=== PATIENT | male | born 1935 | race Caucasian/White ===

== ENCOUNTER 2021-11-08 10:09 | Observation (INO) | payer OTHER ==
--- OUTSIDE RECORDS SUMMARY | 2021-11-08 10:12 | XMS REPORT | Continuity of Care Document ---
:1935 Author Organization [facility] t Address [address] [place] [address] Care Team Providers Name Role Phone [phone] Attending Clinician Unavailable KALANI DAILY Attending Clinician Unavailable [phone] Admitting Clinician Unavailable Problems This patient has no known problems. Allergies, Adverse Reactions, Alerts This patient has no known allergies or adverse reactions. Medications This patient has no known medications. Procedures This patient has no known procedures. Encounters Start End Encounter Admission Attending Care Care Encounter Source Date/Time Date/Time Type Type Clinicians Facility Department ID 2021-10-04 Outpatient 3 [id number] [facility] REF [id number] [facility] 09:47:45 0512 2020-05-24 2020-05-24 Emergency E KAILEY DAILY [facility] 14:08:00 DIGNA Results This patient has no known results.
[2021-11-08 11:22] LABS: SARS-COV-2 RT PCR NEGATIVE (NEGATIVE)
[2021-11-08 12:24] VITALS: BMI 26.3
[2021-11-08] MEDS ORDERED: ACETAMINOPHEN 325 MG TABLET PO PRN (13:00)
[2021-11-08] MEDS ORDERED: POLYETHYL GLY 3350 17 GM/DOSE PO PRN (13:00)
[2021-11-08] MEDS ORDERED: NACHLORIDE 0.45% 1,000 ML IV SCH (13:00)
[2021-11-08] MEDS ORDERED: LOPERAMIDE HCL 2 MG CAPSULE PO PRN (13:00)
[2021-11-08] MEDS ORDERED: ONDANSETRON 4 MG (ODT) TAB PO PRN (13:00)
[2021-11-08] MEDS ORDERED: DIPHENHYDRAMINE 25 MG TAB/CAP PO PRN (13:00)
[2021-11-08] MEDS ORDERED: ONDANSETRON 4 MG/2 ML VIAL IV PRN (13:00)
--- NOTE | 2021-11-08 14:15 | RAD REPORT ---
EXAM DESCRIPTION: RAD - Chest Pa And Lat (2 Views) - 11/08/2021 1:58 pm CLINICAL HISTORY: anemia COMPARISON: None TECHNIQUE: Frontal and lateral views of the chest were obtained. FINDINGS: The lungs are normal volume with right hemidiaphragm elevation. Stranding is seen in the e ach lung base focally more prominent in the medial right middle lobe and posterior aspect of the ling fidel. No large mass or consolidations seen. No significant failure or volume overload. Heart size is normal and central vasculature is within normal limits. No pleural effusion or pneu mothorax seen. No acute bony finding noted. No aortic abnormality. IMPRESSION: Baseline study with focally prominent anterior bilateral lung base opacification and ove rall fibrotic pattern. Focally more prominent anterior lung base findings could be bilateral infiltrate or atelectasis.
[2021-11-08 15:28] LABS: Absolute Lymphocytes (CBC) 1.8 K/uL (0.7-4.9); Lymphocytes % 35.3 % (15.3-44.8); MPV 7.7 fL (7.6-11.3); RBC Red Blood Cell Count 2.08 M/uL (4.33-5.43)
[2021-11-08 15:47] LABS: Hematocrit 17.6 % (39.6-49.0)
[2021-11-08 16:02] LABS: Folic Acid, (Folate) 13.7 ng/mL (3.1-17.5); Transferrin 247 mg/dL (200-360)
[2021-11-08 16:03] LABS: Iron < 10.0 ug/dL (65-175)
[2021-11-08] MEDS ORDERED: NA CHLORIDE 0.9% 250 ML ONE ×2 (18:18→22:48)
[2021-11-08] MEDS ORDERED: QUETIAPINE 25 MG TAB PO SCH (21:00)
[2021-11-08] MEDS ORDERED: DONEPEZIL HCL 5 MG TAB PO SCH (21:00)
[2021-11-08] MEDS: METOPROLOL XL 50 MG TAB PO SCH (23:06)
[2021-11-09 07:17] LABS: Absolute Lymphocytes (CBC) 1.7 K/uL (0.7-4.9); Hematocrit 26.7 % (39.6-49.0); Lymphocytes % 22.8 % (15.3-44.8); MPV 7.4 fL (7.6-11.3); RBC Red Blood Cell Count 3.08 M/uL (4.33-5.43)
[2021-11-09 07:33] LABS: Magnesium 2.6 mg/dL (1.8-2.4); Potassium 4.4 mmol/L (3.5-5.1)
[2021-11-09] MEDS ORDERED: ESCITALOPRAM 20 MG TAB PO SCH (09:00)
[2021-11-09] MEDS: METOPROLOL XL 50 MG TAB PO SCH (10:25)
[2021-11-09] MEDS ORDERED: Ringers Lactate 1,000 ML IV ONE (11:31)
--- NOTE | 2021-11-09 11:32 | EKG ---
Test Date: 2021-11-08 Test Time: 14:29:19 Skein Drier: ARIANNE MEASUREMENT RESULTS: Intervals: Rate: 55 SD: 210 QRSD: 86 QT: 456 QTc: 436 [place]: P: 55 SD: 210 QRS: 67 T: -18 INTERPRETIVE STATEMENTS: Sinus bradycardia with 1st degree AV block Nonspecific ST and T wave abnormality Abnormal ECG No previous ECG available for comparison Electronically Signed On 11-09-21 11:29:12 DENTAL EQUIPMENT REPAIRER by Donald Hernandez
[2021-11-09] MEDS ORDERED: LIDOCAINE 1% MPF 5 ML VIAL ONE (12:20)
[2021-11-09] MEDS ORDERED: propofoL 200 MG/20 ML VIAL IV ONE (12:20)
[2021-11-09] MEDS ORDERED: EPINEPHRINE/PF 1 MG/ML AMP ONE (13:15)
[2021-11-09 13:54] VITALS: O2SAT 96
--- NOTE | 2021-11-09 14:09 | ENDO RPT ---
[address], [address] EGD PROCEDURE REPORT EXAM DATE: 11/09/2021 PATIENT NAME: Brett Love MR#: [id number] BIRTHDATE: 1935 ATTENDING: Jorgito Laboy Dr STATUS: inpatient - [facility] VIDEO GAME TECHNICIAN: Tati Rodriguez RN and Crystal Mayer INDICATIONS: The patient is a 86 yr old Male here for an EGD due to anemia PROCEDURE PERFORMED: EGD with biopsy MEDICATIONS: Per Anesthesia. TOPICAL ANESTHETIC: none CONSENT: The patient understands the risks and benefits of the procedure and understands that these risks include, but are not limited to: sedation, allergic reaction, infection, perforation and/or bleeding. Alternative means of evaluation and treatment include, among others: physical exam, x-rays, and/or surgical intervention. The patient elects to proceed with this endoscopic procedure. DESCRIPTION OF PROCEDURE: During intra-op preparation period all mechanical medical equipment was checked for proper function. Hand hygiene and appropriate measures for infection prevention was taken. Procedure, possible complications, and alternatives including but not limited to the possibility of bleeding, perforation, tear, infection, sepsis, need for surgery, need for blood transfusion, and anesthesia related complications were explained to the patient. After the risks, benefits and alternatives of the procedure were thoroughly explained, Informed consent was verified, confirmed and timeout was successfully executed by the treatment team. The patient was placed in the left lateral position. The patient was anesthetized with topical anesthesia. Through the anesthetized oropharyngeal area, the scope was passed without any difficulty. The EG-[id number] ([id number]) endoscope was introduced through the mouth and advanced to the third portion of the duodenum. Retroflexed views revealed a small hiatal hernia. The gastroscope was then slowly withdrawn and removed. after abrasion with endoscope was found in the lower esophagus. A small hiatal hernia was found. A 1 cm submucosal extrinsic mass was found pressing on the wall of the body of the stomach. Multiple erosions were found in the antrum. Multiple biopsies were obtained and sent to pathology. Duodenitis was found in the bulb of the duodenum. ADVERSE EVENTS: There were no complications. IMPRESSIONS: 1. LA Class C esophagitis with 3 large 6-30 mm serpiginous 2. Small hiatal hernia 3. 1 cm submucosal extrinsic mass pressing on wall of the body of the stomach 4. Multiple (6) erosions in the antrum, s/p gastric biopsies 5. Mild duodenitis in the bulb of the duodenum RECOMMENDATIONS: 1. await biopsy results 2. acid suppression therapy 3. CT abdomen REPEAT EXAM: Jorgito Laboy Dr eSigned: Jorgito Laboy Dr 11/09/2021 2:08 PM cc: Hector Pedroza CPT CODES: ICD9 CODES: PATIENT NAME: Brett Love MR#: [id number]
[2021-11-09 17:40] VITALS: BP 177/79; TEMP 97.7
--- NOTE | 2021-11-09 18:28 | RAD REPORT ---
EXAM DESCRIPTION: CT - Abdomen W/Wo Contrast - 11/09/2021 6:08 pm CLINICAL HISTORY: Abdominal pain COMPARISON: None TECHNIQUE: Computed axial tomography from the diaphragm to the iliac crest was obtained. Oral contra st was given. 100 cc Isovue-[address] scans are performed using dose optimization technique as appropriate and may include automated exposure control or mA/KV adjustment according to patient size. FINDINGS: The evaluation of solid organs and vessels is limited secondary to the lack of IV contrast administration. Small bilateral pleural effusions The liver, spleen, adrenals, pancreas and kidneys appear unremarkable. No ascites is seen. The visualized bowel caliber and wall thickness is normal Small lipoma left lateral abdominal wall Clinical history states extrinsic gastric mass. The superomedial aspect of the spleen abuts the later al gastric fundus. It does appear to slightly extrinsically compresses the stomach. The gallbladder abuts the lateral aspect of the gastric antrum with slight extrinsic compression. IMPRESSION: The superomedial aspect of the spleen abuts the lateral gastric fundus. It does appear m ildly extrinsically compress the stomach. The gallbladder abuts the lateral aspect of the gastric antrum with slight extrinsic compression. No extrinsic gastric mass is seen. Small gastric mass can be missed on CT.
--- NOTE | 2021-11-11 14:14 | CON ---
Date of Consultation: 11/09/2021 Reason For Consultation: Anemia. History Of Present Illness: The patient is an 86-year-old white male with history of early dementia, hypertension, appendectomy, tonsillectomy, vasectomy, coronary artery disease status post cardiac 1 stent, bilateral hand surgeries for contractures. The patient was admitted to the hospital with a he moglobin of 5.7, MCV of 85. The patient denies any blood being seen. Son is at his bedside. Son sa id he noted no blood. No melena, hematochezia, hematemesis, coffee-grounds emesis, hemoptysis, hemat uria, dysuria, polyuria, polydipsia. Past Medical History: Significant for early dementia, hypertension, coronary artery disease, status post cardiac stent x1, bilateral hand surgeries right and left hand due to contractures, appendectomy , vasectomy, and tonsillectomy. Medications: At home Aricept, Toprol, Lexapro, prasugrel, mirtazapine, hydralazine, Zyrtec, Norvasc. Allergies: NKDA. Social History: He is a , 2 children. [facility] at [facility]. No to bacco. Occasional alcohol. Family History: Father from cerebral hemorrhage. Mother of brain cancer and also had stro ke. Review of Systems: The patient has anemia and dementia. He denies any melena, hematochezia, hematemesis, , po lydipsia, hemoptysis, change in bowel habits, diarrhea, constipation, muscle aches, joint aches, back aches, depression, anxiety. No blood seen by the patient or his son. Physical Examination: Vital Signs: Temperature 97 degrees Fahrenheit, on room air. GENERAL: He is elderly male, lying in bed, in no acute distress. HEENT: Normocephalic, atraumatic. Anicteric. Pupils equal, round, and reactive to light. Extraocu lar movements intact. Oropharynx is clear. Neck: Supple. No masses. Respirations: Clear to auscultation bilaterally. Cardiac: Regular rate and rhythm. No gallops or rubs. Abdomen: Positive bowel sounds. Soft, nontender, and nondistended. No palpable mass. Extremities: No clubbing, cyanosis, or edema. 2+ pulses. Neuro: Alert and oriented x2. He is able move all extremities well. Sensation intact to light touc h. Laboratory Data: The patient has a hemoglobin of 5.7, hematocrit of 17.6. After transfusion, the he moglobin is 8.8, hematocrit 27, MCV of 85, platelet count of 421, polys of sodium 139, pot assium 4.4, chloride 107, bicarb 28, BUN of 15, creatinine of 1.03, glucose 88, calcium 8.4, mag 2.6, . He had a negative influenza A and B and negative COVID-19 testing. Impression: 1.Iron deficiency anemia with hemoglobin down to 5.7, MCV of 85; however, he has an iron saturation of 2.9%. Ferritin was not drawn. 2.History of early dementia, hypertension, coronary artery disease, status post cardiac stent x1, ri ght and left hand surgery, appendectomy, tonsillectomy, and vasectomy. Recommendations: 1.Proceed with EGD. Agree with transfusion of packed RBCs and serial H and H and transfuse p.r.n. 2.Inpatient or outpatient colonoscopy. WARD/ANATOLY Voice ID: [id number] Report ID: [id number]
[2021-11-12 04:39] LABS: Albumin, (SPE) 3.4 g/dL (3.8-4.8); Alpha-1-Globulins 0.3 g/dL (0.2-0.3); Alpha-2-Globulins 0.7 g/dL (0.5-0.9); Gamma Globulins 0.5 g/dL (0.8-1.7); INTERPRETATION Consistent with
== END 2021-11-09 19:00 | disposition home or self-care (01) ==
LOC: 2ND 10:09
PROVIDERS: ADMIT Internal Medicine; ATTEND Internal Medicine
PROC: 30233N1 Transfusion of Nonautologous Red Blood Cells into Peripheral Vein, Percutaneous Approach (ICD-10-PCS; principal; 2021-11-08)
PROC: 30233N1 Transfusion of Nonautologous Red Blood Cells into Peripheral Vein, Percutaneous Approach (ICD-10-PCS; 2021-11-09)
PROC: 0DB78ZX Excision of Stomach, Pylorus, Via Natural or Artificial Opening Endoscopic, Diagnostic (ICD-10-PCS; 2021-11-09)
DX: D50.9 Iron deficiency anemia, unspecified (principal); K22.10 Ulcer of esophagus without bleeding; K91.81 Other intraoperative complications of digestive system; Y65.8 Other specified misadventures during surgical and medical care; Y73.8 Miscellaneous gastroenterology and urology devices associated with adverse incidents, not elsewhere classified; Y92.238 Other place in hospital as the place of occurrence of the external cause; K25.9 Gastric ulcer, unspecified as acute or chronic, without hemorrhage or perforation; K29.50 Unspecified chronic gastritis without bleeding; K29.80 Duodenitis without bleeding; K44.9 Diaphragmatic hernia without obstruction or gangrene; R19.09 Other intra-abdominal and pelvic swelling, mass and lump; I10 Essential (primary) hypertension; I25.10 Atherosclerotic heart disease of native coronary artery without angina pectoris; E78.5 Hyperlipidemia, unspecified; F41.8 Other specified anxiety disorders; G30.0 Alzheimer's disease with early onset; F02.80 Dementia in other diseases classified elsewhere, unspecified severity, without behavioral disturbance, psychotic disturbance, mood disturbance, and anxiety; Z79.899 Other long term (current) drug therapy; Z95.5 Presence of coronary angioplasty implant and graft; Z98.52 Vasectomy status; Z20.822 Contact with and (suspected) exposure to COVID-19; Z82.3 Family history of stroke; Z80.8 Family history of malignant neoplasm of other organs or systems
CPT/HCPCS: 36430 ×2; 43239; 93005; 85025 ×2; 80048; 36415 ×2; 86900; 83735; 86850; 88312; 85044; 86901; 88305; 82746; 82607; 83540; 0240U; 84466; 84165; 74170; 71046; Q9967; J2704; G0378 ×3; P9016 ×3; J7120; J7050 ×2; J0171

== ENCOUNTER 2022-06-26 00:56 | Observation (INO) | payer OTHER ==
--- OUTSIDE RECORDS SUMMARY | 2022-06-26 01:00 | XMS REPORT | Continuity of Care Document ---
:1935 Author Organization [facility] t Address [address] [place] [address] Care Team Providers Name Role Phone [phone] Attending Clinician Unavailable Spencer Hernandez Attending Clinician Michael Ritter Jr Attending Clinician Caleb Gross Attending Clinician CALEB GROSS Attending Clinician Unavailable [id number] Admitting Clinician Unavailable Problems Condition Condition Condition Status Onset Resolution Last Treating Co mments Source Name Details Category Date Date Treatment Clinician Date AMS AMS Diagnosis Active 2020-05-24 Mem oria Active 05-24 11:03:00 l 05/24/2020 07:00: Jacky dang [place] [id number] [place] Anxiety Anxiety Problem Active 2021-11-28 Me bernice (finding) (finding) 22:13:27 l Active N[place] Problem 11/28/2021 Medical [facility] Coronary Coronary Problem Active 2021-11-28 Memoria arterioscl arterioscl 22:13:27 l erosis erosis Néstor (disorder) (disorder) Active Problem 11/28/2021 Medical Group,[facility] Hypertensi Hypertens Problem Active 2021-11-28 Memoria ve edin 22:13:27 l disorder, disorder, Herm loc systemic systemic arterial arterial (disorder) (disorder) Active Problem 11/28/2021 Medical Group,[facility] Hypothyroi Hypothyro Problem Active 2021-11-28 Memoria dism idism 22:13:27 l (disorder) (disorder) Hossein rmann Active Problem 11/28/2021 Medical Group,[facility] Insomnia Insomnia Problem Active 2021-11-28 Memoria (disorder) (disorder) 22:13:27 l Active Ayn[place] Problem 11/28/2021 Medical Group,[facility] History of Past Illness Condition Condition Condition Status Onset Resolution Last Treating Co mments Source Name Details Category Date Date Treatment Clinician Date Personal Personal Problem 2020-05-26 2020-05-26 Memoria history of history of 05-24 21:56:01 21:56:01 l other other 17:00: Néstor mental and mental and 00 behavioral behavioral disorders disorders 05/24/2020 05/26/2020 [facility] Disorienta Disorient Problem 2020-05-26 2020-05-26 Memoria hu watson, 05-24 21:56:01 21:56:01 l unspecifie unspecifie 17:00: He lily d d 00 05/24/2020 05/26/2020 [facility] Allergies, Adverse Reactions, Alerts This patient has no known allergies or adverse reactions. Social History Social Habit Start Date Stop Date Quantity Comments Source Social History 2020-05-24 2020-05-24 [facility] Rhea bette 16:13:52 16:13:52 Medications Ordered Filled Start Stop Current Ordering Indication Dosage Frequency Signature Comments Components Source Medication Medication Date Date Medication? Clinician (SIG) Name Name prasugrel 2019-09 Yes 10 mg = 1 Mem oria 10 mg oral 0-06 tab, PO, l tablet 18:38: Daily, # Aynor 00 30 tab, 0 Refill(s) Hydralazine 2019-09 Yes 50 mg = 1 M emoria Hydrochlori 0-06 tab, PO, l de 50 MG 18:38: TID, # 90 Herm loc Oral Tablet 00 tab, 3 Refill(s) metoprolol 2019-09 Yes 50 mg = 1 Me moria tartrate 50 0-06 tab, PO, l mg oral 18:38: BID, # 60 Ernestina nn tablet 00 tab, 0 Refill(s) amLODIPine 2019-09 Yes 5 mg = 1 Mem oria 5 mg oral 0-06 tab, PO, l tablet 18:38: Daily, # N[place]stor 00 30 tab, 0 Refill(s) atorvastati 2019-09 Yes 40 mg = 1 M emoria n 40 mg 0-06 tab, PO, l oral tablet 18:38: Daily, # He rmann 00 90 tab, 3 Refill(s), Pharmacy: [id number], 180.34, cm, 06/13/20 13:12:00 CDT, Height, 78.182, kg, 06/13/20 13:12:00 CDT, Weight levothyroxi 2019-09 Yes 100 Memori a ne 100 mcg 0-06 microgram l (0.1 mg) 18:38: = 1 tab, Ernestina nn oral tablet 00 PO, Daily, # 90 tab, 3 Refill(s), Pharmacy: [id number], 180.34, cm, 06/13/20 13:12:00 CDT, Height, 78.182, kg, 06/13/20 13:12:00 CDT, Weight Hydralazine No 50 mg = 1 M emoria Hydrochlori 9-30 tab, PO, l de 50 MG 19:48: QID, 0 Néstor Oral Tablet 00 Refill(s) Nitroglycer Yes See Memori a in 0.4 MG 9-24 Instructio l Sublingual 17:56: ns, Aynor Tablet 00 DISSOLVE 1 TABLET UNDER THE TONGUE EVERY 5 MINUTES NEEDED FOR CHEST PAIN NOT TO EXCEED 3 DOSES, # 25 tab, 5 Refill(s), Pharmacy: [facility][id number], 180.34, cm, 05/24/20 10:51:00 CDT, Height, 77.6, kg, 05/24/20 10:51:00 C... Saline 2019-0 No Notes: Memoria Flush 0.9% -16 (Same as: l 16:15: BD Néstor 00 Posiflush) Mirtazapine 2019- Yes 30 mg = 2 M emoria 15 MG Oral 9-10 tab, PO, l Tablet 18:27: Bedtime, # Ernestina nn 00 50 tab, 1 Refill(s), Pharmacy: [facility] #[id number], 180.34, cm, 05/11/20 10:37:00 CDT, Height, 77.273, kg, 05/11/20 10:37:00 CDT, Weight Escitalopra 2020-0 Yes 5 mg = 1 Me moria m 5 MG Oral 9-10 tab, PO, l Tablet 18:25: Daily, # Néstor [Lexapro] 00 30 tab, 3 Refill(s), Pharmacy: [facility][id number], 180.34, cm, 05/11/20 10:37:00 CDT, Height, 77.273, kg, 05/11/20 10:37:00 CDT, Weight amLODIPine 2020-0 Yes 5 mg = 1 Mem oria 5 mg oral 9-03 tab, PO, l tablet 15:27: BID, 0 Néstor 00 Refill(s) Aspirin 81 2020-0 Yes 81 mg = 1 Me moria MG Enteric 9-03 tab, PO, l Coated 15:27: Daily, # N[place] Tablet 00 90 tab, 3 Refill(s) atorvastati 2020-0 Yes 40 mg = 1 M emoria n 40 mg 9-03 tab, PO, l oral tablet 15:27: Daily, 0 He rmann 00 Refill(s) PanOxyl 2020-0 Yes TOP, BID, Memor ia Maximum 9-03 0 l Strength 15:27: Refill(s) Herm loc Foaming 00 Acne Wash Zyrtec 2020-0 Yes Daily, 0 Memoria 9-03 Refill(s) l 15:27: N[place]st[place] 00 donepezil 5 2020-0 Yes 5 mg = 1 Me moria mg oral 9-03 tab, PO, l tablet 15:27: Bedtime, 0 Ernestina nn 00 Refill(s) Chondroitin 2020-0 Yes PO, Daily, Memoria -Glucosamin 9-03 0 l e 15:27: Refill(s) [place] 00 Hydralazine 2020-0 Yes 100 mg = 1 Memoria Hydrochlori 9-03 tab, PO, l de 100 MG 15:27: TID, # 90 Her almendarez Oral Tablet 00 tab, 3 Refill(s) levothyroxi 2020-0 Yes 100 Memori a ne 100 mcg 9-03 microgram l (0.1 mg) 15:27: = 1 tab, Ernestina nn oral tablet 00 PO, Daily, 0 Refill(s) lisinopril 2020-0 Yes 40 mg = 1 Me moria 40 mg oral -03 tab, PO, l tablet 15:27: Daily, 0 Nsétor 00 Refill(s) melatonin 5 2020-0 Yes 5 mg = 1 Me moria mg oral -03 tab, PO, l tablet 15:27: Bedtime, [place] 00 PRN for insomnia, # 60 tab, 0 Refill(s) metoprolol 2020-0 Yes 50 mg = 1 Me moria tartrate 50 - tab, PO, l mg oral 15:27: BID, 0 Né[place] tablet 00 Refill(s) Omeprazole 2020-0 Yes PO, Daily, M emoria 05-11 0 l 15:27: Refill(s) N[place] 00 prasugrel 2020-0 Yes 10 mg = 1 Mem oria 10 mg oral 05-11 tab, PO, l tablet 15:27: Daily, 0 N[place] 00 Refill(s) prazosin 2 2020-0 Yes 2 mg = 1 Mem oria mg oral 05-11 cap, PO, l capsule 15:27: TID, 0 [place] 00 Refill(s) spironolact 2020-0 Yes 50 mg = 1 M emoria one 50 mg 05-11 tab, PO, l oral tablet 15:27: Daily, 0 He rmann 00 Refill(s) vortioxetin 2020-0 Yes 20 mg = 1 M emoria e 20 mg 05-11 tab, PO, l oral tablet 15:27: Daily, 0 He rmann 00 Refill(s) Diclofenac 2020-0 Yes 2 gm, TOP, M emoria Sodium 0.01 05-11 QID, 0 l MG/MG 15:27: Refill(s) [place] Topical Gel 00 Lorazepam 1 2020-0 Yes 1 mg = 1 Me moria MG Oral 05-11 tab, PO, l Tablet 15:27: TID, 0 N[place] 00 Refill(s) Nitroglycer 2020-0 Yes 0.4 mg = 1 Memoria in 0.4 MG 05-11 tab, SL, l Sublingual 15:27: Q5Min, 0 Her almendarez Tablet 00 Refill(s) Vital Signs Vital Name Observation Time Observation Value Comments Source Systolic (mm Hg) 2020-07-11 19:29:00 Pee rial [place] Diastolic (mm Hg) 2020-07-11 19:29:00 Mem orial [place] Heart Rate 2020-07-11 19:29:00 [facility] [place] Temperature Oral (F) 2020-07-11 19:29:00 98.1 F Memorial [place] Height 2020-07-11 19:29:00 180.34 cm Memorial [place] Weight 2020-07-11 19:29:00 [facility] [place] BMI Calculated 2020-07-11 19:29:00 Memori al [place] Systolic (mm Hg) 2020-06-13 18:00:00 Pee rial [place] Diastolic (mm Hg) 2020-06-13 18:00:00 Mem orial [place] Heart Rate 2020-06-13 18:00:00 [facility] [place] Temperature Oral (F) 2020-06-13 18:00:00 98.6 F Memorial [place] Height 2020-06-13 18:00:00 180.34 cm Memorial [place] Weight 2020-06-13 18:00:00 [facility] [place] BMI Calculated 2020-06-13 18:00:00 Memori al [place] Respitory Rate 2020-05-24 18:54:00 Memori al [place] Systolic (mm Hg) 2020-05-24 18:54:00 Pee rial [place] Diastolic (mm Hg) 2020-05-24 18:54:00 Mem orial [place] Temperature Oral (F) 2020-05-24 18:54:00 98.3 F Memorial [place] Respitory Rate 2020-05-24 18:00:00 Memori al [place] Systolic (mm Hg) 2020-05-24 18:00:00 Pee rial [place] Diastolic (mm Hg) 2020-05-24 18:00:00 Mem orial [place] Respitory Rate 2020-05-24 16:52:00 Memori al [place] Systolic (mm Hg) 2020-05-24 16:52:00 Pee rial [place] Diastolic (mm Hg) 2020-05-24 16:52:00 Mem orial [place] Heart Rate 2020-05-24 16:03:00 [facility] [place] Height 2020-05-24 15:47:00 180.34 cm Memorial [place] BMI Calculated 2020-05-24 15:47:00 Memori al [place] Weight 2020-05-24 15:47:00 Memorial [place] Heart Rate 2020-05-24 15:47:00 [facility] [place] Temperature Oral (F) 2020-05-24 15:47:00 98.2 F [facility] [place] Systolic (mm Hg) 2020-05-11 15:25:00 Pee craft [place] Diastolic (mm Hg) 2020-05-11 15:25:00 Mem burt [place] Heart Rate 2020-05-11 15:25:00 [facility] [place] Temperature Oral (F) 2020-05-11 15:25:00 98.0 F Memorial [place] Height 2020-05-11 15:25:00 180.34 cm Memorial [place] Weight 2020-05-11 15:25:00 [facility] [place] BMI Calculated 2020-05-11 15:25:00 Deandra gabriel [place] Procedures Procedure Date / Time Performed Performing Clinician Edu pendleton PCI - Percutaneous 2020-01-16 05:00:00 [facility] Ayn[place] coronary intervention Encounters Start End Encounter Admission Attending Care Care Encounter Source Date/Time Date/Time Type Type Clinicians Facility Department ID 2021-10-04 Outpatient 3 [id number] ENCTY REF [id number] ENCTY 09:47:45 0512 2021-11-26 2021-11-26 Ambulatory nullFlavo MNA [id number] Memoria 19:45:00 19:45:00 Pre-Reg r Neurology 04 l Anthony Néstor 2021-11-26 2021-11-26 Outpatient MHIE MHIE [id number] Memoria 14:45:00 14:45:00 04 abby A[place] 2021-11-26 2021-11-26 Outpatient MARCIN HernandezSCHALEKS [id number] 14:45:00 14:45:00 Spencer 04 Jorgito 2020-07-11 2020-07-12 Outpatient nullFlavo [facility] [id number] Memoria 19:30:00 05:59:59 r Primary 03 abby [facility] 2020-07-11 2020-07-11 Outpatient ANDRAE Ritter MG [id number] 13:30:00 23:59:59 Michael Reid 2020-07-11 2020-07-11 Outpatient MHIE MHIE [id number] Memoria 13:30:00 13:30:00 03 abby Palm 2020-06-13 2020-06-14 Outpatient nullFlavo MHMG [id number] Memoria 18:30:00 04:59:59 r Primary 02 [facility] 2020-06-13 2020-06-13 Outpatient Riya, MHMG MHMG [id number] 13:30:00 23:59:59 Michael Julio 2020-06-13 2020-06-13 Outpatient MHIE MHIE [id number] Memoria 13:30:00 13:30:00 02 [facility] 2020-06-07 2020-06-09 Phone nullFlavo MHMG [id number] Memoria 19:42:51 04:59:59 Message r Primary 01 [facility] 2020-06-07 2020-06-08 Outpatient MHMG MHMG [id number] 14:42:51 23:59:59 2020-06-01 2020-06-03 Phone nullFlavo MHMG [id number] Memoria 15:04:04 04:59:59 Message r Primary 00 [facility] 2020-06-01 2020-06-02 Outpatient MHMG MHMG [id number] 10:04:04 23:59:59 00 2020-05-24 2020-05-24 Emergency [facility] [id number] Memoria 15:46:48 19:08:[address] 2020-05-24 2020-05-24 Outpatient Renato [id number] 10:46:48 14:08:00 Caleb [id number] Chin [id number] 2020-05-24 2020-05-24 Emergency E RENATO, MHCY MHCY [id number] MHCY 10:46:00 14:08:00 CALEB 2020-05-18 2020-05-19 [place] [id number] Memoria 18:00:00 04:59:59 r Primary 01 [facility] 2020-05-18 2020-05-18 Outpatient Riya, MHMG MG [id number] 13:00:00 23:59:59 Michael Sumanth 2020-05-18 2020-05-18 Outpatient MHIE MHIE [id number] Memoria 13:00:00 13:00:00 01 [facility] 2020-05-11 2020-05-12 Outpatient nullFlavo [facility] [id number] Memoria 15:30:00 04:59:59 r Primary 00 l Neda [facility] 2020-05-11 2020-05-11 Outpatient Riya [facility] [id number] 10:30:00 23:59:59 Michael Watts 2020-05-11 2020-05-11 Outpatient [facility] [id number] Memoria 10:30:00 10:30:00 00 abby Palm Results Test Description Test Time Test Comments Results Result Comments Source URINE AND STOOL 2020-05-24 17:53:00 Test Item Value Reference Range Interpretation Comme nts UA Color (test code = UA Color) Yellow *NA*(05/24/20 12:53 PM) [facility] AND [id number] 17:53:00 Test Item Value Reference Range Interpretation Comments UA Turbidity (test code = Clear (05/24/20 12:53 UA Turbidity) PM) [facility] AND [id number] 17:53:00 Test Item Value Reference Range Interpretation Comments UA Spec Grav (test *NA*(05/24/20 12:53 PM) code = UA Spec Grav) [facility] AND [id number] 17:53:00 Test Item Value Reference Range Interpretation Comments UA pH (test code = UA pH) 7.0 1 5.0-8.0 [facility] AND [id number] 17:53:00 Test Item Value Reference Range Interpretation Comments UA Protein (test code Negative (05/24/20 12:53 = UA Protein) PM) [facility] AND [id number] 17:53:00 Test Item Value Reference Range Interpretation Comments UA Glucose (test code Negative (05/24/20 12:53 = UA Glucose) PM) [facility] AND [id number] 17:53:00 Test Item Value Reference Range Interpretation Comments UA Ketones (test code Negative *NA*(05/24/20 = UA Ketones) 12:53 PM) [facility] AND [id number] 17:53:00 Test Item Value Reference Range Interpretation Comments UA Bili (test code = Negative *NA*(05/24/20 UA Bili) 12:53 PM) [facility] AND [id number] 17:53:00 Test Item Value Reference Range Interpretation Comments UA Blood (test code = Negative (05/24/20 12:53 UA Blood) PM) [facility] AND [id number] 17:53:00 Test Item Value Reference Range Interpretation Comments UA Urobilinogen (test code = UA 0.2 0.1-1.0 Urobilinogen) [facility] AND [id number] 17:53:00 Test Item Value Reference Range Interpretation Comments UA Nitrite (test code Negative (05/24/20 12:53 = UA Nitrite) PM) [facility] AND [id number] 17:53:00 Test Item Value Reference Range Interpretation Comments UA Leuk Est (test Negative (05/24/20 12:53 code = UA Leuk Est) PM) [facility] AND [id number] 17:53:00 Test Item Value Reference Range Interpretation Comments UA Sq Epi (test code = UA Sq Epi) Few /LPF [facility] AND [id number] 17:53:00 Test Item Value Reference Range Interpretation Comments UA WBC (test code = UA WBC) 0-2 /HPF [facility] AND [id number] 17:53:00 Test Item Value Reference Range Interpretation Comments UA RBC (test code = 0-2 /HPF See_Comment [Automa rodriguez message] The UA RBC) system which ge nerated this result tra nsmitted reference range : <=2. The reference range was not used to interpr et this result as obed l/abnormal. [facility] AND [id number] 17:53:00 Test Item Value Reference Range Interpretation Comments UA Bacteria (test code = UA Few /HPF Bacteria) [id number] 16:28:00 Test Item Value Reference Range Interpretation Comments Hgb (test code = Hgb) 13.1 14.0-18.0 [id number] 16:28:00 Test Item Value Reference Range Interpretation Comments Hct (test code = Hct) 38.7 42.0-54.0 [facility] Ste[id number] 16:28:00 Test Item Value Reference Range Interpretation Comments MCV (test code = MCV) 89.7 80.0-94.0 [facility] Ste[id number] 16:28:00 Test Item Value Reference Range Interpretation Comments MCH (test code = MCH) 30.3 pg 27.0-31.0 [facility] Step[id number] 16:28:00 Test Item Value Reference Range Interpretation Comments MCHC (test code = MCHC) 33.7 32.0-36.0 [facility] Ste[id number] 16:28:00 Test Item Value Reference Range Interpretation Comments RDW (test code = RDW) 14.5 11.5-14.5 [place] [id number] 16:28:00 Test Item Value Reference Range Interpretation Comments Platelet (test code = Platelet) 284 133-450 [facility] Steph[id number] 16:28:00 Test Item Value Reference Range Interpretation Comments MPV (test code = MPV) 8.3 7.4-10.4 [facility] Ste[id number] 16:28:00 Test Item Value Reference Range Interpretation Comments Segs (test code = Segs) 67.9 45.0-75.0 [facility] Stephen[id number] 16:28:00 Test Item Value Reference Range Interpretation Comments Lymphocytes (test code = Lymphocytes) 20.1 20.0-40.0 [facility] Steph[id number] 16:28:00 Test Item Value Reference Range Interpretation Comments Monocytes (test code = Monocytes) 9.3 2.0-12.0 [facility] Ste[id number] 16:28:00 Test Item Value Reference Range Interpretation Comments Eosinophils (test code = 2.1 See_Comment [A utomated message] The Eosinophils) system which ge nerated this result tra nsmitted reference range : <=4.0. The reference r cecy was not used to int erpret this result as normal/abnormal . [id number] 16:28:00 Test Item Value Reference Range Interpretation Comments Basophils (test code = 0.6 See_Comment [Aut omated message] The Basophils) system which ge nerated this result tra nsmitted reference range : <=1.0. The reference r cecy was not used to int erpret this result as normal/abnormal . [facility] Step[id number] 16:28:00 Test Item Value Reference Range Interpretation Comments Neutrophils # (test code = Neutrophils 7.2 1.5-8.1 #) [id number] 16:28:00 Test Item Value Reference Range Interpretation Comments Lymphocytes # (test code = Lymphocytes 2.1 1.0-5.5 #) [id number] 16:28:00 Test Item Value Reference Range Interpretation Comments Monocytes # (test code 1.0 See_Comment [Aut omated message] The = Monocytes #) system which generated this result tra nsmitted reference range : <=0.8. The reference r cecy was not used to int erpret this result as normal/abnormal . [facility] [id number] 16:28:00 Test Item Value Reference Range Interpretation Comments Eosinophils # (test code 0.2 See_Comment [A utomated message] The = Eosinophils #) system whic h generated this result tra nsmitted reference range : <=0.5. The reference r cecy was not used to int erpret this result as normal/abnormal . [facility] [id number] 16:28:00 Test Item Value Reference Range Interpretation Comments Basophils # (test code 0.1 See_Comment [Aut omated message] The = Basophils #) system which generated this result tra nsmitted reference range : <=0.2. The reference r cecy was not used to int erpret this result as normal/abnormal . [facility] HospitalCARDIAC [id number] 16:28:00 Test Item Value Reference Range Interpretation Comments Troponin-I (test code no gt See_Comment [Auto mated message] The = Troponin-I) system which g enerated this result transmit rodriguez reference range : <=0.40. The reference r cecy was not used to interpr et this result as obed l/abnormal. [facility] StationSp[facility] [id number] 16:28:00 Test Item Value Reference Range Interpretation Comments Glucose Lvl (test code = Glucose Lvl) 122 70-[address] [facility] [id number] 16:28:00 Test Item Value Reference Range Interpretation Comments BUN (test code = BUN) 25 7-[address] [facility] [id number] 16:28:00 Test Item Value Reference Range Interpretation Comments Creatinine Lvl (test code = Creatinine 1.30 0.50-1.40 Lvl) [facility] StationLoxysoft GroupFORMERLY MORE[facility] MEM[facility] [id number] 16:28:00 Test Item Value Reference Range Interpretation Comments Sodium Lvl (test code = Sodium Lvl) 135 135-145 [facility]2020-09-16 16:28:00 Test Item Value Reference Range Interpretation Comments Potassium Lvl (test code = Potassium 3.4 3.5-5.1 Lvl) [facility]2020-09-16 16:28:00 Test Item Value Reference Range Interpretation Comments Chloride Lvl (test code = Chloride Lvl) 99 95-109 [facility]2020-09-16 16:28:00 Test Item Value Reference Range Interpretation Comments CO2 (test code = CO2) 28 24-32 [facility]2020-09-16 16:28:00 Test Item Value Reference Range Interpretation Comments Calcium Lvl (test code = Calcium Lvl) 8.9 8.5-10.5 [facility]2020-09-16 16:28:00 Test Item Value Reference Range Interpretation Comments Total Protein (test code = Total 7.1 6.4-8.4 Protein) [facility]2020-09-16 16:28:00 Test Item Value Reference Range Interpretation Comments Albumin Lvl (test code = Albumin Lvl) 3.9 3.5-5.0 [facility] StationLoxysoft GroupFORMERLY [facility] [id number] 16:28:00 Test Item Value Reference Range Interpretation Comments ALANINE AMINOTRANSFERASE 16 See_Comment [A utomated message] (test code = ALANINE The sys tem which AMINOTRANSFERASE) generated this result transmitted ref erence range: <=65. Th e reference range was not used to int erpret this result as normal/abnormal . [facility] [id number] 16:28:00 Test Item Value Reference Range Interpretation Comments ASPARTATE TRANSAMINASE 14 See_Comment [Aut omated message] (test code = ASPARTATE The s ystem which TRANSAMINASE) generated this result transmitted ref erence range: <=37. Th e reference range was not used to interpr et this result as normal/abnormal . [facility] StationSp[facility] [id number] 16:28:00 Test Item Value Reference Range Interpretation Comments Alk Phos (test code = Alk Phos) 61 39-136 [facility]2020-09-16 16:28:00 Test Item Value Reference Range Interpretation Comments Bili Total (test code = Bili Total) 0.3 0.2-1.3 [facility]2020-09-16 16:28:00 Test Item Value Reference Range Interpretation Comments AGAP (test code = AGAP) 11.4 10.0-20.0 [facility]2020-09-16 16:28:00 Test Item Value Reference Range Interpretation Comments B/C Ratio (test code = B/C Ratio) 19 1 6-25 [facility]2020-09-16 16:28:00 Test Item Value Reference Range Interpretation Comments Globulin (test code = Globulin) 3.2 2.7-4.2 [facility]2020-09-16 16:28:00 Test Item Value Reference Range Interpretation Comments A/G Ratio (test code = A/G Ratio) 1.2 1 0.7-1.6 [facility]2020-09-16 16:28:00 Test Item Value Reference Range Interpretation Comments eGFR (test code = eGFR) 50 [facility]2020-09-16 16:28:00 Test Item Value Reference Range Interpretation Comments Ammonia (test code = Ammonia) 19.0 [place] [facility]villeCrnlnchLZMTJTEEHH0589-77-65 16:28:00 Test Item Value Reference Range Interpretation Comments WBC X 10x3 (test code = WBC X 10x3) 10.6 3.7-10.4 [facility]villeAajlakjNEISWMZCIH6334-43-94 16:28:00 Test Item Value Reference Range Interpretation Comments RBC X 10x6 (test code = RBC X 10x6) 4.32 4.70-6.10 [facility]2020-09-03 16:45:00 Test Item Value Reference Range Interpretation Comments Vitamin B12 Lvl (test code = Vitamin 2247 [id number] B12 Lvl) [facility]2020-09-03 16:45:00 Test Item Value Reference Range Interpretation Comments Glucose Lvl (test code = Glucose Lvl) 90 65-99 [facility]2020-09-03 16:45:00 Test Item Value Reference Range Interpretation Comments BUN (test code = BUN) 25 7-25 [facility]2020-09-03 16:45:00 Test Item Value Reference Range Interpretation Comments Creatinine Lvl (test code = Creatinine 1.15 0.70-1.11 Lvl) [facility]2020-09-03 16:45:00 Test Item Value Reference Range Interpretation Comments eGFR NON-AFR. SAMMARINESE (test code = 59 eGFR NON-AFR. SAMMARINESE) [facility]2020-09-03 16:45:00 Test Item Value Reference Range Interpretation Comments eGFR (test code = eGFR 68 ) [facility]2020-09-03 16:45:00 Test Item Value Reference Range Interpretation Comments B/C Ratio (test code = B/C Ratio) 22 6-22 [place] [id number] 16:45:00 Test Item Value Reference Range Interpretation Comments Sodium Lvl (test code = Sodium Lvl) 136 135-146 [place] [id number] 16:45:00 Test Item Value Reference Range Interpretation Comments Potassium Lvl (test code = Potassium 4.6 3.5-5.3 Lvl) [facility]2020-09-03 16:45:00 Test Item Value Reference Range Interpretation Comments Chloride Lvl (test code = Chloride Lvl) 97 98-110 [place] [id number] 16:45:00 Test Item Value Reference Range Interpretation Comments CO2 (test code = CO2) 30 20-32 [facility]2020-09-03 16:45:00 Test Item Value Reference Range Interpretation Comments Calcium Lvl (test code = Calcium Lvl) 10.0 8.6-10.3 [place] [id number] 16:45:00 Test Item Value Reference Range Interpretation Comments Total Protein (test code = Total 7.3 6.1-8.1 Protein) [place] 775080-09-03 16:45:00 Test Item Value Reference Range Interpretation Comments Albumin Lvl (test code = Albumin Lvl) 4.6 3.6-5.1 [place] 775080-09-03 16:45:00 Test Item Value Reference Range Interpretation Comments Globulin (test code = Globulin) 2.7 1.9-3.7 [place] 775080-09-03 16:45:00 Test Item Value Reference Range Interpretation Comments A/G Ratio (test code = A/G Ratio) 1.7 1.0-2.5 [facility]2020-09-03 16:45:00 Test Item Value Reference Range Interpretation Comments Bili Total (test code = Bili Total) 0.4 0.2-1.2 [facility]2020-09-03 16:45:00 Test Item Value Reference Range Interpretation Comments Alk Phos (test code = Alk Phos) 60 35-144 [facility]2020-09-03 16:45:00 Test Item Value Reference Range Interpretation Comments ASPARTATE TRANSAMINASE (test code = 12 10-35 ASPARTATE TRANSAMINASE) [facility]2020-09-03 16:45:00 Test Item Value Reference Range Interpretation Comments ALANINE AMINOTRANSFERASE (test code = 7 9-46 ALANINE AMINOTRANSFERASE) [place] [address]-09-03 16:45:00 Test Item Value Reference Range Interpretation Comments WBC X 10x3 (test code = WBC X 10x3) 6.9 3.8-10.8 [place] [address]-09-03 16:45:00 Test Item Value Reference Range Interpretation Comments RBC X 10x6 (test code = RBC X 10x6) 4.41 4.20-5.80 [place] [address]-09-03 16:45:00 Test Item Value Reference Range Interpretation Comments Hgb (test code = Hgb) 13.5 13.2-17.1 [place] [address]-09-03 16:45:00 Test Item Value Reference Range Interpretation Comments Hct (test code = Hct) 40.8 38.5-50.0 [place] [address]-09-03 16:45:00 Test Item Value Reference Range Interpretation Comments MCV (test code = MCV) 92.5 80.0-100.0 [place] [address]-09-03 16:45:00 Test Item Value Reference Range Interpretation Comments MCH (test code = MCH) 30.6 pg 27.0-33.0 [place] [address]-09-03 16:45:00 Test Item Value Reference Range Interpretation Comments MCHC (test code = MCHC) 33.1 32.0-36.0 [place] [address]-09-03 16:45:00 Test Item Value Reference Range Interpretation Comments RDW (test code = RDW) 13.2 11.0-15.0 [facility]villeTapqldsZSNVRUCASM7008-49-26 16:45:00 Test Item Value Reference Range Interpretation Comments Platelet (test code = Platelet) 324 140-400 [facility]villeRaeexcqFSTWRNEQYU8538-23-58 16:45:00 Test Item Value Reference Range Interpretation Comments MPV (test code = MPV) 10.7 7.5-12.5 [facility]villeUfaddflTVLWDLTAQE6858-64-55 16:45:00 Test Item Value Reference Range Interpretation Comments Neutrophils # (test code = Neutrophils 2753 2479-0575 #) [facility]pukBIZONXOUPZ6833-41-99 16:45:00 Test Item Value Reference Range Interpretation Comments Lymphocytes # (test code = Lymphocytes 3140 850-3900 #) [facility]MqpwbfzYCZOBKZFGK1313-91-45 16:45:00 Test Item Value Reference Range Interpretation Comments Monocytes # (test code = Monocytes #) 683 200-950 [facility]villeEvbtjadVMHRKKUWQW0338-47-25 16:45:00 Test Item Value Reference Range Interpretation Comments Eosinophils # (test code = Eosinophils 262 15-500 #) [facility]villeTatbgylLBVZUTWETX9662-99-76 16:45:00 Test Item Value Reference Range Interpretation Comments Basophils # (test code 62 See_Comment [Aut omated message] The = Basophils #) system which generated this result tra nsmitted reference range : <=200. The reference r cecy was not used to int erpret this result as normal/abnormal . [facility]villeKleipifXMLJOMPVGW3275-84-91 16:45:00 Test Item Value Reference Range Interpretation Comments Segs (test code = Segs) 39.9 [facility]villeLhkeieiPWLFFOTHUJ2468-99-96 16:45:00 Test Item Value Reference Range Interpretation Comments Lymphocytes (test code = Lymphocytes) 45.5 [facility] HospitalEhczepyNKFSAZBWQI2998-96-80 16:45:00 Test Item Value Reference Range Interpretation Comments Monocytes (test code = Monocytes) 9.9 [facility]villeMjyrrjnKZTQJLNFGX3351-82-85 16:45:00 Test Item Value Reference Range Interpretation Comments Eosinophils (test code = Eosinophils) 3.8 [facility] HospitalUfyvrwyIRJOAIRUJR0584-31-92 16:45:00 Test Item Value Reference Range Interpretation Comments Basophils (test code = Basophils) 0.[address] [facility]61 16:45:00 Test Item Value Reference Range Interpretation Comments Chol (test code = Chol) 197 [facility] CampusRyoxnnoAEUPHG3535-78-26 16:45:00 Test Item Value Reference Range Interpretation Comments HDL (test code = HDL) 49 [facility] CampusUdaovktTQUPTD5080-64-53 16:45:00 Test Item Value Reference Range Interpretation Comments Trig (test code = Trig) 161 [facility] CampusAeolcuxVWHXHN2593-29-22 16:45:00 Test Item Value Reference Range Interpretation Comments LDL (Calculated) (test code = LDL 120 (Calculated)) [facility] CampusFrsapwjPABADV9656-95-68 16:45:00 Test Item Value Reference Range Interpretation Comments CHD Risk (test code = CHD Risk) 4.0 [facility] CampusYhhxniwWTFPYE9864-05-91 16:45:00 Test Item Value Reference Range Interpretation Comments Non HDL Chol (test code = Non HDL Chol) [address] [facility]
[2022-06-26 01:41] LABS: Absolute Lymphocytes (CBC) 2.2 K/uL (0.7-4.9); Hematocrit 38.4 % (39.6-49.0); MPV 8.6 fL (7.6-11.3); RBC Red Blood Cell Count 4.37 M/uL (4.33-5.43)
[2022-06-26 01:48] LABS: Protime INR 0.96
[2022-06-26 01:54] LABS: SARS-CoV-2 Antigen Rapid Res Negative (Negative)
[2022-06-26] MEDS ORDERED: NA CHLORIDE 0.9% 1,000 ML ONE (01:55)
[2022-06-26 01:58] LABS: Potassium 3.9 mmol/L (3.5-5.1); Troponin High Sensitivity 10.3 pg/mL (<58.9)
[2022-06-26 02:07] LABS: Urine Blood Negative (Negative); Urine Glucose Negative (Negative); Urine Protein Trace (Negative); Urine Specific Gravity 1.025 (1.005-1.030); Urine pH 5.5 (5.0-7.0)
[2022-06-26 02:32] LABS: Urine Bacteria <20 /HPF (<20); Urine Mucus Slight /HPF (None Seen); Urine RBC <5 /HPF (None Seen)
--- NOTE | 2022-06-26 02:42 | ER ---
Nurse's Notes [facility] Name: Brett Love Age: 87 yrs Sex: Male : 1935 Arrival Date: 06/26/2022 Time: 00:57 Bed 6 Private MD: Diagnosis: Altered mental status, unspecified;Dehydration Presentation: 06/26 00:55 Chief complaint: Chief complaint: EMS states: Pt was seen by his son at 8 PM last night kd3 at [facility]. The son reported that the patient had called him around midnight complaining that someone was breaking into the car, but the patient hadn't had access to a vehicle in a long time. The son was concerned for a possibility of a stroke due to slurred speech and inter minted confusion. On arrival pt was a\T\o x 3, with a steady gait, equal smile and no arm drift. it was discovered that the pt had a alodize machine operator in place and the patient had called his son with the alodize machine operator in place, causing slurred speech. 00:55 Method Of Arrival: EMS: [facility] kd3 00:55 Coronavirus screen: Vaccine status: Patient reports receiving the 2nd dose of the covid kd3 vaccine. Ebola Screen: No symptoms or risks identified at this time. Initial Sepsis Screen: Does the patient meet any 2 criteria? No. Patient's initial sepsis screen is negative. Does the patient have a suspected source of infection? No. Patient's initial sepsis screen is negative. Risk Assessment: Do you want to hurt yourself or someone else? Patient reports no desire to harm self or others. Onset of symptoms was June 26, 2022. 00:55 Acuity: FAITH 3 kd3 Triage Assessment: 00:55 General: Appears in no apparent distress. Behavior is calm, cooperative. kd3 00:55 Pain: Denies pain. Neuro: Level of Consciousness is awake, alert, obeys commands, kd3 Oriented to person, place, time, situation, Financial Sales Professional are equal bilaterally Moves all extremities. Full function Gait is steady, Speech is normal, Facial symmetry appears normal, Pupils are PERRLA, Intact. Historical: - Allergies: 01:41 No Known Allergies; kd3 - Immunization history:: Adult Immunizations up to date. - Social history:: Smoking status: unknown. - Family history:: not pertinent. - Hospitalizations: : No recent hospitalization is reported. Screenin:34 Abuse screen: Denies threats or abuse. Denies injuries from another. Nutritional kd3 screening: No deficits noted. Tuberculosis screening: No symptoms or risk factors identified. Fall Risk None identified. IV access (20 points). 02:11 Patient has been NPO before screening. The patient is alert, able to follow commands. kd3 The patient does not exhibit slurred or garbled speech The patient is not exhibiting difficulty speaking. The patient does not exhibit difficulty understanding words. The patient is able to swallow own secretions with no drooling or need for suction. Patient tolerated one teaspoon of water. No drooling, immediate coughing, gurgling, or clearing of the throat was noted. The patient tolerated 90mL of water. No drooling, immediate coughing, gurgling, or clearing of the throat was noted. The patient passed the bedside swallow screening. Oral medications may be given as ordered. Contact Physician for further diet orders. Provider notified of bedside swallow screening results: Arcenio Hankins MD. Assessment: 01:43 Reassessment: Patient and/or family updated on plan of care and expected duration. Pain kd3 level reassessed. Patient is alert, oriented x 3, equal unlabored respirations, skin warm/dry/pink. Patient denies pain at this time. General: Appears in no apparent distress. Behavior is calm, cooperative. Pain: Denies pain. Neuro: Level of Consciousness is awake, alert, obeys commands, Oriented to person, place, time, situation, Financial Sales Professional are equal bilaterally Moves all extremities. Full function Gait is steady, Speech is normal, Facial symmetry appears normal, Pupils are PERRLA, Intact. Respiratory: Airway is patent Trachea midline Respiratory effort is even, unlabored, Respiratory pattern is regular, symmetrical. Vital Signs: 01:30 BP 188 / 81; Pulse 64; Resp 16; Temp 98.2; Pulse Ox 97% on R/A; kd3 01:42 Temp 98.2(O); Weight 83.91 kg; Height 5 ft. 11 in. (180.34 cm); Pain 0/10; kd3 03:49 BP 184 / 87; Pulse 62; Resp 12; Pulse Ox 96% on R/A; kd3 04:07 BP 157 / 91; Pulse 66; Resp 15; Pulse Ox 95% on R/A; kd3 01:42 Body Mass Index 25.80 (83.91 kg, 180.34 cm) kd3 NIH Stroke Scale Scores: 00:56 NIHSS Score: 0 kd3 01:01 NIHSS Score: 1 paramedic rn Course: 00:55 Arm band placed on right wrist. kd3 00:57 Patient arrived in ED. kd3 00:58 Arcenio Hankins MD is Attending Physician. rn 01:08 Bibi Andino RN is Primary Nurse. kd3 01:10 CT Stroke Brain w/o Contrast In Process Unspecified. EDMS 01:23 Stroke CXR 1 View In Process Unspecified. EDMS 01:41 Triage completed. kd3 01:42 Patient has correct armband on for positive identification. kd3 01:43 No provider procedures requiring assistance completed. Maintain EMS IV. Dressing kd3 intact. Good blood return noted. Site clean \T\ dry. Gauge \T\ site: 18 g left A/C. 01:44 SARS RAPID Sent. kd3 01:44 Basic Metabolic Panel Sent. kd3 01:44 High Sensitivity Troponin Sent. kd3 01:44 Protime (+inr) Sent. kd3 01:44 Ptt, Activated Sent. kd3 01:[address] In Process Unspecified. EDMS 01:[address] In Process Unspecified. EDMS 02:41 Trupti Tinajero MD is Hospitalizing Provider. rn 03:59 Patient admitted, IV remains in place. kd3 07:18 Primary Nurse role handed off by Bibi Andino RN bd 10:28 Milagro Bishop RN is Primary Nurse. mb9 Administered Medications: 02:10 Drug: NS 0.9% 1000 ml Route: IV; Rate: 1000 ml; Site: left forearm; kd3 03:50 Follow up: Response: No adverse reaction kd3 03:59 Follow up: Response: No adverse reaction; IV Status: Completed infusion; IV Intake: kd3 1000ml Medication: 01:42 VIS not applicable for this client. kd3 Intake: 03:59 IV: 1000ml; Total: 1000ml. kd3 Outcome: 02:41 Decision to Hospitalize by Provider. rn 03:58 Admitted to ER Hold. Please see [facility] for further documentation. kd3 03:58 Condition: stable 03:58 Discharge instructions given to patient, Instructed on follow up and referral plans. the need for admit, Demonstrated understanding of instructions. 13:15 Patient left the ED. mb9 NIH Stroke Scale - NIH Stroke Score Date: 06/26/2022 Time: 00:56 Total Score = 0 1a. Level of Consciousness (LOC) - 0(Alert) 1b. Level of Consciousness (LOC) (Month \T\ Age) - 0(Both) 1c. LOC Commands (Open \T\ Closes Eyes/Furniture Crater) - 0(Both) 2. Best Gaze (Lateral Gaze Paresis) - 0(Normal) 3. Visual Field Loss - 0(No visual loss) 4. Facial Palsy - 0(Normal) 5a. Left Arm: Motor (10-second hold) - 0(No drift) 5b. Right Arm: Motor (10-second hold) - 0(No drift) 6a. Left Leg: Motor (5-second hold - always test supine) - 0(No drift) 6b. Right Leg: Motor (5-second hold - always test supine) - 0(No drift) 7. Limb Ataxia (finger/nose \T\ heel/dunn - test with eyes open) - 0(Absent) 8. Sensory Loss (pinprick arms/legs/face) - 0(Normal) 9. Best Language: Aphasia (description/naming/reading) - 0(No aphasia) 10. Dysarthria (speech clarity - read or repeat words) - 0(Normal) 11. Extinction and Inattention (visual/tactile/auditory/spatial/personal) - 0(No abnormality) Initials: kd3 NIH Stroke Scale - NIH Stroke Score Date: 06/26/2022 Time: 01:01 Total Score = 1 1a. Level of Consciousness (LOC) - 0(Alert) 1b. Level of Consciousness (LOC) (Month \T\ Age) - 0(Both) 1c. LOC Commands (Open \T\ Closes Eyes/Furniture Crater) - 0(Both) 2. Best Gaze (Lateral Gaze Paresis) - 0(Normal) 3. Visual Field Loss - 0(No visual loss) 4. Facial Palsy - 0(Normal) 5a. Left Arm: Motor (10-second hold) - 0(No drift) 5b. Right Arm: Motor (10-second hold) - 0(No drift) 6a. Left Leg: Motor (5-second hold - always test supine) - 0(No drift) 6b. Right Leg: Motor (5-second hold - always test supine) - 0(No drift) 7. Limb Ataxia (finger/nose \T\ heel/dunn - test with eyes open) - 0(Absent) 8. Sensory Loss (pinprick arms/legs/face) - 0(Normal) 9. Best Language: Aphasia (description/naming/reading) - 0(No aphasia) 10. Dysarthria (speech clarity - read or repeat words) - 1(Mild to Moderate) 11. Extinction and Inattention (visual/tactile/auditory/spatial/personal) - 0(No abnormality) Initials: rn Signatures: Dispatcher [employer] EDTami Alcaraz Roman, MD MD rn Doucette, Kyli, RN RN kd3 Milagro Bishop, ROBIN RN mb9 Corrections: (The following items were deleted from the chart) 01:39 01:09 Chief complaint: kd3 kd3
--- NOTE | 2022-06-26 02:42 | EDPHYS ---
Physician Documentation [facility] Name: Brett Love Age: 87 yrs Sex: Male : 1935 Arrival Date: 06/26/2022 Time: 00:57 Bed 6 Private MD: ED Physician Arcenio Hankins HPI: 06/26 01:01 This 87 yrs old Male presents to ER via Unassigned with complaints of slurred speech. rn 01:01 The patient presents to the emergency department with a speech or higher order brain rn function problem, slurred. Onset: The symptoms/episode began/occurred at an unknown time. Associated signs and symptoms: Pertinent positives: This patient does not have any pertinent positives. Pertinent negatives: altered mental status, fever, headache, seizure, syncope, near-syncope, blurred vision, double vision, visual field changes, loss of vision, weakness. Severity of symptoms: At their worst the symptoms were unknown baseline. The patient has not experienced similar symptoms in the past. The patient has not recently seen a physician. EMS reports son spoke with father just now on phone, noted slurred speech, so 911 called from [facility]. Son was with patient at 8PM last night, told EMS was speaking at baseline at that time. Pt reports had nightguard in when speaking with son and makes him speak funny. Patient reports speech is normal for him and has no complaints. No focal weakness/numbness/vision changes. . Historical: - Allergies: 01:41 No Known Allergies; kd3 - Immunization history:: Adult Immunizations up to date. - Social history:: Smoking status: unknown. - Family history:: not pertinent. - Hospitalizations: : No recent hospitalization is reported. ROS: 01:01 Constitutional: Negative for fever, chills, and weight loss, Eyes: Negative for injury, rn pain, redness, and discharge, ENT: Negative for injury, pain, and discharge, Neck: Negative for injury, pain, and swelling, Cardiovascular: Negative for chest pain, palpitations, and edema, Respiratory: Negative for shortness of breath, cough, wheezing, and pleuritic chest pain, Abdomen/GI: Negative for abdominal pain, nausea, vomiting, diarrhea, and constipation, Back: Negative for injury and pain, MS/Extremity: Negative for injury and deformity, Skin: Negative for injury, rash, and discoloration, Neuro: Negative for headache, weakness, numbness, tingling, and seizure. Exam: 01:01 Constitutional: This is a well developed, well nourished patient who is awake, alert, rn and in no acute distress. Joking and smiling. Head/Face: Normocephalic, atraumatic. ENT: dry MM Cardiovascular: Regular rate and rhythm. No pulse deficits. Respiratory: No increased work of breathing, no retractions or nasal flaring. Abdomen/GI: Soft, non-tender Skin: Warm, dry MS/ Extremity: Pulses equal, no cyanosis. Neuro: Awake and alert, GCS 15, oriented to person, place, time, and situation. No facial droop. + mild slurred speech (unknown baseline), worse with nightguard in. Motor strength 5/5 in all extremities. Sensory grossly intact. Cerebellar exam normal. 01:35 ECG was reviewed by the Attending Physician. rn Vital Signs: 01:30 BP 188 / 81; Pulse 64; Resp 16; Temp 98.2; Pulse Ox 97% on R/A; kd3 01:42 Temp 98.2(O); Weight 83.91 kg; Height 5 ft. 11 in. (180.34 cm); Pain 0/10; kd3 03:49 BP 184 / 87; Pulse 62; Resp 12; Pulse Ox 96% on R/A; kd3 04:07 BP 157 / 91; Pulse 66; Resp 15; Pulse Ox 95% on R/A; kd3 01:42 Body Mass Index 25.80 (83.91 kg, 180.34 cm) kd3 NIH Stroke Scale Scores: 00:56 NIHSS Score: 0 kd3 01:01 NIHSS Score: 1 rn MDM: 00:58 Patient medically screened. rn 01:29 ED course: SPoke with son Nik on the phone just now, he reports more confused and rn altered for him rather than slurred speech. Son states nurse told him she noticed slurred speech earlier. Son also reports last saw patient around [phone] yesterday evening. Takes 81mg aspirin. 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 . 01:31 ED course: CT head stroke protocol neg for acute findings. . rn 02:41 Data reviewed: vital signs, nurses notes, lab test result(s), EKG, radiologic studies, rn CT scan, plain films, and as a result, I will admit patient. Counseling: I had a detailed discussion with the patient and/or guardian regarding: the historical points, exam findings, and any diagnostic results supporting the discharge/admit diagnosis, lab results, radiology results, the need for further work-up and treatment in the hospital. Admission orders: after a detailed discussion of the patient's condition and case, the admit orders are written by me. 06/26 01:00 Order name: Basic Metabolic Panel; Complete Time: 02:02 rn 06/26 01:00 Order name: CBC with Diff; Complete Time: :50 rn 06/26 01:00 Order name: High Sensitivity Troponin; Complete Time: 02:02 06/26 01:00 Order name: Protime (+inr); Complete Time: :50 06/26 01:00 Order name: Ptt, Activated; Complete Time: 01:50 06/26 01:00 Order name: SARS RAPID; Complete Time: 02:02 06/26 01:00 Order name: CT Stroke Brain w/o Contrast 06/26 01:00 Order name: Stroke CXR 1 View rn 06/26 01:00 Order name: Head Angio CT 06/26 01:00 Order name: Neck Angio CT 06/26 01:00 Order name: Urine Microscopic Only; Complete Time: 02:32 rn 06/26 01:31 Order name: Glucose, Ancillary Testing; Complete Time: 01:50 EDMS 06/26 02:07 Order name: CREATININE WHOLE BLOOD; Complete Time: 02:08 EDMS 06/26 02:07 Order name: Urine Dipstick-Ancillary; Complete Time: 02:08 EDMS 06/26 01:00 Order name: EKG; Complete Time: 01: rn 06/26 01:00 Order name: Accucheck; Complete Time: :44 rn 06/26 01:00 Order name: Cardiac monitoring; Complete Time: :44 rn 06/26 01:00 Order name: EKG - Nurse/Tech; Complete Time: : rn 06/26 01:00 Order name: IV Saline Lock; Complete Time: : rn 06/26 01:00 Order name: Labs collected and sent; Complete Time: : rn 06/26 01:00 Order name: NPO; Complete Time: 01:44 rn 06/26 01:00 Order name: O2 Per Protocol; Complete Time: 01:44 rn 06/26 01:00 Order name: O2 Sat Monitoring; Complete Time: :44 rn 06/26 01:00 Order name: Stroke Swallow Screen; Complete Time: 02:11 rn 06/26 01:00 Order name: Urine Dipstick-Ancillary (obtain specimen); Complete Time: 02:10 rn EC:35 Rate is 69 beats/min. Rhythm is regular. QRS [place] is Normal. WA interval is normal. QRS rn interval is normal. QT interval is normal. No Q waves. T waves are Normal. No ST changes noted. Clinical impression: NSR w/ Non-specific ST/T Changes. Interpreted by me. Reviewed by me. Administered Medications: 02:10 Drug: NS 0.9% 1000 ml Route: IV; Rate: 1000 ml; Site: left forearm; kd3 03:50 Follow up: Response: No adverse reaction kd3 03:59 Follow up: Response: No adverse reaction; IV Status: Completed infusion; IV Intake: kd3 1000ml Disposition Summary: 06/26/22 02:41 Hospitalization Ordered Hospitalization Status: Observation rn Provider: Trupti Tinajero rn Condition: Stable rn Problem: new rn Symptoms: are unchanged rn Bed/Room Type: Standard rn Location: [facility] ER HOLD(06/26/22 03:56) cg Room Assignment: ERHOLD-(06/26/22 03:56) cg Diagnosis - Altered mental status, unspecified rn - Dehydration rn Forms: - Medication Reconciliation Form rn - SBAR form rn NIH Stroke Scale - NIH Stroke Score Date: 06/26/2022 Time: 00:56 Total Score = 0 1a. Level of Consciousness (LOC) - 0(Alert) 1b. Level of Consciousness (LOC) (Month \T\ Age) - 0(Both) 1c. LOC Commands (Open \T\ Closes Eyes/Organ Installer) - 0(Both) 2. Best Gaze (Lateral Gaze Paresis) - 0(Normal) 3. Visual Field Loss - 0(No visual loss) 4. Facial Palsy - 0(Normal) 5a. Left Arm: Motor (10-second hold) - 0(No drift) 5b. Right Arm: Motor (10-second hold) - 0(No drift) 6a. Left Leg: Motor (5-second hold - always test supine) - 0(No drift) 6b. Right Leg: Motor (5-second hold - always test supine) - 0(No drift) 7. Limb Ataxia (finger/nose \T\ heel/dunn - test with eyes open) - 0(Absent) 8. Sensory Loss (pinprick arms/legs/face) - 0(Normal) 9. Best Language: Aphasia (description/naming/reading) - 0(No aphasia) 10. Dysarthria (speech clarity - read or repeat words) - 0(Normal) 11. Extinction and Inattention (visual/tactile/auditory/spatial/personal) - 0(No abnormality) Initials: kd3 NIH Stroke Scale - NIH Stroke Score Date: 06/26/2022 Time: : Total Score = 1 1a. Level of Consciousness (LOC) - 0(Alert) 1b. Level of Consciousness (LOC) (Month \T\ Age) - 0(Both) 1c. LOC Commands (Open \T\ Closes Eyes/Organ Installer) - 0(Both) 2. Best Gaze (Lateral Gaze Paresis) - 0(Normal) 3. Visual Field Loss - 0(No visual loss) 4. Facial Palsy - 0(Normal) 5a. Left Arm: Motor (10-second hold) - 0(No drift) 5b. Right Arm: Motor (10-second hold) - 0(No drift) 6a. Left Leg: Motor (5-second hold - always test supine) - 0(No drift) 6b. Right Leg: Motor (5-second hold - always test supine) - 0(No drift) 7. Limb Ataxia (finger/nose \T\ heel/dunn - test with eyes open) - 0(Absent) 8. Sensory Loss (pinprick arms/legs/face) - 0(Normal) 9. Best Language: Aphasia (description/naming/reading) - 0(No aphasia) 10. Dysarthria (speech clarity - read or repeat words) - 1(Mild to Moderate) 11. Extinction and Inattention (visual/tactile/auditory/spatial/personal) - 0(No abnormality) Initials: rn Signatures: Dispatcher [employer] EDArcenio Barbosa MD MD rn Garcia, Cindy, RN RN cg Doucette, Kyli, RN RN kd3 Amaya Barcenas PA-Marie PA-C sb4 Corrections: (The following items were deleted from the chart) 03:56 02:41 Telemetry/MedSurg (observation) mikey 03:56 02:41 mikey
--- NOTE | 2022-06-26 03:31 | P.HP ---
Certification for Inpatient Patient admitted to: Observation With expected LOS: <2 Midnights Patient will require the following post-hospital care: None Practitioner: I am a practitioner with admitting privileges, knowledge of patient current condition, hospital course, and medical plan of care. Services: Services provided to patient in accordance with Admission requirements found in Title 42 Section 412.3 of the Code of Federal Regulations Patient History Date of Service: 06/26/22 Reason for admission: AMS History of Present Illness: Patient is an 87-year-old male with history of hypertension, CAD, CVAx2, and Alzheimer's who presented to the ED via EMS from half-way with reported slurred speech. Per half-way, patient had called the hotel front office manager and was yelling for help. They noted that his speech appeared slurred however he had his mouth guard in and when he removed it, his speech improved. Son reports he visited him in the evening prior and did note some confusion but he was not concerned about the suppose of slurred speech. Head CT and CTA were obtained which were negative for CVA but showed "cerebral volume loss and chronic small vessel ischemic changes "his labs are within normal limits. Patient has no complaints. He reports he was calling for help because he felt unsteady on his feet. ED provider wishes to admit patient for observation. Allergies No Known Allergies Allergy (Verified 11/08/21 10:13) Home medications list reviewed: Yes Home Medications: Amlodipine [Norvasc*] 5 mg PO BID 11/08/21 Donepezil [Aricept*] 5 mg PO BEDTIME 11/08/21 Escitalopram [Lexapro*] 10 mg PO DAILY 11/08/21 Metoprolol Succinate [Toprol Xl*] 50 mg PO BID 11/08/21 Quetiapine [Seroquel*] 25 mg PO BEDTIME tab 11/09/21 - Past Medical/Surgical History Diabetic: No -: Hypertension -: Depression -: CAD -: CVA -: Dementia -: Appendectomy -: Cardiac Cath - 1 stent Psychosocial/ Personal History: Patient lives at [facility]. - Family History Family History: Reviewed- Non-Contributory - Social History Smoking Status: Never smoker Alcohol use: Yes CD- Drugs: No Caffeine use: Yes Place of Residence: [facility] Review of Systems Unremarkable Physical Examination - Physical Exam General: Alert, In no apparent distress, Oriented x3 HEENT: Atraumatic, PERRLA, EOMI, Sclerae nonicteric Neck: Supple, 2+ carotid pulse no bruit, No LAD, Without JVD or thyroid abnormality Respiratory: Clear to auscultation bilaterally, Normal air movement Cardiovascular: Regular rate/rhythm, Normal S1 S2 Gastrointestinal: Normal bowel sounds, No tenderness Musculoskeletal: No tenderness Integumentary: No rashes Neurological: Normal speech, Normal strength at 5/5 x4 extr, Normal tone, Normal affect - Studies Laboratory Data (last 24 hrs) 06/26/22 01:20: PT 10.6, INR 0.96, APTT 31.5 06/26/22 01:20: WBC 6.00, Hgb 12.7 L, Hct 38.4 L, Plt Count 249 06/26/22 01:20: Sodium 137, Potassium 3.9, BUN 27 H, Creatinine 1.42 H, Glucose 85 Assessment and Plan - Problems (Diagnosis) (1) AMS (altered mental status) Current Visit: Yes Status: Acute Qualifiers: Altered mental status type: unspecified Qualified Code(s): R41.82 - Altered mental status, unspecified (2) Dehydration Current Visit: Yes Status: Acute (3) CAD (coronary artery disease) Current Visit: Yes Status: Chronic Qualifiers: Coronary Disease-Associated Artery/Lesion type: [place] artery [place] vs. transplanted heart: [place] heart Associated angina: without angina Qualified Code(s): I25.10 - Atherosclerotic heart disease of [place] coronary artery without angina pectoris (4) History of CVA (cerebrovascular accident) Current Visit: Yes Status: Chronic (5) Dementia Current Visit: Yes Status: Chronic Qualifiers: Dementia type: Alzheimer's Alzheimer's disease onset: unspecified onset Dementia severity: mild Dementia behavioral or psychological symptom: with anxiety Qualified Code(s): G30.9 - Alzheimer's disease, unspecified; F02.A4 - Dementia in other diseases classified elsewhere, mild, with anxiety (6) Hypertension Current Visit: Yes Status: Chronic Qualifiers: Hypertension type: primary hypertension Qualified Code(s): I10 - Essential (primary) hypertension - Plan -Patient is admitted for observation -He was noted to be dehydrated and given 1 L fluid in the ED -Head CT and CT head/neck angio negative for acute CVA. Consider MRI, however low suspicion for stroke at this time -Some garbled speech is present, but son reports that is similar to baseline. Patient is pleasantly demented. -Patient has been hypertensive. Continue home medications. Hydralazine as needed -Physical therapy consulted as patient states he has been unsteady on his feet -Monitor and replete electrolytes per protocol -Reconcile and continue home medications -VTE ppx -Full code Discharge Plan: [facility] Plan to discharge in: 24 Hours - Advance Directives Does patient have a Living Will: Yes Does patient have a Durable POA for Healthcare: No - Code Status/Comfort Care Code Status Assessed: Yes (Full) Critical Care: No Time Spent Managing Pts Care (In Minutes): 50
[2022-06-26] MEDS ORDERED: ONDANSETRON 4 MG/2 ML VIAL IV PRN (04:28)
[2022-06-26] MEDS ORDERED: ACETAMINOPHEN 500 MG TAB PO PRN (04:28)
[2022-06-26] MEDS ORDERED: HYDRALAZINE HCL 20 MG/ML VIAL IV PRN (04:28)
[2022-06-26 04:38] VITALS: BMI 25.7
[2022-06-26] MEDS ORDERED: HYDRALAZINE HCL 20 MG/ML VIAL ONE (06:39)
[2022-06-26 08:45] VITALS: TEMP 97.7
--- NOTE | 2022-06-26 11:00 | P.DS ---
Admission Date: 06/26/22 Discharge Date: 06/26/22 Disposition: ROUTINE DISCHARGE Discharge Condition: FAIR Reason for Admission: AMS - Problems (1) AMS (altered mental status) Status: Acute Qualifiers: Altered mental status type: unspecified Qualified Code(s): R41.82 - Altered mental status, unspecified (2) CAD (coronary artery disease) Status: Chronic Qualifiers: Coronary Disease-Associated Artery/Lesion type: [place] artery [place] vs. transplanted heart: [place] heart Associated angina: without angina Qualified Code(s): I25.10 - Atherosclerotic heart disease of [place] coronary artery witho ut angina pectoris (3) Dementia Status: Chronic Qualifiers: Dementia type: Alzheimer's Alzheimer's disease onset: unspecified onset Dementia severity: mild Dementia behavioral or psychological symptom: with anxiety Qualified Code(s): G30.9 - Alzheimer's disease, unspecified; F02.A4 - Dementia in other diseases classified elsewhere, mild, with anxiety (4) History of CVA (cerebrovascular accident) Status: Chronic Brief History of Present Illness: Patient is an 87-year-old male with history of hypertension, CAD, CVAx2, and Alzheimer's who presented to the ED via EMS from skilled nursing with reported slurred speech. Per skilled nursing, patient had called the hotel front office manager and was yelling for help. They noted that his speech appeared slurred however he had his mouth guard in and when he removed it, his speech improved. Son reports he visited him in the evening prior and did note some confusion but he was not concerned about the supposed slurred speech. Head CT and CTA were obtained which were negative for CVA or acute event. Labs within normal limits. He reports he was calling for help because he felt unsteady on his feet. Patient placed under observation for further evaluation. Hospital Course: Patient placed under observation on the medical floor. CT head negative for acute event. Patient was at baseline with no new complaint except pain in his head which has been affecting his gait. Patient is prescribed tramadol for pain control. Other home medications resumed on discharge. Vital Signs/Physical Exam: Temp Pulse Resp BP Pulse Ox 97.7 F 68 16 170/113 H 98 06/26/22 08:00 06/26/22 08:00 06/26/22 08:00 06/26/22 08:00 06/26/22 08:00 General: Alert, In no apparent distress, Oriented x3 HEENT: Mucous membr. moist/pink Neck: Supple, JVD not distended Respiratory: Clear to auscultation bilaterally, Normal air movement Cardiovascular: Regular rate/rhythm, Normal S1 S2, No murmurs Gastrointestinal: Normal bowel sounds, Soft and benign, Non-distended Musculoskeletal: No swelling, No tenderness Integumentary: No rashes, No cyanosis Neurological: Normal strength at 5/5 x4 extr Laboratory Data at Discharge: WBC 6.00 K/uL (4.3-10.9) 06/26/22 01:20 Hgb 12.7 g/dL (13.6-17.9) L 06/26/22 01:20 Hct 38.4 % (39.6-49.0) L 06/26/22 01:20 Plt Count 249 K/uL (152-406) 06/26/22 01:20 PT 10.6 SECONDS (9.5-12.5) 06/26/22 01:20 INR 0.96 06/26/22 01:20 APTT 31.5 SECONDS (24.3-36.9) 06/26/22 01:20 Sodium 137 mmol/L (136-145) 06/26/22 01:20 Potassium 3.9 mmol/L (3.5-5.1) 06/26/22 01:20 BUN 27 mg/dL (7-18) H 06/26/22 01:20 Creatinine 1.42 mg/dL (0.55-1.3) H 06/26/22 01:20 Glucose 85 mg/dL (74-106) 06/26/22 01:20 Home Medications: Amlodipine [Norvasc*] 5 mg PO BID 11/08/21 Donepezil [Aricept*] 5 mg PO BEDTIME 11/08/21 Escitalopram [Lexapro*] 10 mg PO DAILY 11/08/21 Metoprolol Succinate [Toprol Xl*] 50 mg PO BID 11/08/21 Quetiapine [Seroquel*] 25 mg PO BEDTIME tab 11/09/21 Tramadol HCl [Ultram] 50 mg PO QID PRN #20 tab 06/26/22 New Medications: Tramadol HCl [Ultram] 50 mg PO QID PRN #20 tab PRN Reason: Pain Followup: Unknown,U [Primary Care Provider] - 1-2 Weeks
--- NOTE | 2022-06-26 11:46 | RAD REPORT ---
EXAM DESCRIPTION: RAD - Chest Single View - 06/26/2022 1:14 am CLINICAL HISTORY: The patient is 87 years old and is Male; slurred speech TECHNIQUE: Frontal view of the chest. COMPARISON: No relevant prior studies available. FINDINGS: Lungs: Haziness in the left lung base. Mildly prominent interstitial markings. Pleural space: Unremarkable. No pneumothorax. Heart: Unremarkable. Mediastinum: Unremarkable. Bones/joints: Unremarkable. IMPRESSION: Haziness in the left lung base. Mildly prominent interstitial markings. Electronically signed by: Jose R Prince MD 06/26/2022 1:29 AM CDT Due to temporary technical issues with the PACS/Fluency reporting system, reports are being signed by the in house radiologists without review as a courtesy to insure prompt reporting. The interpreting radiologist is fully responsible for the content of the report.
--- NOTE | 2022-06-26 12:04 | RAD REPORT ---
EXAM DESCRIPTION: CT - Ct Stroke Brain Wo Cont - 06/26/2022 1:08 am ADDENDUM #1 ADDENDUM: THIS REPORT CONTAINS FINDINGS THAT MAY BE CRITICAL TO PATIENT'S CARE: The findings were verbally discussed via telephone conference with ANGELA Alanis by Dr. Cadet on 06/26/2022 1:23 AM CDT. The results were acknowledged and understood. Electronically signed by: Lefty Cadet DO 06/26/2022 1:23 AM CDT End of Addendum EXAM DESCRIPTION: Ct Stroke Brain Wo Cont CLINICAL HISTORY: 87 years Male Slurred Speech COMPARISON: None TECHNIQUE: Contiguous axial images of the brain were obtained without the administration of intraven ous contrast.This exam was performed according to our departmental dose-optimization program which in cludes use of Automated Exposure Control, adjustment of the mA and/or kV according to patient size an d/or use of iterative reconstruction technique. DLP: 892 mGy*cm FINDINGS: Brain: No acute intracranial hemorrhage. No extra-axial collection. No mass effect or theo iation. Prominence of the sulci and cisterns. Confluent periventricular and subcortical white matte r hypodensity is noted. Vascular calcifications. Ventricles: Allowing for underlying cerebral volume loss, ventricular size appears within normal limi ts. Globes and orbits: No acute abnormality. Prior cataract surgery. Bones: No acute osseous finding Paranasal sinuses: Paranasal sinuses are clear. Mastoid air cells: Well pneumatized. Soft tissues: Within normal limits IMPRESSION: 1. No acute hemorrhage, hydrocephalus or herniation. 2. Cerebral volume loss and chronic small vessel ischemic changes. Consider MRI brain for further giselle luation. Electronically signed by: Lefty Cadet DO 06/26/2022 1:19 AM CDT ADDENDUM #1 ADDENDUM: THIS REPORT CONTAINS FINDINGS THAT MAY BE CRITICAL TO PATIENT'S CARE: The findings were verbally discussed via telephone conference with ANGELA Alanis by Dr. Cadet on 06/26/2022 1:23 AM CDT. The results were acknowledged and understood. Electronically signed by: Lefty Cadet DO 06/26/2022 1:23 AM CDT End of Addendum ADDENDUM #1 ADDENDUM: THIS REPORT CONTAINS FINDINGS THAT MAY BE CRITICAL TO PATIENT'S CARE: The findings were verbally discussed via telephone conference with ANGELA Alanis by Dr. Cadet on 06/26/2022 1:23 AM CDT. The results were acknowledged and understood. Electronically signed by: Lefty Cadet DO 06/26/2022 1:23 AM CDT End of Addendum EXAM DESCRIPTION: Ct Stroke Brain Wo Cont CLINICAL HISTORY: 87 years Male Slurred Speech COMPARISON: None TECHNIQUE: Contiguous axial images of the brain were obtained without the administration of intraven ous contrast.This exam was performed according to our departmental dose-optimization program which in cludes use of Automated Exposure Control, adjustment of the mA and/or kV according to patient size an d/or use of iterative reconstruction technique. DLP: 892 mGy*cm FINDINGS: Brain: No acute intracranial hemorrhage. No extra-axial collection. No mass effect or theo iation. Prominence of the sulci and cisterns. Confluent periventricular and subcortical white matte r hypodensity is noted. Vascular calcifications. Ventricles: Allowing for underlying cerebral volume loss, ventricular size appears within normal limi ts. Globes and orbits: No acute abnormality. Prior cataract surgery. Bones: No acute osseous finding Paranasal sinuses: Paranasal sinuses are clear. Mastoid air cells: Well pneumatized. Soft tissues: Within normal limits IMPRESSION: 1. No acute hemorrhage, hydrocephalus or herniation. 2. Cerebral volume loss and chronic small vessel ischemic changes. Consider MRI brain for further giselle luation. Electronically signed by: Lefty Cadet DO 06/26/2022 1:19 AM CDT Due to temporary technical issues with the PACS/Fluency reporting system, reports are being signed by the in house radiologists without review as a courtesy to insure prompt reporting. The interpreting radiologist is fully responsible for the content of the report.
--- NOTE | 2022-06-26 12:07 | RAD REPORT ---
EXAM DESCRIPTION: CT - Head angio - 06/26/2022 1:55 am CLINICAL HISTORY: The patient is 87 years old and is Male; slurred speech TECHNIQUE: Axial computed tomographic angiography images of the head and neck with intravenous contr ast. This CT exam was performed using one or more of the following dose reduction techniques: aut omated exposure control, adjustment of the mA and/or kV according to patient size, and/or use of iter ative reconstruction technique. MIP reconstructed images were created and reviewed. DLP: 615 mGy*cm COMPARISON: CT head without contrast of the same day. FINDINGS: HEAD: RIGHT ANTERIOR CEREBRAL ARTERY: 2 mm aneurysm of the A-comm. No occlusion or significant stenosis. RIGHT MIDDLE CEREBRAL ARTERY: High-grade stenosis of the proximal right M2 segment, inferior division . No occlusion. RIGHT POSTERIOR CEREBRAL ARTERY: No occlusion or significant stenosis. No aneurysm. RIGHT INTRACRANIAL INTERNAL CAROTID ARTERY: No significant stenosis. No dissection or occlusion. RIGHT INTRACRANIAL VERTEBRAL ARTERY: No significant stenosis. No dissection or occlusion. LEFT ANTERIOR CEREBRAL ARTERY: See above. 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 No occlusion or significant stenosis. LEFT POSTERIOR CEREBRAL ARTERY: No occlusion or significant stenosis. No aneurysm. LEFT INTRACRANIAL INTERNAL CAROTID ARTERY: No significant stenosis. No dissection or occlusion. LEFT INTRACRANIAL VERTEBRAL ARTERY: No significant stenosis. No dissection or occlusion. BASILAR ARTERY: No occlusion or significant stenosis. No aneurysm. BRAIN: Cerebral volume loss and chronic small vessel ischemic changes. NECK: RIGHT COMMON CAROTID ARTERY: No significant stenosis. No dissection or occlusion. RIGHT EXTRACRANIAL INTERNAL CAROTID ARTERY: No significant stenosis. No dissection or occlusion. RIGHT EXTERNAL CAROTID ARTERY: No occlusion. RIGHT EXTRACRANIAL VERTEBRAL ARTERY: No significant stenosis. No dissection or occlusion. LEFT COMMON CAROTID ARTERY: No significant stenosis. No dissection or occlusion. LEFT EXTRACRANIAL INTERNAL CAROTID ARTERY: No significant stenosis. No dissection or occlusion. LEFT EXTERNAL CAROTID ARTERY: No occlusion. LEFT EXTRACRANIAL VERTEBRAL ARTERY: No significant stenosis. No dissection or occlusion. 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 LUNG APICES: Apical chronic lung changes. HEAD and NECK: BONES/JOINTS: Multilevel degenerative changes of the cervical spine. No acute fracture. No dislocation. SOFT TISSUES: Unremarkable as visualized. No mass. CAROTID STENOSIS REFERENCE USING NASCET CRITERIA: % ICA stenosis = (1 - narrowest ICA diameter/diameter of distal cervical ICA) x 100. Mild - <50% stenosis. Moderate - 50-69% stenosis. Severe - 70-94% stenosis. Near occlusion - 95-99% stenosis. Occluded - 100% stenosis. IMPRESSION: 1. No intracranial large vessel occlusion. No cervical flow-limiting stenosis. 2. 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 3. 2 mm aneurysm of the A-comm. 4. 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 5. High-grade stenosis of the proximal right M2 segment, inferior division. No occlusion. 6. No acute hemorrhage, hydrocephalus or herniation. 7. Cerebral volume loss and chronic small vessel ischemic changes. MRI brain is recommended. THIS REPORT CONTAINS FINDINGS THAT MAY BE CRITICAL TO PATIENT'S CARE: The findings were verbally discussed via telephone conference with DOTTY SOLIS by Dr. Cadet on 06/26/2022 2:28 AM CDT. The results were acknowledged and understood. Electronically signed by: Lefty Cadet DO 06/26/2022 2:43 AM CDT Due to temporary technical issues with the PACS/Fluency reporting system, reports are being signed by the in house radiologists without review as a courtesy to insure prompt reporting. The interpreting radiologist is fully responsible for the content of the report.
[2022-06-26] MEDS ORDERED: AMLODIPINE 5 MG TAB PO SCH (12:42)
[2022-06-26] MEDS ORDERED: METOPROLOL XL 50 MG TAB PO SCH (12:42)
[2022-06-26] MEDS ORDERED: METOPROLOL TAR 50 MG TAB ONE (13:01)
[2022-06-26] MEDS ORDERED: AMLODIPINE 5 MG TAB ONE (13:02)
[2022-06-26 14:06] VITALS: O2SAT 95
[2022-06-26 16:44] VITALS: BP 170/85
--- NOTE | 2022-06-27 16:18 | EKG ---
Test Date: 2022-06-26 Test Time: 01:22:19 Permit Specialist: DUANE MEASUREMENT RESULTS: Intervals: Rate: 69 VA: 242 QRSD: 90 QT: 410 QTc: 439 [place]: P: 27 VA: 242 QRS: 22 T: 93 INTERPRETIVE STATEMENTS: Sinus rhythm with marked sinus arrhythmia with 1st degree AV block Nonspecific T wave abnormality Abnormal ECG Compared to ECG 11/08/2021 14:29:19 T-wave abnormality now present Sinus bradycardia no longer present ST (T wave) deviation no longer present Electronically Signed On 06-27-22 16:15:43 CDT by Colten Macario
== END 2022-06-26 13:05 | disposition home or self-care (01) ==
LOC: ER 00:56 → ERHOLD 03:28
PROVIDERS: ADMIT Internal Medicine; ATTEND Internal Medicine
DX: R41.82 Altered mental status, unspecified (principal); I25.10 Atherosclerotic heart disease of native coronary artery without angina pectoris; I10 Essential (primary) hypertension; G30.9 Alzheimer's disease, unspecified; F02.A4 Dementia in other diseases classified elsewhere, mild, with anxiety; E86.0 Dehydration; Z86.73 Personal history of transient ischemic attack (TIA), and cerebral infarction without residual deficits; Z20.822 Contact with and (suspected) exposure to COVID-19
CPT/HCPCS: 96361; 93005; 85025; 80048; 36415; 85610; 82565; 82947; 85730; 84484; 70496; 70498; 70450; 71045; 96360; 99285; 87811; Q9967; J0360; J7030; G0378 ×2; 81003; 81015

== ENCOUNTER 2022-11-24 18:20 | Emergency (ER) | payer OTHER ==
--- OUTSIDE RECORDS SUMMARY | 2022-11-24 18:34 | XMS REPORT | Continuity of Care Document ---
:1935 Author Organization [facility] t Address [address] [facility] [address] [place] [address] Care Team Providers Name Role Phone [phone] Attending Clinician Unavailable Spencer Hernandez Attending Clinician Michael Ritter Jr Attending Clinician Caleb Gross Attending Clinician CALEB GROSS Attending Clinician Unavailable [phone] Admitting Clinician Unavailable Problems Condition Condition Condition Status Onset Resolution Last Treating Co mments Source Name Details Category Date Date Treatment Clinician Date AMS AMS Diagnosis Active 2020-05-24 Mem oria Active 05-24 11:03:00 l 05/24/2020 07:00: Jacky dang [place] [address] [place] Anxiety Anxiety Problem Active 2021-11-28 Me bernice (finding) (finding) 22:13:27 l Active Fulda Problem 11/28/2021 Medical Group,[facility] her Neuro,[facility] Coronary Coronary Problem Active 2021-11-28 Memoria arterioscl arterioscl 22:13:27 l erosis erosis Fulda (disorder) (disorder) Active Problem 11/28/2021 Medical Group,[facility] her Neuro,[facility] Hypertensi Hypertens Problem Active 2021-11-28 Memoria ve edin 22:13:27 l disorder, disorder, Herm loc systemic systemic arterial arterial (disorder) (disorder) Active Problem 11/28/2021 Medical Group,[facility] her Neuro,[facility] Hypothyroi Hypothyro Problem Active 2021-11-28 Memoria dism idism 22:13:27 l (disorder) (disorder) Hossein rmloc Active Problem 11/28/2021 Medical Group,[facility] her Neuro,[facility] Insomnia Insomnia Problem Active 2021-11-28 Memoria (disorder) (disorder) 22:13:27 l Active Fulda Problem 11/28/2021 Medical Group,[facility] her Neuro,[facility] History of Past Illness Condition Condition Condition Status Onset Resolution Last Treating Co mments Source Name Details Category Date Date Treatment Clinician Date Personal Personal Problem 2020-05-26 2020-05-26 Memoria history of history of 05-24 21:56:01 21:56:01 l other other 17:00: Néstor mental and mental and 00 behavioral behavioral disorders disorders 05/24/2020 05/26/2020 [facility] Disorienta Disorient Problem 2020-05-26 2020-05-26 Memoria tihu purdy, 05-24 21:56:01 21:56:01 l unspecifie unspecifie 17:00: Hossein bautista d d 00 05/24/2020 05/26/2020 [facility] Allergies, Adverse Reactions, Alerts Allergy Allergy Status Severity Reaction(s) Onset Inactive Treating Comm ents Source Name Type Date Date Clinician No Known No Known Active Memori a Medicati Medicati l on on Néstor Allergie Allergie s s Social History Social Habit Start Date Stop Date Quantity Comments Source Social History 2020-05-24 2020-05-24 [facility] bette 16:13:52 16:13:52 Medications Ordered Filled Start Stop Current Ordering Indication Dosage Frequency Signature Comments Components Source Medication Medication Date Date Medication? Clinician (SIG) Name Name prasugrel 2019-09 Yes 10 mg = 1 Mem oria 10 mg oral 0-06 tab, PO, l tablet 18:38: Daily, # Fulda 00 30 tab, 0 Refill(s) Hydralazine 2019-09 [...] tab, PO, l tablet 18:38: Daily, # Fulda 00 30 tab, 0 Refill(s) atorvastati 2019-09 Yes 40 mg = 1 M emoria n 40 mg 0-06 tab, PO, l oral tablet 18:38: Daily, # He rmann 00 90 tab, 3 Refill(s), Pharmacy: [id number], 180.34, cm, 06/13/20 13:12:00 CDT, Height, 78.182, kg, 06/13/20 13:12:00 CDT, Weight levothyroxi 2019-09 Yes 100 Memori a ne 100 mcg 0-06 microgram l (0.1 mg) 18:38: = 1 tab, Ernestina nn oral tablet 00 PO, Daily, # 90 tab, 3 Refill(s), Pharmacy: [facility] #[id number], 180.34, cm, 06/13/20 13:12:00 CDT, Height, 78.182, kg, 06/13/20 13:12:00 CDT, Weight prasugrel 2019-09 Yes 10 mg = 1 Mem oria 10 mg oral 0-06 tab, PO, l tablet 18:38: Daily, # Néstor 00 30 tab, 0 Refill(s) Hydralazine 2019-09 [...] rmann 00 90 tab, 3 Refill(s), Pharmacy: [facility][id number], 180.34, cm, 06/13/20 13:12:00 CDT, Height, 78.182, kg, 06/13/20 13:12:00 CDT, Weight levothyroxi 2019- Yes 100 Memori a ne 100 mcg 0-06 microgram l (0.1 mg) 18:38: = 1 tab, Ernestina nn oral tablet 00 PO, Daily, # 90 tab, 3 Refill(s), Pharmacy: [facility] STORE #[id number], 180.34, cm, 06/13/20 13:12:00 CDT, Height, 78.182, kg, 06/13/20 13:12:00 CDT, Weight Hydralazine 2019-0 No 50 mg = 1 M emoria Hydrochlori 9-30 tab, PO, l de 50 MG 19:48: QID, 0 Fulda Oral Tablet 00 Refill(s) Hydralazine 0 No 50 mg = 1 M emoria Hydrochlori 9-30 tab, PO, l de 50 MG 19:48: QID, 0 Fulda Oral Tablet 00 Refill(s) Nitroglycer 2019- Yes See Memori a in 0.4 MG 9-24 Instructio l Sublingual 17:56: ns, Néstor Tablet 00 DISSOLVE 1 TABLET UNDER THE TONGUE EVERY 5 MINUTES NEEDED FOR CHEST PAIN NOT TO EXCEED 3 DOSES, # 25 tab, 5 Refill(s), Pharmacy: [facility] #[id number], 180.34, cm, 05/24/20 10:51:00 CDT, Height, 77.6, kg, 05/24/20 10:51:00 C... Nitroglycer 2019- Yes See Memori a in 0.4 MG 9-24 Instructio l Sublingual 17:56: ns, Fulda Tablet 00 DISSOLVE 1 TABLET UNDER THE TONGUE EVERY 5 MINUTES NEEDED FOR CHEST PAIN NOT TO EXCEED 3 DOSES, # 25 tab, 5 Refill(s), Pharmacy: [facility] #[id number], 180.34, cm, 05/24/20 10:51:00 CDT, Height, 77.6, kg, 05/24/20 10:51:00 C... Saline 2019-0 No Notes: Memoria Flush 0.9% 9-16 (Same as: l 16:15: BD Néstor Posiflush) Saline 2020-0 No Notes: Memoria Flush 0.9% 9-16 (Same as: l 16:15: BD Fulda Posiflush) Mirtazapine 2020-0 Yes 30 mg = 2 M emoria 15 MG Oral 9-10 tab, PO, l Tablet 18:27: Bedtime, # Ernestina nn 00 50 tab, 1 Refill(s), Pharmacy: [facility][id number], 180.34, cm, 05/11/20 10:37:00 CDT, Height, 77.273, kg, 05/11/20 10:37:00 CDT, Weight Mirtazapine 2020-0 Yes 30 mg = 2 M emoria 15 MG Oral 9-10 tab, PO, l Tablet 18:27: Bedtime, # Ernestina nn 00 50 tab, 1 Refill(s), [id number], 180.34, cm, 05/11/20 10:37:00 CDT, Height, 77.273, kg, 05/11/20 10:37:00 CDT, Weight Escitalopra 2020-0 Yes 5 mg = 1 Me moria m 5 MG Oral 9-10 tab, PO, l Tablet 18:25: Daily, # Néstor [Lexapro] 00 30 tab, 3 Refill(s), [email or web address][id number], 180.34, cm, 05/11/20 10:37:00 CDT, Height, 77.273, kg, 05/11/20 10:37:00 CDT, Weight Escitalopra 2020-0 Yes 5 mg = 1 Me moria m 5 MG Oral 9-10 tab, PO, l Tablet 18:25: Daily, # Néstor [Lexapro] 00 30 tab, 3 Refill(s), [email or web address][id number], 180.34, cm, 05/11/20 10:37:00 CDT, Height, 77.273, kg, 05/11/20 10:37:00 CDT, Weight amLODIPine 2020-0 Yes 5 mg = 1 Mem oria 5 mg oral 9-03 tab, PO, l tablet 15:27: BID, 0 Néstor 00 Refill(s) Aspirin 81 2020-0 Yes 81 mg = 1 Me moria MG Enteric 03 tab, PO, l Coated 15:27: Daily, # Fulda Tablet 00 90 tab, 3 Refill(s) atorvastati 2020-0 Yes 40 mg = 1 M emoria n 40 mg 05-11 tab, PO, l oral tablet 15:27: Daily, 0 He rmann 00 Refill(s) PanOxyl 2020-0 Yes TOP, BID, Memor ia Maximum 05-11 0 l Strength 15:27: Refill(s) Herm loc Foaming 00 Acne Wash Zyrtec 2020-0 Yes Daily, 0 Memoria 05-11 Refill(s) l 15:27: Néstor 00 donepezil 5 2020-0 Yes 5 mg = 1 Me moria mg oral 05-11 tab, PO, l tablet 15:27: Bedtime, 0 Ernestina nn 00 Refill(s) Chondroitin 2020-0 Yes PO, Daily, Memoria -Glucosamin 05-11 0 l e 15:27: Refill(s) Néstor 00 Hydralazine 2020-0 Yes 100 mg = 1 Memoria Hydrochlori 05-11 tab, PO, l de 100 MG 15:27: TID, # 90 Her almendarez Oral Tablet 00 tab, 3 Refill(s) levothyroxi 2020-0 Yes 100 Memori a ne 100 mcg 05-11 microgram l (0.1 mg) 15:27: = 1 tab, Ernestina nn oral tablet 00 PO, Daily, 0 Refill(s) lisinopril 2020-0 Yes 40 mg = 1 Me moria 40 mg oral 05-11 tab, PO, l tablet 15:27: Daily, 0 Fulda 00 Refill(s) melatonin 5 2020-0 Yes 5 mg = 1 Me moria mg oral 03 tab, PO, l tablet 15:27: Bedtime, Néstor 00 PRN for insomnia, # 60 tab, 0 Refill(s) metoprolol 2020-0 Yes 50 mg = 1 Me moria tartrate 50 -03 tab, PO, l mg oral 15:27: BID, 0 Fulda tablet 00 Refill(s) Omeprazole 2020-0 Yes PO, Daily, M emoria 9-03 0 l 15:27: Refill(s) Néstor 00 prasugrel 2020-0 Yes 10 mg = 1 Mem oria 10 mg oral 05-11 tab, PO, l tablet 15:27: Daily, 0 Néstor 00 Refill(s) prazosin 2 2020-0 Yes 2 mg = 1 Mem oria mg oral 05-11 cap, PO, l capsule 15:27: TID, 0 Fulda 00 Refill(s) spironolact 2020-0 Yes 50 mg [...] 05-11 QID, 0 l MG/MG 15:27: Refill(s) Fulda Topical Gel 00 Lorazepam 1 2019-0 Yes 1 mg = 1 Me moria MG Oral 05-11 tab, PO, l Tablet 15:27: TID, 0 Néstor 00 Refill(s) Nitroglycer 2020-0 Yes 0.4 mg = 1 Memoria in 0.4 MG 05-11 tab, SL, l Sublingual 15:27: Q5Min, 0 Her almendarez Tablet 00 Refill(s) amLODIPine 2020-0 Yes 5 mg = 1 Mem oria 5 mg oral 05-11 tab, PO, l tablet 15:27: BID, 0 Fulda 00 Refill(s) Aspirin 81 2020-0 Yes 81 mg = 1 Me moria MG Enteric 05-11 tab, PO, l Coated 15:27: Daily, # Néstor Tablet 00 90 tab, 3 Refill(s) atorvastati 2020-0 Yes 40 mg = 1 M emoria n 40 mg 05-11 tab, PO, l oral tablet 15:27: Daily, 0 He rmann 00 Refill(s) PanOxyl 2020-0 Yes TOP, BID, Memor ia Maximum 05-11 0 l Strength 15:27: Refill(s) Herm loc Foaming 00 Acne Wash Zyrtec 2020-0 Yes Daily, 0 Memoria 9-03 Refill(s) l 15:27: Néstor 00 donepezil 5 2020-0 Yes 5 mg = 1 Me moria mg oral - tab, PO, l tablet 15:27: Bedtime, 0 Ernestina nn 00 Refill(s) Chondroitin 2020-0 Yes PO, Daily, Memoria -Glucosamin 05-11 0 l e 15:27: Refill(s) Néstor 00 Hydralazine 2020-0 Yes 100 mg = 1 Memoria Hydrochlori 05-11 tab, PO, l de 100 MG 15:27: TID, # 90 Her almendarez Oral Tablet 00 tab, 3 Refill(s) levothyroxi 2020-0 Yes 100 Memori a ne 100 mcg 05-11 microgram l (0.1 mg) 15:27: = 1 tab, Ernestina nn oral tablet 00 PO, Daily, 0 Refill(s) lisinopril 2020-0 Yes 40 mg = 1 Me moria 40 mg oral 05-11 tab, PO, l tablet 15:27: Daily, 0 Néstor 00 Refill(s) melatonin 5 2020-0 Yes 5 mg = 1 Me moria mg oral 05-11 tab, PO, l tablet 15:27: Bedtime, Néstor 00 PRN for insomnia, # 60 tab, 0 Refill(s) metoprolol 2020-0 Yes 50 mg = 1 Me moria tartrate 50 - tab, PO, l mg oral 15:27: BID, 0 Fulda tablet 00 Refill(s) Omeprazole 2020-0 Yes PO, Daily, M emoria 05-11 0 l 15:27: Refill(s) Fulda 00 prasugrel 2020-0 Yes 10 mg = 1 Mem oria 10 mg oral 05-11 tab, PO, l tablet 15:27: Daily, 0 Néstor 00 Refill(s) prazosin 2 2020-0 Yes 2 mg = 1 Mem oria mg oral 05-11 cap, PO, l capsule 15:27: TID, 0 Néstor 00 Refill(s) spironolact 2020-0 Yes 50 mg = 1 M emoria one 50 mg -03 tab, PO, l oral tablet 15:27: Daily, 0 He rmann 00 Refill(s) vortioxetin 2020-0 Yes 20 mg = 1 M emoria e 20 mg 05-11 tab, PO, l oral tablet 15:27: Daily, 0 He rmann 00 Refill(s) Diclofenac Yes 2 gm, TOP, M emoria Sodium 0.01 05-11 QID, 0 l MG/MG 15:27: Refill(s) Fulda Topical Gel 00 Lorazepam 1 Yes 1 mg = 1 Me moria MG Oral 05-11 tab, PO, l Tablet 15:27: TID, 0 Néstor 00 Refill(s) Nitroglycer Yes 0.4 mg = 1 Memoria in 0.4 MG 05-11 tab, SL, l Sublingual 15:27: Q5Min, 0 Her almendarez Tablet 00 Refill(s) Vital Signs Vital Name Observation Time Observation Value Comments Source Systolic (mm Hg) 2020-07-11 19:29:00 Pee rial Fulda Diastolic (mm Hg) 2020-07-11 19:29:00 Mem orial [place] Heart Rate 2020-07-11 19:29:00 [facility] [place]da Temperature Oral (F) 2020-07-11 19:29:00 98.1 F Memorial [place] Height 2020-07-11 19:29:00 180.34 cm Memorial [place] Weight 2020-07-11 19:29:00 Memorial [place] BMI Calculated 2020-07-11 19:29:00 Memori al [place] Systolic (mm Hg) 2020-06-13 18:00:00 Pee rial Fulda Diastolic (mm Hg) 2020-06-13 18:00:00 Mem orial [place] Heart Rate 2020-06-13 18:00:00 Memorial [place] Temperature Oral (F) 2020-06-13 18:00:00 98.6 F [facility] Fulda Height 2020-06-13 18:00:00 180.34 cm [facility] Fulda Weight 2020-06-13 18:00:00 [facility] Fulda BMI Calculated 2020-06-13 18:00:00 Memori al [place] Respitory Rate 2020-05-24 18:54:00 Memori al [place] Systolic (mm Hg) 2020-05-24 18:54:00 Pee rial N[place]stor Diastolic (mm Hg) 2020-05-24 18:54:00 Mem orial [place] Temperature Oral (F) 2020-05-24 18:54:00 98.3 F [facility] Fulda Respitory Rate 2020-05-24 18:00:00 Memori al Fulda Systolic (mm Hg) 2020-05-24 18:00:00 Pee rial Néstor Diastolic (mm Hg) 2020-05-24 18:00:00 Mem orial Fulda Respitory Rate 2020-05-24 16:52:00 Memori al N[place]st[place] Systolic (mm Hg) 2020-05-24 16:52:00 Pee rial Fulda Diastolic (mm Hg) 2020-05-24 16:52:00 Mem orial Fulda Heart Rate 2020-05-24 16:03:00 Memorial [place] Height 2020-05-24 15:47:00 180.34 cm [facility] Fulda BMI Calculated 2020-05-24 15:47:00 Memori al [place] Weight 2020-05-24 15:47:00 [facility] [place]da Heart Rate 2020-05-24 15:47:00 Memorial [place] Temperature Oral (F) 2020-05-24 15:47:00 98.2 F [facility] Fulda Systolic (mm Hg) 2020-05-11 15:25:00 Pee rial Fulda Diastolic (mm Hg) 2020-05-11 15:25:00 Mem orial N[place]st[place] Heart Rate 2020-05-11 15:25:00 Memorial [place] Temperature Oral (F) 2020-05-11 15:25:00 98.0 F [facility] [place] Height 2020-05-11 15:25:00 180.34 cm Memorial N[place] Weight 2020-05-11 15:25:00 [facility] Fulda BMI Calculated 2020-05-11 15:25:00 Memori al Fulda Procedures Procedure Date / Time Performed Performing Clinician [facility] e PCI - Percutaneous 2020-01-16 05:00:00 [facility] Fulda coronary intervention Encounters Start End Encounter Admission Attending Care Care Encounter Source Date/Time Date/Time Type Type Clinicians Facility Department ID 2021-10-04 Outpatient 3 [id number] ENCTY REF [id number] ENCTY 09:47:45 0512 2021-11-26 2021-11-26 Ambulatory nullFlavo MNA [id number] Memoria 19:45:00 19:45:00 Pre-Reg r Neurology 04 l Crawford Fulda 2021-11-26 2021-11-26 Ambulatory nullFlavo MNA [id number] Memoria 19:45:00 19:45:00 Pre-Reg r Neurology 04 l Crawford Fulda 2021-11-26 2021-11-26 Outpatient MHIE MHIE [id number] Memoria 14:45:00 14:45:00 04 [facility] 2021-11-26 2021-11-26 Outpatient David MISCHER MHMISCHER [id number] 14:45:00 14:45:00 Spencer Joao Bull 2020-07-11 2020-07-12 Outpatient nullFlavo [facility]MG [id number] Memoria 19:30:00 05:59:59 r Primary 03 [facility] 2020-07-11 2020-07-12 Outpatient nullFlavo [facility]MG [id number] Memoria 19:30:00 05:59:59 r Primary 03 [facility] 2020-07-11 2020-07-11 Outpatient Riya, MHMG MHMG [id number] 13:30:00 23:59:59 Michael Julio 2020-07-11 2020-07-11 Outpatient MHIE MHIE [id number] Memoria 13:30:00 13:30:00 03 [facility] 2020-06-13 2020-06-14 Outpatient nullFlavo [facility]MG [id number] Memoria 18:30:00 04:59:59 r Primary 02 [facility] 2020-06-13 2020-06-14 Outpatient nullFlavo [facility]MG [id number] Memoria 18:30:00 04:59:59 r Primary 02 [facility] 2020-06-13 2020-06-13 Outpatient Riya, MHMG MHMG [id number] 13:30:00 23:59:59 Michael Julio 2020-06-13 2020-06-13 Outpatient MHIE MHIE [id number] Memoria 13:30:00 13:30:00 02 [facility] 2020-06-07 2020-06-09 Phone nullFlavo MHMG [id number] Memoria 19:42:51 04:59:59 Message r Primary 01 [facility] 2020-06-07 2020-06-09 Phone nullFlavo MHMG [id number] Memoria 19:42:51 04:59:59 Message r Primary 01 [facility] 2020-06-07 2020-06-08 Outpatient MHMG MHMG [id number] 14:42:51 23:59:59 2020-06-01 2020-06-03 Phone nullFlavo MHMG [id number] Memoria 15:04:04 04:59:59 Message r Primary 00 [facility] 2020-06-01 2020-06-03 Phone nullFlavo MHMG [id number] Memoria 15:04:04 04:59:59 Message r Primary 00 [facility] 2020-06-01 2020-06-02 Outpatient MHMG MG [id number] 10:04:04 23:59:59 00 2020-05-24 2020-05-24 Emergency nullFlavo [facility] [id number] Memoria 15:46:48 19:08:[address] 2020-05-24 2020-05-[facility] [id number] Memoria 15:46:48 19:08:[address] 2020-05-24 2020-05-24 Outpatient Renato [id number] 10:46:48 14:08:00 Caleb [id number] Chin [id number] 2020-05-24 2020-05-24 Emergency E RENATO, MHCY MHCY [id number] MHCY 10:46:00 14:08:00 CALEB 2020-05-18 2020-05-19 [place] [id number] Memoria 18:00:00 04:59:59 r Primary 01 [facility] 2020-05-18 2020-05-19 [place] [id number] Memoria 18:00:00 04:59:59 r Primary 01 [facility] 2020-05-18 2020-05-18 Outpatient Riya, MG MG [id number] 13:00:00 23:59:59 Michael Julio 2020-05-18 2020-05-18 Outpatient MHIE MHIE [id number] Memoria 13:00:00 13:00:00 01 [facility] 2020-05-11 2020-05-12 [place] [id number] Memoria 15:30:00 04:59:59 r Primary 00 l Care [facility] 2020-05-11 2020-05-12 Outpatient nullFlavo [facility] [id number] Memoria 15:30:00 04:59:59 r Primary 00 l [facility] 2020-05-11 2020-05-11 Outpatient Riya [facility] [id number] 10:30:00 23:59:59 Michael Watts 2020-05-11 2020-05-11 Outpatient [facility] [id number] Memoria 10:30:00 10:30:00 00 l Fulda Results Test Description Test Time Test Comments Results Result Comments Source URINE AND STOOL 2020-05-24 17:53:00 Test Item Value Reference Range Interpretation Comme nts UA Color (test code = UA Color) Yellow *NA*(05/24/20 12:53 PM) [facility] AND [id number] 17:53:00 Test Item Value Reference Range Interpretation Comments UA Turbidity (test code = Clear (05/24/20 12:53 UA Turbidity) PM) [facility] AND [id number] 17:53:00 Test Item Value Reference Range Interpretation Comments UA Spec Grav (test *NA*(05/24/20 12:53 PM) code = UA Spec Grav) [facility] AND [id number] 17:53:00 Test Item Value Reference Range Interpretation Comments UA pH (test code = UA pH) 7.0 1 5.0-8.0 [facility] AND [id number] 17:53:00 Test Item Value Reference Range Interpretation Comments UA Protein (test code Negative (05/24/20 12:53 = UA Protein) PM) [facility] AND [id number] 17:53:00 Test Item Value Reference Range Interpretation Comments UA Glucose (test code Negative (05/24/20 12:53 = UA Glucose) PM) [facility] AND [id number] 17:53:00 Test Item Value Reference Range Interpretation Comments UA Ketones (test code Negative *NA*(05/24/20 = UA Ketones) 12:53 PM) [facility] AND [id number] 17:53:00 Test Item Value Reference Range Interpretation Comments UA Bili (test code = Negative *NA*(05/24/20 UA Bili) 12:53 PM) [facility] [id number] 17:53:00 Test Item Value Reference Range Interpretation Comments UA Blood (test code = Negative (05/24/20 12:53 UA Blood) PM) [facility] [id number] 17:53:00 Test Item Value Reference Range Interpretation Comments UA Urobilinogen (test code = UA 0.2 0.1-1.0 Urobilinogen) [facility] [id number] 17:53:00 Test Item Value Reference Range Interpretation Comments UA Nitrite (test code Negative (05/24/20 12:53 = UA Nitrite) PM) [facility] [id number] 17:53:00 Test Item Value Reference Range Interpretation Comments UA Leuk Est (test Negative (05/24/20 12:53 code = UA Leuk Est) PM) [facility] [id number] 17:53:00 Test Item Value Reference Range Interpretation Comments UA Sq Epi (test code = UA Sq Epi) Few /LPF [facility] [id number] 17:53:00 Test Item Value Reference Range Interpretation Comments UA WBC (test code = UA WBC) 0-2 /HPF [facility] [id number] 17:53:00 Test Item Value Reference Range Interpretation Comments UA RBC (test code = 0-2 /HPF See_Comment [Automa rodriguez message] The UA RBC) system which ge nerated this result tra nsmitted reference range : <=2. The reference range was not used to interpr et this result as obed l/abnormal. [facility] [id number] 17:53:00 Test Item Value Reference Range Interpretation Comments UA Bacteria (test code = UA Few /HPF Bacteria) [facility] [id number] 17:53:00 Test Item Value Reference Range Interpretation Comments UA Color (test code = Yellow *NA*(05/24/20 UA Color) 12:53 PM) [facility] [id number] 17:53:00 Test Item Value Reference Range Interpretation Comments UA Turbidity (test code = Clear (05/24/20 12:53 UA Turbidity) PM) [facility] [id number] 17:53:00 Test Item Value Reference Range Interpretation Comments UA Spec Grav (test *NA*(05/24/20 12:53 PM) code = UA Spec Grav) [facility] [id number] 17:53:00 Test Item Value Reference Range Interpretation Comments UA pH (test code = UA pH) 7.0 1 5.0-8.0 [facility] [id number] 17:53:00 Test Item Value Reference Range Interpretation Comments UA Protein (test code Negative (05/24/20 12:53 = UA Protein) PM) [facility] [id number] 17:53:00 Test Item Value Reference Range Interpretation Comments UA Glucose (test code Negative (05/24/20 12:53 = UA Glucose) PM) [facility] [id number] 17:53:00 Test Item Value Reference Range Interpretation Comments UA Ketones (test code Negative *NA*(05/24/20 = UA Ketones) 12:53 PM) [facility] [id number] 17:53:00 Test Item Value Reference Range Interpretation Comments UA Bili (test code = Negative *NA*(05/24/20 UA Bili) 12:53 PM) [facility] [id number] 17:53:00 Test Item Value Reference Range Interpretation Comments UA Blood (test code = Negative (05/24/20 12:53 UA Blood) PM) [facility] [id number] 17:53:00 Test Item Value Reference Range Interpretation Comments UA Urobilinogen (test code = UA 0.2 0.1-1.0 Urobilinogen) [facility] [id number] 17:53:00 Test Item Value Reference Range Interpretation Comments UA Nitrite (test code Negative (05/24/20 12:53 = UA Nitrite) PM) [facility] [id number] 17:53:00 Test Item Value Reference Range Interpretation Comments UA Leuk Est (test Negative (05/24/20 12:53 code = UA Leuk Est) PM) [facility] [id number] 17:53:00 Test Item Value Reference Range Interpretation Comments UA Sq Epi (test code = UA Sq Epi) Few /LPF [facility] [id number] 17:53:00 Test Item Value Reference Range Interpretation Comments UA WBC (test code = UA WBC) 0-2 /HPF [facility] AND [id number] 17:53:00 Test Item Value Reference Range Interpretation Comments UA RBC (test code = 0-2 /HPF See_Comment [Automa rodriguez message] The UA RBC) system which ge nerated this result tra nsmitted reference range : <=2. The reference range was not used to interpr et this result as obed l/abnormal. [facility] AND [id number] 17:53:00 Test Item Value Reference Range Interpretation Comments UA Bacteria (test code = UA Few /HPF Bacteria) [id number] 16:28:00 Test Item Value Reference Range Interpretation Comments MCH (test code = MCH) 30.3 pg 27.0-31.0 [id number] 16:28:00 Test Item Value Reference Range Interpretation Comments MCHC (test code = MCHC) 33.7 32.0-36.0 [facility] [id number] 16:28:00 Test Item Value Reference Range Interpretation Comments RDW (test code = RDW) 14.5 11.5-14.5 [facility] [id number] 16:28:00 Test Item Value Reference Range Interpretation Comments Platelet (test code = Platelet) 284 133-450 [facility]LsdhcdjJRZBJHAUZW6639-96-43 16:28:00 Test Item Value Reference Range Interpretation Comments MPV (test code = MPV) 8.3 7.4-10.4 [facility]VghlkfoGHCKXMBYHA9570-43-48 16:28:00 Test Item Value Reference Range Interpretation Comments Segs (test code = Segs) 67.9 45.0-75.0 [facility] HospitalKllhczxJMILBCBZDW2484-35-26 16:28:00 Test Item Value Reference Range Interpretation Comments Lymphocytes (test code = Lymphocytes) 20.1 20.0-40.0 [id number] 16:28:00 Test Item Value Reference Range Interpretation Comments Monocytes (test code = Monocytes) 9.3 2.0-12.0 [facility] HospitalBdodvmqYBLXUCOYYL0967-17-79 16:28:00 Test Item Value Reference Range Interpretation Comments Eosinophils (test code = 2.1 See_Comment [A utomated message] The Eosinophils) system which ge nerated this result tra nsmitted reference range : <=4.0. The reference r cecy was not used to int erpret this result as normal/abnormal . [facility] HospitalAfndvkoWNAZLVHEEA0683-37-84 16:28:00 Test Item Value Reference Range Interpretation Comments Basophils (test code = 0.6 See_Comment [Aut omated message] The Basophils) system which ge nerated this result tra nsmitted reference range : <=1.0. The reference r cecy was not used to int erpret this result as normal/abnormal . [facility] HospitalGitansuINIXSXJNIW1930-71-84 16:28:00 Test Item Value Reference Range Interpretation Comments Neutrophils # (test code = Neutrophils 7.2 1.5-8.1 #) [facility] HospitalTpccrewRNTDKSPTQH7675-30-07 16:28:00 Test Item Value Reference Range Interpretation Comments Lymphocytes # (test code = Lymphocytes 2.1 1.0-5.5 #) [facility] HospitalBtwytotJJYOHPOZOU0299-02-80 16:28:00 Test Item Value Reference Range Interpretation Comments Monocytes # (test code 1.0 See_Comment [Aut omated message] The = Monocytes #) system which generated this result tra nsmitted reference range : <=0.8. The reference r cecy was not used to int erpret this result as normal/abnormal . [facility] HospitalAwkmqzaOSBJKVUERH0910-35-87 16:28:00 Test Item Value Reference Range Interpretation Comments Basophils (test code = 0.6 See_Comment [Aut omated message] The Basophils) system which ge nerated this result tra nsmitted reference range : <=1.0. The reference r cecy was not used to int erpret this result as normal/abnormal . [facility] HospitalUebxhseGIWPWZBJRT9046-58-50 16:28:00 Test Item Value Reference Range Interpretation Comments Eosinophils # (test code 0.2 See_Comment [A utomated message] The = Eosinophils #) system wh h generated this result tra nsmitted reference range : <=0.5. The reference r cecy was not used to int erpret this result as normal/abnormal . [facility] HospitalYkgeihvYMNVWPSHPH3018-15-69 16:28:00 Test Item Value Reference Range Interpretation Comments Basophils # (test code 0.1 See_Comment [Aut omated message] The = Basophils #) system which generated this result tra nsmitted reference range : <=0.2. The reference r cecy was not used to int erpret this result as normal/abnormal . [facility] CenterGniculwPQFFTHGPTF2025-54-11 16:28:00 Test Item Value Reference Range Interpretation Comments Neutrophils # (test code = Neutrophils 7.2 1.5-8.1 #) [facility] CenterCARDIAC [id number] 16:28:00 Test Item Value Reference Range Interpretation Comments Troponin-I (test code no gt See_Comment [Auto mated message] The = Troponin-I) system which g enerated this result transmit rodriguez reference range : <=0.40. The reference r cecy was not used to interpr et this result as obed l/abnormal. [facility] [id number] 16:28:00 Test Item Value Reference Range Interpretation Comments Glucose Lvl (test code = Glucose Lvl) 122 70-[address] [facility] CenterKbuadpzKFLHQZDMJB9440-13-10 16:28:00 Test Item Value Reference Range Interpretation Comments Lymphocytes # (test code = Lymphocytes 2.1 1.0-5.5 #) [facility] Rock[facility]. [id number] 16:28:00 Test Item Value Reference Range Interpretation Comments BUN (test code = BUN) 25 7-22 [facility] Rock[facility]. [id number] 16:28:00 Test Item Value Reference Range Interpretation Comments Creatinine Lvl (test code = Creatinine 1.30 0.50-1.40 Lvl) [facility] Rock[facility]. [id number] 16:28:00 Test Item Value Reference Range Interpretation Comments Sodium Lvl (test code = Sodium Lvl) 135 135-145 [facility] Rock[facility]. [id number] 16:28:00 Test Item Value Reference Range Interpretation Comments Potassium Lvl (test code = Potassium 3.4 3.5-5.1 Lvl) [facility] [id number] 16:28:00 Test Item Value Reference Range Interpretation Comments Chloride Lvl (test code = Chloride Lvl) 99 95-109 [facility]. [id number] 16:28:00 Test Item Value Reference Range Interpretation Comments CO2 (test code = CO2) 28 24-32 [facility] [id number] 16:28:00 Test Item Value Reference Range Interpretation Comments Calcium Lvl (test code = Calcium Lvl) 8.9 8.5-10.5 [place] 472120-09-16 16:28:00 Test Item Value Reference Range Interpretation Comments Total Protein (test code = Total 7.1 6.4-8.4 Protein) [facility]2020-09-16 16:28:00 Test Item Value Reference Range Interpretation Comments Albumin Lvl (test code = Albumin Lvl) 3.9 3.5-5.0 [place] 472120-09-16 16:28:00 Test Item Value Reference Range Interpretation Comments ALANINE AMINOTRANSFERASE 16 See_Comment [A utomated message] (test code = ALANINE The sys tem which AMINOTRANSFERASE) generated this result transmitted ref erence range: <=65. Th e reference range was not used to int erpret this result as normal/abnormal . [facility] HospitalQbrkinrSYBQUFLFOZ3735-22-26 16:28:00 Test Item Value Reference Range Interpretation Comments Monocytes # (test code 1.0 See_Comment [Aut omated message] The = Monocytes #) system which generated this result tra nsmitted reference range : <=0.8. The reference r cecy was not used to int erpret this result as normal/abnormal . [facility]2020-09-16 16:28:00 Test Item Value Reference Range Interpretation Comments ASPARTATE TRANSAMINASE 14 See_Comment [Aut omated message] (test code = ASPARTATE The s ystem which TRANSAMINASE) generated this result transmitted ref erence range: <=37. Th e reference range was not used to interpr et this result as normal/abnormal . [facility]2020-09-16 16:28:00 Test Item Value Reference Range Interpretation Comments Alk Phos (test code = Alk Phos) 61 39-136 [facility]2020-09-16 16:28:00 Test Item Value Reference Range Interpretation Comments Bili Total (test code = Bili Total) 0.3 0.2-1.3 [place] [address]-09-16 16:28:00 Test Item Value Reference Range Interpretation Comments AGAP (test code = AGAP) 11.4 10.0-20.0 [place] 472120-09-16 16:28:00 Test Item Value Reference Range Interpretation Comments B/C Ratio (test code = B/C Ratio) 19 1 6-25 [facility]2020-09-16 16:28:00 Test Item Value Reference Range Interpretation Comments Globulin (test code = Globulin) 3.2 2.7-4.2 [place] 472120-09-16 16:28:00 Test Item Value Reference Range Interpretation Comments A/G Ratio (test code = A/G Ratio) 1.2 1 0.7-1.6 [facility]2020-09-16 16:28:00 Test Item Value Reference Range Interpretation Comments eGFR (test code = eGFR) 50 [facility]2020-09-16 16:28:00 Test Item Value Reference Range Interpretation Comments Ammonia (test code = Ammonia) 19.0 [facility] H[id number] 16:28:00 Test Item Value Reference Range Interpretation Comments WBC X 10x3 (test code = WBC X 10x3) 10.6 3.7-10.4 [place] 565750-09-16 16:28:00 Test Item Value Reference Range Interpretation Comments Eosinophils # (test code 0.2 See_Comment [A utomated message] The = Eosinophils #) system whic h generated this result tra nsmitted reference range : <=0.5. The reference r cecy was not used to int erpret this result as normal/abnormal . [facility] HospitalLilpsnfAAUEAHOTNG5034-70-67 16:28:00 Test Item Value Reference Range Interpretation Comments RBC X 10x6 (test code = RBC X 10x6) 4.32 4.70-6.10 [place] 565750-09-16 16:28:00 Test Item Value Reference Range Interpretation Comments Hgb (test code = Hgb) 13.1 14.0-18.0 [place] [address]-09-16 16:28:00 Test Item Value Reference Range Interpretation Comments Hct (test code = Hct) 38.7 42.0-54.0 [place] 565750-09-16 16:28:00 Test Item Value Reference Range Interpretation Comments MCV (test code = MCV) 89.7 80.0-94.0 [place] [address]-09-16 16:28:00 Test Item Value Reference Range Interpretation Comments Basophils # (test code 0.1 See_Comment [Aut omated message] The = Basophils #) system which generated this result tra nsmitted reference range : <=0.2. The reference r cecy was not used to int erpret this result as normal/abnormal . [facility] TVCARDIAC [id number] 16:28:00 Test Item Value Reference Range Interpretation Comments Troponin-I (test code no gt See_Comment [Auto mated message] The = Troponin-I) system which g enerated this result transmit rodriguez reference range : <=0.40. The reference r cecy was not used to interpr et this result as obed l/abnormal. [facility] [id number] 16:28:00 Test Item Value Reference Range Interpretation Comments Glucose Lvl (test code = Glucose Lvl) 122 70-99 [facility] [id number] 16:28:00 Test Item Value Reference Range Interpretation Comments BUN (test code = BUN) 25 7-22 [facility] [id number] 16:28:00 Test Item Value Reference Range Interpretation Comments Creatinine Lvl (test code = Creatinine 1.30 0.50-1.40 Lvl) [facility] [id number] 16:28:00 Test Item Value Reference Range Interpretation Comments Sodium Lvl (test code = Sodium Lvl) 135 135-145 [facility] [id number] 16:28:00 Test Item Value Reference Range Interpretation Comments Potassium Lvl (test code = Potassium 3.4 3.5-5.1 Lvl) [facility] [id number] 16:28:00 Test Item Value Reference Range Interpretation Comments Chloride Lvl (test code = Chloride Lvl) 99 95-109 [facility] [id number] 16:28:00 Test Item Value Reference Range Interpretation Comments CO2 (test code = CO2) 28 24-32 [facility] [id number] 16:28:00 Test Item Value Reference Range Interpretation Comments Calcium Lvl (test code = Calcium Lvl) 8.9 8.5-10.5 [facility] [id number] 16:28:00 Test Item Value Reference Range Interpretation Comments Total Protein (test code = Total 7.1 6.4-8.4 Protein) [facility] RockGuidecentralKINDRED HOS[facility] [id number] 16:28:00 Test Item Value Reference Range Interpretation Comments Albumin Lvl (test code = Albumin Lvl) 3.9 3.5-5.0 [facility]2020-09-16 16:28:00 Test Item Value Reference Range Interpretation Comments ALANINE AMINOTRANSFERASE 16 See_Comment [A utomated message] (test code = ALANINE The sys tem which AMINOTRANSFERASE) generated this result transmitted ref erence range: <=65. Th e reference range was not used to int erpret this result as normal/abnormal . [facility]2020-09-16 16:28:00 Test Item Value Reference Range Interpretation Comments ASPARTATE TRANSAMINASE 14 See_Comment [Aut omated message] (test code = ASPARTATE The s ystem which TRANSAMINASE) generated this result transmitted ref erence range: <=37. Th e reference range was not used to interpr et this result as normal/abnormal . [facility] CenterAnuway Corporation [id number] 16:28:00 Test Item Value Reference Range Interpretation Comments Alk Phos (test code = Alk Phos) 61 39-136 [facility] RockBe[facility]. [id number] 16:28:00 Test Item Value Reference Range Interpretation Comments Bili Total (test code = Bili Total) 0.3 0.2-1.3 [place] 472120-09-16 16:28:00 Test Item Value Reference Range Interpretation Comments AGAP (test code = AGAP) 11.4 10.0-20.0 [place] 472120-09-16 16:28:00 Test Item Value Reference Range Interpretation Comments B/C Ratio (test code = B/C Ratio) 19 1 6-25 [facility] RockGuidecentralELIZ[place] [id number] 16:28:00 Test Item Value Reference Range Interpretation Comments Globulin (test code = Globulin) 3.2 2.7-4.2 [place] 472120-09-16 16:28:00 Test Item Value Reference Range Interpretation Comments A/G Ratio (test code = A/G Ratio) 1.2 1 0.7-1.6 [place] 472120-09-16 16:28:00 Test Item Value Reference Range Interpretation Comments eGFR (test code = eGFR) [address] [facility] CenterAnu[facility] Corporation [id number] 16:28:00 Test Item Value Reference Range Interpretation Comments Ammonia (test code = Ammonia) 19.0 [facility] HospitalRqxytjeFFOHLDVCJG0040-85-54 16:28:00 Test Item Value Reference Range Interpretation Comments WBC X 10x3 (test code = WBC X 10x3) 10.6 3.7-10.4 [facility] HospitalGsydoekAQZCZAQGIM9204-60-01 16:28:00 Test Item Value Reference Range Interpretation Comments RBC X 10x6 (test code = RBC X 10x6) 4.32 4.70-6.10 [facility] HospitalXshsqbdTSYQYBMDPF1248-43-53 16:28:00 Test Item Value Reference Range Interpretation Comments Hgb (test code = Hgb) 13.1 14.0-18.0 [facility] HospitalUgvqqbgHKEAHBOLBH4839-35-42 16:28:00 Test Item Value Reference Range Interpretation Comments Hct (test code = Hct) 38.7 42.0-54.0 [facility] HospitalGwbegawAOLIGSEGEH8700-86-94 16:28:00 Test Item Value Reference Range Interpretation Comments MCV (test code = MCV) 89.7 80.0-94.0 [facility] HospitalZubrvxaDVPIOSEADF3936-84-45 16:28:00 Test Item Value Reference Range Interpretation Comments MCH (test code = MCH) 30.3 pg 27.0-31.0 [facility] HospitalEjtsirxPXGRPMARHE0706-59-37 16:28:00 Test Item Value Reference Range Interpretation Comments MCHC (test code = MCHC) 33.7 32.0-36.0 [facility] HospitalTgpzlfhBHBVXKSKSE8576-71-52 16:28:00 Test Item Value Reference Range Interpretation Comments RDW (test code = RDW) 14.5 11.5-14.5 [facility] HospitalRxlsgnsLUKQITLENA3693-51-18 16:28:00 Test Item Value Reference Range Interpretation Comments Platelet (test code = Platelet) 284 133-450 [facility] HospitalIssntiqZYYMTEXKRH2962-57-01 16:28:00 Test Item Value Reference Range Interpretation Comments MPV (test code = MPV) 8.3 7.4-10.4 [facility] HospitalCduxrjoHZNNYDZBVD2105-93-52 16:28:00 Test Item Value Reference Range Interpretation Comments Segs (test code = Segs) 67.9 45.0-75.0 [facility] HospitalFirnbqmKEOEWPNGAS1229-22-20 16:28:00 Test Item Value Reference Range Interpretation Comments Lymphocytes (test code = Lymphocytes) 20.1 20.0-40.0 [facility] HospitalTxxchqrRSLLHBTFXT5244-73-27 16:28:00 Test Item Value Reference Range Interpretation Comments Monocytes (test code = Monocytes) 9.3 2.0-12.0 [facility] HospitalRrrmtxhSCUYIKXWIV4211-40-41 16:28:00 Test Item Value Reference Range Interpretation Comments Eosinophils (test code = 2.1 See_Comment [A utomated message] The Eosinophils) system which ge nerated this result tra nsmitted reference range : <=4.0. The reference r cecy was not used to int erpret this result as normal/abnormal . [facility] CenterAn[facility] Corporation [id number] 16:45:00 Test Item Value Reference Range Interpretation Comments ASPARTATE TRANSAMINASE (test code = 12 10-35 ASPARTATE TRANSAMINASE) [facility] [id number] 16:45:00 Test Item Value Reference Range Interpretation Comments ALANINE AMINOTRANSFERASE (test code = 7 9-46 ALANINE AMINOTRANSFERASE) [facility] HospitalSeumanwSXORDEPMCX0198-31-23 16:45:00 Test Item Value Reference Range Interpretation Comments WBC X 10x3 (test code = WBC X 10x3) 6.9 3.8-10.8 [facility] HospitalSqovdvgXAULZBSUKR5474-26-62 16:45:00 Test Item Value Reference Range Interpretation Comments RBC X 10x6 (test code = RBC X 10x6) 4.41 4.20-5.80 [place] 565750-09-03 16:45:00 Test Item Value Reference Range Interpretation Comments Hgb (test code = Hgb) 13.5 13.2-17.1 [place] 565750-09-03 16:45:00 Test Item Value Reference Range Interpretation Comments Hct (test code = Hct) 40.8 38.5-50.0 [facility] HospitalCglcrovWMGJCOQEDN3547-22-05 16:45:00 Test Item Value Reference Range Interpretation Comments MCV (test code = MCV) 92.5 80.0-100.0 [place] [address]-09-03 16:45:00 Test Item Value Reference Range Interpretation Comments MCH (test code = MCH) 30.6 pg 27.0-33.0 [facility] HospitalAxtmdzwREFFREIRSF3597-72-82 16:45:00 Test Item Value Reference Range Interpretation Comments MCHC (test code = MCHC) 33.1 32.0-36.0 [place] [address]-09-03 16:45:00 Test Item Value Reference Range Interpretation Comments RDW (test code = RDW) 13.2 11.0-15.0 [place] 565750-09-03 16:45:00 Test Item Value Reference Range Interpretation Comments Platelet (test code = Platelet) 324 140-400 [facility] HospitalZxfhhbrLVXDCBUILU6612-30-16 16:45:00 Test Item Value Reference Range Interpretation Comments MPV (test code = MPV) 10.7 7.5-12.5 [place] [address]-09-03 16:45:00 Test Item Value Reference Range Interpretation Comments Neutrophils # (test code = Neutrophils 2753 3492-7541 #) [facility] HospitalDemqfwzQACDLKZDZX1584-79-29 16:45:00 Test Item Value Reference Range Interpretation Comments Lymphocytes # (test code = Lymphocytes 3140 850-3900 #) [facility] HospitalMdichnsLBZNPXWTJW7117-76-02 16:45:00 Test Item Value Reference Range Interpretation Comments Monocytes # (test code = Monocytes #) 683 200-950 [facility] HospitalEsmavikLORSBIAREN1351-45-11 16:45:00 Test Item Value Reference Range Interpretation Comments Eosinophils # (test code = Eosinophils 262 15-500 #) [facility] HospitalThixfogMMXTOYUHTA8989-57-17 16:45:00 Test Item Value Reference Range Interpretation Comments Basophils # (test code 62 See_Comment [Aut omated message] The = Basophils #) system which generated this result tra nsmitted reference range : <=200. The reference r cecy was not used to int erpret this result as normal/abnormal . [facility] HospitalKbixudpVNCANZZMKX8982-56-72 16:45:00 Test Item Value Reference Range Interpretation Comments Segs (test code = Segs) 39.9 [place] 565750-09-03 16:45:00 Test Item Value Reference Range Interpretation Comments Lymphocytes (test code = Lymphocytes) 45.5 [place] [address]-09-03 16:45:00 Test Item Value Reference Range Interpretation Comments Monocytes (test code = Monocytes) 9.9 [place] [address]-09-03 16:45:00 Test Item Value Reference Range Interpretation Comments Eosinophils (test code = Eosinophils) 3.8 [place] 565750-09-03 16:45:00 Test Item Value Reference Range Interpretation Comments Basophils (test code = Basophils) 0.9 [facility]EcdwqpkHOREAW4216-14-73 16:45:00 Test Item Value Reference Range Interpretation Comments Chol (test code = Chol) 197 [facility] NorthwestVgajxisLITHVA1254-56-75 16:45:00 Test Item Value Reference Range Interpretation Comments HDL (test code = HDL) 49 [facility] NorthwestYksanrpANSUKL6547-18-27 16:45:00 Test Item Value Reference Range Interpretation Comments Trig (test code = Trig) 161 [facility] NorthwestUgudqhxLCBFFK2394-12-27 16:45:00 Test Item Value Reference Range Interpretation Comments LDL (Calculated) (test code = LDL 120 (Calculated)) [facility] NorthwestEctduqzZXDHOS0712-45-99 16:45:00 Test Item Value Reference Range Interpretation Comments CHD Risk (test code = CHD Risk) 4.0 [facility] NorthwestXjrowvpKADVIK4320-41-93 16:45:00 Test Item Value Reference Range Interpretation Comments Non HDL Chol (test code = Non HDL Chol) 148 [facility]2020-09-03 16:45:00 Test Item Value Reference Range Interpretation Comments Vitamin B12 Lvl (test code = Vitamin 4175 579-5788 B12 Lvl) [facility]2020-09-03 16:45:00 Test Item Value Reference Range Interpretation Comments Glucose Lvl (test code = Glucose Lvl) 90 65-99 [facility]2020-09-03 16:45:00 Test Item Value Reference Range Interpretation Comments BUN (test code = BUN) 25 7-25 [facility]2020-09-03 16:45:00 Test Item Value Reference Range Interpretation Comments Creatinine Lvl (test code = Creatinine 1.15 0.70-1.11 Lvl) [facility]2020-09-03 16:45:00 Test Item Value Reference Range Interpretation Comments eGFR NON-AFR. KYRGYZ (test code = 59 eGFR NON-AFR. KYRGYZ) [facility]2020-09-03 16:45:00 Test Item Value Reference Range Interpretation Comments eGFR (test code = eGFR 68 ) [facility]2020-09-03 16:45:00 Test Item Value Reference Range Interpretation Comments B/C Ratio (test code = B/C Ratio) 22 6-22 [facility]2020-09-03 16:45:00 Test Item Value Reference Range Interpretation Comments Sodium Lvl (test code = Sodium Lvl) 136 135-146 [facility]2020-09-03 16:45:00 Test Item Value Reference Range Interpretation Comments Potassium Lvl (test code = Potassium 4.6 3.5-5.3 Lvl) [facility]2020-09-03 16:45:00 Test Item Value Reference Range Interpretation Comments Chloride Lvl (test code = Chloride Lvl) 97 98-110 [facility]2020-09-03 16:45:00 Test Item Value Reference Range Interpretation Comments CO2 (test code = CO2) 30 20-32 [facility]2020-09-03 16:45:00 Test Item Value Reference Range Interpretation Comments Calcium Lvl (test code = Calcium Lvl) 10.0 8.6-10.3 [facility]2020-09-03 16:45:00 Test Item Value Reference Range Interpretation Comments Total Protein (test code = Total 7.3 6.1-8.1 Protein) [facility]2020-09-03 16:45:00 Test Item Value Reference Range Interpretation Comments Albumin Lvl (test code = Albumin Lvl) 4.6 3.6-5.[address] [id number] 16:45:00 Test Item Value Reference Range Interpretation Comments Globulin (test code = Globulin) 2.7 1.9-3.7 [facility]2020-09-03 16:45:00 Test Item Value Reference Range Interpretation Comments A/G Ratio (test code = A/G Ratio) 1.7 1.0-2.5 [place] 472120-09-03 16:45:00 Test Item Value Reference Range Interpretation Comments Bili Total (test code = Bili Total) 0.4 0.2-1.[address] [id number] 16:45:00 Test Item Value Reference Range Interpretation Comments Alk Phos (test code = Alk Phos) 60 35-144 [place] 472120-09-03 16:45:00 Test Item Value Reference Range Interpretation Comments ASPARTATE TRANSAMINASE (test code = 12 10-35 ASPARTATE TRANSAMINASE) [facility]2020-09-03 16:45:00 Test Item Value Reference Range Interpretation Comments ALANINE AMINOTRANSFERASE (test code = 7 9-46 ALANINE AMINOTRANSFERASE) [facility] HospitalLdsygidOBTPRPPUNX8240-64-09 16:45:00 Test Item Value Reference Range Interpretation Comments WBC X 10x3 (test code = WBC X 10x3) 6.9 3.8-10.8 [place] 565750-09-03 16:45:00 Test Item Value Reference Range Interpretation Comments RBC X 10x6 (test code = RBC X 10x6) 4.41 4.20-5.80 [place] [address]-09-03 16:45:00 Test Item Value Reference Range Interpretation Comments Hgb (test code = Hgb) 13.5 13.2-17.1 [place] [address]-09-03 16:45:00 Test Item Value Reference Range Interpretation Comments Hct (test code = Hct) 40.8 38.5-50.0 [facility] HospitalFslpayzTXFYRAOSBM8989-45-52 16:45:00 Test Item Value Reference Range Interpretation Comments MCV (test code = MCV) 92.5 80.0-100.0 [place] [address]-09-03 16:45:00 Test Item Value Reference Range Interpretation Comments MCH (test code = MCH) 30.6 pg 27.0-33.0 [facility] HospitalYyeespaTLGOLFMLHG8703-72-60 16:45:00 Test Item Value Reference Range Interpretation Comments MCHC (test code = MCHC) 33.1 32.0-36.0 [facility] [facility]DQ8794-08-86 16:45:00 Test Item Value Reference Range Interpretation Comments RDW (test code = RDW) 13.2 11.0-15.0 [facility]bkqbbiYSVHKLCIMK3080-07-60 16:45:00 Test Item Value Reference Range Interpretation Comments Platelet (test code = Platelet) 324 140-400 [facility]XvjkpxkIGCDEUSUOR2865-86-98 16:45:00 Test Item Value Reference Range Interpretation Comments MPV (test code = MPV) 10.7 7.5-12.5 [place] 565750-09-03 16:45:00 Test Item Value Reference Range Interpretation Comments Neutrophils # (test code = Neutrophils 9853 3508-2676 #) [facility]LawlbkdFPIWNSXBQN6325-09-05 16:45:00 Test Item Value Reference Range Interpretation Comments Lymphocytes # (test code = Lymphocytes 3140 850-3900 #) [facility] HospitalYrymlwvKKOXVFKILD1154-23-96 16:45:00 Test Item Value Reference Range Interpretation Comments Monocytes # (test code = Monocytes #) 683 200-950 [facility]143-82-01 16:45:00 Test Item Value Reference Range Interpretation Comments Eosinophils # (test code = Eosinophils 262 15-500 #) [facility] HospitalYbazvnmYJMQPMHXTN0269-07-23 16:45:00 Test Item Value Reference Range Interpretation Comments Basophils # (test code 62 See_Comment [Aut omated message] The = Basophils #) system which generated this result tra nsmitted reference range : <=200. The reference r cecy was not used to int erpret this result as normal/abnormal . [facility] HospitalDexljqqIHEMZPVNAQ2423-24-36 16:45:00 Test Item Value Reference Range Interpretation Comments Segs (test code = Segs) 39.9 [facility] HospitalLvcxhvfNNHUTLTMAX8705-49-37 16:45:00 Test Item Value Reference Range Interpretation Comments Lymphocytes (test code = Lymphocytes) 45.5 [facility] HospitalKjeonixTVUSBMVNUF4876-49-50 16:45:00 Test Item Value Reference Range Interpretation Comments Monocytes (test code = Monocytes) 9.9 [facility] HospitalFlzreohLDFGCDQEPO2138-19-43 16:45:00 Test Item Value Reference Range Interpretation Comments Eosinophils (test code = Eosinophils) 3.8 [facility] HospitalGxvzfmfBRRMPTUGZJ5515-97-08 16:45:00 Test Item Value Reference Range Interpretation Comments Basophils (test code = Basophils) 0.9 [facility]Ww[facility]mvMBRPRT6345-29-28 16:45:00 Test Item Value Reference Range Interpretation Comments Chol (test code = Chol) [address] [facility] CenterTpptuymARQDEB7297-71-06 16:45:00 Test Item Value Reference Range Interpretation Comments HDL (test code = HDL) [address] CenterMqkrprsEDFMTC7437 16:45:00 Test Item Value Reference Range Interpretation Comments Trig (test code = Trig) [address] CenterKcseffsJEFQYU3561-02-48 16:45:00 Test Item Value Reference Range Interpretation Comments LDL (Calculated) (test code = LDL 120 (Calculated)) [facility] CenterVmwkstnEQIQST2064-89-61 16:45:00 Test Item Value Reference Range Interpretation Comments CHD Risk (test code = CHD Risk) 4.[address] CenterHefvuaxPZXWBK4063-11-92 16:45:00 Test Item Value Reference Range Interpretation Comments Non HDL Chol (test code = Non HDL Chol) 148 [facility]2020-09-03 16:45:00 Test Item Value Reference Range Interpretation Comments Vitamin B12 Lvl (test code = Vitamin 3641 148-4442 B12 Lvl) [facility]2020-09-03 16:45:00 Test Item Value Reference Range Interpretation Comments Glucose Lvl (test code = Glucose Lvl) 90 65-99 [facility]2020-09-03 16:45:00 Test Item Value Reference Range Interpretation Comments BUN (test code = BUN) 25 7-25 [facility]2020-09-03 16:45:00 Test Item Value Reference Range Interpretation Comments Creatinine Lvl (test code = Creatinine 1.15 0.70-1.11 Lvl) [facility]2020-09-03 16:45:00 Test Item Value Reference Range Interpretation Comments eGFR NON-AFR. KYRGYZ (test code = 59 eGFR NON-AFR. KYRGYZ) [facility]2020-09-03 16:45:00 Test Item Value Reference Range Interpretation Comments eGFR (test code = eGFR 68 ) [facility]2020-09-03 16:45:00 Test Item Value Reference Range Interpretation Comments B/C Ratio (test code = B/C Ratio) 22 6-22 [facility]2020-09-03 16:45:00 Test Item Value Reference Range Interpretation Comments Sodium Lvl (test code = Sodium Lvl) 136 135-146 [facility]2020-09-03 16:45:00 Test Item Value Reference Range Interpretation Comments Potassium Lvl (test code = Potassium 4.6 3.5-5.3 Lvl) [facility]2020-09-03 16:45:00 Test Item Value Reference Range Interpretation Comments Chloride Lvl (test code = Chloride Lvl) 97 98-110 [facility]2020-09-03 16:45:00 Test Item Value Reference Range Interpretation Comments CO2 (test code = CO2) 30 20-32 [facility]2020-09-03 16:45:00 Test Item Value Reference Range Interpretation Comments Calcium Lvl (test code = Calcium Lvl) 10.0 8.6-10.3 [place] 472120-09-03 16:45:00 Test Item Value Reference Range Interpretation Comments Total Protein (test code = Total 7.3 6.1-8.1 Protein) [facility]2020-09-03 16:45:00 Test Item Value Reference Range Interpretation Comments Albumin Lvl (test code = Albumin Lvl) 4.6 3.6-5.1 [facility]2020-09-03 16:45:00 Test Item Value Reference Range Interpretation Comments Globulin (test code = Globulin) 2.7 1.9-3.7 [facility]2020-09-03 16:45:00 Test Item Value Reference Range Interpretation Comments A/G Ratio (test code = A/G Ratio) 1.7 1.0-2.5 [facility]2020-09-03 16:45:00 Test Item Value Reference Range Interpretation Comments Bili Total (test code = Bili Total) 0.4 0.2-1.2 [facility]2020-09-03 16:45:00 Test Item Value Reference Range Interpretation Comments Alk Phos (test code = Alk Phos) 60 35-[address] [facility]
[2022-11-24 18:57] LABS: Absolute Lymphocytes (CBC) 2.4 K/uL (0.7-4.9); Hematocrit 35.8 % (39.6-49.0); Lymphocytes % 36.5 % (15.3-44.8); MCV 90.9 fL (80-100); MPV 8.6 fL (7.6-11.3); RBC Red Blood Cell Count 3.94 M/uL (4.33-5.43)
[2022-11-24 19:14] LABS: Potassium 4.1 mEq/L (3.5-5.1); Troponin High Sensitivity 8.2 pg/mL (<58.9)
[2022-11-24 20:32] LABS: Urine Blood Negative (Negative); Urine Glucose Negative (Negative); Urine Protein Negative (Negative); Urine Specific Gravity 1.025 (1.005-1.030)
--- NOTE | 2022-11-24 20:54 | RAD REPORT ---
EXAM DESCRIPTION: [facility] Single View11/24/2022 7:28 pm CLINICAL HISTORY: CHEST PAIN COMPARISON: Chest Single View dated 06/26/2022; Chest Pa And Lat (2 Views) dated 11/08/2021 TECHNIQUE: Portable AP view of the chest. FINDINGS: Decreased inspiratory effort limits evaluation. Elevation of the right hemidiaphragm again noted. The lungs are clear. No pneumothorax or effusion. The cardiomediastinal contours are unremark able. IMPRESSION: No acute cardiopulmonary process.
--- NOTE | 2022-11-24 21:21 | ER ---
Nurse's Notes [facility] Name: Brett Love Age: 87 yrs Sex: Male : 1935 Arrival Date: 11/24/2022 Time: 18:22 Bed 8 Private MD: Diagnosis: Essential (primary) hypertension;Palpitations Presentation: 11/24 18:22 Chief complaint: EMS states: Sent from [facility] for high blood pressure, BP hb 220/110, HR 60s, SpO2 99% on RA, BGL 126, denies pain/dizziness. Coronavirus screen: At this time, the client does not indicate any symptoms associated with coronavirus-19. Ebola Screen: No symptoms or risks identified at this time. Initial Sepsis Screen: Does the patient meet any 2 criteria? No. Patient's initial sepsis screen is negative. Does the patient have a suspected source of infection? No. Patient's initial sepsis screen is negative. Risk Assessment: Do you want to hurt yourself or someone else? Patient reports no desire to harm self or others. Onset of symptoms was November 24, 2022. 18:22 Method Of Arrival: EMS: [facility] hb 18:22 Acuity: FAITH 3 hb Triage Assessment: 18:25 General: Appears in no apparent distress. Behavior is cooperative, anxious, restless. hb Pain: Denies pain. EENT: No signs and/or symptoms were reported regarding the EENT system. Neuro: Level of Consciousness is awake, alert, obeys commands, Oriented to person, place, time, situation. Cardiovascular: Patient's skin is warm and dry. Respiratory: Respiratory effort is even, unlabored, Respiratory pattern is regular, symmetrical. GI: No signs and/or symptoms were reported involving the gastrointestinal system. : No signs and/or symptoms were reported regarding the genitourinary system. Derm: Skin is pink, warm \T\ dry. Musculoskeletal: No signs and/or symptoms reported regarding the musculoskeletal system. Historical: - Allergies: 18:25 No Known Allergies; hb - PMHx: 18:25 Hypertension; hb - Immunization history:: Adult Immunizations up to date. - Social history:: Smoking status: Patient denies any tobacco usage or history of. Screenin:26 [facility] ED Fall Risk Assessment (Adult) Score/Fall Risk Level 3 or more points = High hb Risk Oriented to surroundings, Maintained a safe environment, Educated pt \T\ family on fall prevention, incl call for assistance when getting out of bed. Abuse screen: Denies threats or abuse. Denies injuries from another. Nutritional screening: No deficits noted. Tuberculosis screening: No symptoms or risk factors identified. Assessment: 18:26 General: See triage assessment. hb 19:15 Reassessment: Patient appears in no apparent distress at this time. Patient and/or jb4 family updated on plan of care and expected duration. Pain level reassessed. Patient is alert, oriented x 3, equal unlabored respirations, skin warm/dry/pink. 20:30 Reassessment: Patient appears in no apparent distress at this time. Patient and/or jb4 family updated on plan of care and expected duration. Pain level reassessed. Patient is alert, oriented x 3, equal unlabored respirations, skin warm/dry/pink. 21:44 Reassessment: Patient appears in no apparent distress at this time. Patient and/or jb4 family updated on plan of care and expected duration. Pain level reassessed. Patient is alert, oriented x 3, equal unlabored respirations, skin warm/dry/pink. Pt assisted to vehicle via wheel chair. Pt and family denies questions or concerns, verbalized understanding od d/c and follow up instructions. Vital Signs: 18:22 BP 177 / 70; Pulse 69; Resp 22; Temp 98.2(O); Pulse Ox 96% on R/A; Weight 80.74 kg; hb Height 5 ft. 11 in. ; Pain 0/10; 19:08 BP 162 / 67; Pulse 65; Resp 17; Pulse Ox 99% on R/A; hb 19:30 BP 146 / 70; Pulse 61; Resp 18; Pulse Ox 96% ; jb4 20:30 BP 153 / 66; Pulse 63; Resp 16; Pulse Ox 96% on R/A; jb4 21:44 BP 159 / 83; Pulse 72; Resp 16; Pulse Ox 97% on R/A; jb4 18:22 Body Mass Index 24.83 (80.74 kg, 180.34 cm) hb 18:22 Pain Scale: Adult hb ED Course: 18:22 Patient arrived in ED. hb 18:24 Triage completed. hb 18:25 Arm band placed on. hb 18:26 Patient has correct armband on for positive identification. hb 18:28 Rittger, Yaya, MD is Attending Physician. kdr 18:29 Inserted saline lock: 20 gauge in right antecubital area, using aseptic technique. hb Blood collected. 19:09 Attending Physician role handed off by Yaya Moore MD ms3 19:09 Jesus Alberto Ferguson DO is Attending Physician. ms3 19:30 XRAY Chest (1 view) In Process Unspecified. EDMS 19:45 Brett Corrales, RN is Primary Nurse. jb4 21:21 Kel Waldron DO is Referral Physician. ms3 21:44 No provider procedures requiring assistance completed. IV discontinued, intact, jb4 bleeding controlled, No redness/swelling at site. Pressure dressing applied. Administered Medications: No medications were administered Medication: 18:26 VIS not applicable for this client. hb Outcome: 21:21 Discharge ordered by . ms3 21:44 Discharged to home via wheelchair, with family. jb4 21:44 Condition: stable 21:44 Discharge instructions given to patient, Instructed on discharge instructions, follow up and referral plans. Demonstrated understanding of instructions, follow-up care. 21:45 Patient left the ED. jb4 Signatures: Dispatcher [employer] EDMS Yaya Moore MD MD [facility] Sun Moon RN RN Brett Corrales, ROBIN RN jb4 Jesus Alberto Ferguson DO DO ms3
--- NOTE | 2022-11-24 21:22 | EDPHYS ---
Physician Documentation [facility] Name: Brett Love Age: 87 yrs Sex: Male : 1935 Arrival Date: 11/24/2022 Time: 18:22 Bed 8 Private MD: ED Physician Jesus Alberto Ferguson HPI: 11/24 18:50 This 87 yrs old Male presents to ER via EMS with complaints of High Blood Pressure. kdr 18:50 Patient presents [facility] with multiple complaints including anxiety, high blood kdr pressure and generally not feeling well.. Onset: The symptoms/episode began/occurred today. Severity of symptoms: At their worst the symptoms were mild moderate just prior to arrival, in the emergency department the symptoms are unchanged. The patient has experienced similar episodes in the past, a few times. The patient has not recently seen a physician. Patient states that his blood pressure is normally about 120/70 but today it was 170 systolic. Historical: - Allergies: 18:25 No Known Allergies; hb - PMHx: 18:25 Hypertension; hb - Immunization history:: Adult Immunizations up to date. - Social history:: Smoking status: Patient denies any tobacco usage or history of. ROS: 18:50 Constitutional: Negative for fever, chills, and weight loss, Eyes: Negative for injury, kdr pain, redness, and discharge, ENT: Negative for injury, pain, and discharge, Neck: Negative for injury, pain, and swelling, Respiratory: Negative for shortness of breath, cough, wheezing, and pleuritic chest pain, Abdomen/GI: Negative for abdominal pain, nausea, vomiting, diarrhea, and constipation, Back: Negative for injury and pain, : Negative for injury, bleeding, discharge, and swelling, MS/Extremity: Negative for injury and deformity, Skin: Negative for injury, rash, and discoloration, Neuro: Negative for headache, weakness, numbness, tingling, and seizure activity. Allergy/Immunology: Negative for hives, rash, and allergies, Endocrine: Negative for neck swelling, polydipsia, polyuria, polyphagia, and marked weight changes, Hematologic/Lymphatic: Negative for swollen nodes, abnormal bleeding, and unusual bruising. 18:50 Cardiovascular: Positive for palpitations, Negative for chest pain, edema, orthopnea. 18:50 Psych: Positive for anxiety, Negative for depression, drug dependence, alcohol dependence, auditory hallucinations, visual hallucinations, homicidal ideation, suicide gesture, suicidal ideation. Exam: 18:50 Constitutional: This is a well developed, well nourished patient who is awake, alert, kdr and in mild (anxious) distress. Head/Face: Normocephalic, atraumatic. Eyes: Pupils equal round and reactive to light, extra-ocular motions intact. Lids and lashes normal. Conjunctiva and sclera are non-icteric and not injected. Cornea within normal limits. Periorbital areas with no swelling, redness, or edema. Neck: Trachea midline, no thyromegaly or masses palpated, and no cervical lymphadenopathy. Supple, full range of motion without nuchal rigidity, or vertebral point tenderness. No Meningismus. Chest/axilla: Normal chest wall appearance and motion. Nontender with no deformity. No lesions are appreciated. Cardiovascular: Regular rate and rhythm with a normal S1 and S2. No gallops, murmurs, or rubs. Normal PMI, no JVD. No pulse deficits. Respiratory: Lungs have equal breath sounds bilaterally, clear to auscultation and percussion. No rales, rhonchi or wheezes noted. No increased work of breathing, no retractions or nasal flaring. Abdomen/GI: Soft, non-tender, with normal bowel sounds. No distension or tympany. No guarding or rebound. No evidence of tenderness throughout. Back: No spinal tenderness. No costovertebral tenderness. Full range of motion. Skin: Warm, dry with normal turgor. Normal color with no rashes, no lesions, and no evidence of cellulitis. MS/ Extremity: Pulses equal, no cyanosis. Neurovascular intact. Full, normal range of motion. Neuro: Awake and alert, GCS 15, oriented to person, place, time, and situation. Cranial nerves II-XII grossly intact. Motor strength 5/5 in all extremities. Sensory grossly intact. Cerebellar exam normal. Normal gait. 18:50 Psych: Behavior/mood is pleasant, cooperative, anxious, Affect is animated, Oriented to person. 20:29 ECG was reviewed by the Attending Physician. ms3 Vital Signs: 18:22 BP 177 / 70; Pulse 69; Resp 22; Temp 98.2(O); Pulse Ox 96% on R/A; Weight 80.74 kg; hb Height 5 ft. 11 in. ; Pain 0/10; 19:08 BP 162 / 67; Pulse 65; Resp 17; Pulse Ox 99% on R/A; hb 19:30 BP 146 / 70; Pulse 61; Resp 18; Pulse Ox 96% ; jb4 20:30 BP 153 / 66; Pulse 63; Resp 16; Pulse Ox 96% on R/A; jb4 21:44 BP 159 / 83; Pulse 72; Resp 16; Pulse Ox 97% on R/A; jb4 18:22 Body Mass Index 24.83 (80.74 kg, 180.34 cm) hb 18:22 Pain Scale: Adult hb MDM: 19:06 Patient medically screened. kdr 21:21 Differential Diagnosis ACS vs Arrhythmia vs Anxiety. Data reviewed: vital signs, nurses ms3 notes, lab test result(s), EKG, radiologic studies, and as a result, I will discharge patient. Independent interpretation of the following test(s) in the Emergency Department EKG: See my EKG interpretation above X-Ray: My interpretation is X-ray image reviewed by me does not show PNA or PTX. Counseling: I had a detailed discussion with the patient and/or guardian regarding: the historical points, exam findings, and any diagnostic results supporting the discharge/admit diagnosis, lab results, radiology results, the need for outpatient follow up, to return to the emergency department if symptoms worsen or persist or if there are any questions or concerns that arise at home. ED course: Discussed labs, chest x-ray with the patient. Patient to follow-up with primary care in 2 to 3 days. Patient understands agrees with plan. All questions were answered. Return precautions discussed include worsening symptoms, or any other concerns. On reevaluation patient is improved, alert and orient x4, no apparent distress, nontoxic, speaking full sentences.. 11/24 18:36 Order name: Basic Metabolic Panel; Complete Time: 19:32 kdr 11/24 18:36 Order name: CBC with Diff; Complete Time: 19:32 kdr 11/24 18:36 Order name: NT PRO-BNP; Complete Time: 19:32 kdr 11/24 18:36 Order name: Troponin HS; Complete Time: 19:32 kdr 11/24 20:33 Order name: Urine Dipstick-Ancillary; Complete Time: 20:33 EDMS 11/24 18:36 Order name: XRAY Chest (1 view); Complete Time: 21:10 kdr 11/24 18:36 Order name: EKG; Complete Time: 18:36 kdr 11/24 18:36 Order name: Cardiac monitoring; Complete Time: : kdr 11/24 18:36 Order name: EKG - Nurse/Tech; Complete Time: : kdr 11/24 18:36 Order name: IV Saline Lock; Complete Time: : kdr 11/24 18:36 Order name: Labs collected and sent; Complete Time: : kdr 11/24 18:36 Order name: O2 Per Protocol; Complete Time: : kdr 11/24 18:36 Order name: O2 Sat Monitoring; Complete Time: : kdr 11/24 18:36 Order name: Urine Dipstick-Ancillary (obtain specimen); Complete Time: 20:34 kdr EC:29 Rate is 61 beats/min. Rhythm is regular. QRS [place] is Normal. NV interval is normal. ms3 Clinical impression: NSR w/ Non-specific ST/T Changes. Interpreted by me. Reviewed by me. Administered Medications: No medications were administered Disposition Summary: 11/24/22 21:21 Discharge Ordered Location: Home ms3 Condition: Stable ms3 Diagnosis - Essential (primary) hypertension ms3 - Palpitations ms3 Followup: ms3 - With: Kel Waldron DO - When: 2 - 3 days - Reason: Recheck today's complaints Discharge Instructions: - Discharge Summary Sheet ms3 - Hypertension, Adult ms3 - Palpitations ms3 Forms: - Medication Reconciliation Form ms3 - Thank You Letter ms3 - Antibiotic Education ms3 - Prescription Opioid Use ms3 Signatures: Dispatcher [employer] Yaya Sanchez MD MD kdr Sun Moon, RN RN Jesus Alberto Boyle DO DO ms3
[2022-11-25 04:08] VITALS: BP 159/83; O2SAT 97
== END 2022-11-24 21:45 | disposition home or self-care (01) ==
LOC: ER 18:20
DX: I10 Essential (primary) hypertension (principal); R00.2 Palpitations; F41.9 Anxiety disorder, unspecified
CPT/HCPCS: 36415; 71045; 80048; 81003; 83880; 84484; 85025; 93005

== ENCOUNTER 2023-02-18 10:31 | Emergency (ER) | payer OTHER ==
--- OUTSIDE RECORDS SUMMARY | 2023-02-18 10:36 | XMS REPORT | Continuity of Care Document ---
:1935 Author Organization [facility] t Address [address] [place] [address] Care Team Providers Name Role Phone HEAD, TD Primary Care Physician Unavailable [id number] Attending Clinician Unavailable Kathryn ZUÑIGA Attending Clinician Unavailable Kathryn Yun Attending Clinician Spencer Hernandez Attending Clinician Michael Ritter Jr Attending Clinician Caleb Gross Attending Clinician CALEB GROSS Attending Clinician Unavailable [id number] Admitting Clinician Unavailable Kathryn ZUÑIGA Admitting Clinician Unavailable Payers Payer Name Policy Type Policy Number Effective Date Expiration Date [facility] [id number] 2022 [facility] 00:00:00 PPO Problems Condition Condition Condition Status Onset Resolution Last Treating Co mments Source Name Details Category Date Date Treatment Clinician Date AMS AMS Diagnosis Active 2020-05-24 Mem oria Active 05-24 11:03:00 l 05/24/2020 07:00: Jacky Potter [place] Anxiety Anxiety Problem Active 2021-11-28 Me moria (finding) (finding) 22:13:27 l Active [place] Problem 11/28/2021 Medical Group,Misc her Neuro,[facility] Coronary Coronary Problem Active 2021-11-28 Memoria arterioscl arterioscl 22:13:27 l erosis erosis [place] (disorder) (disorder) Active Problem 11/28/2021 Medical Group,[facility] her Neuro,[facility] Hypertensi Hypertens Problem Active 2021-11-28 Memoria ve edin 22:13:27 l disorder, disorder, Herm loc systemic systemic arterial arterial (disorder) (disorder) Active Problem 11/28/2021 Medical Group,[facility] her Neuro,[facility] Hypothyroi Hypothyro Problem Active 2021-11-28 Memoria dism idism 22:13:27 l (disorder) (disorder) He rmann Active Problem 11/28/2021 Medical Group,[facility] her Neuro,[facility] Insomnia Insomnia Problem Active 2021-11-28 Memoria (disorder) (disorder) 22:13:27 l Active [place] Problem 11/28/2021 Medical Group,[facility] her Neuro,[facility] History of Past Illness Condition Condition Condition Status Onset Resolution Last Treating Co mments Source Name Details Category Date Date Treatment Clinician Date Personal Personal Problem 2020-05-26 2020-05-26 Memoria history of history of 05-24 21:56:01 21:56:01 l other other 17:00: N[place] mental and mental and 00 behavioral behavioral disorders disorders 05/24/2020 05/26/2020 [facility] Disorienta Disorient Problem 2020-05-26 2020-05-26 Memoria hu watson, 05-24 21:56:01 21:56:01 l unspecifie unspecifie 17:00: He lily d d 00 05/24/2020 05/26/2020 [facility] Allergies, Adverse Reactions, Alerts Allergy Allergy Status Severity Reaction(s) Onset Inactive Treating Comm ents Source Name Type Date Date Clinician NO KNOWN Drug Active [facility] No Known No Known Active Memori a Medicati Medicati l on on Néstor more s Social History Social Habit Start Date Stop Date Quantity Comments Source Exposure to 2022-11-23 2022-12-03 Not sure [facility] SARS-CoV-2 (event) 00:00:00 00:34:00 Medica l Branch Social History 2020-05-24 2020-05-24 Abbey amos 16:13:52 16:13:52 Sex Ass[birth year] At [birth year] [facility] 00:00:00 00:00:00 Medical Branch Smoking Status Start Date Stop Date Source Tobacco smoking consumption [facility] unknown Branch Medications Ordered Filled Start Stop Current Ordering Indication Dosage Frequency Signature Comments Components Source Medication Medication Date Date Medication? Clinician (SIG) Name Name cefdinir 2022- No 300mg 300 mg, Univ ers (OMNICEF) 12-03 Oral, ity of capsule 300 07:45: 07:46 [place]CE[place] :[place] dose, On Medical Tue Branch 12/03/22 at 0245, SANCHEZ
Re ason for Anti-Infec tive: Documented Infection< br>Documen rodriguez Infection Site: Urine
D uration of Therapy: 10 days cefdinir 2022- Yes [id number] 300mg Take 1 U nivers 300 mg 12-03 0408 capsule by ity of capsule 00:00: 04:59 [facility] 00 :00 every 12 Medical ([facility]) Branch hours for 10 days. prasugrel 2019-09 Yes 10 mg = 1 Mem oria 10 mg oral 0-06 tab, PO, l tablet 18:38: Daily, # Énst[place] 00 30 tab, 0 Refill(s) Hydralazine 2019-09 Yes 50 mg = 1 M emoria Hydrochlori 0-06 tab, PO, l de 50 MG 18:38: TID, # 90 Herm loc Oral Tablet 00 tab, 3 Refill(s) prasugrel 2019-09 Yes 10 mg = 1 Mem oria 10 mg oral 0-06 tab, PO, l tablet 18:38: Daily, # [place] 00 30 tab, 0 Refill(s) Hydralazine 2019-09 [...] tab, PO, l tablet 18:38: Daily, # [place] 00 30 tab, 0 Refill(s) atorvastati 2019-09 Yes 40 mg = 1 M emoria n 40 mg 0-06 tab, PO, l oral tablet 18:38: Daily, # He rmann 00 90 tab, 3 Refill(s), Pharmacy: [facility] #[id number], 180.34, cm, 06/13/20 13:12:00 CDT, Height, 78.182, kg, 06/13/20 13:12:00 CDT, Weight levothyroxi 2019-09 Yes 100 Memori a ne 100 mcg 0-06 microgram l (0.1 mg) 18:38: = 1 tab, Ernestina nn oral tablet 00 PO, Daily, # 90 tab, 3 Refill(s), Pharmacy: [facility] #[id number], 180.34, cm, 06/13/20 13:12:00 CDT, Height, 78.182, kg, 06/13/20 13:12:00 CDT, Weight metoprolol 2019-09 Yes 50 mg = 1 [...] rmann 00 90 tab, 3 Refill(s), Pharmacy: [facility] #[id number], 180.34, cm, 06/13/20 13:12:00 CDT, Height, 78.182, kg, 06/13/20 13:12:00 CDT, Weight levothyroxi 2019-09 Yes 100 Memori a ne 100 mcg 0-06 microgram l (0.1 mg) 18:38: = 1 tab, Ernestina nn oral tablet 00 PO, Daily, # 90 tab, 3 Refill(s), Pharmacy: [facility] #[id number], 180.34, cm, 06/13/20 13:12:00 CDT, Height, 78.182, [...] rmann 00 90 tab, 3 Refill(s), Pharmacy: [facility] #[id number], 180.34, cm, 06/13/20 13:12:00 CDT, Height, 78.182, kg, 06/13/20 13:12:00 CDT, Weight levothyroxi 2019-09 Yes 100 Memori a ne 100 mcg 0-06 microgram l (0.1 mg) 18:38: = 1 tab, Ernestina nn oral tablet 00 PO, Daily, # 90 tab, 3 Refill(s), [id number], 180.34, cm, 06/13/20 13:12:00 CDT, Height, 78.182, kg, 06/13/20 13:12:00 CDT, Weight Hydralazine No 50 mg = 1 M emoria Hydrochlori 9-30 tab, PO, l de 50 MG 19:48: QID, 0 [place] Oral Tablet 00 Refill(s) Hydralazine No 50 mg = 1 M emoria Hydrochlori 9-30 tab, PO, l de 50 MG 19:48: QID, 0 N[place] Oral Tablet 00 Refill(s) Hydralazine 2019-0 No 50 mg = 1 M emoria Hydrochlori 9-30 tab, PO, l de 50 MG 19:48: QID, 0 [place] Oral Tablet 00 Refill(s) Nitroglycer 2019-0 Yes See Memori a in 0.4 MG 9-24 Instructio l Sublingual 17:56: ns, [place] Tablet 00 DISSOLVE 1 TABLET UNDER THE TONGUE EVERY 5 MINUTES NEEDED FOR CHEST PAIN NOT TO EXCEED 3 DOSES, # 25 tab, 5 Refill(s), Pharmacy: [facility] #[id number], 180.34, cm, 05/24/20 10:51:00 CDT, Height, 77.6, kg, 05/24/20 10:51:00 C... Nitroglycer 2019-0 Yes See Memori a in 0.4 MG 9-24 Instructio l Sublingual 17:56: ns, [place] Tablet 00 DISSOLVE 1 TABLET UNDER THE TONGUE EVERY 5 MINUTES NEEDED FOR CHEST PAIN NOT TO EXCEED 3 DOSES, # 25 tab, 5 Refill(s), [id number], 180.34, cm, 05/24/20 10:51:00 CDT, Height, 77.6, kg, 05/24/20 10:51:00 C... Nitroglycer 2019-0 Yes See Memori a in 0.4 MG 9-24 Instructio l Sublingual 17:56: ns, [place] Tablet 00 DISSOLVE 1 TABLET UNDER THE TONGUE EVERY 5 MINUTES NEEDED FOR CHEST PAIN NOT TO EXCEED 3 DOSES, # 25 tab, 5 Refill(s), [id number], 180.34, cm, 05/24/20 10:51:00 CDT, Height, 77.6, kg, 05/24/20 10:51:00 C... Saline 2019-0 No Notes: Memoria Flush 0.9% 9-16 (Same as: l 16:15: BD [place] 00 Posiflush) Saline 2019-0 No Notes: Memoria Flush 0.9% 9-16 (Same as: l 16:15: BD [place] 00 Posiflush) Saline 2020-0 No Notes: Memoria Flush 0.9% 9-16 (Same as: l 16:15: BD [place] 00 Posiflush) Mirtazapine 2020-0 Yes 30 mg = 2 M emoria 15 MG Oral 9-10 tab, PO, l Tablet 18:27: Bedtime, # Ernestina nn 00 50 tab, 1 Refill(s), Pharmacy: [facility] #[id number], 180.34, cm, 05/11/20 10:37:00 CDT, Height, 77.273, kg, 05/11/20 10:37:00 CDT, Weight Mirtazapine 2020-0 Yes 30 mg = 2 M emoria 15 MG Oral 9-10 tab, PO, l Tablet 18:27: Bedtime, # Ernestina nn 00 50 tab, 1 Refill(s), Pharmacy: [facility] #[id number], 180.34, cm, 05/11/20 10:37:00 CDT, Height, 77.273, kg, 05/11/20 10:37:00 CDT, Weight Mirtazapine 2020-0 Yes 30 mg = 2 M emoria 15 MG Oral 9-10 tab, PO, l Tablet 18:27: Bedtime, # Ernestina nn 00 50 tab, 1 Refill(s), Pharmacy: [facility] #[id number], 180.34, cm, 05/11/20 10:37:00 CDT, Height, 77.273, kg, 05/11/20 10:37:00 CDT, Weight Escitalopra 2020-0 Yes 5 mg = 1 Me moria m 5 MG Oral 9-10 tab, PO, l Tablet 18:25: Daily, # N[place] [Lexapro] 00 30 tab, 3 Refill(s), Pharmacy: [facility] #[id number], 180.34, cm, 05/11/20 10:37:00 CDT, Height, 77.273, kg, 05/11/20 10:37:00 CDT, Weight Escitalopra 2020-0 Yes 5 mg = 1 Me moria m 5 MG Oral 9-10 tab, PO, l Tablet 18:25: Daily, # N[place] [Lexapro] 00 30 tab, 3 Refill(s), Pharmacy: [facility] #[id number], 180.34, cm, 05/11/20 10:37:00 CDT, Height, 77.273, kg, 05/11/20 10:37:00 CDT, Weight Escitalopra 2020-0 Yes 5 mg = 1 Me moria m 5 MG Oral 9-10 tab, PO, l Tablet 18:25: Daily, # [place] [Lexapro] 00 30 tab, 3 Refill(s), Pharmacy: [facility] #[id number], 180.34, cm, 05/11/20 10:37:00 CDT, Height, 77.273, kg, 05/11/20 10:37:00 CDT, Weight amLODIPine 2020-0 Yes 5 mg = 1 Mem oria 5 mg oral 9-03 tab, PO, l tablet 15:27: BID, 0 [place] 00 Refill(s) Aspirin 81 2020-0 Yes 81 mg = 1 Me moria MG Enteric 9-03 tab, PO, l Coated 15:27: Daily, # [place] Tablet 00 90 tab, 3 Refill(s) atorvastati [...] -Glucosamin 9-03 0 l e 15:27: Refill(s) [place] 00 Hydralazine 2020-0 Yes 100 mg = [...] tab, PO, l tablet 15:27: Daily, 0 [place] 00 Refill(s) melatonin 5 2020-0 Yes 5 mg = 1 Me moria mg oral 05-11 tab, PO, l tablet 15:27: Bedtime, [place] 00 PRN for insomnia, # 60 tab, 0 Refill(s) metoprolol 2020-0 Yes 50 mg = 1 Me moria tartrate 50 - tab, PO, l mg oral 15:27: BID, 0 [place] tablet 00 Refill(s) Omeprazole 2020-0 Yes PO, [...] 2 gm, TOP, M emoria Sodium 0.01 03 QID, 0 l MG/MG 15:27: Refill(s) [place] Topical Gel 00 Lorazepam 1 2020-0 Yes 1 mg = 1 Me moria MG Oral 05-11 tab, PO, l Tablet 15:27: TID, 0 [place] 00 Refill(s) Nitroglycer 2020-0 Yes 0.4 mg = 1 Memoria in 0.4 MG 05-11 tab, SL, l Sublingual 15:27: Q5Min, 0 Her almendarez Tablet 00 Refill(s) amLODIPine 2020-0 Yes 5 mg = 1 Mem oria 5 mg oral 05-11 tab, PO, l tablet 15:27: BID, 0 [place] 00 Refill(s) Aspirin 81 2020-0 Yes 81 mg = 1 Me moria MG Enteric 05-11 tab, PO, l Coated 15:27: Daily, # [place] Tablet 00 90 tab, 3 Refill(s) atorvastati 2020-0 Yes 40 mg = 1 M emoria n 40 mg 05-11 tab, PO, l oral tablet 15:27: Daily, 0 He rmann 00 Refill(s) PanOxyl 2020-0 Yes TOP, BID, Memor ia Maximum 05-11 0 l Strength 15:27: Refill(s) Herm loc Foaming 00 Acne Wash Zyrtec 2020-0 Yes Daily, 0 Memoria 03 Refill(s) l 15:27: [place] 00 donepezil 5 2020-0 Yes 5 mg [...] Yes 100 Memori a ne 100 mcg 9 microgram l (0.1 mg) 15:27: = 1 tab, Ernestina nn oral tablet 00 PO, Daily, 0 Refill(s) lisinopril 2020-0 Yes 40 mg = 1 Me moria 40 mg oral -03 tab, PO, l tablet 15:27: Daily, 0 N[place] 00 Refill(s) melatonin 5 2020-0 Yes 5 mg = 1 Me moria mg oral - tab, PO, l tablet 15:27: Bedtime, [place] 00 PRN for insomnia, # 60 tab, 0 Refill(s) metoprolol 2020-0 Yes 50 mg = 1 Me moria tartrate 50 -03 tab, PO, l mg oral 15:27: BID, 0 N[place] tablet 00 Refill(s) Omeprazole 2020-0 Yes PO, Daily, M emoria 05-11 0 l 15:27: Refill(s) [place] 00 prasugrel 2020-0 Yes 10 mg = 1 Mem oria 10 mg oral 05-11 tab, PO, l tablet 15:27: Daily, 0 [place] 00 Refill(s) prazosin 2 2020-0 Yes 2 mg = 1 Mem oria mg oral 05-11 cap, PO, l capsule 15:27: TID, 0 [place] 00 Refill(s) spironolact 2020-0 Yes 50 mg [...] 05-11 QID, 0 l MG/MG 15:27: Refill(s) [place] Topical Gel 00 Lorazepam 1 2020-0 Yes [...] tab, PO, l tablet 15:27: BID, 0 [place] 00 Refill(s) Aspirin 81 2020-0 Yes 81 [...] Daily, 0 Memoria 9-03 Refill(s) l 15:27: [place] 00 donepezil 5 2020-0 Yes 5 mg [...] tab, PO, l tablet 15:27: Daily, 0 [place] 00 Refill(s) melatonin 5 2020-0 Yes 5 mg = 1 Me moria mg oral 05-11 tab, PO, l tablet 15:27: Bedtime, N[place] 00 PRN for insomnia, # 60 tab, 0 Refill(s) metoprolol 2020-0 Yes 50 mg = 1 Me moria tartrate 50 - tab, PO, l mg oral 15:27: BID, 0 [place] tablet 00 Refill(s) Omeprazole 2020-0 Yes PO, Daily, M emoria 05-11 0 l 15:27: Refill(s) [place] 00 prasugrel 2020-0 Yes 10 mg = 1 Mem oria 10 mg oral 05-11 tab, PO, l tablet 15:27: Daily, 0 [place] 00 Refill(s) prazosin 2 2020-0 Yes 2 mg = 1 Mem oria mg oral 05-11 cap, PO, l capsule 15:27: TID, 0 [place] 00 Refill(s) spironolact 2020-0 Yes 50 mg [...] 05-11 QID, 0 l MG/MG 15:27: Refill(s) [place] Topical Gel 00 Lorazepam 1 Yes 1 mg = 1 Me moria MG Oral 05-11 tab, PO, l Tablet 15:27: TID, 0 [place] 00 Refill(s) Nitroglycer Yes 0.4 mg = 1 Memoria in 0.4 MG 05-11 tab, SL, l Sublingual 15:27: Q5Min, 0 Her almendarez Tablet 00 Refill(s) Vital Signs Vital Name Observation Time Observation Value Comments Source Heart rate 2022-12-03 08:39:00 53 /min [facility] Body temperature 2022-12-03 08:39:00 35.67 Anabelle [facility] Oxygen saturation in 2022-12-03 08:39:00 95 /min [facility] Arterial blood by [facility] Pulse oximetry Branch Systolic blood 2022-12-03 08:00:00 144 mm[facility]Hg[facility] Diastolic blood 2022-12-03 08:00:00 78 mm[Hg] [facility] Respiratory rate 2022-12-03 08:00:00 13 /min [facility] Body height 2022-12-03 05:33:00 180.3 cm [facility] Body weight 2022-12-03 05:33:00 83.915 kg [facility] BMI 2022-12-03 05:33:00 25.80 kg/m2 [facility] Systolic (mm Hg) 2020-07-11 19:29:00 Pee rial [place] Diastolic (mm Hg) 2020-07-11 19:29:00 Mem orial [place] Heart Rate 2020-07-11 19:29:00 [facility] Temperature Oral (F) 2020-07-11 19:29:00 98.1 F [facility] Height 2020-07-11 19:29:00 180.34 cm [facility] [place] Weight 2020-07-11 19:29:00 [facility] [place] BMI Calculated 2020-07-11 19:29:00 Memori al [place] Systolic (mm Hg) 2020-06-13 18:00:00 Pee rial [place] Diastolic (mm Hg) 2020-06-13 18:00:00 Mem orial [place] Heart Rate 2020-06-13 18:00:00 [facility] [place] Temperature Oral (F) 2020-06-13 18:00:00 98.6 F [facility] [place] Height 2020-06-13 18:00:00 180.34 cm [facility] [place] Weight 2020-06-13 18:00:00 [facility] [place] BMI Calculated 2020-06-13 18:00:00 Memori al [place] Respitory Rate 2020-05-24 18:54:00 Memori al [place] Systolic (mm Hg) 2020-05-24 18:54:00 Pee rial [place] Diastolic (mm Hg) 2020-05-24 18:54:00 Mem orial [place] Temperature Oral (F) 2020-05-24 18:54:00 98.3 F [facility] [place] Respitory Rate 2020-05-24 18:00:00 Memori al [place] Systolic (mm Hg) 2020-05-24 18:00:00 Pee rial [place] Diastolic (mm Hg) 2020-05-24 18:00:00 Mem orial [place] Respitory Rate 2020-05-24 16:52:00 Memori al [place] Systolic (mm Hg) 2020-05-24 16:52:00 Pee rial [place] Diastolic (mm Hg) 2020-05-24 16:52:00 Mem orial [place] Heart Rate 2020-05-24 16:03:00 [facility] [place] Height 2020-05-24 15:47:00 180.34 cm [facility] [place] BMI Calculated 2020-05-24 15:47:00 Memori al [place] Weight 2020-05-24 15:47:00 [facility] [place] Heart Rate 2020-05-24 15:47:00 [facility] [place] Temperature Oral (F) 2020-05-24 15:47:00 98.2 F [facility] [place] Systolic (mm Hg) 2020-05-11 15:25:00 Pee rial [place] Diastolic (mm Hg) 2020-05-11 15:25:00 [facility] Heart Rate 2020-05-11 15:25:00 [facility] Temperature Oral (F) 2020-05-11 15:25:00 98.0 F [facility] Height 2020-05-11 15:25:00 180.34 cm [facility] Weight 2020-05-11 15:25:00 [facility] BMI Calculated 2020-05-11 15:25:00 Deandra Montes Procedures Procedure Date / Time Performing Clinician Source Performed EKG-12 LEAD 2022-12-03 08:00:31 Kathryn Zuñiga [facility] URINALYSIS 2022-12-03 06:32:00 Kathryn Zuñiga [facility] MAGNESIUM 2022-12-03 05:55:00 Kathryn Zuñiga [facility] TROPONIN I 2022-12-03 05:55:00 Kathryn Zuñiga [facility] COMP. METABOLIC PANEL 2022-12-03 05:55:00 Kathryn Zuñiga [facility] ([id number] CBC WITH DIFF 2022-12-03 05:55:00 Kathryn Zuñiga [facility] N-TERMINAL PRO-BNP 2022-12-03 05:55:00 Kathryn Zuñiga [facility] PCI - Percutaneous 2020-01-16 05:00:00 [facility] coronary intervention Encounters Start End Encounter Admission Attending Care Care Encounter Source Date/Time Date/Time Type Type Clinicians Facility Department ID 2021-10-04 Outpatient [id number] ENCTY REF [id number] ENCTY 09:47:45 0512 2022-12-03 2022-12-03 Emergency X Kathryn ZUÑIGA [facility] ERT [id number] Univers 00:23:00 04:02:00 ity [facility] 2022-12-03 2022-12-03 Emergency Kathryn Zuñiga [facility] [id number] Univers 00:23:00 04:02:00 Amy ROMAN [id number] [facility] [id number] [facility] [id number] [place] [id number] Branch 2021-11-26 2021-11-26 Ambulatory nullFlavo MNA [id number] Memoria 19:45:00 19:45:00 Pre-Reg r Neurology 04 l Kimberly [place] 2021-11-26 2021-11-26 Ambulatory nullFlavo MNA [id number] Memoria 19:45:00 19:45:00 Pre-Reg r Neurology 04 l Kimberly [place] 2021-11-26 2021-11-26 Outpatient MHIE MHIE [id number] Memoria 14:45:00 14:45:00 04 abby [place] 2021-11-26 2021-11-26 Outpatient David [facility] [id number] 14:45:00 14:45:00 Spencer Joao Bull 2020-07-11 2020-07-12 Outpatient nullFlavo [facility] [id number] Memoria 19:30:00 05:59:59 r Primary 03 [facility] 2020-07-11 2020-07-12 Outpatient nullFlavo [facility] [id number] Memoria 19:30:00 05:59:59 r Primary 03 [facility] 2020-07-11 2020-07-11 Outpatient Riya, MH[facility] [id number] 13:30:00 23:59:59 Michael Julio 03 2020-07-11 2020-07-11 Outpatient MHIE MHIE [id number] Memoria 13:30:00 13:30:00 03 [facility] 2020-06-13 2020-06-14 Outpatient nullFlavo [facility] [id number] Memoria 18:30:00 04:59:59 r Primary 02 [facility] 2020-06-13 2020-06-14 Outpatient nullFlavo [facility] [id number] Memoria 18:30:00 04:59:59 r Primary 02 [facility] 2020-06-13 2020-06-13 Outpatient Riya, MHMG [facility] [id number] 13:30:00 23:59:59 Michael Julio 2020-06-13 2020-06-13 Outpatient MHIE MHIE [id number] Memoria 13:30:00 13:30:00 02 [facility] 2020-06-07 2020-06-09 Phone nullFlavo [facility] [id number] Memoria 19:42:51 04:59:59 Message r Primary 01 [facility] 2020-06-07 2020-06-09 Phone nullFlavo MG [id number] Memoria 19:42:51 04:59:59 Message r Primary 01 [facility] 2020-06-07 2020-06-08 Outpatient MHMG [facility] [id number] 14:42:51 23:59:59 2020-06-01 2020-06-03 Phone nullFlavo MG [id number] Memoria 15:04:04 04:59:59 Message r Primary 00 [facility] 2020-06-01 2020-06-03 Phone nullFlavo MG [id number] Memoria 15:04:04 04:59:59 Message r Primary 00 [facility] 2020-06-01 2020-06-02 Outpatient MHMG [facility] [id number] 10:04:04 23:59:59 00 2020-05-24 2020-05-24 Emergency nullFlavo [facility] [id number] Memoria 15:46:48 19:08:00 r [place] 01 [facility] 2020-05-24 2020-05-24 Emergency nullFlavo [facility] [id number] Memoria 15:46:48 19:08:[address] 2020-05-24 2020-05-24 Outpatient Renato [id number] 10:46:48 14:08:00 Caleb [id number] Chin [id number] 2020-05-24 2020-05-24 Emergency E RENATO, MHCY MHCY [id number] MHCY 10:46:00 14:08:00 CALEB 2020-05-18 2020-05-19 [place] [id number] Memoria 18:00:00 04:59:59 r Primary 01 [facility] 2020-05-18 2020-05-19 Outpatient nullFlavo [facility] [id number] Memoria 18:00:00 04:59:59 r Primary 01 [facility] 2020-05-18 2020-05-18 Outpatient Riya, MG [facility] [id number] 13:00:00 23:59:59 Michael Julio 01 2020-05-18 2020-05-18 Outpatient TREVOR TOMMY [id number] Memoria 13:00:00 13:00:00 01 l Né[place] 2020-05-11 2020-05-12 Outpatient nullFlavo [id number] Memoria 15:30:00 04:59:59 r Primary 00 l Care [facility] 2020-05-11 2020-05-12 Outpatient nullFlavo [facility] [id number] Memoria 15:30:00 04:59:59 r Primary 00 l [facility] 2020-05-11 2020-05-11 Outpatient Riya, [facility] [id number] 10:30:00 23:59:59 Michael Julio 00 2020-05-11 2020-05-11 Outpatient TREVOR TOMMY [id number] Memoria 10:30:00 10:30:00 00 [facility] Results Test Description Test Time Test Comments Results Result Comments Source TROPONIN I 2022-12-03 06:53:28 Test Item Value Reference Range Interpretation Comme nts TROPONIN I (test code = 6770655080) 0.005 ng/mL <=0.034 ALPA (test code = ALPA) Reference (Normal) Range (defined by the 99th percentile reference limit): <= 0.034 ng/mL Note: Cardiac troponin begins to rise 3-4 hours after the onset of ischemia. Repeat in 4-6 hours if the sample was drawn within 3-4 hours of the onset of the symptom and found normal. Diagnosis of myocardial injury is made with acute changes in cTn concentrations with at least one serial sample above the 99th percentile upper reference limit (URL), taken together with the patient's clinical presentation. Biotin has been reported to cause a negative bias, interpret results relative to patient's use of biotin. Lab Interpretation (test code = Normal 05817-3) [facility] [id number] 06:50:06 Test Item Value Reference Range Interpretation Comments NT-proBNP (test code = 301 pg/mL <=450 5323433126) ALPA (test code = ALPA) Biotin has been reported to cause a negative bias, interpret results relative to patient's use of biotin. Lab Interpretation (test Normal code = 63793-7) [facility]23-[facility]-28 06:43:06 Test Item Value Reference Range Interpretation Comments MAGNESIUM (test code = 7067680777) 2.1 mg/dL 1.7-2.4 Lab Interpretation (test code = Normal 78353-2) [facility]. METABOLIC PANEL ([id number])2022-12-03 06:42:46 Test Item Value Reference Range Interpretation Comments NA (test code = 135 mmol/L 135-145 5959381183) K (test code = 4.2 mmol/L 3.5-5.0 5175675560) CL (test code = 104 mmol/L 98-108 0159833388) CO2 TOTAL (test code = 23 mmol/L 23-31 8544728592) AGAP (test code = 8 2-16 3265216308) BUN (test code = 31 mg/dL 7-23 H 4253656794) GLUCOSE (test code = 126 mg/dL 70-110 H 6522486966) CREATININE (test code = 1.25 mg/dL 0.60-1.25 8267621080) TOTAL BILI (test code = 0.4 mg/dL 0.1-1.1 8233365443) CALCIUM (test code = 8.7 mg/dL 8.6-10.6 0049768937) T PROTEIN (test code = 6.0 g/dL 6.3-8.2 L 8239370802) ALBUMIN (test code = 3.8 g/dL 3.5-5.0 4885757508) ALK PHOS (test code = 53 U/L 34-122 7629190180) ALTv (test code = 19 U/L 5-50 1742-6) AST(SGOT) (test code = 21 U/L 13-40 9428995153) eGFR (test code = 54.8 mL/min/1.73m2 [id number]) ALPA (test code = ALPA) Association of Glomerular Filtration Rate (GFR) and Staging of Kidney Disease* + --+ --+ ------+| GFR (mL/min/1.73 m2) ?| With Kidney Damage ?| ?Without Kidney Damage+ --------+ --------+ +| ?>90 ?| ?Stage one ?| ? Normal ?+ ---+ ---+ -------+| ?60-89 ?| ?Stage two ?| ? Decreased GFR ? + --+ --+ ------+| ?30-59 ?| ?Stage three ?| ? Stage three ? + --+ --+ ------+| ?15-29 ?| ?Stage four ? | ? Stage four ?+ ---+ ---+ -------+| ?<15 (or dialysis) ? ?| ?Stage five ? | ? Stage five ?+ ---+ ---+ -------+ *Each stage assumes the associated GFR level has been in effect for at least three months. ?Stages 1 to 5, with or without kidney disease, indicate chronic kidney disease. Notes: Determination of stages one and two (with eGFR >59mL/min/1.73 m2) requires estimation of kidney damage for at least three months as defined by structural or functional abnormalities of the kidney, manifested by either:Pathological abnormalities or Markers of kidney damage (including abnormalities in the composition of the blood or urine or abnormalities in imaging tests). Lab Interpretation Abnormal (test code = 42135-9) [facility] WITH [id number] 06:23:02 Test Item Value Reference Range Interpretation Comments WBC (test code = 6.61 See_Comment [Automated 2259-2) message] The sy stem which generated this result transmitted reference range : 4.20 - 10.70 10*3/?L. The reference range was not used to interpret this result as normal/abnormal . RBC (test code = 3.88 See_Comment L [Automated 099-8) message] The sy stem which generated this result transmitted reference range : 4.26 - 5.52 10*6/?L. The reference range was not used to interpret this result as normal/abnormal . HGB (test code = 11.8 g/dL 12.2-16.4 L 718-7) HCT (test code = 35.6 % 38.4-49.3 L 4544-3) MCV (test code = 91.8 fL 81.7-95.6 787-2) MCH (test code = 30.4 pg 26.1-32.7 785-6) MCHC (test code = 33.1 g/dL 31.2-35.0 786-4) RDW-SD (test code = 49.8 fL 38.5-51.6 17443-6) RDW-CV (test code = 14.7 % 12.1-15.4 788-0) PLT (test code = 237 See_Comment [Automated 777-3) message] The sy stem which generated this result transmitted reference range : 150 - 328 10*3/ ?L. The reference r cecy was not used to interpret this result as normal/abnormal . MPV (test code = 10.9 fL 9.8-13.0 60923-8) NRBC/100 WBC (test 0.0 See_Comment [Automat ed code = [id number]) message] The system which generated this result transmitted reference range : 0.0 - 10.0 /100 WBCs. The refer ence range was not u sed to interpret th is result as normal/abnormal . NRBC x10^3 (test code See_Comment [Auto mated = [id number]) message] The s ystem which generated this result transmitted reference range : 10*3/?L. The reference range was not used to interpret this result as normal/abnormal . GRAN MAT (NEUT) % 51.0 % (test code = 770-8) IMM GRAN % (test code 0.90 % = [id number]) LYMPH % (test code = 34.6 % 736-9) MONO % (test code = 10.4 % 5905-5) EOS % (test code = 2.3 % 713-8) BASO % (test code = 0.8 % 706-2) GRAN MAT x10^3(ANC) 3.37 10*3/uL 1.99-6.95 (test code = [id number]) IMM GRAN x10^3 (test 0.06 10*3/uL 0.00-0.06 code = 4097357771) LYMPH x10^3 (test code 2.29 10*3/uL 1.09-3.23 = 731-0) MONO x10^3 (test code 0.69 10*3/uL 0.36-1.02 = 742-7) EOS x10^3 (test code = 0.15 10*3/uL 0.06-0.53 711-2) BASO x10^3 (test code 0.05 10*3/uL 0.01-0.09 = 704-7) Lab Interpretation Abnormal (test code = 36189-9) [facility] AND [id number] 17:53:00 Test Item Value Reference Range Interpretation Comments UA Color (test code = Yellow *NA*(05/24/20 UA Color) 12:53 PM) [facility] AND [id number] 17:53:00 Test Item Value Reference Range Interpretation Comments UA Turbidity (test code = Clear (05/24/20 12:53 UA Turbidity) PM) [facility] AND [id number] 17:53:00 Test Item Value Reference Range Interpretation Comments UA Spec Grav (test *NA*(05/24/20 12:53 PM) code = UA Spec Grav) [facility] AND [id number] 17:53:00 Test Item Value Reference Range Interpretation Comments UA pH (test code = UA pH) 7.0 1 5.0-8.0 [facility] AND [id number] 17:53:00 Test Item Value Reference Range Interpretation Comments UA Protein (test code Negative (05/24/20 12:53 = UA Protein) PM) [facility] AND [id number] 17:53:00 Test Item Value Reference Range Interpretation Comments UA Glucose (test code Negative (05/24/20 12:53 = UA Glucose) PM) [facility] AND [id number] 17:53:00 Test Item Value Reference Range Interpretation Comments UA Ketones (test code Negative *NA*(05/24/20 = UA Ketones) 12:53 PM) [facility] AND [id number] 17:53:00 Test Item Value Reference Range Interpretation Comments UA Bili (test code = Negative *NA*(05/24/20 UA Bili) 12:53 PM) [facility] AND [id number] 17:53:00 Test Item Value Reference Range Interpretation Comments UA Blood (test code = Negative (05/24/20 12:53 UA Blood) PM) [facility] AND [id number] 17:53:00 Test Item Value Reference Range Interpretation Comments UA Urobilinogen (test code = UA 0.2 0.1-1.0 Urobilinogen) [facility] [id number] 17:53:00 Test Item Value Reference Range Interpretation Comments UA Nitrite (test code Negative (05/24/20 12:53 = UA Nitrite) PM) [facility] [id number] 17:53:00 Test Item Value Reference Range Interpretation Comments UA Leuk Est (test Negative (05/24/20 12:53 code = UA Leuk Est) PM) [facility] [id number] 17:53:00 Test Item Value Reference Range Interpretation Comments UA Sq Epi (test code = UA Sq Epi) Few /LPF [facility] [id number] 17:53:00 Test Item Value Reference Range Interpretation Comments UA WBC (test code = UA WBC) 0-2 /HPF [facility] AND [id number] 17:53:00 Test Item Value Reference Range Interpretation Comments UA RBC (test code = 0-2 /HPF See_Comment [Automa rodriguez message] The UA RBC) system which ge nerated this result tra nsmitted reference range : <=2. The reference range was not used to interpr et this result as obed l/abnormal. [facility] [id number] 17:53:00 Test Item Value Reference Range Interpretation Comments UA Bacteria (test code = UA Few /HPF Bacteria) [facility] AND [id number] 17:53:00 Test Item Value Reference Range Interpretation Comments UA Color (test code = Yellow *NA*(05/24/20 UA Color) 12:53 PM) [facility] AND [id number] 17:53:00 Test Item Value Reference Range Interpretation Comments UA Turbidity (test code = Clear (05/24/20 12:53 UA Turbidity) PM) [facility] [id number] 17:53:00 Test Item Value Reference Range Interpretation Comments UA Spec Grav (test *NA*(05/24/20 12:53 PM) code = UA Spec Grav) [facility] [id number] 17:53:00 Test Item Value Reference Range Interpretation Comments UA pH (test code = UA pH) 7.0 1 5.0-8.0 [facility] [id number] 17:53:00 Test Item Value Reference Range Interpretation Comments UA Protein (test code Negative (05/24/20 12:53 = UA Protein) PM) [facility] AND [id number] 17:53:00 Test Item Value Reference Range Interpretation Comments UA Glucose (test code Negative (05/24/20 12:53 = UA Glucose) PM) [facility] AND [id number] 17:53:00 Test Item Value Reference Range Interpretation Comments UA Ketones (test code Negative *NA*(05/24/20 = UA Ketones) 12:53 PM) [facility] AND [id number] 17:53:00 Test Item Value Reference Range Interpretation Comments UA Bili (test code = Negative *NA*(05/24/20 UA Bili) 12:53 PM) [facility] AND [id number] 17:53:00 Test Item Value Reference Range Interpretation Comments UA Blood (test code = Negative (05/24/20 12:53 UA Blood) PM) [facility] AND [id number] 17:53:00 Test Item Value Reference Range Interpretation Comments UA Urobilinogen (test code = UA 0.2 0.1-1.0 Urobilinogen) [facility] AND [id number] 17:53:00 Test Item Value Reference Range Interpretation Comments UA Nitrite (test code Negative (05/24/20 12:53 = UA Nitrite) PM) [facility] AND [id number] 17:53:00 Test Item Value Reference Range Interpretation Comments UA Leuk Est (test Negative (05/24/20 12:53 code = UA Leuk Est) PM) [facility] AND [id number] 17:53:00 Test Item Value Reference Range Interpretation Comments UA Sq Epi (test code = UA Sq Epi) Few /LPF [facility] AND [id number] 17:53:00 Test Item Value Reference Range Interpretation Comments UA WBC (test code = UA WBC) 0-2 /HPF [facility] AND [id number] 17:53:00 Test Item Value Reference Range Interpretation Comments UA RBC (test code = 0-2 /HPF See_Comment [Automa rodriguez message] The UA RBC) system which ge nerated this result tra nsmitted reference range : <=2. The reference range was not used to interpr et this result as obed l/abnormal. [facility] [id number] 17:53:00 Test Item Value Reference Range Interpretation Comments UA Bacteria (test code = UA Few /HPF Bacteria) [facility] [id number] 17:53:00 Test Item Value Reference Range Interpretation Comments UA Color (test code = Yellow *NA*(05/24/20 UA Color) 12:53 PM) [facility] [id number] 17:53:00 Test Item Value Reference Range Interpretation Comments UA Turbidity (test code = Clear (05/24/20 12:53 UA Turbidity) PM) [facility] [id number] 17:53:00 Test Item Value Reference Range Interpretation Comments UA Spec Grav (test *NA*(05/24/20 12:53 PM) code = UA Spec Grav) [facility] [id number] 17:53:00 Test Item Value Reference Range Interpretation Comments UA pH (test code = UA pH) 7.0 1 5.0-8.0 [facility] [id number] 17:53:00 Test Item Value Reference Range Interpretation Comments UA Protein (test code Negative (05/24/20 12:53 = UA Protein) PM) [facility] [id number] 17:53:00 Test Item Value Reference Range Interpretation Comments UA Glucose (test code Negative (05/24/20 12:53 = UA Glucose) PM) [facility] [id number] 17:53:00 Test Item Value Reference Range Interpretation Comments UA Ketones (test code Negative *NA*(05/24/20 = UA Ketones) 12:53 PM) [facility] [id number] 17:53:00 Test Item Value Reference Range Interpretation Comments UA Bili (test code = Negative *NA*(05/24/20 UA Bili) 12:53 PM) [facility] [id number] 17:53:00 Test Item Value Reference Range Interpretation Comments UA Blood (test code = Negative (05/24/20 12:53 UA Blood) PM) [facility] [id number] 17:53:00 Test Item Value Reference Range Interpretation Comments UA Urobilinogen (test code = UA 0.2 0.1-1.0 Urobilinogen) [facility] [id number] 17:53:00 Test Item Value Reference Range Interpretation Comments UA Nitrite (test code Negative (05/24/20 12:53 = UA Nitrite) PM) [facility] [id number] 17:53:00 Test Item Value Reference Range Interpretation Comments UA Leuk Est (test Negative (05/24/20 12:53 code = UA Leuk Est) PM) [facility] [id number] 17:53:00 Test Item Value Reference Range Interpretation Comments UA Sq Epi (test code = UA Sq Epi) Few /LPF [facility] AND [id number] 17:53:00 Test Item Value Reference Range Interpretation Comments UA WBC (test code = UA WBC) 0-2 /HPF [facility] AND [id number] 17:53:00 Test Item Value Reference Range Interpretation Comments UA RBC (test code = 0-2 /HPF See_Comment [Automa rodriguez message] The UA RBC) system which ge nerated this result tra nsmitted reference range : <=2. The reference range was not used to interpr et this result as obed l/abnormal. [facility] AND [id number] 17:53:00 Test Item Value Reference Range Interpretation Comments UA Bacteria (test code = UA Few /HPF Bacteria) [facility] [id number] 16:28:00 Test Item Value Reference Range Interpretation Comments A/G Ratio (test code = A/G Ratio) 1.2 1 0.7-1.6 [facility] [id number] 16:28:00 Test Item Value Reference Range Interpretation Comments eGFR (test code = eGFR) 50 [facility] [id number] 16:28:00 Test Item Value Reference Range Interpretation Comments Ammonia (test code = Ammonia) 19.0 [facility] Cent[id number] 16:28:00 Test Item Value Reference Range Interpretation Comments WBC X 10x3 (test code = WBC X 10x3) 10.6 3.7-10.4 [facility] Cent[id number] 16:28:00 Test Item Value Reference Range Interpretation Comments RBC X 10x6 (test code = RBC X 10x6) 4.32 4.70-6.10 [id number] 16:28:00 Test Item Value Reference Range Interpretation Comments Hgb (test code = Hgb) 13.1 14.0-18.0 [facility] H[id number] 16:28:00 Test Item Value Reference Range Interpretation Comments Hct (test code = Hct) 38.7 42.0-54.0 [facility] Ho[id number] 16:28:00 Test Item Value Reference Range Interpretation Comments MCV (test code = MCV) 89.7 80.0-94.0 [facility] Hos[id number] 16:28:00 Test Item Value Reference Range Interpretation Comments MCH (test code = MCH) 30.3 pg 27.0-31.0 [facility] H[id number] 16:28:00 Test Item Value Reference Range Interpretation Comments MCHC (test code = MCHC) 33.7 32.0-36.0 [facility] H[id number] 16:28:00 Test Item Value Reference Range Interpretation Comments RDW (test code = RDW) 14.5 11.5-14.5 [facility] Hos[id number] 16:28:00 Test Item Value Reference Range Interpretation Comments Platelet (test code = Platelet) 284 133-450 [facility] H[id number] 16:28:00 Test Item Value Reference Range Interpretation Comments MPV (test code = MPV) 8.3 7.4-10.4 [facility] Hos[id number] 16:28:00 Test Item Value Reference Range Interpretation Comments Segs (test code = Segs) 67.9 45.0-75.0 [facility] HospitalZfotauiYQAQZAMRFC9456-93-64 16:28:00 Test Item Value Reference Range Interpretation Comments Lymphocytes (test code = Lymphocytes) 20.1 20.0-40.0 [facility] HospitalFroozjkHQBGGTWIXQ8790-07-68 16:28:00 Test Item Value Reference Range Interpretation Comments Monocytes (test code = Monocytes) 9.3 2.0-12.0 [facility] HospitalErvqvdeLLNQSRYRCZ7360-14-94 16:28:00 Test Item Value Reference Range Interpretation Comments Eosinophils (test code = 2.1 See_Comment [A utomated message] The Eosinophils) system which ge nerated this result tra nsmitted reference range : <=4.0. The reference r cecy was not used to int erpret this result as normal/abnormal . [id number] 16:28:00 Test Item Value Reference Range Interpretation Comments Basophils (test code = 0.6 See_Comment [Aut omated message] The Basophils) system which ge nerated this result tra nsmitted reference range : <=1.0. The reference r cecy was not used to int erpret this result as normal/abnormal . [facility] HospitalCibequhXPYPGKYCFU5740-28-05 16:28:00 Test Item Value Reference Range Interpretation Comments Neutrophils # (test code = Neutrophils 7.2 1.5-8.1 #) [facility] [id number] 16:28:00 Test Item Value Reference Range Interpretation Comments Lymphocytes # (test code = Lymphocytes 2.1 1.0-5.5 #) [facility] Hospit[id number] 16:28:00 Test Item Value Reference Range Interpretation Comments Monocytes # (test code 1.0 See_Comment [Aut omated message] The = Monocytes #) system which generated this result tra nsmitted reference range : <=0.8. The reference r cecy was not used to int erpret this result as normal/abnormal . [facility] H[id number] 16:28:00 Test Item Value Reference Range Interpretation Comments Eosinophils # (test code 0.2 See_Comment [A utomated message] The = Eosinophils #) system wh h generated this result tra nsmitted reference range : <=0.5. The reference r cecy was not used to int erpret this result as normal/abnormal . [facility] HospitalWgmdiygRWYIMDGJEL2726-90-83 16:28:00 Test Item Value Reference Range Interpretation Comments Basophils # (test code 0.1 See_Comment [Aut omated message] The = Basophils #) system which generated this result tra nsmitted reference range : <=0.2. The reference r cecy was not used to int erpret this result as normal/abnormal . [facility] [id number] 16:28:00 Test Item Value Reference Range Interpretation Comments Troponin-I (test code no gt See_Comment [Auto mated message] The = Troponin-I) system which g enerated this result transmit rodriguez reference range : <=0.40. The reference r cecy was not used to interpr et this result as obed l/abnormal. [place] [id number] 16:28:00 Test Item Value Reference Range Interpretation Comments Glucose Lvl (test code = Glucose Lvl) 122 70-99 [place] [address]-09-16 16:28:00 Test Item Value Reference Range Interpretation Comments BUN (test code = BUN) 25 7-22 [place] [id number] 16:28:00 Test Item Value Reference Range Interpretation Comments Creatinine Lvl (test code = Creatinine 1.30 0.50-1.40 Lvl) [place] [id number] 16:28:00 Test Item Value Reference Range Interpretation Comments Sodium Lvl (test code = Sodium Lvl) 135 135-145 [place] 705950-09-16 16:28:00 Test Item Value Reference Range Interpretation Comments Potassium Lvl (test code = Potassium 3.4 3.5-5.1 Lvl) [place] 705950-09-16 16:28:00 Test Item Value Reference Range Interpretation Comments Chloride Lvl (test code = Chloride Lvl) 99 95-109 [place] 705950-09-16 16:28:00 Test Item Value Reference Range Interpretation Comments CO2 (test code = CO2) 28 24-32 [place] 705950-09-16 16:28:00 Test Item Value Reference Range Interpretation Comments Calcium Lvl (test code = Calcium Lvl) 8.9 8.5-10.5 [place] 705950-09-16 16:28:00 Test Item Value Reference Range Interpretation Comments Total Protein (test code = Total 7.1 6.4-8.4 Protein) [place] 705950-09-16 16:28:00 Test Item Value Reference Range Interpretation Comments Albumin Lvl (test code = Albumin Lvl) 3.9 3.5-5.0 [place] 705950-09-16 16:28:00 Test Item Value Reference Range Interpretation Comments ALANINE AMINOTRANSFERASE 16 See_Comment [A utomated message] (test code = ALANINE The sys tem which AMINOTRANSFERASE) generated this result transmitted ref erence range: <=65. Th e reference range was not used to int erpret this result as normal/abnormal . [facility] [employer] [id number] 16:28:00 Test Item Value Reference Range Interpretation Comments ASPARTATE TRANSAMINASE 14 See_Comment [Aut omated message] (test code = ASPARTATE The s ystem which TRANSAMINASE) generated this result transmitted ref erence range: <=37. Th e reference range was not used to interpr et this result as normal/abnormal . [facility] [employer] [id number] 16:28:00 Test Item Value Reference Range Interpretation Comments Alk Phos (test code = Alk Phos) 61 39-136 [facility] [employer] [id number] 16:28:00 Test Item Value Reference Range Interpretation Comments Bili Total (test code = Bili Total) 0.3 0.2-1.3 [facility] [employer] [id number] 16:28:00 Test Item Value Reference Range Interpretation Comments AGAP (test code = AGAP) 11.4 10.0-20.0 [facility] [employer] [id number] 16:28:00 Test Item Value Reference Range Interpretation Comments B/C Ratio (test code = B/C Ratio) 19 1 6-25 [facility] [employer] [id number] 16:28:00 Test Item Value Reference Range Interpretation Comments Globulin (test code = Globulin) 3.2 2.7-4.2 [facility] [employer] [id number] 16:28:00 Test Item Value Reference Range Interpretation Comments A/G Ratio (test code = A/G Ratio) 1.2 1 0.7-1.6 [facility] [employer] [id number] 16:28:00 Test Item Value Reference Range Interpretation Comments eGFR (test code = eGFR) 50 [facility] [employer] [id number] 16:28:00 Test Item Value Reference Range Interpretation Comments Ammonia (test code = Ammonia) 19.0 [facility] GmkcauoGGCKGNXAEN3877-05-47 16:28:00 Test Item Value Reference Range Interpretation Comments WBC X 10x3 (test code = WBC X 10x3) 10.6 3.7-10.4 [facility] HospitalBdrliphCLPQFBRMJK9159-73-12 16:28:00 Test Item Value Reference Range Interpretation Comments RBC X 10x6 (test code = RBC X 10x6) 4.32 4.70-6.10 [facility] HospitalGebtidcNNIGKXQOYE9378-65-44 16:28:00 Test Item Value Reference Range Interpretation Comments Hgb (test code = Hgb) 13.1 14.0-18.0 [facility] HospitalMyzghnyKEGMRASNEA0067-48-00 16:28:00 Test Item Value Reference Range Interpretation Comments Hct (test code = Hct) 38.7 42.0-54.0 [facility] HospitalUprqjozLWUYPFQDIL6831-03-04 16:28:00 Test Item Value Reference Range Interpretation Comments MCV (test code = MCV) 89.7 80.0-94.0 [facility] HospitalZrldzxbJSUZYTRWIZ2406-60-81 16:28:00 Test Item Value Reference Range Interpretation Comments MCH (test code = MCH) 30.3 pg 27.0-31.0 [facility] HospitalLnkcdddEZGYVRBTMB7344-91-41 16:28:00 Test Item Value Reference Range Interpretation Comments MCHC (test code = MCHC) 33.7 32.0-36.0 [facility] HospitalMjvxlzuGBFHAVWRQK5309-46-13 16:28:00 Test Item Value Reference Range Interpretation Comments RDW (test code = RDW) 14.5 11.5-14.5 [facility] HospitalSovqdqyVGMTQHQNGH5228-05-70 16:28:00 Test Item Value Reference Range Interpretation Comments Platelet (test code = Platelet) 284 133-450 [facility] HospitalYoawhacMPNLULLTRY5804-07-71 16:28:00 Test Item Value Reference Range Interpretation Comments MPV (test code = MPV) 8.3 7.4-10.4 [facility] HospitalYitqsnhKCKLCYUUSJ9037-61-02 16:28:00 Test Item Value Reference Range Interpretation Comments Segs (test code = Segs) 67.9 45.0-75.0 [facility] HospitalLadiihhLYVKZHBSCM7364-64-05 16:28:00 Test Item Value Reference Range Interpretation Comments Lymphocytes (test code = Lymphocytes) 20.1 20.0-40.0 [place] 047010-09-16 16:28:00 Test Item Value Reference Range Interpretation Comments Monocytes (test code = Monocytes) 9.3 2.0-12.0 [place] 047010-09-16 16:28:00 Test Item Value Reference Range Interpretation Comments Eosinophils (test code = 2.1 See_Comment [A utomated message] The Eosinophils) system which ge nerated this result tra nsmitted reference range : <=4.0. The reference r cecy was not used to int erpret this result as normal/abnormal . [facility] HospitalEsnvztbNSFBDYAZYC0165-81-53 16:28:00 Test Item Value Reference Range Interpretation Comments MCH (test code = MCH) 30.3 pg 27.0-31.0 [facility] [facility]RXSY[facility]OO9563-64-89 16:28:00 Test Item Value Reference Range Interpretation Comments MCHC (test code = MCHC) 33.7 32.0-36.0 [facility] HospitalTauxhwhMYODOOHYKD8133-33-75 16:28:00 Test Item Value Reference Range Interpretation Comments RDW (test code = RDW) 14.5 11.5-14.5 [facility] HospitalHyxjosjVJDYVFMNKZ5437-94-09 16:28:00 Test Item Value Reference Range Interpretation Comments Platelet (test code = Platelet) 284 133-450 [facility] HospitalMdkmvvgSAHXNFXICH1399-59-35 16:28:00 Test Item Value Reference Range Interpretation Comments MPV (test code = MPV) 8.3 7.4-10.4 [facility] HospitalGifbrduVGLPVDFGIA0529-95-55 16:28:00 Test Item Value Reference Range Interpretation Comments Segs (test code = Segs) 67.9 45.0-75.0 [facility] HospitalSamvngmZPDKDTHRAW3370-14-38 16:28:00 Test Item Value Reference Range Interpretation Comments Lymphocytes (test code = Lymphocytes) 20.1 20.0-40.0 [place] 047010-09-16 16:28:00 Test Item Value Reference Range Interpretation Comments Monocytes (test code = Monocytes) 9.3 2.0-12.0 [place] 047010-09-16 16:28:00 Test Item Value Reference Range Interpretation Comments Eosinophils (test code = 2.1 See_Comment [A utomated message] The Eosinophils) system which ge nerated this result tra nsmitted reference range : <=4.0. The reference r cecy was not used to int erpret this result as normal/abnormal . [facility] HospitalFzoyathNYXPBXKNSY3723-43-42 16:28:00 Test Item Value Reference Range Interpretation Comments Basophils (test code = 0.6 See_Comment [Aut omated message] The Basophils) system which ge nerated this result tra nsmitted reference range : <=1.0. The reference r cecy was not used to int erpret this result as normal/abnormal . [facility]IfjgpqyKZUVTEAQLR8462-56-59 16:28:00 Test Item Value Reference Range Interpretation Comments Neutrophils # (test code = Neutrophils 7.2 1.5-8.1 #) [facility]GPXFFRMT1626-82-10 16:28:00 Test Item Value Reference Range Interpretation Comments Lymphocytes # (test code = Lymphocytes 2.1 1.0-5.5 #) [facility] HospitalMjkaqmsCKHJFUHPRG8764-70-23 16:28:00 Test Item Value Reference Range Interpretation Comments Monocytes # (test code 1.0 See_Comment [Aut omated message] The = Monocytes #) system which generated this result tra nsmitted reference range : <=0.8. The reference r cecy was not used to int erpret this result as normal/abnormal . [facility] HospitalYwixgomAJYIUBQTKL9356-22-61 16:28:00 Test Item Value Reference Range Interpretation Comments Eosinophils # (test code 0.2 See_Comment [A utomated message] The = Eosinophils #) system whic h generated this result tra nsmitted reference range : <=0.5. The reference r cecy was not used to int erpret this result as normal/abnormal . [facility] HospitalVdwrucpQNQQLEJOUU2785-82-46 16:28:00 Test Item Value Reference Range Interpretation Comments Basophils # (test code 0.1 See_Comment [Aut omated message] The = Basophils #) system which generated this result tra nsmitted reference range : <=0.2. The reference r cecy was not used to int erpret this result as normal/abnormal . [facility] CenterCARDIAC BCYOJDN0394-86-35 16:28:00 Test Item Value Reference Range Interpretation Comments Troponin-I (test code no gt See_Comment [Auto mated message] The = Troponin-I) system which g enerated this result transmit rodriguez reference range : <=0.40. The reference r cecy was not used to interpr et this result as obed l/abnormal. [facility] JLRXK0746-07-56 16:28:00 Test Item Value Reference Range Interpretation Comments Glucose Lvl (test code = Glucose Lvl) 122 70-99 [facility] [id number] 16:28:00 Test Item Value Reference Range Interpretation Comments BUN (test code = BUN) 25 7-22 [place] 705950-09-16 16:28:00 Test Item Value Reference Range Interpretation Comments Creatinine Lvl (test code = Creatinine 1.30 0.50-1.40 Lvl) [facility]2020-09-16 16:28:00 Test Item Value Reference Range Interpretation Comments Sodium Lvl (test code = Sodium Lvl) 135 135-145 [facility]2020-09-16 16:28:00 Test Item Value Reference Range Interpretation Comments Potassium Lvl (test code = Potassium 3.4 3.5-5.1 Lvl) [facility]2020-09-16 16:28:00 Test Item Value Reference Range Interpretation Comments Chloride Lvl (test code = Chloride Lvl) 99 95-109 [facility]2020-09-16 16:28:00 Test Item Value Reference Range Interpretation Comments CO2 (test code = CO2) 28 24-32 [facility]2020-09-16 16:28:00 Test Item Value Reference Range Interpretation Comments Calcium Lvl (test code = Calcium Lvl) 8.9 8.5-10.5 [facility]2020-09-16 16:28:00 Test Item Value Reference Range Interpretation Comments Total Protein (test code = Total 7.1 6.4-8.4 Protein) [facility]2020-09-16 16:28:00 Test Item Value Reference Range Interpretation Comments Albumin Lvl (test code = Albumin Lvl) 3.9 3.5-5.0 [facility]2020-09-16 16:28:00 Test Item Value Reference Range Interpretation Comments ALANINE AMINOTRANSFERASE 16 See_Comment [A utomated message] (test code = ALANINE The sys tem which AMINOTRANSFERASE) generated this result transmitted ref erence range: <=65. Th e reference range was not used to int erpret this result as normal/abnormal . [facility] CenterAmiigo [id number] 16:28:00 Test Item Value Reference Range Interpretation Comments ASPARTATE TRANSAMINASE 14 See_Comment [Aut omated message] (test code = ASPARTATE The s ystem which TRANSAMINASE) generated this result transmitted ref erence range: <=37. Th e reference range was not used to interpr et this result as normal/abnormal . [facility] [id number] 16:28:00 Test Item Value Reference Range Interpretation Comments Alk Phos (test code = Alk Phos) 61 39-136 [facility]2020-09-16 16:28:00 Test Item Value Reference Range Interpretation Comments Bili Total (test code = Bili Total) 0.3 0.2-1.3 [facility]2020-09-16 16:28:00 Test Item Value Reference Range Interpretation Comments AGAP (test code = AGAP) 11.4 10.0-20.0 [facility]2020-09-16 16:28:00 Test Item Value Reference Range Interpretation Comments B/C Ratio (test code = B/C Ratio) 19 1 6-25 [facility]2020-09-16 16:28:00 Test Item Value Reference Range Interpretation Comments Globulin (test code = Globulin) 3.2 2.7-4.2 [facility]2020-09-16 16:28:00 Test Item Value Reference Range Interpretation Comments A/G Ratio (test code = A/G Ratio) 1.2 1 0.7-1.6 [facility]2020-09-16 16:28:00 Test Item Value Reference Range Interpretation Comments eGFR (test code = eGFR) 50 [facility]2020-09-16 16:28:00 Test Item Value Reference Range Interpretation Comments Ammonia (test code = Ammonia) 19.0 [facility] HospitalDdoabcuJYSUIVHQDR3816-67-55 16:28:00 Test Item Value Reference Range Interpretation Comments WBC X 10x3 (test code = WBC X 10x3) 10.6 3.7-10.4 [facility] HospitalXwawfewEMDFGDLCTE5387-02-86 16:28:00 Test Item Value Reference Range Interpretation Comments RBC X 10x6 (test code = RBC X 10x6) 4.32 4.70-6.10 [facility] HospitalQioydtiWQDTXBDULO8822-08-95 16:28:00 Test Item Value Reference Range Interpretation Comments Hgb (test code = Hgb) 13.1 14.0-18.0 [place] 047010-09-16 16:28:00 Test Item Value Reference Range Interpretation Comments Hct (test code = Hct) 38.7 42.0-54.0 [facility] HospitalIfrfpeuCEMTKNNMMH8722-23-79 16:28:00 Test Item Value Reference Range Interpretation Comments MCV (test code = MCV) 89.7 80.0-94.0 [facility] HospitalMujtnafQKQHFJXEAA5868-48-97 16:28:00 Test Item Value Reference Range Interpretation Comments Basophils (test code = 0.6 See_Comment [Aut omated message] The Basophils) system which ge nerated this result tra nsmitted reference range : <=1.0. The reference r cecy was not used to int erpret this result as normal/abnormal . [facility] HospitalTikfceoHXCOOXDNCT0503-11-39 16:28:00 Test Item Value Reference Range Interpretation Comments Neutrophils # (test code = Neutrophils 7.2 1.5-8.1 #) [facility] HospitalAbqnfxzSAHMBVKNRK4128-14-14 16:28:00 Test Item Value Reference Range Interpretation Comments Lymphocytes # (test code = Lymphocytes 2.1 1.0-5.5 #) [facility] HospitalWihslxgOHHQXGCJRU5944-68-81 16:28:00 Test Item Value Reference Range Interpretation Comments Monocytes # (test code 1.0 See_Comment [Aut omated message] The = Monocytes #) system which generated this result tra nsmitted reference range : <=0.8. The reference r cecy was not used to int erpret this result as normal/abnormal . [facility] HospitalSojxijqWIKNOSEVOZ9495-62-84 16:28:00 Test Item Value Reference Range Interpretation Comments Eosinophils # (test code 0.2 See_Comment [A utomated message] The = Eosinophils #) system whic h generated this result tra nsmitted reference range : <=0.5. The reference r cecy was not used to int erpret this result as normal/abnormal . [facility] HospitalQxvfbizGWOYQQGWRM1825-92-63 16:28:00 Test Item Value Reference Range Interpretation Comments Basophils # (test code 0.1 See_Comment [Aut omated message] The = Basophils #) system which generated this result tra nsmitted reference range : <=0.2. The reference r cecy was not used to int erpret this result as normal/abnormal . [facility] QHAGTBO1880-59-88 16:28:00 Test Item Value Reference Range Interpretation Comments Troponin-I (test code no gt See_Comment [Auto mated message] The = Troponin-I) system which g enerated this result transmit rodriguez reference range : <=0.40. The reference r cecy was not used to interpr et this result as obed l/abnormal. [facility]2020-09-16 16:28:00 Test Item Value Reference Range Interpretation Comments Glucose Lvl (test code = Glucose Lvl) 122 70-99 [place] 705950-09-16 16:28:00 Test Item Value Reference Range Interpretation Comments BUN (test code = BUN) 25 7-22 [place] 705950-09-16 16:28:00 Test Item Value Reference Range Interpretation Comments Creatinine Lvl (test code = Creatinine 1.30 0.50-1.40 Lvl) [place] 705950-09-16 16:28:00 Test Item Value Reference Range Interpretation Comments Sodium Lvl (test code = Sodium Lvl) 135 135-145 [place] 705950-09-16 16:28:00 Test Item Value Reference Range Interpretation Comments Potassium Lvl (test code = Potassium 3.4 3.5-5.1 Lvl) [facility]2020-09-16 16:28:00 Test Item Value Reference Range Interpretation Comments Chloride Lvl (test code = Chloride Lvl) 99 95-109 [place] 705950-09-16 16:28:00 Test Item Value Reference Range Interpretation Comments CO2 (test code = CO2) 28 24-32 [place] 705950-09-16 16:28:00 Test Item Value Reference Range Interpretation Comments Calcium Lvl (test code = Calcium Lvl) 8.9 8.5-10.5 [place] 705950-09-16 16:28:00 Test Item Value Reference Range Interpretation Comments Total Protein (test code = Total 7.1 6.4-8.4 Protein) [place] 705950-09-16 16:28:00 Test Item Value Reference Range Interpretation Comments Albumin Lvl (test code = Albumin Lvl) 3.9 3.5-5.0 [place] 705950-09-16 16:28:00 Test Item Value Reference Range Interpretation Comments ALANINE AMINOTRANSFERASE 16 See_Comment [A utomated message] (test code = ALANINE The sys tem which AMINOTRANSFERASE) generated this result transmitted ref erence range: <=65. Th e reference range was not used to int erpret this result as normal/abnormal . [place] 705950-09-16 16:28:00 Test Item Value Reference Range Interpretation Comments ASPARTATE TRANSAMINASE 14 See_Comment [Aut omated message] (test code = ASPARTATE The s ystem which TRANSAMINASE) generated this result transmitted ref erence range: <=37. Th e reference range was not used to interpr et this result as normal/abnormal . [facility]2020-09-16 16:28:00 Test Item Value Reference Range Interpretation Comments Alk Phos (test code = Alk Phos) 61 39-136 [facility]2020-09-16 16:28:00 Test Item Value Reference Range Interpretation Comments Bili Total (test code = Bili Total) 0.3 0.2-1.3 [facility]2020-09-16 16:28:00 Test Item Value Reference Range Interpretation Comments AGAP (test code = AGAP) 11.4 10.0-20.0 [facility]2020-09-16 16:28:00 Test Item Value Reference Range Interpretation Comments B/C Ratio (test code = B/C Ratio) 19 1 6-25 [facility]2020-09-16 16:28:00 Test Item Value Reference Range Interpretation Comments Globulin (test code = Globulin) 3.2 2.7-4.2 [facility]2020-09-03 16:45:00 Test Item Value Reference Range Interpretation Comments Vitamin B12 Lvl (test code = Vitamin 3343 235-2168 B12 Lvl) [facility]2020-09-03 16:45:00 Test Item Value Reference Range Interpretation Comments Glucose Lvl (test code = Glucose Lvl) 90 65-99 [facility]2020-09-03 16:45:00 Test Item Value Reference Range Interpretation Comments BUN (test code = BUN) 25 7-25 [facility]2020-09-03 16:45:00 Test Item Value Reference Range Interpretation Comments Creatinine Lvl (test code = Creatinine 1.15 0.70-1.11 Lvl) [facility]2020-09-03 16:45:00 Test Item Value Reference Range Interpretation Comments eGFR NON-AFR. CAMEROONIAN (test code = 59 eGFR NON-AFR. CAMEROONIAN) [facility]2020-09-03 16:45:00 Test Item Value Reference Range Interpretation Comments eGFR (test code = eGFR 68 ) [facility]2020-09-03 16:45:00 Test Item Value Reference Range Interpretation Comments B/C Ratio (test code = B/C Ratio) 22 6-22 [facility]2020-09-03 16:45:00 Test Item Value Reference Range Interpretation Comments Sodium Lvl (test code = Sodium Lvl) 136 135-146 [facility]2020-09-03 16:45:00 Test Item Value Reference Range Interpretation Comments Potassium Lvl (test code = Potassium 4.6 3.5-5.3 Lvl) [facility]2020-09-03 16:45:00 Test Item Value Reference Range Interpretation Comments Chloride Lvl (test code = Chloride Lvl) 97 98-110 [facility]2020-09-03 16:45:00 Test Item Value Reference Range Interpretation Comments CO2 (test code = CO2) 30 20-32 [place] 705950-09-03 16:45:00 Test Item Value Reference Range Interpretation Comments Calcium Lvl (test code = Calcium Lvl) 10.0 8.6-10.3 [facility]2020-09-03 16:45:00 Test Item Value Reference Range Interpretation Comments Total Protein (test code = Total 7.3 6.1-8.1 Protein) [facility]2020-09-03 16:45:00 Test Item Value Reference Range Interpretation Comments Albumin Lvl (test code = Albumin Lvl) 4.6 3.6-5.1 [facility]2020-09-03 16:45:00 Test Item Value Reference Range Interpretation Comments Globulin (test code = Globulin) 2.7 1.9-3.7 [place] 705950-09-03 16:45:00 Test Item Value Reference Range Interpretation Comments A/G Ratio (test code = A/G Ratio) 1.7 1.0-2.5 [place] 705950-09-03 16:45:00 Test Item Value Reference Range Interpretation Comments Bili Total (test code = Bili Total) 0.4 0.2-1.2 [place] 705950-09-03 16:45:00 Test Item Value Reference Range Interpretation Comments Alk Phos (test code = Alk Phos) 60 35-144 [facility]2020-09-03 16:45:00 Test Item Value Reference Range Interpretation Comments ASPARTATE TRANSAMINASE (test code = 12 10-35 ASPARTATE TRANSAMINASE) [facility]2020-09-03 16:45:00 Test Item Value Reference Range Interpretation Comments ALANINE AMINOTRANSFERASE (test code = 7 9-46 ALANINE AMINOTRANSFERASE) [facility] HospitalTlkzhirHNFURRGBOE9407-45-15 16:45:00 Test Item Value Reference Range Interpretation Comments WBC X 10x3 (test code = WBC X 10x3) 6.9 3.8-10.8 [facility] HospitalXncydksCIVXWZSTLH9186-29-96 16:45:00 Test Item Value Reference Range Interpretation Comments RBC X 10x6 (test code = RBC X 10x6) 4.41 4.20-5.80 [facility] HospitalZctokhjGMIDYHDRIB0839-80-47 16:45:00 Test Item Value Reference Range Interpretation Comments Hgb (test code = Hgb) 13.5 13.2-17.1 [facility] HospitalSpydwxsECHHPAHCIZ9734-14-70 16:45:00 Test Item Value Reference Range Interpretation Comments Hct (test code = Hct) 40.8 38.5-50.0 [facility] HospitalKfgzjfyQETQHZFXXJ8337-95-68 16:45:00 Test Item Value Reference Range Interpretation Comments MCV (test code = MCV) 92.5 80.0-100.0 [facility] HospitalKjwrjbvCYVPLUEJAI7030-84-43 16:45:00 Test Item Value Reference Range Interpretation Comments MCH (test code = MCH) 30.6 pg 27.0-33.0 [facility] HospitalYxbxrrwASNDEBCVFJ8710-66-97 16:45:00 Test Item Value Reference Range Interpretation Comments MCHC (test code = MCHC) 33.1 32.0-36.0 [facility] HospitalWqpcwybDGAWDFOUTL9749-83-75 16:45:00 Test Item Value Reference Range Interpretation Comments RDW (test code = RDW) 13.2 11.0-15.0 [facility] HospitalWwymuqrYWTQKCUXJW1086-99-86 16:45:00 Test Item Value Reference Range Interpretation Comments Platelet (test code = Platelet) 324 140-400 [facility] HospitalOjuduvrKURMQSEZEO4757-17-44 16:45:00 Test Item Value Reference Range Interpretation Comments MPV (test code = MPV) 10.7 7.5-12.5 [facility] HospitalAdsyyorAXFKFDMUVJ1802-37-62 16:45:00 Test Item Value Reference Range Interpretation Comments Neutrophils # (test code = Neutrophils 2753 1454-9799 #) [facility] HospitalOugnqxoELQAEZNGEE7293-41-33 16:45:00 Test Item Value Reference Range Interpretation Comments Lymphocytes # (test code = Lymphocytes 3140 850-3900 #) [facility] HospitalKzjjiilOISLUASDXF7820-71-13 16:45:00 Test Item Value Reference Range Interpretation Comments Monocytes # (test code = Monocytes #) 683 200-950 [facility] HospitalJtisggpWMRBEOYPIW3738-39-46 16:45:00 Test Item Value Reference Range Interpretation Comments Eosinophils # (test code = Eosinophils 262 15-500 #) [facility] HospitalTipszjeKHXSNTNRRO5998-58-57 16:45:00 Test Item Value Reference Range Interpretation Comments Basophils # (test code 62 See_Comment [Aut omated message] The = Basophils #) system which generated this result tra nsmitted reference range : <=200. The reference r cecy was not used to int erpret this result as normal/abnormal . [facility] HospitalJpownyhPOFAQXFLXP7649-45-70 16:45:00 Test Item Value Reference Range Interpretation Comments Segs (test code = Segs) 39.9 [facility] HospitalEtcxcaoXHJJWDRWIK8713-33-36 16:45:00 Test Item Value Reference Range Interpretation Comments Lymphocytes (test code = Lymphocytes) 45.5 [facility] HospitalOvoqqrlPNKGQUWUCG4544-16-51 16:45:00 Test Item Value Reference Range Interpretation Comments Monocytes (test code = Monocytes) 9.9 [facility] HospitalKzjhsfrQKWGMODMTX8415-91-23 16:45:00 Test Item Value Reference Range Interpretation Comments Eosinophils (test code = Eosinophils) 3.8 [facility] HospitalDqnwsynWAZIRERKIY1781-09-36 16:45:00 Test Item Value Reference Range Interpretation Comments Basophils (test code = Basophils) 0.9 [facility] CenterPnlhpzzGHWTZX0251-75-80 16:45:00 Test Item Value Reference Range Interpretation Comments Chol (test code = Chol) 197 [facility]iy[facility]OPLDL6024[facility] 16:45:00 Test Item Value Reference Range Interpretation Comments HDL (test code = HDL) 49 [facility]EehwexqAJUIAT0647-49-38 16:45:00 Test Item Value Reference Range Interpretation Comments Trig (test code = Trig) 161 [facility]FrrxuqyKHRUQD2906-53-43 16:45:00 Test Item Value Reference Range Interpretation Comments LDL (Calculated) (test code = LDL 120 (Calculated)) [facility]SojlxqoNNYHBK7031-07-10 16:45:00 Test Item Value Reference Range Interpretation Comments CHD Risk (test code = CHD Risk) 4.0 [facility] CenterYncxlrzZHAKZM1791-44-29 16:45:00 Test Item Value Reference Range Interpretation Comments Non HDL Chol (test code = Non HDL Chol) 148 [facility]2020-09-03 16:45:00 Test Item Value Reference Range Interpretation Comments Vitamin B12 Lvl (test code = Vitamin 5153 598-0981 B12 Lvl) [facility]2020-09-03 16:45:00 Test Item Value Reference Range Interpretation Comments Glucose Lvl (test code = Glucose Lvl) 90 65-99 [facility]2020-09-03 16:45:00 Test Item Value Reference Range Interpretation Comments BUN (test code = BUN) 25 7-25 [facility]2020-09-03 16:45:00 Test Item Value Reference Range Interpretation Comments Creatinine Lvl (test code = Creatinine 1.15 0.70-1.11 Lvl) [facility]2020-09-03 16:45:00 Test Item Value Reference Range Interpretation Comments eGFR NON-AFR. CAMEROONIAN (test code = 59 eGFR NON-AFR. CAMEROONIAN) [facility]2020-09-03 16:45:00 Test Item Value Reference Range Interpretation Comments eGFR (test code = eGFR 68 ) [facility]2020-09-03 16:45:00 Test Item Value Reference Range Interpretation Comments B/C Ratio (test code = B/C Ratio) 22 6-22 [facility]2020-09-03 16:45:00 Test Item Value Reference Range Interpretation Comments Sodium Lvl (test code = Sodium Lvl) 136 135-146 [facility]2020-09-03 16:45:00 Test Item Value Reference Range Interpretation Comments Potassium Lvl (test code = Potassium 4.6 3.5-5.3 Lvl) [facility]2020-09-03 16:45:00 Test Item Value Reference Range Interpretation Comments Chloride Lvl (test code = Chloride Lvl) 97 98-110 [place] 705950-09-03 16:45:00 Test Item Value Reference Range Interpretation Comments CO2 (test code = CO2) 30 20-32 [facility]2020-09-03 16:45:00 Test Item Value Reference Range Interpretation Comments Calcium Lvl (test code = Calcium Lvl) 10.0 8.6-10.3 [place] 705950-09-03 16:45:00 Test Item Value Reference Range Interpretation Comments Total Protein (test code = Total 7.3 6.1-8.1 Protein) [place] 705950-09-03 16:45:00 Test Item Value Reference Range Interpretation Comments Albumin Lvl (test code = Albumin Lvl) 4.6 3.6-5.1 [place] 705950-09-03 16:45:00 Test Item Value Reference Range Interpretation Comments Globulin (test code = Globulin) 2.7 1.9-3.7 [place] [address]-09-03 16:45:00 Test Item Value Reference Range Interpretation Comments A/G Ratio (test code = A/G Ratio) 1.7 1.0-2.5 [place] [address]-09-03 16:45:00 Test Item Value Reference Range Interpretation Comments Bili Total (test code = Bili Total) 0.4 0.2-1.2 [place] 705950-09-03 16:45:00 Test Item Value Reference Range Interpretation Comments Alk Phos (test code = Alk Phos) 60 35-144 [place] 705950-09-03 16:45:00 Test Item Value Reference Range Interpretation Comments ASPARTATE TRANSAMINASE (test code = 12 10-35 ASPARTATE TRANSAMINASE) [place] 705950-09-03 16:45:00 Test Item Value Reference Range Interpretation Comments ALANINE AMINOTRANSFERASE (test code = 7 9-46 ALANINE AMINOTRANSFERASE) [place] [address]-09-03 16:45:00 Test Item Value Reference Range Interpretation Comments WBC X 10x3 (test code = WBC X 10x3) 6.9 3.8-10.8 [place] 047010-09-03 16:45:00 Test Item Value Reference Range Interpretation Comments RBC X 10x6 (test code = RBC X 10x6) 4.41 4.20-5.80 [place] [address]-09-03 16:45:00 Test Item Value Reference Range Interpretation Comments Hgb (test code = Hgb) 13.5 13.2-17.1 [facility] HospitalXexkbdkDDLPHRYWJF5335-13-78 16:45:00 Test Item Value Reference Range Interpretation Comments Hct (test code = Hct) 40.8 38.5-50.0 [place] 047010-09-03 16:45:00 Test Item Value Reference Range Interpretation Comments MCV (test code = MCV) 92.5 80.0-100.0 [facility] HospitalVwbrnexDDGSLNXWCS6280-76-70 16:45:00 Test Item Value Reference Range Interpretation Comments MCH (test code = MCH) 30.6 pg 27.0-33.0 [facility] HospitalZoghzwiRWVEQEQCGF9367-98-50 16:45:00 Test Item Value Reference Range Interpretation Comments MCHC (test code = MCHC) 33.1 32.0-36.0 [place] [address]-09-03 16:45:00 Test Item Value Reference Range Interpretation Comments RDW (test code = RDW) 13.2 11.0-15.0 [place] 047010-09-03 16:45:00 Test Item Value Reference Range Interpretation Comments Platelet (test code = Platelet) 324 140-400 [facility]ztehnnJVDLGKCDJC9469-16-23 16:45:00 Test Item Value Reference Range Interpretation Comments MPV (test code = MPV) 10.7 7.5-12.5 [facility]PcrbrvgMAZSGWGESA0867-02-60 16:45:00 Test Item Value Reference Range Interpretation Comments Neutrophils # (test code = Neutrophils 2753 5150-6645 #) [facility] HospitalFguezxdNUDWAOIYMC0868-23-65 16:45:00 Test Item Value Reference Range Interpretation Comments Lymphocytes # (test code = Lymphocytes 3140 850-3900 #) [facility] HospitalCdfndzpRGVFCVZOXP9310-56-06 16:45:00 Test Item Value Reference Range Interpretation Comments Monocytes # (test code = Monocytes #) 683 200-950 [facility] HospitalIexkwuiCBWRIQFUTF5445-61-92 16:45:00 Test Item Value Reference Range Interpretation Comments Eosinophils # (test code = Eosinophils 262 15-500 #) [facility] HospitalYqgytxxOPICDYZXXS8454-06-03 16:45:00 Test Item Value Reference Range Interpretation Comments Basophils # (test code 62 See_Comment [Aut omated message] The = Basophils #) system which generated this result tra nsmitted reference range : <=200. The reference r cecy was not used to int erpret this result as normal/abnormal . [facility] HospitalHfqpzioXVJYXJFKXC4201-96-95 16:45:00 Test Item Value Reference Range Interpretation Comments Segs (test code = Segs) 39.9 [facility] HospitalHpfxsbnCGJJGAOUQD2644-57-67 16:45:00 Test Item Value Reference Range Interpretation Comments Lymphocytes (test code = Lymphocytes) 45.5 [facility] HospitalRxhdomnTAYJTZKVFI8014-45-62 16:45:00 Test Item Value Reference Range Interpretation Comments Monocytes (test code = Monocytes) 9.9 [facility] HospitalUvobcdgGSCUFRCKYI5415-49-35 16:45:00 Test Item Value Reference Range Interpretation Comments Eosinophils (test code = Eosinophils) 3.8 [facility] HospitalCmsxwbgFEXCWAMFIK8588-54-30 16:45:00 Test Item Value Reference Range Interpretation Comments Basophils (test code = Basophils) 0.9 [facility]402[facility]77 16:45:00 Test Item Value Reference Range Interpretation Comments Chol (test code = Chol) 197 [facility]LETWSE9607[facility]83 16:45:00 Test Item Value Reference Range Interpretation Comments HDL (test code = HDL) 49 [facility] CenterOvpvfypITQLTB6548-95-95 16:45:00 Test Item Value Reference Range Interpretation Comments Trig (test code = Trig) 161 [facility]NdbftqjSMYQAX4835-87-37 16:45:00 Test Item Value Reference Range Interpretation Comments LDL (Calculated) (test code = LDL 120 (Calculated)) [facility]GwzgxroKPITXG0395-65-88 16:45:00 Test Item Value Reference Range Interpretation Comments CHD Risk (test code = CHD Risk) 4.0 [facility] CenterTzyukobLBUOCT9470-71-56 16:45:00 Test Item Value Reference Range Interpretation Comments Non HDL Chol (test code = Non HDL Chol) 148 [facility] JGESQ4776-19-20 16:45:00 Test Item Value Reference Range Interpretation Comments Vitamin B12 Lvl (test code = Vitamin 7511 237-0785 B12 Lvl) [facility]2020-09-03 16:45:00 Test Item Value Reference Range Interpretation Comments Glucose Lvl (test code = Glucose Lvl) 90 65-99 [facility]2020-09-03 16:45:00 Test Item Value Reference Range Interpretation Comments BUN (test code = BUN) 25 7-25 [facility]2020-09-03 16:45:00 Test Item Value Reference Range Interpretation Comments Creatinine Lvl (test code = Creatinine 1.15 0.70-1.11 Lvl) [facility]2020-09-03 16:45:00 Test Item Value Reference Range Interpretation Comments eGFR NON-AFR. CAMEROONIAN (test code = 59 eGFR NON-AFR. CAMEROONIAN) [facility]2020-09-03 16:45:00 Test Item Value Reference Range Interpretation Comments eGFR (test code = eGFR 68 ) [facility]2020-09-03 16:45:00 Test Item Value Reference Range Interpretation Comments B/C Ratio (test code = B/C Ratio) 22 6-22 [facility]2020-09-03 16:45:00 Test Item Value Reference Range Interpretation Comments Sodium Lvl (test code = Sodium Lvl) 136 135-146 [facility]2020-09-03 16:45:00 Test Item Value Reference Range Interpretation Comments Potassium Lvl (test code = Potassium 4.6 3.5-5.3 Lvl) [facility]2020-09-03 16:45:00 Test Item Value Reference Range Interpretation Comments Chloride Lvl (test code = Chloride Lvl) 97 98-110 [facility]2020-09-03 16:45:00 Test Item Value Reference Range Interpretation Comments CO2 (test code = CO2) 30 20-32 [facility]2020-09-03 16:45:00 Test Item Value Reference Range Interpretation Comments Calcium Lvl (test code = Calcium Lvl) 10.0 8.6-10.3 [facility]2020-09-03 16:45:00 Test Item Value Reference Range Interpretation Comments Total Protein (test code = Total 7.3 6.1-8.1 Protein) [facility]2020-09-03 16:45:00 Test Item Value Reference Range Interpretation Comments Albumin Lvl (test code = Albumin Lvl) 4.6 3.6-5.1 [facility]2020-09-03 16:45:00 Test Item Value Reference Range Interpretation Comments Globulin (test code = Globulin) 2.7 1.9-3.7 [place] 705950-09-03 16:45:00 Test Item Value Reference Range Interpretation Comments A/G Ratio (test code = A/G Ratio) 1.7 1.0-2.5 [place] 705950-09-03 16:45:00 Test Item Value Reference Range Interpretation Comments Bili Total (test code = Bili Total) 0.4 0.2-1.2 [place] 705950-09-03 16:45:00 Test Item Value Reference Range Interpretation Comments Alk Phos (test code = Alk Phos) 60 35-144 [facility]2020-09-03 16:45:00 Test Item Value Reference Range Interpretation Comments ASPARTATE TRANSAMINASE (test code = 12 10-35 ASPARTATE TRANSAMINASE) [place] 705950-09-03 16:45:00 Test Item Value Reference Range Interpretation Comments ALANINE AMINOTRANSFERASE (test code = 7 9-46 ALANINE AMINOTRANSFERASE) [place] 047010-09-03 16:45:00 Test Item Value Reference Range Interpretation Comments WBC X 10x3 (test code = WBC X 10x3) 6.9 3.8-10.8 [place] 047010-09-03 16:45:00 Test Item Value Reference Range Interpretation Comments RBC X 10x6 (test code = RBC X 10x6) 4.41 4.20-5.80 [place] 047010-09-03 16:45:00 Test Item Value Reference Range Interpretation Comments Hgb (test code = Hgb) 13.5 13.2-17.1 [place] 047010-09-03 16:45:00 Test Item Value Reference Range Interpretation Comments Hct (test code = Hct) 40.8 38.5-50.0 [place] 047010-09-03 16:45:00 Test Item Value Reference Range Interpretation Comments MCV (test code = MCV) 92.5 80.0-100.0 [place] [address]-09-03 16:45:00 Test Item Value Reference Range Interpretation Comments MCH (test code = MCH) 30.6 pg 27.0-33.0 [place] [address]-09-03 16:45:00 Test Item Value Reference Range Interpretation Comments MCHC (test code = MCHC) 33.1 32.0-36.0 [place] [address]-09-03 16:45:00 Test Item Value Reference Range Interpretation Comments RDW (test code = RDW) 13.2 11.0-15.0 [facility] HospitalIbpcirjKKMFJETCOV5865-26-92 16:45:00 Test Item Value Reference Range Interpretation Comments Platelet (test code = Platelet) 324 140-400 [facility] HospitalKlmbkoyPIZDSKDARX1197-65-85 16:45:00 Test Item Value Reference Range Interpretation Comments MPV (test code = MPV) 10.7 7.5-12.5 [facility] HospitalMqotmnkLVKRKWDRHW2722-60-90 16:45:00 Test Item Value Reference Range Interpretation Comments Neutrophils # (test code = Neutrophils 2753 5531-8748 #) [facility] HospitalBynarqdKKRDHWVLTM2391-26-80 16:45:00 Test Item Value Reference Range Interpretation Comments Lymphocytes # (test code = Lymphocytes 3140 850-3900 #) [facility] HospitalMgqxmvmOWPILUTQTS5833-34-57 16:45:00 Test Item Value Reference Range Interpretation Comments Monocytes # (test code = Monocytes #) 683 200-950 [facility] HospitalFxlobdiNCIIAVSMTI2361-89-32 16:45:00 Test Item Value Reference Range Interpretation Comments Eosinophils # (test code = Eosinophils 262 15-500 #) [facility] HospitalXovccisXBFCJMMZPT2004-97-73 16:45:00 Test Item Value Reference Range Interpretation Comments Basophils # (test code 62 See_Comment [Aut omated message] The = Basophils #) system which generated this result tra nsmitted reference range : <=200. The reference r cecy was not used to int erpret this result as normal/abnormal . [facility] HospitalGlqmgegMBYMCGHDNE1900-66-37 16:45:00 Test Item Value Reference Range Interpretation Comments Segs (test code = Segs) 39.9 [place] 047010-09-03 16:45:00 Test Item Value Reference Range Interpretation Comments Lymphocytes (test code = Lymphocytes) 45.5 [facility] HospitalEracitaVVRQRDDSNV8523-07-11 16:45:00 Test Item Value Reference Range Interpretation Comments Monocytes (test code = Monocytes) 9.9 [facility] HospitalIjubomfRNPRYCVUXE6314-02-37 16:45:00 Test Item Value Reference Range Interpretation Comments Eosinophils (test code = Eosinophils) 3.8 [facility] HospitalRsstbjpTWAYEZZBPU4679-28-39 16:45:00 Test Item Value Reference Range Interpretation Comments Basophils (test code = Basophils) 0.9 [facility] CenterWavyeeiRWVUZI1673-30-09 16:45:00 Test Item Value Reference Range Interpretation Comments Chol (test code = Chol) 197 [facility]BszgnvjRZNGRG1452-57-79 16:45:00 Test Item Value Reference Range Interpretation Comments HDL (test code = HDL) 49 [facility] HospitalXooovxqDGISPS7917-66-10 16:45:00 Test Item Value Reference Range Interpretation Comments Trig (test code = Trig) 161 [facility] HospitalIwekkawZMYAHT2660-17-74 16:45:00 Test Item Value Reference Range Interpretation Comments LDL (Calculated) (test code = LDL 120 (Calculated)) [facility] HospitalCywplraZDOUCG5378-50-39 16:45:00 Test Item Value Reference Range Interpretation Comments CHD Risk (test code = CHD Risk) 4.0 [facility] HospitalWpqvxbmLTJDCB6387-70-66 16:45:00 Test Item Value Reference Range Interpretation Comments Non HDL Chol (test code = Non HDL Chol) 148 [facility] Notes Date/Time Note Provider Source 2020-05-24 11:33:07-00:00 Radiation Dose CTDIVOL = 0 (mGy): DLP = 1111 (mGy-cm) [facility] PROCEDURE INFORMATION: Exam: CT Head Without Contrast Exam date and time: 05/24/2020 11:35 AM Age: 85 years old Clinical indication: /confusion, AMS TECHNIQUE: Imaging protocol: Computed tomography of the hea d without contrast. Radiation optimization: All CT scans at this facility use at least one of these dose optimization techniques: automated exposure control; mA and/or kV adjustment per patient size (includes targeted e xams where dose is matched to clinical indication); or iterative reconstructio n. COMPARISON: No relevant prior studies available. RADIATION DOSE METRICS: Total DLP (mGy-cm): 1111 FINDINGS: Brain: There is moderate central/cortical atroph y with associated ventriculomegaly and mesial temporal lobe involv ement particularly of the right. There is subcortical and periventricular areas of gliosis. There are no extra-axial fluid collections. The orbital le nses have been resected. The globes are intact. There is no retrobulbar abnor mality. There is no acute cortical infarct, parenchymal hemorrhage or intr a axial mass. Sellae and para sellae structures are normal for age. There is n o tonsillar ectopia. Ventricles: There is ventriculomegaly. Bones/joints: Unremarkable. No acute fracture. Paranasal sinuses: Visualized sinuses are unrema rkable. No fluid levels. Mastoid air cells: Visualized middle ear cavity, antrum and mastoid air cells are normally aerated. Soft tissues: Unremarkable. IMPRESSION: There is no acute cortical infarct, hemorrhage o r intra axial mass. There is moderate central/co rtical atrophy with associated ventriculomegaly and mesial temporal lobe involvement particularly of the right. There is subcortical and periventricular areas of gliosis . There are no extra-axial fluid collections. Dale Prater MD On 05/24/2020 11:50:19; BRENDA [id number] 2020-05-24 11:27:21-00:00 PROCEDURE INFORMATION: [facility] Exam: XR Chest, 1 View Exam date and time: 05/24/2020 11:34 AM Age: 85 years old Clinical indication: /confusion TECHNIQUE: Imaging protocol: XR of the chest Views: 1 view. COMPARISON: No relevant prior studies available. FINDINGS: Lungs: Lungs are clear. No consolidation. Pleural space: No pleural effusion. No pneumotho rax. Heart/Mediastinum: No cardiomegaly. No m ediastinal abnormality is evident. The aorta is tortuous and atherosclerotic. Bones/joints: No acute osseous abnormality. IMPRESSION: No acute cardiopulmonary abnormality. Jose R Espinoza MD On 05/24/2020 12:07:23; YANN [id number]"
--- NOTE | 2023-02-18 10:48 | ER ---
Nurse's Notes [facility] Name: Brett Love Age: 87 yrs Sex: Male : 1935 Arrival Date: 02/18/2023 Time: 10:31 Bed 3 Private MD: Diagnosis: Asymptomatic hypertension Presentation: 02/18 10:36 Chief complaint: EMS states: son called 911 for concerns of high blood pressure. BP at [facility] was 233/110. Upon arrival to ER, patient has no complaints at this time. Coronavirus screen: Client denies travel out of the [place] in the last 14 days. Ebola Screen: Patient denies exposure to infectious person. Patient denies travel to an Ebola-affected area in the 21 days before illness onset. Initial Sepsis Screen: Does the patient meet any 2 criteria? No. Patient's initial sepsis screen is negative. Does the patient have a suspected source of infection? No. Patient's initial sepsis screen is negative. Risk Assessment: Do you want to hurt yourself or someone else? Patient reports no desire to harm self or others. Onset of symptoms was February 18, 2023. 10:36 Method Of Arrival: EMS: [facility] 10:36 Acuity: FAITH 3 ss Triage Assessment: 10:42 General: Appears in no apparent distress. comfortable, Behavior is calm, cooperative, bp appropriate for age. Pain: Denies pain. EENT: No deficits noted. Neuro: No deficits noted. Cardiovascular: No deficits noted. Respiratory: No deficits noted. GI: No signs and/or symptoms were reported involving the gastrointestinal system. : No signs and/or symptoms were reported regarding the genitourinary system. Derm: No deficits noted. Musculoskeletal: No deficits noted. Historical: - Allergies: 10:39 No Known Allergies; ss - PMHx: 10:39 Hypertension; ss - Immunization history:: Client reports receiving the 2nd dose of the Covid vaccine. - Social history:: Smoking status: Patient denies any tobacco usage or history of. Screenin:42 [facility] ED Fall Risk Assessment (Adult) History of falling in the last 3 months, bp including since admission No falls in past 3 months (0 pts). Abuse screen: Denies threats or abuse. Denies injuries from another. Nutritional screening: No deficits noted. Tuberculosis screening: No symptoms or risk factors identified. Assessment: 10:42 General: SEE TRIAGE NOTE. bp 11:03 Reassessment: [facility] CONTACTED FOR TRANSPORT. bp 11:28 Reassessment: DC VIA WC WITH [facility]. bp Vital Signs: 10:36 BP 149 / 88 LA Supine; Pulse 81; Resp 16; Temp 97.7(TE); Pulse Ox 96% on R/A; Weight ss 79.38 kg; Height 5 ft. 11 in. ; Pain 0/10; 11:03 BP 115 / 73; Pulse 65; Resp 15; Pulse Ox 95% ; bp 10:36 Body Mass Index 24.41 (79.38 kg, 180.34 cm) ss 10:36 Pain Scale: Adult ss ED Course: 10:36 Patient arrived in ED. bd 10:38 Jesus Alberto Ferguson DO is Attending Physician. ms3 10:39 Triage completed. ss 10:39 Arm band placed on right wrist. ss 10:41 Corky Aj, RN is Primary Nurse. bp 10:42 Patient has correct armband on for positive identification. Bed in low position. Call bp light in reach. Side rails up X2. 11:04 No provider procedures requiring assistance completed. IV discontinued, intact, bp bleeding controlled, No redness/swelling at site. Pressure dressing applied. Administered Medications: No medications were administered Medication: 10:42 VIS not applicable for this client. bp Outcome: 10:47 Discharge ordered by . ms3 11:21 Discharged to home via wheelchair. ld1 11:21 Condition: stable 11:21 Discharge instructions given to patient, family, Instructed on discharge instructions, follow up and referral plans. Demonstrated understanding of instructions, follow-up care. 11:28 Discharged to snf. Report called to [facility] bp 11:28 Condition: stable 11:28 Discharge instructions given to patient, Instructed on discharge instructions, follow up and referral plans. Demonstrated understanding of instructions, follow-up care. 11:28 Patient left the ED. bp Signatures: Tami Pastor Shelby, RN RN ss Corky Aj, RN RN bp Jesus Alberto Ferguson DO DO ms3 Alea Ferguson, ROBIN RN ld1
--- NOTE | 2023-02-18 10:48 | EDPHYS ---
Physician Documentation [facility] Name: Brett Love Age: 87 yrs Sex: Male : 1935 Arrival Date: 02/18/2023 Time: 10:31 Bed 3 Private MD: ED Physician Jesus Alberto Ferguson HPI: 02/18 10:47 This 87 yrs old Male presents to ER via EMS with complaints of hypertension. ms3 10:47 87-year-old male with past medical history of hypertension presents via [place] [id number] EMS for hypertension. EMS notes patient's blood pressure to be over 200. Patient is without complaints at this time. Patient denies chest pain, shortness of breath, back pain, nausea, vomiting. Patient states he noted his blood pressure to be elevated at 5 AM. Historical: - Allergies: 10:39 No Known Allergies; ss - PMHx: 10:39 Hypertension; ss - Immunization history:: Client reports receiving the 2nd dose of the Covid vaccine. - Social history:: Smoking status: Patient denies any tobacco usage or history of. ROS: 10:47 Constitutional: Negative for fever, and chills. Neck: Negative for injury, pain, and ms3 swelling, Cardiovascular: Negative for chest pain, and palpitations. Respiratory: Negative for shortness of breath, cough, wheezing, and pleuritic chest pain, Abdomen/GI: Negative for abdominal pain, nausea, vomiting, diarrhea, and constipation, MS/Extremity: Negative for injury and deformity, Skin: Negative for injury, rash, and discoloration, Neuro: Negative for headache, weakness, numbness, tingling. 10:47 All other systems are negative. Exam: 10:47 Constitutional: This is a well developed, well nourished patient who is awake, alert, ms3 and in no acute distress. Head/Face: Normocephalic, atraumatic. Eyes: Pupils equal round and reactive to light, extra-ocular motions intact. Lids and lashes normal. Conjunctiva and sclera are non-icteric and not injected. Periorbital areas with no swelling, redness, or edema. Neck: Trachea midline, no cervical lymphadenopathy. Supple, full range of motion without nuchal rigidity, or vertebral point tenderness. No Meningismus. Chest/axilla: Normal chest wall appearance and motion. Nontender with no deformity. Cardiovascular: Regular rate and rhythm with a normal S1 and S2. No gallops, murmurs, or rubs. Normal PMI, no JVD. No pulse deficits. Respiratory: Lungs have equal breath sounds bilaterally, clear to auscultation and percussion. No rales, rhonchi or wheezes noted. No increased work of breathing, no retractions or nasal flaring. Abdomen/GI: Soft, non-tender, with normal bowel sounds. No distension or tympany. No guarding or rebound. No evidence of tenderness throughout. Skin: Warm, dry with normal turgor. Normal color with no rashes, no lesions, and no evidence of cellulitis. MS/ Extremity: Pulses equal, no cyanosis. Neurovascular intact. Full, normal range of motion. Vital Signs: 10:36 BP 149 / 88 LA Supine; Pulse 81; Resp 16; Temp 97.7(TE); Pulse Ox 96% on R/A; Weight ss 79.38 kg; Height 5 ft. 11 in. ; Pain 0/10; 11:03 BP 115 / 73; Pulse 65; Resp 15; Pulse Ox 95% ; bp 10:36 Body Mass Index 24.41 (79.38 kg, 180.34 cm) ss 10:36 Pain Scale: Adult ss MDM: 10:38 Patient medically screened. ms3 10:47 Differential Diagnosis HTN. Data reviewed: vital signs, nurses notes, and as a result, ms3 I will discharge patient. Historians other than the Patient: EMS: [facility]. Care significantly affected by the following chronic conditions: Hypertension. Counseling: I had a detailed discussion with the patient and/or guardian regarding: the historical points, exam findings, and any diagnostic results supporting the discharge/admit diagnosis, the need for outpatient follow up, to return to the emergency department if symptoms worsen or persist or if there are any questions or concerns that arise at home. Response to treatment: the patient's symptoms have resolved after treatment, and as a result, I will discharge patient. Special discussion: I have referred the patient to see his PCP for further evaluation of high blood pressure. I discussed with the patient/guardian in detail that at this point there is no indication for admission to the hospital. It is understood, however, that if the symptoms persist or worsen the patient needs to return immediately for re-evaluation. Administered Medications: No medications were administered Disposition Summary: 02/18/23 10:47 Discharge Ordered Location: Home ms3 Condition: Stable ms3 Diagnosis - Asymptomatic hypertension ms3 Followup: ms3 - With: Private Physician - When: 2 - 3 days - Reason: Recheck today's complaints Discharge Instructions: - Discharge Summary Sheet ms3 - Hypertension, Adult ms3 Forms: - Medication Reconciliation Form ms3 - Thank You Letter ms3 - Antibiotic Education ms3 - Prescription Opioid Use ms3 Signatures: Karie Maria, RN RN ss Jesus Alberto Ferguson, DO ms3
[2023-02-18 11:39] VITALS: TEMP 97.7
[2023-02-18 11:40] VITALS: BP 115/73; O2SAT 95
== END 2023-02-18 11:28 | disposition home or self-care (01) ==
LOC: ER 10:31
DX: I10 Essential (primary) hypertension (principal)
CPT/HCPCS: 99283

== ENCOUNTER 2023-05-05 14:07 | Emergency (ER) | payer OTHER ==
--- OUTSIDE RECORDS SUMMARY | 2023-05-05 14:15 | XMS REPORT | Continuity of Care Document ---
:1935 Author Organization [facility] t Address [address] [place] [address] Care Team Providers Name Role Phone HEAD, TD Primary Care Physician Unavailable [id number] Attending Clinician Unavailable Kathryn ZUÑIGA Attending Clinician Unavailable Kathryn Yun Attending Clinician Spencer Hernandez Attending Clinician Michael Ritter Jr Attending Clinician Caleb Gross Attending Clinician CALEB GROSS Attending Clinician Unavailable [id number] Admitting Clinician Unavailable Kathryn ZUÑIGA Admitting Clinician Unavailable Payers Payer Name Policy Type Policy Number Effective Date Expiration Date [facility] [id number] 2022 [facility] 00:00:00 PPO Problems Condition Condition Condition Status Onset Resolution Last Treating Co mments Source Name Details Category Date Date Treatment Clinician Date AMS AMS Diagnosis Active 2020-05-24 Mem oria Active 05-24 11:03:00 l 05/24/2020 07:00: Jacky Potter Néstor Anxiety Anxiety Problem Active 2021-11-28 Me moria (finding) (finding) 22:13:27 l Active Alexander Problem 11/28/2021 Medical Group,[facility] her Neuro,[facility] Coronary Coronary Problem Active 2021-11-28 Memoria arterioscl arterioscl 22:13:27 l erosis erosis Néstor (disorder) (disorder) Active Problem 11/28/2021 Medical Group,[facility] her Neuro,[facility] Hypertensi Hypertens Problem Active 2021-11-28 Memoria ve edin 22:13:27 l disorder, disorder, Herm loc systemic systemic arterial arterial (disorder) (disorder) Active Problem 11/28/2021 Medical Group,[facility] her Neuro,[facility] Hypothyroi Hypothyro Problem Active 2021-11-28 Memoria dism idism 22:13:27 l (disorder) (disorder) He rmann Active Problem 11/28/2021 Medical Group,[facility] her Neuro,[facility] Insomnia Insomnia Problem Active 2021-11-28 Memoria (disorder) (disorder) 22:13:27 l Active Néstor Problem 11/28/2021 Medical Group,[facility] her Neuro,[facility] History of Past Illness Condition Condition Condition Status Onset Resolution Last Treating Co mments Source Name Details Category Date Date Treatment Clinician Date Personal Personal Problem 2020-05-26 2020-05-26 Memoria history of history of 05-24 21:56:01 21:56:01 l other other 17:00: Néstor mental and mental and 00 behavioral behavioral disorders disorders 05/24/2020 05/26/2020 [facility] Disorienta Disorient Problem 2020-05-26 2020-05-26 Memoria hu watson, 05-24 21:56:01 21:56:01 l unspecifie unspecifie 17:00: He lily d d 00 05/24/2020 05/26/2020 [facility] Allergies, Adverse Reactions, Alerts Allergy Allergy Status Severity Reaction(s) Onset Inactive Treating Comm ents Source Name Type Date Date Clinician NO KNOWN Drug Active [facility] No Known No Known Active Memori a Medicati Medicati l on on Néstor more s Social History Social Habit Start Date Stop Date Quantity Comments Source Exposure to 2022-11-23 2022-12-03 Not sure [facility] SARS-CoV-2 (event) 00:00:00 00:34:00 Medica l Branch Social History 2020-05-24 2020-05-24 Abbey amos 16:13:52 16:13:52 Sex Ass[birth year] [facility] 00:00:00 00:00:00 Medical Branch Smoking Status Start Date Stop Date Source Tobacco smoking consumption [facility] Medical unknown Branch Medications Ordered Filled [...] uration of Therapy: 10 days cefdinir 2022- No [id number] 300mg Take 1 U nivers 300 mg 12-03 0408 capsule by ity of capsule 00:00: 04:59 [facility] 00 :00 every 12 Medical ([facility] Branch hours for 10 days. prasugrel 2019-09 Yes 10 mg = 1 Mem oria 10 mg oral 0-06 tab, PO, l tablet 18:38: Daily, # Alexander 00 30 tab, 0 Refill(s) Hydralazine 2019-09 Yes 50 mg = 1 M emoria Hydrochlori 0-06 tab, PO, l de 50 MG 18:38: TID, # 90 Herm loc Oral Tablet 00 tab, 3 Refill(s) prasugrel 2019-09 Yes 10 mg = 1 Mem oria 10 mg oral 0-06 tab, PO, l tablet 18:38: Daily, # Alexander 00 30 tab, 0 Refill(s) Hydralazine 2019-09 [...] rmann 00 90 tab, 3 Refill(s), Pharmacy: [facility] #[id number], 180.34, cm, 06/13/20 13:12:00 CDT, Height, 78.182, kg, 06/13/20 13:12:00 CDT, Weight levothyroxi 2019-09 Yes 100 Memori a ne 100 mcg 0-06 microgram l (0.1 mg) 18:38: = 1 tab, Ernestina nn oral tablet 00 PO, Daily, # 90 tab, 3 Refill(s), Pharmacy: [facility] #[id number], 180.34, cm, 06/13/20 13:12:00 CDT, Height, 78.182, [...] rmann 00 90 tab, 3 Refill(s), Pharmacy: [facility] #[id number], 180.34, cm, 06/13/20 13:12:00 CDT, Height, 78.182, kg, 06/13/20 13:12:00 CDT, Weight levothyroxi 2019-09 Yes 100 Memori a ne 100 mcg 0-06 microgram l (0.1 mg) 18:38: = 1 tab, Ernestina nn oral tablet 00 PO, Daily, # 90 tab, 3 Refill(s), Pharmacy: [facility] #[id number], 180.34, cm, 06/13/20 13:12:00 CDT, Height, 78.182, [...] rmann 00 90 tab, 3 Refill(s), Pharmacy: [facility] #[id number], 180.34, cm, 06/13/20 13:12:00 CDT, Height, 78.182, kg, 06/13/20 13:12:00 CDT, Weight levothyroxi 2019-09 Yes 100 Memori a ne 100 mcg 0-06 microgram l (0.1 mg) 18:38: = 1 tab, Ernestina nn oral tablet 00 PO, Daily, # 90 tab, 3 Refill(s), Pharmacy: [facility] #[id number], 180.34, cm, 06/13/20 13:12:00 CDT, Height, 78.182, kg, 06/13/20 13:12:00 CDT, Weight prasugrel 2019-09 Yes 10 mg = 1 Mem oria 10 mg oral 0-06 tab, PO, l tablet 18:38: Daily, # Alexander 00 30 tab, 0 Refill(s) Hydralazine 2019-09 [...] rmann 00 90 tab, 3 Refill(s), Pharmacy: [facility] #[id number], 180.34, cm, 06/13/20 13:12:00 CDT, Height, 78.182, kg, 06/13/20 13:12:00 CDT, Weight levothyroxi 2019-09 Yes 100 Memori a ne 100 mcg 0-06 microgram l (0.1 mg) 18:38: = 1 tab, Ernestina nn oral tablet 00 PO, Daily, # 90 tab, 3 Refill(s), Pharmacy: [facility] #[id number], 180.34, cm, 06/13/20 13:12:00 CDT, Height, 78.182, kg, 06/13/20 13:12:00 CDT, Weight Hydralazine No 50 mg = 1 M emoria Hydrochlori 9-30 tab, PO, l de 50 MG 19:48: QID, 0 Néstor Oral Tablet 00 Refill(s) Hydralazine 2019-0 No 50 mg = 1 M emoria Hydrochlori 9-30 tab, PO, l de 50 MG 19:48: QID, 0 Alexander Oral Tablet 00 Refill(s) Hydralazine 2020-0 No 50 mg = 1 M emoria Hydrochlori 9-30 tab, PO, l de 50 MG 19:48: QID, 0 Alexander Oral Tablet 00 Refill(s) Hydralazine 2019-0 No 50 mg = 1 M emoria Hydrochlori 9-30 tab, PO, l de 50 MG 19:48: QID, 0 Alexander Oral Tablet 00 Refill(s) Nitroglycer 2019-0 Yes See Memori a in 0.4 MG 9-24 Instructio l Sublingual 17:56: ns, Alexander Tablet 00 DISSOLVE 1 TABLET UNDER THE TONGUE EVERY 5 MINUTES NEEDED FOR CHEST PAIN NOT TO EXCEED 3 DOSES, # 25 tab, 5 Refill(s), Pharmacy: [facility] #[id number], 180.34, cm, 05/24/20 10:51:00 CDT, Height, 77.6, kg, 05/24/20 10:51:00 C... Nitroglycer 2019-0 Yes See Memori a in 0.4 MG 9-24 Instructio l Sublingual 17:56: ns, Néstor Tablet 00 DISSOLVE 1 TABLET UNDER THE TONGUE EVERY 5 MINUTES NEEDED FOR CHEST PAIN NOT TO EXCEED 3 DOSES, # 25 tab, 5 Refill(s), Pharmacy: [facility] #[id number], 180.34, cm, 05/24/20 10:51:00 CDT, Height, 77.6, kg, 05/24/20 10:51:00 C... Nitroglycer 2020-0 Yes See Memori a in 0.4 MG 9-24 Instructio l Sublingual 17:56: ns, Alexander Tablet 00 DISSOLVE 1 TABLET UNDER THE TONGUE EVERY 5 MINUTES NEEDED FOR CHEST PAIN NOT TO EXCEED 3 DOSES, # 25 tab, 5 Refill(s), Pharmacy: [facility] #[id number], 180.34, cm, 05/24/20 10:51:00 CDT, Height, 77.6, kg, 05/24/20 10:51:00 C... Nitroglycer 2020-0 Yes See Memori a in 0.4 MG 9-24 Instructio l Sublingual 17:56: ns, Alexander Tablet 00 DISSOLVE 1 TABLET UNDER THE TONGUE EVERY 5 MINUTES NEEDED FOR CHEST PAIN NOT TO EXCEED 3 DOSES, # 25 tab, 5 Refill(s), Pharmacy: [facility] #[id number], 180.34, cm, 05/24/20 10:51:00 CDT, Height, 77.6, kg, 05/24/20 10:51:00 C... Saline 2020-0 No Notes: Memoria Flush 0.9% 9-16 (Same as: l 16:15: BD Néstor 00 Posiflush) Saline 2020-0 No Notes: Memoria Flush 0.9% 9-16 (Same as: l 16:15: BD Néstor 00 Posiflush) Saline 2020-0 No Notes: Memoria Flush 0.9% 9-16 (Same as: l 16:15: BD Néstor 00 Posiflush) Saline 2020-0 No Notes: Memoria Flush 0.9% 9-16 (Same as: l 16:15: BD Néstor 00 Posiflush) Mirtazapine 2020-0 Yes 30 mg = 2 M emoria 15 MG Oral 9-10 tab, PO, l Tablet 18:27: Bedtime, # Ernestina nn 00 50 tab, 1 Refill(s), Pharmacy: [facility] #[id number], 180.34, cm, 05/11/20 10:37:00 CDT, Height, 77.273, kg, 05/11/20 10:37:00 CDT, Weight Mirtazapine 2020-0 Yes 30 mg = 2 M emoria 15 MG Oral 9-10 tab, PO, l Tablet 18:27: Bedtime, # Ernestina nn 00 50 tab, 1 Refill(s), Pharmacy: [facility] #[id number], 180.34, cm, 05/11/20 10:37:00 CDT, Height, 77.273, kg, 05/11/20 10:37:00 CDT, Weight Mirtazapine 2020-0 Yes 30 mg = 2 M emoria 15 MG Oral 9-10 tab, PO, l Tablet 18:27: Bedtime, # Ernestina nn 00 50 tab, 1 Refill(s), Pharmacy: [facility] #[id number], 180.34, cm, 05/11/20 10:37:00 CDT, Height, 77.273, kg, 05/11/20 10:37:00 CDT, Weight Mirtazapine 2020-0 Yes 30 mg = 2 M emoria 15 MG Oral 9-10 tab, PO, l Tablet 18:27: Bedtime, # Ernestina nn 00 50 tab, 1 Refill(s), Pharmacy: [facility] #[id number], 180.34, cm, 05/11/20 10:37:00 CDT, Height, 77.273, kg, 05/11/20 10:37:00 CDT, Weight Escitalopra 2020-0 Yes 5 mg = 1 Me moria m 5 MG Oral 9-10 tab, PO, l Tablet 18:25: Daily, # Néstor [Lexapro] 00 30 tab, 3 Refill(s), Pharmacy: [facility] #[id number], 180.34, cm, 05/11/20 10:37:00 CDT, Height, 77.273, kg, 05/11/20 10:37:00 CDT, Weight Escitalopra 2020-0 Yes 5 mg = 1 Me moria m 5 MG Oral 9-10 tab, PO, l Tablet 18:25: Daily, # Alexander [Lexapro] 00 30 tab, 3 Refill(s), Pharmacy: [facility] #[id number], 180.34, cm, 05/11/20 10:37:00 CDT, Height, 77.273, kg, 05/11/20 10:37:00 CDT, Weight Escitalopra 2020-0 Yes 5 mg = 1 Me moria m 5 MG Oral 9-10 tab, PO, l Tablet 18:25: Daily, # Alexander [Lexapro] 00 30 tab, 3 Refill(s), Pharmacy: [facility] #[id number], 180.34, cm, 05/11/20 10:37:00 CDT, Height, 77.273, kg, 05/11/20 10:37:00 CDT, Weight Escitalopra 2020-0 Yes 5 mg = 1 Me moria m 5 MG Oral 9-10 tab, PO, l Tablet 18:25: Daily, # Alexander [Lexapro] 00 30 tab, 3 Refill(s), Pharmacy: [facility] #[id number], 180.34, cm, 05/11/20 10:37:00 CDT, Height, 77.273, kg, 05/11/20 10:37:00 CDT, Weight amLODIPine 2020-0 Yes 5 mg = 1 Mem oria 5 mg oral 9-03 tab, PO, l tablet 15:27: BID, 0 Alexander 00 Refill(s) Aspirin 81 2020-0 Yes 81 mg = 1 Me moria MG Enteric -03 tab, PO, l Coated 15:27: Daily, # Alexander Tablet 00 90 tab, 3 Refill(s) atorvastati 2020-0 Yes 40 mg = 1 M emoria n 40 mg 05-11 tab, PO, l oral tablet 15:27: Daily, 0 He rmann 00 Refill(s) PanOxyl 2020-0 Yes TOP, BID, Memor ia Maximum 05-11 0 l Strength 15:27: Refill(s) Herm loc Foaming 00 Acne Wash Zyrtec 2020-0 Yes Daily, 0 Memoria 03 Refill(s) l 15:27: Alexander 00 donepezil 5 2020-0 Yes 5 mg = 1 Me moria mg oral 05-11 tab, PO, l tablet 15:27: Bedtime, 0 Ernestina nn 00 Refill(s) Chondroitin 2020-0 Yes PO, Daily, Memoria -Glucosamin 05-11 0 l e 15:27: Refill(s) Alexander 00 Hydralazine 2020-0 Yes 100 mg = [...] tab, PO, l tablet 15:27: Daily, 0 Alexander 00 Refill(s) melatonin 5 2020-0 Yes 5 mg = 1 Me moria mg oral 05-11 tab, PO, l tablet 15:27: Bedtime, Néstor 00 PRN for insomnia, # 60 tab, 0 Refill(s) metoprolol 2020-0 Yes 50 mg = 1 Me moria tartrate 50 -03 tab, PO, l mg oral 15:27: BID, 0 Alexander tablet 00 Refill(s) Omeprazole 2020-0 Yes PO, Daily, M emoria 03 0 l 15:27: Refill(s) Alexander 00 prasugrel 2020-0 Yes 10 mg = 1 Mem oria 10 mg oral 05-11 tab, PO, l tablet 15:27: Daily, 0 Alexander 00 Refill(s) prazosin 2 2020-0 Yes 2 mg = 1 Mem oria mg oral 05-11 cap, PO, l capsule 15:27: TID, 0 Alexander 00 Refill(s) spironolact 2020-0 Yes 50 mg [...] 05-11 QID, 0 l MG/MG 15:27: Refill(s) Néstor Topical Gel 00 Lorazepam 1 2020-0 Yes [...] = 1 M emoria n 40 mg - tab, PO, l oral tablet 15:27: Daily, 0 He rmann 00 Refill(s) PanOxyl 2020-0 Yes TOP, BID, Memor ia Maximum 03 0 l Strength 15:27: Refill(s) Herm loc Foaming 00 Acne Wash Zyrtec 2020-0 Yes Daily, 0 Memoria - Refill(s) l 15:27: Alexander 00 amLODIPine 2020-0 Yes 5 mg = 1 Mem oria 5 mg oral 05-11 tab, PO, l tablet 15:27: BID, 0 Néstor 00 Refill(s) Aspirin 81 2020-0 Yes 81 mg = 1 Me moria MG Enteric - tab, PO, l Coated 15:27: Daily, # Néstor Tablet 00 90 tab, 3 Refill(s) atorvastati 2020-0 Yes 40 mg = 1 M emoria n 40 mg 05-11 tab, PO, l oral tablet 15:27: Daily, 0 He rmann 00 Refill(s) PanOxyl 2020-0 Yes TOP, BID, Memor ia Maximum 03 0 l Strength 15:27: Refill(s) Herm loc Foaming 00 Acne Wash donepezil 5 2020-0 Yes 5 mg = 1 Me moria mg oral 05-11 tab, PO, l tablet 15:27: Bedtime, 0 Ernestina nn 00 Refill(s) Zyrtec 2020-0 Yes Daily, 0 Memoria 05-11 Refill(s) l 15:27: Alexander 00 donepezil 5 2020-0 Yes 5 mg [...] tab, PO, l tablet 15:27: Daily, 0 Alexander 00 Refill(s) melatonin 5 2020-0 Yes 5 mg = 1 Me moria mg oral - tab, PO, l tablet 15:27: Bedtime, Néstor 00 PRN for insomnia, # 60 tab, 0 Refill(s) metoprolol 2020-0 Yes 50 mg = 1 Me moria tartrate 50 - tab, PO, l mg oral 15:27: BID, 0 Néstor tablet 00 Refill(s) Omeprazole 2020-0 Yes PO, Daily, M emoria 05-11 0 l 15:27: Refill(s) Alexander 00 prasugrel 2020-0 Yes 10 mg = 1 Mem oria 10 mg oral 05-11 tab, PO, l tablet 15:27: Daily, 0 Néstor 00 Refill(s) Chondroitin 2020-0 Yes PO, Daily, Memoria -Glucosamin 05-11 0 l e 15:27: Refill(s) Néstor 00 prazosin 2 2020-0 Yes 2 mg = 1 Mem oria mg oral 05-11 cap, PO, l capsule 15:27: TID, 0 Alexander 00 Refill(s) spironolact 2020-0 Yes 50 mg [...] 05-11 QID, 0 l MG/MG 15:27: Refill(s) Alexander Topical Gel 00 Lorazepam 1 2020-0 Yes 1 mg = 1 Me moria MG Oral 05-11 tab, PO, l Tablet 15:27: TID, 0 Néstor 00 Refill(s) Nitroglycer 2020-0 Yes 0.4 mg = 1 Memoria in 0.4 MG 05-11 tab, SL, l Sublingual 15:27: Q5Min, 0 Her almendarez Tablet 00 Refill(s) Hydralazine 2020-0 Yes 100 mg = 1 [...] mg = 1 Me moria tartrate 50 05-11 tab, PO, l mg oral 15:27: BID, [...] 05-11 QID, 0 l MG/MG 15:27: Refill(s) Alexander Topical Gel 00 Lorazepam 1 2020-0 Yes 1 mg = 1 Me moria MG Oral 05-11 tab, PO, l Tablet 15:27: TID, 0 Alexander 00 Refill(s) Nitroglycer 2020-0 Yes 0.4 mg = 1 Memoria in 0.4 MG 05-11 tab, SL, l Sublingual 15:27: Q5Min, 0 Her almendarez Tablet 00 Refill(s) amLODIPine 2020-0 Yes 5 mg = 1 Mem oria 5 mg oral 05-11 tab, PO, l tablet 15:27: BID, 0 Alexander 00 Refill(s) Aspirin 81 2020-0 Yes 81 mg = 1 Me moria MG Enteric 05-11 tab, PO, l Coated 15:27: Daily, # Alexander Tablet 00 90 tab, 3 Refill(s) atorvastati [...] tab, PO, l tablet 15:27: Daily, 0 Alexander 00 Refill(s) melatonin 5 2020-0 Yes 5 mg = 1 Me moria mg oral 03 tab, PO, l tablet 15:27: Bedtime, Alexander 00 PRN for insomnia, # 60 tab, 0 Refill(s) metoprolol 2020-0 Yes 50 mg = 1 Me moria tartrate 50 05-11 tab, PO, l mg oral 15:27: BID, [...] cap, PO, l capsule 15:27: TID, 0 Alexander 00 Refill(s) spironolact 2019-0 Yes 50 mg = 1 M emoria one 50 mg 05-11 tab, PO, l oral tablet 15:27: Daily, 0 He rmann 00 Refill(s) vortioxetin 2019-0 Yes 20 mg = 1 M emoria e 20 mg 05-11 tab, PO, l oral tablet 15:27: Daily, 0 He rmann 00 Refill(s) Diclofenac 2019-0 Yes 2 gm, TOP, M emoria Sodium 0.01 05-11 QID, 0 l MG/MG 15:27: Refill(s) Alexander Topical Gel 00 Lorazepam 1 2019-0 Yes 1 mg = 1 Me moria MG Oral 05-11 tab, PO, l Tablet 15:27: TID, 0 Alexander 00 Refill(s) Nitroglycer 2019-0 Yes 0.4 mg = 1 Memoria in 0.4 MG 05-11 tab, SL, l Sublingual 15:27: Q5Min, 0 Her almendarez Tablet 00 Refill(s) Vital Signs Vital Name Observation Time Observation Value Comments Source Heart rate 2022-12-03 08:39:00 53 /min [facility] Body temperature 2022-12-03 08:39:00 35.67 [facility] Oxygen saturation in 2022-12-03 08:39:00 95 /min [facility] Arterial blood by [facility] Pulse oximetry Branch Systolic blood 2022-12-03 08:00:00 144 mm[Hg] Lexie valdez pressure [facility] Diastolic blood 2022-12-03 08:00:00 78 mm[Hg[facility] Respiratory rate 2022-12-03 08:00:00 13 [facility] Body height 2022-12-03 05:33:00 180.3 cm [facility] Body weight 2022-12-03 05:33:00 83.915 kg [facility] BMI 2022-12-03 05:33:00 25.80 kg/m2 [facility] Systolic (mm Hg) 2020-07-11 19:29:00 Pee rial Alexander Diastolic (mm Hg) 2020-07-11 19:29:00 Mem orial Alexander Heart Rate 2020-07-11 19:29:00 [facility] Alexander Temperature Oral (F) 2020-07-11 19:29:00 98.1 F Memorial Néstor Height 2020-07-11 19:29:00 180.34 cm [facility] Alexander Weight 2020-07-11 19:29:00 [facility] Alexander BMI Calculated 2020-07-11 19:29:00 Memori al Néstor Systolic (mm Hg) 2020-06-13 18:00:00 Pee rial Alexander Diastolic (mm Hg) 2020-06-13 18:00:00 Mem orial Néstor Heart Rate 2020-06-13 18:00:00 Memorial Néstor Temperature Oral (F) 2020-06-13 18:00:00 98.6 F [facility] Alexander Height 2020-06-13 18:00:00 180.34 cm Memorial N[facility]stor Weight 2020-06-13 18:00:00 Memorial N[facility]stor BMI Calculated 2020-06-13 18:00:00 Memori al Alexander Respitory Rate 2020-05-24 18:54:00 Memori al Néstor Systolic (mm Hg) 2020-05-24 18:54:00 Pee rial Néstor Diastolic (mm Hg) 2020-05-24 18:54:00 Mem orial Néstor Temperature Oral (F) 2020-05-24 18:54:00 98.3 F [facility] Alexander Respitory Rate 2020-05-24 18:00:00 Memori al Alexander Systolic (mm Hg) 2020-05-24 18:00:00 Pee rial Néstor Diastolic (mm Hg) 2020-05-24 18:00:00 Mem orial Alexander Respitory Rate 2020-05-24 16:52:00 Memori al Alexander Systolic (mm Hg) 2020-05-24 16:52:00 Pee rial Alexander Diastolic (mm Hg) 2020-05-24 16:52:00 Mem orial Alexander Heart Rate 2020-05-24 16:03:00 Memorial Néstor Height 2020-05-24 15:47:00 180.34 cm [facility] Alexander BMI Calculated 2020-05-24 15:47:00 Memori al Néstor Weight 2020-05-24 15:47:00 [facility] Alexander Heart Rate 2020-05-24 15:47:00 Memorial Néstor Temperature Oral (F) 2020-05-24 15:47:00 98.2 F Memorial Néstor Systolic (mm Hg) 2020-05-11 15:25:00 Pee rial Néstor Diastolic (mm Hg) 2020-05-11 15:25:00 Mem orial Néstor Heart Rate 2020-05-11 15:25:00 [facility] Alexander Temperature Oral (F) 2020-05-11 15:25:00 98.0 F [facility] Néstor Height 2020-05-11 15:25:00 180.34 cm [facility] Alexander Weight 2020-05-11 15:25:00 [facility] Alexander BMI Calculated 2020-05-11 15:25:00 Memori al Alexander Procedures Procedure Date / Time Performing Clinician Source Performed EKG-12 LEAD 2022-12-03 08:00:31 Kathryn Zuñiga [facility] URINALYSIS 2022-12-03 06:32:00 Kathryn Zuñiga [facility] MAGNESIUM 2022-12-03 05:55:00 Kathryn Zuñiga [facility] TROPONIN I 2022-12-03 05:55:00 Kathryn Zuñiga Amy [facility] COMP. METABOLIC PANEL 2022-12-03 05:55:00 Kathryn Zuñiga [facility] ([id number]) [facility] CBC WITH DIFF 2022-12-03 05:55:00 Kathryn Zuñiga [facility] N-TERMINAL PRO-BNP 2022-12-03 05:55:00 Kathryn Zuñiga [facility] PCI - Percutaneous 2020-01-16 05:00:00 [facility] coronary intervention Encounters Start End Encounter Admission Attending Care Care Encounter Source Date/Time Date/Time Type Type Clinicians Facility Department ID 2021-10-04 Outpatient [id number] ENCTY REF [id number] ENCTY 09:47:45 0512 2022-12-03 2022-12-03 Emergency X Kathryn ZUÑIGA [facility] ERT [id number] Univers 00:23:00 04:02:00 ity of [facility] 2022-12-03 2022-12-03 Emergency Kathryn Zuñiga [facility] [id number] Univers 00:23:00 04:02:00 Amy COOPERIRENE [id number] i ty [facility] [id number] [facility] [id number] [place] [id number] Branch 2021-11-26 2021-11-26 Ambulatory nullFlavo MNA [id number] Memoria 19:45:00 19:45:00 Pre-Reg r Neurology 04 l Kimberly Alexander 2021-11-26 2021-11-26 Ambulatory nullFlavo MNA [id number] Memoria 19:45:00 19:45:00 Pre-Reg r Neurology 04 l Kimberly Alexander 2021-11-26 2021-11-26 Outpatient MHIE MHIE [id number] Memoria 14:45:00 14:45:00 04 abby Alexander 2021-11-26 2021-11-26 Outpatient MARCIN Hernandez MISCHER [id number] 14:45:00 14:45:00 Spencer Joao Bull 2020-07-11 2020-07-12 Outpatient nullFlavo [facility] [id number] Memoria 19:30:00 05:59:59 r Primary 03 [facility] 2020-07-11 2020-07-12 Outpatient nullFlavo [facility] [id number] Memoria 19:30:00 05:59:59 r Primary 03 [facility] 2020-07-11 2020-07-11 Outpatient Riya [facility] [id number] 13:30:00 23:59:59 Michael Julio 2020-07-11 2020-07-11 Outpatient MHIE MHIE [id number] Memoria 13:30:00 13:30:00 03 abby Alexander 2020-06-13 2020-06-14 Outpatient nullFlavo [facility] [id number] Memoria 18:30:00 04:59:59 r Primary 02 [facility] 2020-06-13 2020-06-14 [place] [id number] Memoria 18:30:00 04:59:59 r Primary 02 [facility] 2020-06-13 2020-06-13 Outpatient Riya, [facility] MG [id number] 13:30:00 23:59:59 Michael Lynch 2020-06-13 2020-06-13 Outpatient MHIE MHIE [id number] Memoria 13:30:00 13:30:00 02 [facility] 2020-06-07 2020-06-09 Phone nullFlavo MG [id number] Memoria 19:42:51 04:59:59 Message r Primary 01 [facility] 2020-06-07 2020-06-09 Phone nullFlavo MG [id number] Memoria 19:42:51 04:59:59 Message r Primary 01 [facility] 2020-06-07 2020-06-08 Outpatient [facility] MG [id number] 14:42:51 23:59:59 2020-06-01 2020-06-03 Phone nullFlavo MG [id number] Memoria 15:04:04 04:59:59 Message r Primary 00 [facility] 2020-06-01 2020-06-03 Phone nullFlavo MG [id number] Memoria 15:04:04 04:59:59 Message r Primary 00 [facility] 2020-06-01 2020-06-02 Outpatient [facility] [id number] 10:04:04 23:59:59 00 2020-05-24 2020-05-24 Emergency nullFlavo [facility] [id number] Memoria 15:46:48 19:08:[address] 2020-05-24 2020-05-24 Emergency nullFlavo [facility] [id number] Memoria 15:46:48 19:08:[address] 2020-05-24 2020-05-24 Outpatient Renato, [id number] 10:46:48 14:08:00 Caleb [id number] Chin [id number] 2020-05-24 2020-05-24 Emergency E RENATO, [facility] [id number] [facility] 10:46:00 14:08:00 CALEB 2020-05-18 2020-05-19 Outpatient nullFlavo [facility] [id number] Memoria 18:00:00 04:59:59 r Primary 01 [facility] 2020-05-18 2020-05-19 [place] [id number] Memoria 18:00:00 04:59:59 r Primary 01 [facility] 2020-05-18 2020-05-18 [id number] 13:00:00 23:59:59 Michael Julio 2020-05-18 2020-05-18 Outpatient MHIE MHIE [id number] Memoria 13:00:00 13:00:00 01 abby Palm 2020-05-11 2020-05-12 [place] [id number] Memoria 15:30:00 04:59:59 r Primary 00 [facility] 2020-05-11 2020-05-12 [place] [id number] Memoria 15:30:00 04:59:59 r Primary 00 [facility] 2020-05-11 2020-05-11 [id number] 10:30:00 23:59:59 Michael Sumanth 00 2020-05-11 2020-05-11 Outpatient MHIE MHIE [id number] Memoria 10:30:00 10:30:00 00 [facility] Results Test Description Test Time Test Comments Results Result Comments Source TROPONIN I 2022-12-03 06:53:28 Test Item Value Reference Range Interpretation Comme nts TROPONIN I (test code = 5511609910) 0.005 ng/mL <=0.034 ALPA (test code = [...] biotin. Lab Interpretation (test code = Normal 56756-8) [id number] 06:50:06 Test Item Value Reference Range Interpretation Comments NT-proBNP (test code = 301 pg/mL <=450 [id number]) ALPA (test code = ALPA) Biotin has been reported to cause a negative bias, interpret results relative to patient's use of biotin. Lab Interpretation (test Normal code = 36289-0) [facility] Test Item Value Reference Range Interpretation Comments MAGNESIUM (test code = 1368217392) 2.1 mg/dL 1.7-2.4 Lab Interpretation (test code = Normal 51676-2) [facility] (62134)2022-12-03 06:42:46 Test Item Value Reference Range Interpretation Comments NA (test code = 135 mmol/L 135-145 8381039955) K (test code = 4.2 mmol/L 3.5-5.0 8333182384) CL (test code = 104 mmol/L 98-108 8033244150) CO2 TOTAL (test code = 23 mmol/L 23-31 6588173667) AGAP (test code = 8 2-16 2453956801) BUN (test code = 31 mg/dL 7-23 H 9590423746) GLUCOSE (test code = 126 mg/dL 70-110 H 8429054878) CREATININE (test code = 1.25 mg/dL 0.60-1.25 4645891348) TOTAL BILI (test code = 0.4 mg/dL 0.1-1.7 1446945883) CALCIUM (test code = 8.7 mg/dL 8.6-10.6 7525227604) T PROTEIN (test code = 6.0 g/dL 6.3-8.2 L 4988129641) ALBUMIN (test code = 3.8 g/dL 3.5-5.0 5637581835) ALK PHOS (test code = 53 U/L 34-122 6610685582) ALTv (test code = 19 U/L 5-50 1742-6) AST(SGOT) (test code = 21 U/L 13-40 3511117095) eGFR (test code = 54.8 mL/min/1.73m2 2023154136) ALPA (test code = ALPA) Association of [...] tests). Lab Interpretation Abnormal (test code = 07833-4) [facility] WITH [id number] 06:23:02 Test Item Value Reference Range Interpretation Comments WBC (test code = 6.61 See_Comment [Automated 5692-2) message] The sy stem which generated this result transmitted reference range : 4.20 - 10.70 10*3/?L. The reference range was not used to interpret this result as normal/abnormal . RBC (test code = 3.88 See_Comment L [Automated 352-8) message] The sy stem which generated this [...] RDW-SD (test code = 49.8 fL 38.5-51.6 40916-2) RDW-CV (test code = 14.7 % 12.1-15.4 788-0) PLT (test code = 237 See_Comment [Automated 777-3) message] The sy stem which generated this result transmitted reference range : 150 - 328 10*3/ ?L. The reference r cecy was not used to interpret this result as normal/abnormal . MPV (test code = 10.9 fL 9.8-13.0 79428-1) NRBC/100 WBC (test 0.0 See_Comment [Automat ed code = 9156139455) message] The system which generated this result transmitted reference range : 0.0 - 10.0 /100 WBCs. The refer ence range was not u sed to interpret th is result as normal/abnormal . NRBC x10^3 (test code See_Comment [Auto mated = 2830683913) message] The s ystem which generated this result transmitted reference range : 10*3/?L. The reference range was not used to interpret this result as normal/abnormal . GRAN MAT (NEUT) % 51.0 % (test code = 770-8) IMM GRAN % (test code 0.90 % = 6495451322) LYMPH % (test code = 34.6 % 736-9) MONO % (test code = 10.4 % 5905-5) EOS % (test code = 2.3 % 713-8) BASO % (test code = 0.8 % 706-2) GRAN MAT x10^3(ANC) 3.37 10*3/uL 1.99-6.95 (test code = 6447486601) IMM GRAN x10^3 (test 0.06 10*3/uL 0.00-0.06 code = 3181512551) LYMPH x10^3 (test code 2.29 10*3/uL 1.09-3.23 = 731-0) MONO x10^3 (test code 0.69 10*3/uL 0.36-1.02 = 742-7) EOS x10^3 (test code = 0.15 10*3/uL 0.06-0.53 711-2) BASO x10^3 (test code 0.05 10*3/uL 0.01-0.09 = 704-7) Lab Interpretation Abnormal (test code = 23534-9) [facility] AND [id number] 17:53:00 Test Item Value Reference Range Interpretation Comments UA Color (test code = Yellow *NA*(05/24/20 UA Color) 12:53 PM) [facility] AND [id number] 17:53:00 Test Item Value Reference Range Interpretation Comments UA Turbidity (test code = Clear (05/24/20 12:53 UA Turbidity) PM) [facility] AND [id number] 17:53:00 Test Item Value Reference Range Interpretation Comments UA Spec Grav (test *NA*(05/24/20 12:53 PM) code = UA Spec Grav) [facility] AND [id number] 17:53:00 Test Item Value Reference Range Interpretation Comments UA pH (test code = UA pH) 7.0 1 5.0-8.0 [facility] AND [id number] 17:53:00 Test Item Value Reference Range Interpretation Comments UA Protein (test code Negative (05/24/20 12:53 = UA Protein) PM) [facility] AND [id number] 17:53:00 Test Item Value Reference Range Interpretation Comments UA Glucose (test code Negative (05/24/20 12:53 = UA Glucose) PM) [facility] AND [id number] 17:53:00 Test Item Value Reference Range Interpretation Comments UA Ketones (test code Negative *NA*(05/24/20 = UA Ketones) 12:53 PM) [facility] [id number] 17:53:00 Test Item Value Reference Range Interpretation Comments UA Bili (test code = Negative *NA*(05/24/20 UA Bili) 12:53 PM) [facility] [id number] 17:53:00 Test Item Value Reference Range Interpretation Comments UA Blood (test code = Negative (05/24/20 12:53 UA Blood) PM) [facility] [id number] 17:53:00 Test Item Value Reference Range Interpretation Comments UA Urobilinogen (test code = UA 0.2 0.1-1.0 Urobilinogen) [facility] [id number] 17:53:00 Test Item Value Reference Range Interpretation Comments UA Nitrite (test code Negative (05/24/20 12:53 = UA Nitrite) PM) [facility] [id number] 17:53:00 Test Item Value Reference Range Interpretation Comments UA Leuk Est (test Negative (05/24/20 12:53 code = UA Leuk Est) PM) [facility] [id number] 17:53:00 Test Item Value Reference Range Interpretation Comments UA Sq Epi (test code = UA Sq Epi) Few /LPF [facility] [id number] 17:53:00 Test Item Value Reference Range Interpretation Comments UA WBC (test code = UA WBC) 0-2 /HPF [facility] [id number] 17:53:00 Test Item Value Reference Range Interpretation Comments UA RBC (test code = 0-2 /HPF See_Comment [Automa rodriguez message] The UA RBC) system which ge nerated this result tra nsmitted reference range : <=2. The reference range was not used to interpr et this result as obed l/abnormal. [facility] [id number] 17:53:00 Test Item Value Reference Range Interpretation Comments UA Bacteria (test code = UA Few /HPF Bacteria) [facility] [id number] 17:53:00 Test Item Value Reference Range Interpretation Comments UA Color (test code = Yellow *NA*(05/24/20 UA Color) 12:53 PM) [facility] [id number] 17:53:00 Test Item Value Reference Range Interpretation Comments UA Turbidity (test code = Clear (05/24/20 12:53 UA Turbidity) PM) [facility] [id number] 17:53:00 Test Item Value Reference Range Interpretation Comments UA Spec Grav (test *NA*(05/24/20 12:53 PM) code = UA Spec Grav) [facility] [id number] 17:53:00 Test Item Value Reference Range Interpretation Comments UA pH (test code = UA pH) 7.0 1 5.0-8.0 [facility] [id number] 17:53:00 Test Item Value Reference Range Interpretation Comments UA Protein (test code Negative (05/24/20 12:53 = UA Protein) PM) [facility] [id number] 17:53:00 Test Item Value Reference Range Interpretation Comments UA Glucose (test code Negative (05/24/20 12:53 = UA Glucose) PM) [facility] [id number] 17:53:00 Test Item Value Reference Range Interpretation Comments UA Ketones (test code Negative *NA*(05/24/20 = UA Ketones) 12:53 PM) [facility] [id number] 17:53:00 Test Item Value Reference Range Interpretation Comments UA Bili (test code = Negative *NA*(05/24/20 UA Bili) 12:53 PM) [facility] [id number] 17:53:00 Test Item Value Reference Range Interpretation Comments UA Blood (test code = Negative (05/24/20 12:53 UA Blood) PM) [facility] [id number] 17:53:00 Test Item Value Reference Range Interpretation Comments UA Urobilinogen (test code = UA 0.2 0.1-1.0 Urobilinogen) [facility] [id number] 17:53:00 Test Item Value Reference Range Interpretation Comments UA Nitrite (test code Negative (05/24/20 12:53 = UA Nitrite) PM) [facility] [id number] 17:53:00 Test Item Value Reference Range Interpretation Comments UA Leuk Est (test Negative (05/24/20 12:53 code = UA Leuk Est) PM) [facility] [id number] 17:53:00 Test Item Value Reference Range Interpretation Comments UA Sq Epi (test code = UA Sq Epi) Few /LPF [facility] AND [id number] 17:53:00 Test Item Value Reference Range Interpretation Comments UA WBC (test code = UA WBC) 0-2 /HPF [facility] AND [id number] 17:53:00 Test Item Value Reference Range Interpretation Comments UA RBC (test code = 0-2 /HPF See_Comment [Automa rodriguez message] The UA RBC) system which ge nerated this result tra nsmitted reference range : <=2. The reference range was not used to interpr et this result as obed l/abnormal. [facility] [id number] 17:53:00 Test Item Value Reference Range Interpretation Comments UA Bacteria (test code = UA Few /HPF Bacteria) [facility] AND [id number] 17:53:00 Test Item Value Reference Range Interpretation Comments UA Color (test code = Yellow *NA*(05/24/20 UA Color) 12:53 PM) [facility] AND [id number] 17:53:00 Test Item Value Reference Range Interpretation Comments UA Turbidity (test code = Clear (05/24/20 12:53 UA Turbidity) PM) [facility] AND [id number] 17:53:00 Test Item Value Reference Range Interpretation Comments UA Spec Grav (test *NA*(05/24/20 12:53 PM) code = UA Spec Grav) [facility] AND [id number] 17:53:00 Test Item Value Reference Range Interpretation Comments UA pH (test code = UA pH) 7.0 1 5.0-8.0 [facility] AND [id number] 17:53:00 Test Item Value Reference Range Interpretation Comments UA Protein (test code Negative (05/24/20 12:53 = UA Protein) PM) [facility] AND [id number] 17:53:00 Test Item Value Reference Range Interpretation Comments UA Glucose (test code Negative (05/24/20 12:53 = UA Glucose) PM) [facility] AND [id number] 17:53:00 Test Item Value Reference Range Interpretation Comments UA Ketones (test code Negative *NA*(05/24/20 = UA Ketones) 12:53 PM) [facility] [id number] 17:53:00 Test Item Value Reference Range Interpretation Comments UA Bili (test code = Negative *NA*(05/24/20 UA Bili) 12:53 PM) [facility] [id number] 17:53:00 Test Item Value Reference Range Interpretation Comments UA Blood (test code = Negative (05/24/20 12:53 UA Blood) PM) [facility] [id number] 17:53:00 Test Item Value Reference Range Interpretation Comments UA Urobilinogen (test code = UA 0.2 0.1-1.0 Urobilinogen) [facility] [id number] 17:53:00 Test Item Value Reference Range Interpretation Comments UA Nitrite (test code Negative (05/24/20 12:53 = UA Nitrite) PM) [facility] [id number] 17:53:00 Test Item Value Reference Range Interpretation Comments UA Leuk Est (test Negative (05/24/20 12:53 code = UA Leuk Est) PM) [facility] [id number] 17:53:00 Test Item Value Reference Range Interpretation Comments UA Sq Epi (test code = UA Sq Epi) Few /LPF [facility] [id number] 17:53:00 Test Item Value Reference Range Interpretation Comments UA WBC (test code = UA WBC) 0-2 /HPF [facility] [id number] 17:53:00 Test Item Value Reference Range Interpretation Comments UA RBC (test code = 0-2 /HPF See_Comment [Automa rodriguez message] The UA RBC) system which ge nerated this result tra nsmitted reference range : <=2. The reference range was not used to interpr et this result as obed l/abnormal. [facility] [id number] 17:53:00 Test Item Value Reference Range Interpretation Comments UA Bacteria (test code = UA Few /HPF Bacteria) [facility] [id number] 17:53:00 Test Item Value Reference Range Interpretation Comments UA Color (test code = Yellow *NA*(05/24/20 UA Color) 12:53 PM) [facility] [id number] 17:53:00 Test Item Value Reference Range Interpretation Comments UA Turbidity (test code = Clear (05/24/20 12:53 UA Turbidity) PM) [facility] [id number] 17:53:00 Test Item Value Reference Range Interpretation Comments UA Spec Grav (test *NA*(05/24/20 12:53 PM) code = UA Spec Grav) [facility] AND [id number] 17:53:00 Test Item Value Reference Range Interpretation Comments UA pH (test code = UA pH) 7.0 1 5.0-8.0 [facility] AND [id number] 17:53:00 Test Item Value Reference Range Interpretation Comments UA Protein (test code Negative (05/24/20 12:53 = UA Protein) PM) [facility] AND [id number] 17:53:00 Test Item Value Reference Range Interpretation Comments UA Glucose (test code Negative (05/24/20 12:53 = UA Glucose) PM) [facility] [id number] 17:53:00 Test Item Value Reference Range Interpretation Comments UA Ketones (test code Negative *NA*(05/24/20 = UA Ketones) 12:53 PM) [facility] [id number] 17:53:00 Test Item Value Reference Range Interpretation Comments UA Bili (test code = Negative *NA*(05/24/20 UA Bili) 12:53 PM) [facility] AND [id number] 17:53:00 Test Item Value Reference Range Interpretation Comments UA Blood (test code = Negative (05/24/20 12:53 UA Blood) PM) [facility] [id number] 17:53:00 Test Item Value Reference Range Interpretation Comments UA Urobilinogen (test code = UA 0.2 0.1-1.0 Urobilinogen) [facility] [id number] 17:53:00 Test Item Value Reference Range Interpretation Comments UA Nitrite (test code Negative (05/24/20 12:53 = UA Nitrite) PM) [facility] [id number] 17:53:00 Test Item Value Reference Range Interpretation Comments UA Leuk Est (test Negative (05/24/20 12:53 code = UA Leuk Est) PM) [facility] AND [id number] 17:53:00 Test Item Value Reference Range Interpretation Comments UA Sq Epi (test code = UA Sq Epi) Few /LPF [facility] AND [id number] 17:53:00 Test Item Value Reference Range Interpretation Comments UA WBC (test code = UA WBC) 0-2 /HPF [facility] AND [id number] 17:53:00 Test Item Value Reference Range Interpretation Comments UA RBC (test code = 0-2 /HPF See_Comment [Automa rodriguez message] The UA RBC) system which ge nerated this result tra nsmitted reference range : <=2. The reference range was not used to interpr et this result as obed l/abnormal. [facility] [id number] 17:53:00 Test Item Value Reference Range Interpretation Comments UA Bacteria (test code = UA Few /HPF Bacteria) [facility] [id number] 16:28:00 Test Item Value Reference Range Interpretation Comments B/C Ratio (test code = B/C Ratio) 19 1 6-25 [facility] [id number] 16:28:00 Test Item Value Reference Range Interpretation Comments Globulin (test code = Globulin) 3.2 2.7-4.2 [facility] CenterCHEM [id number] 16:28:00 Test Item Value Reference Range Interpretation Comments A/G Ratio (test code = A/G Ratio) 1.2 1 0.7-1.6 [facility] [id number] 16:28:00 Test Item Value Reference Range Interpretation Comments eGFR (test code = eGFR) 50 [facility] [id number] 16:28:00 Test Item Value Reference Range Interpretation Comments Ammonia (test code = Ammonia) 19.0 [facility] [id number] 16:28:00 Test Item Value Reference Range Interpretation Comments WBC X 10x3 (test code = WBC X 10x3) 10.6 3.7-10.4 [facility] [id number] 16:28:00 Test Item Value Reference Range Interpretation Comments RBC X 10x6 (test code = RBC X 10x6) 4.32 4.70-6.10 [facility] [id number] 16:28:00 Test Item Value Reference Range Interpretation Comments Hgb (test code = Hgb) 13.1 14.0-18.0 [id number] 16:28:00 Test Item Value Reference Range Interpretation Comments Hct (test code = Hct) 38.7 42.0-54.0 [id number] 16:28:00 Test Item Value Reference Range Interpretation Comments MCV (test code = MCV) 89.7 80.0-94.0 [id number] 16:28:00 Test Item Value Reference Range Interpretation Comments MCH (test code = MCH) 30.3 pg 27.0-31.0 [id number] 16:28:00 Test Item Value Reference Range Interpretation Comments MCHC (test code = MCHC) 33.7 32.0-36.0 [id number] 16:28:00 Test Item Value Reference Range Interpretation Comments RDW (test code = RDW) 14.5 11.5-14.5 [facility]la[id number] 16:28:00 Test Item Value Reference Range Interpretation Comments Platelet (test code = Platelet) 284 133-450 [facility]la[id number] 16:28:00 Test Item Value Reference Range Interpretation Comments MPV (test code = MPV) 8.3 7.4-10.4 [facility]landV[id number] 16:28:00 Test Item Value Reference Range Interpretation Comments Segs (test code = Segs) 67.9 45.0-75.0 [facility]landYcnxnsnSKCLEDHWKI4148-34-04 16:28:00 Test Item Value Reference Range Interpretation Comments Lymphocytes (test code = Lymphocytes) 20.1 20.0-40.0 [id number] 16:28:00 Test Item Value Reference Range Interpretation Comments Monocytes (test code = Monocytes) 9.3 2.0-12.0 [facility]la[id number] 16:28:00 Test Item Value Reference Range Interpretation Comments Eosinophils (test code = 2.1 See_Comment [A utomated message] The Eosinophils) system which ge nerated this result tra nsmitted reference range : <=4.0. The reference r cecy was not used to int erpret this result as normal/abnormal . [facility] C[id number] 16:28:00 Test Item Value Reference Range Interpretation Comments Basophils (test code = 0.6 See_Comment [Aut omated message] The Basophils) system which ge nerated this result tra nsmitted reference range : <=1.0. The reference r cecy was not used to int erpret this result as normal/abnormal . [facility] HospitalOnjxiauFGTTACCELS8321-28-23 16:28:00 Test Item Value Reference Range Interpretation Comments Neutrophils # (test code = Neutrophils 7.2 1.5-8.1 #) [facility] Hospit[id number] 16:28:00 Test Item Value Reference Range Interpretation Comments Lymphocytes # (test code = Lymphocytes 2.1 1.0-5.5 #) [facility] Hospit[id number] 16:28:00 Test Item Value Reference Range Interpretation Comments Monocytes # (test code 1.0 See_Comment [Aut omated message] The = Monocytes #) system which generated this result tra nsmitted reference range : <=0.8. The reference r cecy was not used to int erpret this result as normal/abnormal . [facility] HospitalIbgnogyFKEDPBTMAX2322-62-69 16:28:00 Test Item Value Reference Range Interpretation Comments Eosinophils # (test code 0.2 See_Comment [A utomated message] The = Eosinophils #) system whic h generated this result tra nsmitted reference range : <=0.5. The reference r cecy was not used to int erpret this result as normal/abnormal . [facility] HospitalXchjfhoUGDQLLSQFG4024-67-85 16:28:00 Test Item Value Reference Range Interpretation Comments Basophils # (test code 0.1 See_Comment [Aut omated message] The = Basophils #) system which generated this result tra nsmitted reference range : <=0.2. The reference r cecy was not used to int erpret this result as normal/abnormal . [facility] CenterCARDIAC [id number] 16:28:00 Test Item Value Reference Range Interpretation Comments Troponin-I (test code no gt See_Comment [Auto mated message] The = Troponin-I) system which g enerated this result transmit rodriguez reference range : <=0.40. The reference r cecy was not used to interpr et this result as obed l/abnormal. [facility]2020-09-16 16:28:00 Test Item Value Reference Range Interpretation Comments Glucose Lvl (test code = Glucose Lvl) 122 70-99 [facility]2020-09-16 16:28:00 Test Item Value Reference Range Interpretation Comments BUN (test code = BUN) 25 7-22 [facility]2020-09-16 16:28:00 Test Item Value Reference Range Interpretation Comments Creatinine Lvl (test code = Creatinine 1.30 0.50-1.40 Lvl) [facility]2020-09-16 16:28:00 Test Item Value Reference Range Interpretation Comments Sodium Lvl (test code = Sodium Lvl) 135 135-145 [facility]2020-09-16 16:28:00 Test Item Value Reference Range Interpretation Comments Potassium Lvl (test code = Potassium 3.4 3.5-5.1 Lvl) [facility]2020-09-16 16:28:00 Test Item Value Reference Range Interpretation Comments Chloride Lvl (test code = Chloride Lvl) 99 95-109 [facility]2020-09-16 16:28:00 Test Item Value Reference Range Interpretation Comments CO2 (test code = CO2) 28 24-32 [facility]2020-09-16 16:28:00 Test Item Value Reference Range Interpretation Comments Calcium Lvl (test code = Calcium Lvl) 8.9 8.5-10.5 [facility]2020-09-16 16:28:00 Test Item Value Reference Range Interpretation Comments Total Protein (test code = Total 7.1 6.4-8.4 Protein) [facility]2020-09-16 16:28:00 Test Item Value Reference Range Interpretation Comments Albumin Lvl (test code = Albumin Lvl) 3.9 3.5-5.0 [facility]2020-09-16 16:28:00 Test Item Value Reference Range Interpretation Comments ALANINE AMINOTRANSFERASE 16 See_Comment [A utomated message] (test code = ALANINE The sys tem which AMINOTRANSFERASE) generated this result transmitted ref erence range: <=65. Th e reference range was not used to int erpret this result as normal/abnormal . [facility] [id number] 16:28:00 Test Item Value Reference Range Interpretation Comments ASPARTATE TRANSAMINASE 14 See_Comment [Aut omated message] (test code = ASPARTATE The s ystem which TRANSAMINASE) generated this result transmitted ref erence range: <=37. Th e reference range was not used to interpr et this result as normal/abnormal . [facility] Center[facility] [id number] 16:28:00 Test Item Value Reference Range Interpretation Comments Alk Phos (test code = Alk Phos) 61 39-136 [facility] [id number] 16:28:00 Test Item Value Reference Range Interpretation Comments Bili Total (test code = Bili Total) 0.3 0.2-1.3 [facility] [id number] 16:28:00 Test Item Value Reference Range Interpretation Comments AGAP (test code = AGAP) 11.4 10.0-20.0 [facility] [id number] 16:28:00 Test Item Value Reference Range Interpretation Comments B/C Ratio (test code = B/C Ratio) 19 1 6-25 [place] [id number] 16:28:00 Test Item Value Reference Range Interpretation Comments Globulin (test code = Globulin) 3.2 2.7-4.2 [facility] [id number] 16:28:00 Test Item Value Reference Range Interpretation Comments A/G Ratio (test code = A/G Ratio) 1.2 1 0.7-1.6 [facility] [id number] 16:28:00 Test Item Value Reference Range Interpretation Comments eGFR (test code = eGFR) 50 [facility] CenterClique Intelligence [id number] 16:28:00 Test Item Value Reference Range Interpretation Comments Ammonia (test code = Ammonia) 19.0 [facility] CenterJitksbcRTQFSBPORJ1436-92-03 16:28:00 Test Item Value Reference Range Interpretation Comments WBC X 10x3 (test code = WBC X 10x3) 10.6 3.7-10.4 [facility]landHalflnpFCLNAAMWPH5058-10-92 16:28:00 Test Item Value Reference Range Interpretation Comments RBC X 10x6 (test code = RBC X 10x6) 4.32 4.70-6.10 [facility] CenterLhulfllQCFVRPCKNM0843-33-37 16:28:00 Test Item Value Reference Range Interpretation Comments Hgb (test code = Hgb) 13.1 14.0-18.0 [facility]landZvoxowzTHXPIKFLHI4871-70-69 16:28:00 Test Item Value Reference Range Interpretation Comments Hct (test code = Hct) 38.7 42.0-54.0 [facility]landVtlxoigPHLNVJOFYT1729-84-02 16:28:00 Test Item Value Reference Range Interpretation Comments MCV (test code = MCV) 89.7 80.0-94.0 [facility]landIbivbtbAWMEESQPBN9396-47-02 16:28:00 Test Item Value Reference Range Interpretation Comments MCH (test code = MCH) 30.3 pg 27.0-31.0 [facility]landJqbytgiWPAAXDGNUD2607-41-33 16:28:00 Test Item Value Reference Range Interpretation Comments MCHC (test code = MCHC) 33.7 32.0-36.0 [facility]landVzfmvviQSFWMAOOHW4449-08-78 16:28:00 Test Item Value Reference Range Interpretation Comments RDW (test code = RDW) 14.5 11.5-14.5 [facility]landAcjjpwaEUOMMFKWNM7112-99-84 16:28:00 Test Item Value Reference Range Interpretation Comments Platelet (test code = Platelet) 284 133-450 [facility]landLhhjyrgBHKVJXTEVB5078-88-88 16:28:00 Test Item Value Reference Range Interpretation Comments MPV (test code = MPV) 8.3 7.4-10.4 [facility]landBznmaomXEDNFFJFAI2451-44-26 16:28:00 Test Item Value Reference Range Interpretation Comments Segs (test code = Segs) 67.9 45.0-75.0 [facility]landZmngtmkPTTQLRHDTB4614-16-30 16:28:00 Test Item Value Reference Range Interpretation Comments Lymphocytes (test code = Lymphocytes) 20.1 20.0-40.0 [facility]landSszicstFLNWEPFWJY7778-53-87 16:28:00 Test Item Value Reference Range Interpretation Comments Monocytes (test code = Monocytes) 9.3 2.0-12.0 [facility]landKjpmrynMMDNUNWDDT7509-96-21 16:28:00 Test Item Value Reference Range Interpretation Comments Eosinophils (test code = 2.1 See_Comment [A utomated message] The Eosinophils) system which ge nerated this result tra nsmitted reference range : <=4.0. The reference r cecy was not used to int erpret this result as normal/abnormal . [facility] CenterPsjkcukVKABZDATYJ4154-44-10 16:28:00 Test Item Value Reference Range Interpretation Comments Basophils (test code = 0.6 See_Comment [Aut omated message] The Basophils) system which ge nerated this result tra nsmitted reference range : <=1.0. The reference r cecy was not used to int erpret this result as normal/abnormal . [facility] HospitalQghurnfERFNSQYOTC3280-94-58 16:28:00 Test Item Value Reference Range Interpretation Comments Neutrophils # (test code = Neutrophils 7.2 1.5-8.1 #) [facility] HospitalPioudsqLQIJAEJZGU0244-23-27 16:28:00 Test Item Value Reference Range Interpretation Comments Lymphocytes # (test code = Lymphocytes 2.1 1.0-5.5 #) [facility] HospitalVcqfvgkDTPJCEYBVW2540-09-91 16:28:00 Test Item Value Reference Range Interpretation Comments Monocytes # (test code 1.0 See_Comment [Aut omated message] The = Monocytes #) system which generated this result tra nsmitted reference range : <=0.8. The reference r cecy was not used to int erpret this result as normal/abnormal . [facility] HospitalKnrkdasSGJVBHEIZH9281-53-84 16:28:00 Test Item Value Reference Range Interpretation Comments Eosinophils # (test code 0.2 See_Comment [A utomated message] The = Eosinophils #) system whic h generated this result tra nsmitted reference range : <=0.5. The reference r cecy was not used to int erpret this result as normal/abnormal . [facility] HospitalXdkwtweYIMMZVUYKQ1631-57-67 16:28:00 Test Item Value Reference Range Interpretation Comments Basophils # (test code 0.1 See_Comment [Aut omated message] The = Basophils #) system which generated this result tra nsmitted reference range : <=0.2. The reference r cecy was not used to int erpret this result as normal/abnormal . [facility] CenterCARDIAC [id number] 16:28:00 Test Item Value Reference Range Interpretation Comments Troponin-I (test code no gt See_Comment [Auto mated message] The = Troponin-I) system which g enerated this result transmit rodriguez reference range : <=0.40. The reference r cecy was not used to interpr et this result as obed l/abnormal. [facility]2020-09-16 16:28:00 Test Item Value Reference Range Interpretation Comments Glucose Lvl (test code = Glucose Lvl) 122 70-99 [place] 345020-09-16 16:28:00 Test Item Value Reference Range Interpretation Comments BUN (test code = BUN) 25 7-22 [facility]2020-09-16 16:28:00 Test Item Value Reference Range Interpretation Comments Creatinine Lvl (test code = Creatinine 1.30 0.50-1.40 Lvl) [place] 345020-09-16 16:28:00 Test Item Value Reference Range Interpretation Comments Sodium Lvl (test code = Sodium Lvl) 135 135-145 [facility] CenterSpotlimeCANNON MEMORIAL HOSPITALJBBUH2744-30-59 16:28:00 Test Item Value Reference Range Interpretation Comments Potassium Lvl (test code = Potassium 3.4 3.5-5.1 Lvl) [facility]2020-09-16 16:28:00 Test Item Value Reference Range Interpretation Comments Chloride Lvl (test code = Chloride Lvl) 99 95-109 [place] 345020-09-16 16:28:00 Test Item Value Reference Range Interpretation Comments CO2 (test code = CO2) 28 24-32 [facility] CenterSpotlimeCANNON MEMORIAL HOSPITALZWIDY0846-15-16 16:28:00 Test Item Value Reference Range Interpretation Comments Calcium Lvl (test code = Calcium Lvl) 8.9 8.5-10.5 [facility]2020-09-16 16:28:00 Test Item Value Reference Range Interpretation Comments Total Protein (test code = Total 7.1 6.4-8.4 Protein) [facility]2020-09-16 16:28:00 Test Item Value Reference Range Interpretation Comments Albumin Lvl (test code = Albumin Lvl) 3.9 3.5-5.0 [facility] CenterBrookstone [id number] 16:28:00 Test Item Value Reference Range Interpretation Comments ALANINE AMINOTRANSFERASE 16 See_Comment [A utomated message] (test code = ALANINE The sys tem which AMINOTRANSFERASE) generated this result transmitted ref erence range: <=65. Th e reference range was not used to int erpret this result as normal/abnormal . [facility] CenterBrookstone [id number] 16:28:00 Test Item Value Reference Range Interpretation Comments ASPARTATE TRANSAMINASE 14 See_Comment [Aut omated message] (test code = ASPARTATE The s ystem which TRANSAMINASE) generated this result transmitted ref erence range: <=37. Th e reference range was not used to interpr et this result as normal/abnormal . [facility] [employer] [id number] 16:28:00 Test Item Value Reference Range Interpretation Comments Alk Phos (test code = Alk Phos) 61 39-136 [facility] [employer] [id number] 16:28:00 Test Item Value Reference Range Interpretation Comments Bili Total (test code = Bili Total) 0.3 0.2-1.3 [facility] [employer] [id number] 16:28:00 Test Item Value Reference Range Interpretation Comments AGAP (test code = AGAP) 11.4 10.0-20.0 [facility] [employer] [id number] 16:28:00 Test Item Value Reference Range Interpretation Comments B/C Ratio (test code = B/C Ratio) 19 1 6-25 [facility] CenterC[facility] Intelligence [id number] 16:28:00 Test Item Value Reference Range Interpretation Comments Globulin (test code = Globulin) 3.2 2.7-4.2 [facility] [employer] [id number] 16:28:00 Test Item Value Reference Range Interpretation Comments A/G Ratio (test code = A/G Ratio) 1.2 1 0.7-1.6 [facility] CenterC[facility] Intelligence [id number] 16:28:00 Test Item Value Reference Range Interpretation Comments eGFR (test code = eGFR) 50 [facility] CenterC[facility] [id number] 16:28:00 Test Item Value Reference Range Interpretation Comments Ammonia (test code = Ammonia) 19.0 [facility] CenterSxoaofoHIUKCDRHIY5661-97-10 16:28:00 Test Item Value Reference Range Interpretation Comments WBC X 10x3 (test code = WBC X 10x3) 10.6 3.7-10.4 [facility] CenterGtodgjnUUYFCTHQNQ8157-11-65 16:28:00 Test Item Value Reference Range Interpretation Comments RBC X 10x6 (test code = RBC X 10x6) 4.32 4.70-6.10 [facility] CenterThnbsapTICRXIIFEZ3040-29-58 16:28:00 Test Item Value Reference Range Interpretation Comments Hgb (test code = Hgb) 13.1 14.0-18.0 [facility]landAuvdosvZRHAYCVPKU9900-39-04 16:28:00 Test Item Value Reference Range Interpretation Comments Hct (test code = Hct) 38.7 42.0-54.0 [facility]landXgfkkgzMUATBFLNFX4159-63-08 16:28:00 Test Item Value Reference Range Interpretation Comments MCV (test code = MCV) 89.7 80.0-94.0 [facility]landVmntuieBHBSBZFXQE9379-11-90 16:28:00 Test Item Value Reference Range Interpretation Comments MCH (test code = MCH) 30.3 pg 27.0-31.0 [facility]landSdnnhopWLHXLXYRUA4134-92-58 16:28:00 Test Item Value Reference Range Interpretation Comments MCHC (test code = MCHC) 33.7 32.0-36.0 [facility]landShxlqucDYLIOMIMXA0833-24-67 16:28:00 Test Item Value Reference Range Interpretation Comments RDW (test code = RDW) 14.5 11.5-14.5 [facility]landYklrgbdXONGTUZPGE3900-52-72 16:28:00 Test Item Value Reference Range Interpretation Comments Platelet (test code = Platelet) 284 133-450 [facility]landOnamxjeSWULCTDFYU7690-18-97 16:28:00 Test Item Value Reference Range Interpretation Comments MPV (test code = MPV) 8.3 7.4-10.4 [facility]landVbeubdsDRWCEGAECY6582-22-44 16:28:00 Test Item Value Reference Range Interpretation Comments Segs (test code = Segs) 67.9 45.0-75.0 [facility]landLrzrfhjJIGHZFVNKA7290-94-00 16:28:00 Test Item Value Reference Range Interpretation Comments Lymphocytes (test code = Lymphocytes) 20.1 20.0-40.0 [facility]landXgndwfzIQQIRLSSTJ4397-20-62 16:28:00 Test Item Value Reference Range Interpretation Comments Monocytes (test code = Monocytes) 9.3 2.0-12.0 [place] 793830-09-16 16:28:00 Test Item Value Reference Range Interpretation Comments Eosinophils (test code = 2.1 See_Comment [A utomated message] The Eosinophils) system which ge nerated this result tra nsmitted reference range : <=4.0. The reference r cecy was not used to int erpret this result as normal/abnormal . [facility]landLppqchzWJVVDQYGDE6182-11-57 16:28:00 Test Item Value Reference Range Interpretation Comments MCH (test code = MCH) 30.3 pg 27.0-31.0 [facility]landXotnkeiEKMCTZCZHD8115-28-95 16:28:00 Test Item Value Reference Range Interpretation Comments MCHC (test code = MCHC) 33.7 32.0-36.0 [facility]landPcruclkUAHIFBUEFN1584-33-51 16:28:00 Test Item Value Reference Range Interpretation Comments RDW (test code = RDW) 14.5 11.5-14.5 [facility]landCzoalkfLVKNTXDSOE5745-36-40 16:28:00 Test Item Value Reference Range Interpretation Comments Platelet (test code = Platelet) 284 133-450 [facility]landDvdjmvdDATGESQWIB6240-86-23 16:28:00 Test Item Value Reference Range Interpretation Comments MPV (test code = MPV) 8.3 7.4-10.4 [facility]landQauleugAYTNGZORMF3302-08-32 16:28:00 Test Item Value Reference Range Interpretation Comments Segs (test code = Segs) 67.9 45.0-75.0 [facility]landAtzhuyyIYCWAYXGXC1048-54-44 16:28:00 Test Item Value Reference Range Interpretation Comments Lymphocytes (test code = Lymphocytes) 20.1 20.0-40.0 [facility]landVhtisfjXFYYWZOSBQ6982-19-94 16:28:00 Test Item Value Reference Range Interpretation Comments Monocytes (test code = Monocytes) 9.3 2.0-12.0 [facility] MainlandDirlfasJPJQFGZNPG5650-94-88 16:28:00 Test Item Value Reference Range Interpretation Comments Eosinophils (test code = 2.1 See_Comment [A utomated message] The Eosinophils) system which ge nerated this result tra nsmitted reference range : <=4.0. The reference r cecy was not used to int erpret this result as normal/abnormal . [facility]landFfzxfmlXXZZNYQABG8550-66-57 16:28:00 Test Item Value Reference Range Interpretation Comments Basophils (test code = 0.6 See_Comment [Aut omated message] The Basophils) system which ge nerated this result tra nsmitted reference range : <=1.0. The reference r cecy was not used to int erpret this result as normal/abnormal . [facility]landVjaajbbRWDRFKRCFL0869-70-12 16:28:00 Test Item Value Reference Range Interpretation Comments Neutrophils # (test code = Neutrophils 7.2 1.5-8.1 #) [facility] CenterZzpphdrZWOVQWEUPI5466-78-04 16:28:00 Test Item Value Reference Range Interpretation Comments Lymphocytes # (test code = Lymphocytes 2.1 1.0-5.5 #) [facility] HospitalNkiaaqtAIGJTNLHJV4234-32-38 16:28:00 Test Item Value Reference Range Interpretation Comments Monocytes # (test code 1.0 See_Comment [Aut omated message] The = Monocytes #) system which generated this result tra nsmitted reference range : <=0.8. The reference r cecy was not used to int erpret this result as normal/abnormal . [facility] HospitalNiyifagEFXIWYGKYA5428-17-98 16:28:00 Test Item Value Reference Range Interpretation Comments Eosinophils # (test code 0.2 See_Comment [A utomated message] The = Eosinophils #) system whic h generated this result tra nsmitted reference range : <=0.5. The reference r cecy was not used to int erpret this result as normal/abnormal . [facility] HospitalKlzxbzaHCFNSVCTNP9753-87-35 16:28:00 Test Item Value Reference Range Interpretation Comments Basophils # (test code 0.1 See_Comment [Aut omated message] The = Basophils #) system which generated this result tra nsmitted reference range : <=0.2. The reference r cecy was not used to int erpret this result as normal/abnormal . [facility] CenterCARDIAC [id number] 16:28:00 Test Item Value Reference Range Interpretation Comments Troponin-I (test code no gt See_Comment [Auto mated message] The = Troponin-I) system which g enerated this result transmit rodriguez reference range : <=0.40. The reference r cecy was not used to interpr et this result as obed l/abnormal. [facility] CenterC[facility] [id number] 16:28:00 Test Item Value Reference Range Interpretation Comments Glucose Lvl (test code = Glucose Lvl) 122 70-99 [facility] CenterC[facility] [id number] 16:28:00 Test Item Value Reference Range Interpretation Comments BUN (test code = BUN) 25 7-22 [facility] CenterC[facility] [id number] 16:28:00 Test Item Value Reference Range Interpretation Comments Creatinine Lvl (test code = Creatinine 1.30 0.50-1.40 Lvl) [facility]2020-09-16 16:28:00 Test Item Value Reference Range Interpretation Comments Sodium Lvl (test code = Sodium Lvl) 135 135-145 [place] 345020-09-16 16:28:00 Test Item Value Reference Range Interpretation Comments Potassium Lvl (test code = Potassium 3.4 3.5-5.1 Lvl) [place] 345020-09-16 16:28:00 Test Item Value Reference Range Interpretation Comments Chloride Lvl (test code = Chloride Lvl) 99 95-109 [place] 345020-09-16 16:28:00 Test Item Value Reference Range Interpretation Comments CO2 (test code = CO2) 28 24-32 [place] 345020-09-16 16:28:00 Test Item Value Reference Range Interpretation Comments Calcium Lvl (test code = Calcium Lvl) 8.9 8.5-10.5 [place] 345020-09-16 16:28:00 Test Item Value Reference Range Interpretation Comments Total Protein (test code = Total 7.1 6.4-8.4 Protein) [facility]2020-09-16 16:28:00 Test Item Value Reference Range Interpretation Comments Albumin Lvl (test code = Albumin Lvl) 3.9 3.5-5.0 [place] 345020-09-16 16:28:00 Test Item Value Reference Range Interpretation Comments ALANINE AMINOTRANSFERASE 16 See_Comment [A utomated message] (test code = ALANINE The sys tem which AMINOTRANSFERASE) generated this result transmitted ref erence range: <=65. Th e reference range was not used to int erpret this result as normal/abnormal . [place] 345020-09-16 16:28:00 Test Item Value Reference Range Interpretation Comments ASPARTATE TRANSAMINASE 14 See_Comment [Aut omated message] (test code = ASPARTATE The s ystem which TRANSAMINASE) generated this result transmitted ref erence range: <=37. Th e reference range was not used to interpr et this result as normal/abnormal . [place] 345020-09-16 16:28:00 Test Item Value Reference Range Interpretation Comments Alk Phos (test code = Alk Phos) 61 39-136 [facility]2020-09-16 16:28:00 Test Item Value Reference Range Interpretation Comments Bili Total (test code = Bili Total) 0.3 0.2-1.3 [facility]2020-09-16 16:28:00 Test Item Value Reference Range Interpretation Comments AGAP (test code = AGAP) 11.4 10.0-20.0 [facility]2020-09-16 16:28:00 Test Item Value Reference Range Interpretation Comments B/C Ratio (test code = B/C Ratio) 19 1 6-25 [facility]2020-09-16 16:28:00 Test Item Value Reference Range Interpretation Comments Globulin (test code = Globulin) 3.2 2.7-4.2 [facility]2020-09-16 16:28:00 Test Item Value Reference Range Interpretation Comments A/G Ratio (test code = A/G Ratio) 1.2 1 0.7-1.6 [facility]2020-09-16 16:28:00 Test Item Value Reference Range Interpretation Comments eGFR (test code = eGFR) 50 [facility]2020-09-16 16:28:00 Test Item Value Reference Range Interpretation Comments Ammonia (test code = Ammonia) 19.0 [facility]landGtadcozDHMGCGVPJM0361-85-68 16:28:00 Test Item Value Reference Range Interpretation Comments WBC X 10x3 (test code = WBC X 10x3) 10.6 3.7-10.4 [facility]landNzaldhzOHVWLABTPY4671-96-53 16:28:00 Test Item Value Reference Range Interpretation Comments RBC X 10x6 (test code = RBC X 10x6) 4.32 4.70-6.10 [facility]landShjciymNGDCKRARAV5352-99-66 16:28:00 Test Item Value Reference Range Interpretation Comments Hgb (test code = Hgb) 13.1 14.0-18.0 [facility]landHrgxeefFLLCEOCKKA9008-92-54 16:28:00 Test Item Value Reference Range Interpretation Comments Hct (test code = Hct) 38.7 42.0-54.0 [facility]landCtpupjeIJJXPKHDWF6094-78-28 16:28:00 Test Item Value Reference Range Interpretation Comments MCV (test code = MCV) 89.7 80.0-94.0 [facility]landKiskblcKFOQPNAILA7593-28-39 16:28:00 Test Item Value Reference Range Interpretation Comments Basophils (test code = 0.6 See_Comment [Aut omated message] The Basophils) system which ge nerated this result tra nsmitted reference range : <=1.0. The reference r cecy was not used to int erpret this result as normal/abnormal . [facility] HospitalTvhzegmBMSLLWHAFM3667-61-70 16:28:00 Test Item Value Reference Range Interpretation Comments Neutrophils # (test code = Neutrophils 7.2 1.5-8.1 #) [facility] HospitalCdpiovqBYIFOUVIVS5888-79-86 16:28:00 Test Item Value Reference Range Interpretation Comments Lymphocytes # (test code = Lymphocytes 2.1 1.0-5.5 #) [facility] HospitalSlzexhiQLOHOLIQSU2641-07-05 16:28:00 Test Item Value Reference Range Interpretation Comments Monocytes # (test code 1.0 See_Comment [Aut omated message] The = Monocytes #) system which generated this result tra nsmitted reference range : <=0.8. The reference r cecy was not used to int erpret this result as normal/abnormal . [facility] HospitalSbqcsqfQIEPISNNKV3200-35-41 16:28:00 Test Item Value Reference Range Interpretation Comments Eosinophils # (test code 0.2 See_Comment [A utomated message] The = Eosinophils #) system whic h generated this result tra nsmitted reference range : <=0.5. The reference r cecy was not used to int erpret this result as normal/abnormal . [facility] HospitalLxqrrogJBNPLNDITH6085-21-07 16:28:00 Test Item Value Reference Range Interpretation Comments Basophils # (test code 0.1 See_Comment [Aut omated message] The = Basophils #) system which generated this result tra nsmitted reference range : <=0.2. The reference r cecy was not used to int erpret this result as normal/abnormal . [facility] CenterCARD[facility]AC [id number] 16:28:00 Test Item Value Reference Range Interpretation Comments Troponin-I (test code no gt See_Comment [Auto mated message] The = Troponin-I) system which g enerated this result transmit rodriguez reference range : <=0.40. The reference r cecy was not used to interpr et this result as obed l/abnormal. [facility] CenterCHEM [id number] 16:28:00 Test Item Value Reference Range Interpretation Comments Glucose Lvl (test code = Glucose Lvl) 122 70-99 [facility]2020-09-16 16:28:00 Test Item Value Reference Range Interpretation Comments BUN (test code = BUN) 25 7-22 [place] 345020-09-16 16:28:00 Test Item Value Reference Range Interpretation Comments Creatinine Lvl (test code = Creatinine 1.30 0.50-1.40 Lvl) [facility]2020-09-16 16:28:00 Test Item Value Reference Range Interpretation Comments Sodium Lvl (test code = Sodium Lvl) 135 135-145 [facility]2020-09-16 16:28:00 Test Item Value Reference Range Interpretation Comments Potassium Lvl (test code = Potassium 3.4 3.5-5.1 Lvl) [facility]2020-09-16 16:28:00 Test Item Value Reference Range Interpretation Comments Chloride Lvl (test code = Chloride Lvl) 99 95-109 [facility]2020-09-16 16:28:00 Test Item Value Reference Range Interpretation Comments CO2 (test code = CO2) 28 24-32 [facility]2020-09-16 16:28:00 Test Item Value Reference Range Interpretation Comments Calcium Lvl (test code = Calcium Lvl) 8.9 8.5-10.5 [facility]2020-09-16 16:28:00 Test Item Value Reference Range Interpretation Comments Total Protein (test code = Total 7.1 6.4-8.4 Protein) [facility]2020-09-16 16:28:00 Test Item Value Reference Range Interpretation Comments Albumin Lvl (test code = Albumin Lvl) 3.9 3.5-5.0 [facility] [id number] 16:28:00 Test Item Value Reference Range Interpretation Comments ALANINE AMINOTRANSFERASE 16 See_Comment [A utomated message] (test code = ALANINE The sys tem which AMINOTRANSFERASE) generated this result transmitted ref erence range: <=65. Th e reference range was not used to int erpret this result as normal/abnormal . [facility] [id number] 16:28:00 Test Item Value Reference Range Interpretation Comments ASPARTATE TRANSAMINASE 14 See_Comment [Aut omated message] (test code = ASPARTATE The s ystem which TRANSAMINASE) generated this result transmitted ref erence range: <=37. Th e reference range was not used to interpr et this result as normal/abnormal . [facility]2020-09-16 16:28:00 Test Item Value Reference Range Interpretation Comments Alk Phos (test code = Alk Phos) 61 39-136 [facility]2020-09-16 16:28:00 Test Item Value Reference Range Interpretation Comments Bili Total (test code = Bili Total) 0.3 0.2-1.3 [facility]2020-09-16 16:28:00 Test Item Value Reference Range Interpretation Comments AGAP (test code = AGAP) 11.4 10.0-20.0 [facility]2020-09-03 16:45:00 Test Item Value Reference Range Interpretation Comments Vitamin B12 Lvl (test code = Vitamin 7576 551-3538 B12 Lvl) [facility]2020-09-03 16:45:00 Test Item Value Reference Range Interpretation Comments Glucose Lvl (test code = Glucose Lvl) 90 65-99 [facility]2020-09-03 16:45:00 Test Item Value Reference Range Interpretation Comments BUN (test code = BUN) 25 7-25 [facility]2020-09-03 16:45:00 Test Item Value Reference Range Interpretation Comments Creatinine Lvl (test code = Creatinine 1.15 0.70-1.11 Lvl) [facility]2020-09-03 16:45:00 Test Item Value Reference Range Interpretation Comments eGFR NON-AFR. IRISH (test code = 59 eGFR NON-AFR. IRISH) [facility]2020-09-03 16:45:00 Test Item Value Reference Range Interpretation Comments eGFR (test code = eGFR 68 ) [facility]2020-09-03 16:45:00 Test Item Value Reference Range Interpretation Comments B/C Ratio (test code = B/C Ratio) 22 6-22 [facility]2020-09-03 16:45:00 Test Item Value Reference Range Interpretation Comments Sodium Lvl (test code = Sodium Lvl) 136 135-146 [facility]2020-09-03 16:45:00 Test Item Value Reference Range Interpretation Comments Potassium Lvl (test code = Potassium 4.6 3.5-5.3 Lvl) [facility]2020-09-03 16:45:00 Test Item Value Reference Range Interpretation Comments Chloride Lvl (test code = Chloride Lvl) 97 98-110 [facility]2020-09-03 16:45:00 Test Item Value Reference Range Interpretation Comments CO2 (test code = CO2) 30 20-32 [facility]2020-09-03 16:45:00 Test Item Value Reference Range Interpretation Comments Calcium Lvl (test code = Calcium Lvl) 10.0 8.6-10.3 [facility]2020-09-03 16:45:00 Test Item Value Reference Range Interpretation Comments Total Protein (test code = Total 7.3 6.1-8.1 Protein) [facility]2020-09-03 16:45:00 Test Item Value Reference Range Interpretation Comments Albumin Lvl (test code = Albumin Lvl) 4.6 3.6-5.1 [facility]2020-09-03 16:45:00 Test Item Value Reference Range Interpretation Comments Globulin (test code = Globulin) 2.7 1.9-3.7 [facility]2020-09-03 16:45:00 Test Item Value Reference Range Interpretation Comments A/G Ratio (test code = A/G Ratio) 1.7 1.0-2.5 [facility]2020-09-03 16:45:00 Test Item Value Reference Range Interpretation Comments Bili Total (test code = Bili Total) 0.4 0.2-1.2 [facility]2020-09-03 16:45:00 Test Item Value Reference Range Interpretation Comments Alk Phos (test code = Alk Phos) 60 35-144 [facility]2020-09-03 16:45:00 Test Item Value Reference Range Interpretation Comments ASPARTATE TRANSAMINASE (test code = 12 10-35 ASPARTATE TRANSAMINASE) [facility]2020-09-03 16:45:00 Test Item Value Reference Range Interpretation Comments ALANINE AMINOTRANSFERASE (test code = 7 9-46 ALANINE AMINOTRANSFERASE) [facility]87[facility]43 16:45:00 Test Item Value Reference Range Interpretation Comments WBC X 10x3 (test code = WBC X 10x3) 6.9 3.8-10.8 [facility]BpmgvoeCCTPABWMLF6898-11-19 16:45:00 Test Item Value Reference Range Interpretation Comments RBC X 10x6 (test code = RBC X 10x6) 4.41 4.20-5.80 [facility]landDriagrnYUBLZMJFLD1596-01-87 16:45:00 Test Item Value Reference Range Interpretation Comments Hgb (test code = Hgb) 13.5 13.2-17.1 [place] [address]-09-03 16:45:00 Test Item Value Reference Range Interpretation Comments Hct (test code = Hct) 40.8 38.5-50.0 [facility]landLxcuqrfCKSFFHABMF5674-77-57 16:45:00 Test Item Value Reference Range Interpretation Comments MCV (test code = MCV) 92.5 80.0-100.0 [place] [address]-09-03 16:45:00 Test Item Value Reference Range Interpretation Comments MCH (test code = MCH) 30.6 pg 27.0-33.0 [facility]landVoxrfbiAOGVXJJILR8191-81-83 16:45:00 Test Item Value Reference Range Interpretation Comments MCHC (test code = MCHC) 33.1 32.0-36.0 [facility]landLvslahkMJGUQPBBSA6232-41-16 16:45:00 Test Item Value Reference Range Interpretation Comments RDW (test code = RDW) 13.2 11.0-15.0 [facility]landFfchysgBOSQFXSNMW1536-00-13 16:45:00 Test Item Value Reference Range Interpretation Comments Platelet (test code = Platelet) 324 140-400 [facility]landVkpwxlzRQCUHRCIJW6948-68-84 16:45:00 Test Item Value Reference Range Interpretation Comments MPV (test code = MPV) 10.7 7.5-12.5 [place] [address]-09-03 16:45:00 Test Item Value Reference Range Interpretation Comments Neutrophils # (test code = Neutrophils 6913 8060-3460 #) [facility]landQpnozopKMXYNDFTEH4575-23-58 16:45:00 Test Item Value Reference Range Interpretation Comments Lymphocytes # (test code = Lymphocytes 3140 850-3900 #) [facility]landWqnqamwQNNYMRXWTM8835-46-77 16:45:00 Test Item Value Reference Range Interpretation Comments Monocytes # (test code = Monocytes #) 473 200-950 [facility]landKxxjlmiDIPAMWHARI9894-85-53 16:45:00 Test Item Value Reference Range Interpretation Comments Eosinophils # (test code = Eosinophils 262 15-500 #) [facility]landZzsheakHNJGKSYOJQ8100-33-71 16:45:00 Test Item Value Reference Range Interpretation Comments Basophils # (test code 62 See_Comment [Aut omated message] The = Basophils #) system which generated this result tra nsmitted reference range : <=200. The reference r cecy was not used to int erpret this result as normal/abnormal . [facility]landGffcqtjDUYRZZBBFD7937-61-04 16:45:00 Test Item Value Reference Range Interpretation Comments Segs (test code = Segs) 39.9 [facility]landVfgnyphVSDLZZZGVX4826-17-03 16:45:00 Test Item Value Reference Range Interpretation Comments Lymphocytes (test code = Lymphocytes) 45.5 [facility]landNyiytoyISPOIPTYXA9578-47-14 16:45:00 Test Item Value Reference Range Interpretation Comments Monocytes (test code = Monocytes) 9.9 [facility]landCxdvkelYEUZSSXWZD7761-48-04 16:45:00 Test Item Value Reference Range Interpretation Comments Eosinophils (test code = Eosinophils) 3.8 [facility]landNmtblwwEFTQHEJAYQ2593-15-24 16:45:00 Test Item Value Reference Range Interpretation Comments Basophils (test code = Basophils) 0.9 [facility]EmisrdrBIBPYQ6787-16-10 16:45:00 Test Item Value Reference Range Interpretation Comments Chol (test code = Chol) 197 [facility] TexasQdghaseKJDATB6601-64-83 16:45:00 Test Item Value Reference Range Interpretation Comments HDL (test code = HDL) 49 [facility] TexasLetwcwwRXQQOA3631-58-47 16:45:00 Test Item Value Reference Range Interpretation Comments Trig (test code = Trig) 161 [facility] TexasNkfbvkmHVGDUF0156-96-21 16:45:00 Test Item Value Reference Range Interpretation Comments LDL (Calculated) (test code = LDL 120 (Calculated)) [facility] TexasStrialvHGYXXV2417-70-88 16:45:00 Test Item Value Reference Range Interpretation Comments CHD Risk (test code = CHD Risk) 4.0 [facility] TexasUsghxfbZDPFAC0157-55-73 16:45:00 Test Item Value Reference Range Interpretation Comments Non HDL Chol (test code = Non HDL Chol) 148 [facility]2020-09-03 16:45:00 Test Item Value Reference Range Interpretation Comments Vitamin B12 Lvl (test code = Vitamin 3648 200-6061 B12 Lvl) [facility] CenterSpotlimeCANNON MEMORIAL HOSPITALUCWYX8222-52-64 16:45:00 Test Item Value Reference Range Interpretation Comments Glucose Lvl (test code = Glucose Lvl) 90 65-99 [facility]2020-09-03 16:45:00 Test Item Value Reference Range Interpretation Comments BUN (test code = BUN) 25 7-25 [facility]2020-09-03 16:45:00 Test Item Value Reference Range Interpretation Comments Creatinine Lvl (test code = Creatinine 1.15 0.70-1.11 Lvl) [facility] CenterSpotlimeCANNON MEMORIAL HOSPITALRAKJC6732-97-55 16:45:00 Test Item Value Reference Range Interpretation Comments eGFR NON-AFR. IRISH (test code = 59 eGFR NON-AFR. IRISH) [facility] CenterSpotlimeCANNON MEMORIAL HOSPITALPRBVQ2648-12-08 16:45:00 Test Item Value Reference Range Interpretation Comments eGFR (test code = eGFR 68 ) [facility] CenterSpotlimeCANNON MEMORIAL HOSPITALOKQHD1842-26-79 16:45:00 Test Item Value Reference Range Interpretation Comments B/C Ratio (test code = B/C Ratio) 22 6-22 [facility] CenterSpotlimeCANNON MEMORIAL HOSPITALQUBZA5402-54-48 16:45:00 Test Item Value Reference Range Interpretation Comments Sodium Lvl (test code = Sodium Lvl) 136 135-146 [facility] CenterSpotlimeCANNON MEMORIAL HOSPITALTXLMN6717-79-10 16:45:00 Test Item Value Reference Range Interpretation Comments Potassium Lvl (test code = Potassium 4.6 3.5-5.3 Lvl) [facility] CenterSpotlimeCANNON MEMORIAL HOSPITALMLGIL3643-77-54 16:45:00 Test Item Value Reference Range Interpretation Comments Chloride Lvl (test code = Chloride Lvl) 97 98-110 [facility]2020-09-03 16:45:00 Test Item Value Reference Range Interpretation Comments CO2 (test code = CO2) 30 20-32 [facility]2020-09-03 16:45:00 Test Item Value Reference Range Interpretation Comments Calcium Lvl (test code = Calcium Lvl) 10.0 8.6-10.3 [facility] CenterSpotlimeCANNON MEMORIAL HOSPITALQEYBO9042-20-38 16:45:00 Test Item Value Reference Range Interpretation Comments Total Protein (test code = Total 7.3 6.1-8.1 Protein) [facility]2020-09-03 16:45:00 Test Item Value Reference Range Interpretation Comments Albumin Lvl (test code = Albumin Lvl) 4.6 3.6-5.1 [place] 345020-09-03 16:45:00 Test Item Value Reference Range Interpretation Comments Globulin (test code = Globulin) 2.7 1.9-3.7 [place] [address]-09-03 16:45:00 Test Item Value Reference Range Interpretation Comments A/G Ratio (test code = A/G Ratio) 1.7 1.0-2.5 [place] [address]-09-03 16:45:00 Test Item Value Reference Range Interpretation Comments Bili Total (test code = Bili Total) 0.4 0.2-1.2 [place] 345020-09-03 16:45:00 Test Item Value Reference Range Interpretation Comments Alk Phos (test code = Alk Phos) 60 35-144 [facility]2020-09-03 16:45:00 Test Item Value Reference Range Interpretation Comments ASPARTATE TRANSAMINASE (test code = 12 10-35 ASPARTATE TRANSAMINASE) [facility]2020-09-03 16:45:00 Test Item Value Reference Range Interpretation Comments ALANINE AMINOTRANSFERASE (test code = 7 9-46 ALANINE AMINOTRANSFERASE) [place] [address]-09-03 16:45:00 Test Item Value Reference Range Interpretation Comments WBC X 10x3 (test code = WBC X 10x3) 6.9 3.8-10.8 [place] [address]-09-03 16:45:00 Test Item Value Reference Range Interpretation Comments RBC X 10x6 (test code = RBC X 10x6) 4.41 4.20-5.80 [place] [address]-09-03 16:45:00 Test Item Value Reference Range Interpretation Comments Hgb (test code = Hgb) 13.5 13.2-17.1 [place] [address]-09-03 16:45:00 Test Item Value Reference Range Interpretation Comments Hct (test code = Hct) 40.8 38.5-50.0 [place] [address]-09-03 16:45:00 Test Item Value Reference Range Interpretation Comments MCV (test code = MCV) 92.5 80.0-100.0 [address]09-03 16:45:00 Test Item Value Reference Range Interpretation Comments MCH (test code = MCH) 30.6 pg 27.0-33.0 [facility]landSbfxdqvOWFQROFKBQ5879-40-93 16:45:00 Test Item Value Reference Range Interpretation Comments MCHC (test code = MCHC) 33.1 32.0-36.0 [facility]landEeeleipCVIQQXDRVD4833-87-66 16:45:00 Test Item Value Reference Range Interpretation Comments RDW (test code = RDW) 13.2 11.0-15.0 [facility]landLpltgbcIITRTFWQPN8497-81-91 16:45:00 Test Item Value Reference Range Interpretation Comments Platelet (test code = Platelet) 324 140-400 [facility]landGwofesgZDWMPAJXCK8671-70-28 16:45:00 Test Item Value Reference Range Interpretation Comments MPV (test code = MPV) 10.7 7.5-12.5 [facility]landHqspgwqMJUIJZYLDT7627-07-12 16:45:00 Test Item Value Reference Range Interpretation Comments Neutrophils # (test code = Neutrophils 2753 1482-1322 #) [facility]landQktfarpDVALAISURG1700-00-60 16:45:00 Test Item Value Reference Range Interpretation Comments Lymphocytes # (test code = Lymphocytes 3140 850-3900 #) [facility]landHwlkgwhNFRZFAHXEI5493-68-63 16:45:00 Test Item Value Reference Range Interpretation Comments Monocytes # (test code = Monocytes #) 683 200-950 [facility]landLfbnxxcKCVGBIEIKV9543-46-65 16:45:00 Test Item Value Reference Range Interpretation Comments Eosinophils # (test code = Eosinophils 262 15-500 #) [facility]landKbropzeDLRQKLUKGX4256-40-75 16:45:00 Test Item Value Reference Range Interpretation Comments Basophils # (test code 62 See_Comment [Aut omated message] The = Basophils #) system which generated this result tra nsmitted reference range : <=200. The reference r cecy was not used to int erpret this result as normal/abnormal . [facility]landJjzdusaEHIEDUANVF2207-74-55 16:45:00 Test Item Value Reference Range Interpretation Comments Segs (test code = Segs) 39.9 [facility] MainlandUooodakDNADVZZLRL9023-40-51 16:45:00 Test Item Value Reference Range Interpretation Comments Lymphocytes (test code = Lymphocytes) 45.5 [facility] MainlandZkvtgxyPPLDUVIOTA0952-66-67 16:45:00 Test Item Value Reference Range Interpretation Comments Monocytes (test code = Monocytes) 9.9 [facility]landCrmulezVUUTRRSKPG2139-51-20 16:45:00 Test Item Value Reference Range Interpretation Comments Eosinophils (test code = Eosinophils) 3.8 [facility]landFuidpdqVWSXJZIDJL1988-46-41 16:45:00 Test Item Value Reference Range Interpretation Comments Basophils (test code = Basophils) 0.9 [facility] TexasZvotlvfNWWVQC3596-70-68 16:45:00 Test Item Value Reference Range Interpretation Comments Chol (test code = Chol) 197 [facility] TexasQvbpykdAMINPL6675-35-01 16:45:00 Test Item Value Reference Range Interpretation Comments HDL (test code = HDL) 49 [facility] TexasXnejohwLMYVCD5080-02-76 16:45:00 Test Item Value Reference Range Interpretation Comments Trig (test code = Trig) 161 [facility] TexasQewwjdfDJIVKH4854-61-07 16:45:00 Test Item Value Reference Range Interpretation Comments LDL (Calculated) (test code = LDL 120 (Calculated)) [facility] TexasLixbpjgTLOOJW4315-48-99 16:45:00 Test Item Value Reference Range Interpretation Comments CHD Risk (test code = CHD Risk) 4.0 [facility] TexasZzneepjRAETSR9641-26-14 16:45:00 Test Item Value Reference Range Interpretation Comments Non HDL Chol (test code = Non HDL Chol) 148 [facility]2020-09-03 16:45:00 Test Item Value Reference Range Interpretation Comments Vitamin B12 Lvl (test code = Vitamin 1340 968-9317 B12 Lvl) [facility]2020-09-03 16:45:00 Test Item Value Reference Range Interpretation Comments Glucose Lvl (test code = Glucose Lvl) 90 65-99 [facility]2020-09-03 16:45:00 Test Item Value Reference Range Interpretation Comments BUN (test code = BUN) 25 7-25 [facility]2020-09-03 16:45:00 Test Item Value Reference Range Interpretation Comments Creatinine Lvl (test code = Creatinine 1.15 0.70-1.11 Lvl) [facility]2020-09-03 16:45:00 Test Item Value Reference Range Interpretation Comments eGFR NON-AFR. IRISH (test code = 59 eGFR NON-AFR. IRISH) [facility]2020-09-03 16:45:00 Test Item Value Reference Range Interpretation Comments eGFR (test code = eGFR 68 ) [facility]2020-09-03 16:45:00 Test Item Value Reference Range Interpretation Comments B/C Ratio (test code = B/C Ratio) 22 6-22 [place] 345020-09-03 16:45:00 Test Item Value Reference Range Interpretation Comments Sodium Lvl (test code = Sodium Lvl) 136 135-146 [facility]2020-09-03 16:45:00 Test Item Value Reference Range Interpretation Comments Potassium Lvl (test code = Potassium 4.6 3.5-5.3 Lvl) [facility] CenterClique Intelligence [id number] 16:45:00 Test Item Value Reference Range Interpretation Comments Chloride Lvl (test code = Chloride Lvl) 97 98-110 [facility] [id number] 16:45:00 Test Item Value Reference Range Interpretation Comments CO2 (test code = CO2) 30 20-32 [facility]2020-09-03 16:45:00 Test Item Value Reference Range Interpretation Comments Calcium Lvl (test code = Calcium Lvl) 10.0 8.6-10.3 [facility] EQWFO4018-05-15 16:45:00 Test Item Value Reference Range Interpretation Comments Total Protein (test code = Total 7.3 6.1-8.1 Protein) [facility]2020-09-03 16:45:00 Test Item Value Reference Range Interpretation Comments Albumin Lvl (test code = Albumin Lvl) 4.6 3.6-5.1 [facility]2020-09-03 16:45:00 Test Item Value Reference Range Interpretation Comments Globulin (test code = Globulin) 2.7 1.9-3.7 [facility] [id number] 16:45:00 Test Item Value Reference Range Interpretation Comments A/G Ratio (test code = A/G Ratio) 1.7 1.0-2.5 [facility]2020-09-03 16:45:00 Test Item Value Reference Range Interpretation Comments Bili Total (test code = Bili Total) 0.4 0.2-1.2 [facility] [id number] 16:45:00 Test Item Value Reference Range Interpretation Comments Alk Phos (test code = Alk Phos) 60 35-144 [facility]2020-09-03 16:45:00 Test Item Value Reference Range Interpretation Comments ASPARTATE TRANSAMINASE (test code = 12 10-35 ASPARTATE TRANSAMINASE) [facility]2020-09-03 16:45:00 Test Item Value Reference Range Interpretation Comments ALANINE AMINOTRANSFERASE (test code = 7 9-46 ALANINE AMINOTRANSFERASE) [facility]landOxuefpwYLMAKPVVIT5800-42-12 16:45:00 Test Item Value Reference Range Interpretation Comments WBC X 10x3 (test code = WBC X 10x3) 6.9 3.8-10.8 [facility]landBlmtpdsELIZJWNZSS0196-03-79 16:45:00 Test Item Value Reference Range Interpretation Comments RBC X 10x6 (test code = RBC X 10x6) 4.41 4.20-5.80 [place] [address]-09-03 16:45:00 Test Item Value Reference Range Interpretation Comments Hgb (test code = Hgb) 13.5 13.2-17.1 [place] [address]-09-03 16:45:00 Test Item Value Reference Range Interpretation Comments Hct (test code = Hct) 40.8 38.5-50.0 [place] [address]-09-03 16:45:00 Test Item Value Reference Range Interpretation Comments MCV (test code = MCV) 92.5 80.0-100.0 [place] [address]-09-03 16:45:00 Test Item Value Reference Range Interpretation Comments MCH (test code = MCH) 30.6 pg 27.0-33.0 [place] [address]-09-03 16:45:00 Test Item Value Reference Range Interpretation Comments MCHC (test code = MCHC) 33.1 32.0-36.0 [place] [address]-09-03 16:45:00 Test Item Value Reference Range Interpretation Comments RDW (test code = RDW) 13.2 11.0-15.0 [place] 793830-09-03 16:45:00 Test Item Value Reference Range Interpretation Comments Platelet (test code = Platelet) 324 140-400 [facility]landFbsmaisRHGYHCBXEM3069-06-14 16:45:00 Test Item Value Reference Range Interpretation Comments MPV (test code = MPV) 10.7 7.5-12.5 [facility]landKizalinEEEXGVBMSN4561-00-05 16:45:00 Test Item Value Reference Range Interpretation Comments Neutrophils # (test code = Neutrophils 2753 3025-6588 #) [facility]landVkaqsvkZITHKYDIXR8713-33-81 16:45:00 Test Item Value Reference Range Interpretation Comments Lymphocytes # (test code = Lymphocytes 3140 850-3900 #) [facility]landAsjxifdBQFXITCUOB6046-95-39 16:45:00 Test Item Value Reference Range Interpretation Comments Monocytes # (test code = Monocytes #) 683 200-950 [facility]landMkgydoxUPAXYEQBRZ6940-80-56 16:45:00 Test Item Value Reference Range Interpretation Comments Eosinophils # (test code = Eosinophils 262 15-500 #) [facility]landGusrfzxGDZXBAWOIS2255-86-85 16:45:00 Test Item Value Reference Range Interpretation Comments Basophils # (test code 62 See_Comment [Aut omated message] The = Basophils #) system which generated this result tra nsmitted reference range : <=200. The reference r cecy was not used to int erpret this result as normal/abnormal . [facility]landNjofvtjGLKSPWDZOL9403-96-99 16:45:00 Test Item Value Reference Range Interpretation Comments Segs (test code = Segs) 39.9 [facility]landMfbyvehKDRRYHDOUB3953-01-18 16:45:00 Test Item Value Reference Range Interpretation Comments Lymphocytes (test code = Lymphocytes) 45.5 [facility]landSpojijyFOKOEVLGMQ6752-34-88 16:45:00 Test Item Value Reference Range Interpretation Comments Monocytes (test code = Monocytes) 9.9 [facility]landManqzzaTRFICTIBYM0951-65-42 16:45:00 Test Item Value Reference Range Interpretation Comments Eosinophils (test code = Eosinophils) 3.8 [facility]landVekjxxbKMYWVPBDEY7390-84-06 16:45:00 Test Item Value Reference Range Interpretation Comments Basophils (test code = Basophils) 0.9 [facility] TexasFbujlnyTFBPCH2833-66-64 16:45:00 Test Item Value Reference Range Interpretation Comments Chol (test code = Chol) 197 [facility] TexasMrgtlymFLGPZB4996-13-59 16:45:00 Test Item Value Reference Range Interpretation Comments HDL (test code = HDL) 49 [facility] TexasPuwtstqCMYALM9155-28-88 16:45:00 Test Item Value Reference Range Interpretation Comments Trig (test code = Trig) 161 [facility] TexasNmyrtwoGWBYSZ4287-71-89 16:45:00 Test Item Value Reference Range Interpretation Comments LDL (Calculated) (test code = LDL 120 (Calculated)) [facility] CenterSvizdurYTYMXP1720-61-29 16:45:00 Test Item Value Reference Range Interpretation Comments CHD Risk (test code = CHD Risk) 4.0 [facility] CenterIicbzwaFGGGFV4889-45-37 16:45:00 Test Item Value Reference Range Interpretation Comments Non HDL Chol (test code = Non HDL Chol) 148 [facility]2020-09-03 16:45:00 Test Item Value Reference Range Interpretation Comments Vitamin B12 Lvl (test code = Vitamin 2490 557-3741 B12 Lvl) [facility]2020-09-03 16:45:00 Test Item Value Reference Range Interpretation Comments Glucose Lvl (test code = Glucose Lvl) 90 65-99 [facility]2020-09-03 16:45:00 Test Item Value Reference Range Interpretation Comments BUN (test code = BUN) 25 7-25 [facility]2020-09-03 16:45:00 Test Item Value Reference Range Interpretation Comments Creatinine Lvl (test code = Creatinine 1.15 0.70-1.11 Lvl) [facility]2020-09-03 16:45:00 Test Item Value Reference Range Interpretation Comments eGFR NON-AFR. IRISH (test code = 59 eGFR NON-AFR. IRISH) [facility]2020-09-03 16:45:00 Test Item Value Reference Range Interpretation Comments eGFR (test code = eGFR 68 ) [facility]2020-09-03 16:45:00 Test Item Value Reference Range Interpretation Comments B/C Ratio (test code = B/C Ratio) 22 6-22 [place] 345020-09-03 16:45:00 Test Item Value Reference Range Interpretation Comments Sodium Lvl (test code = Sodium Lvl) 136 135-146 [facility]2020-09-03 16:45:00 Test Item Value Reference Range Interpretation Comments Potassium Lvl (test code = Potassium 4.6 3.5-5.3 Lvl) [facility]2020-09-03 16:45:00 Test Item Value Reference Range Interpretation Comments Chloride Lvl (test code = Chloride Lvl) 97 98-110 [place] 345020-09-03 16:45:00 Test Item Value Reference Range Interpretation Comments CO2 (test code = CO2) 30 20-32 [place] 345020-09-03 16:45:00 Test Item Value Reference Range Interpretation Comments Calcium Lvl (test code = Calcium Lvl) 10.0 8.6-10.3 [place] 345020-09-03 16:45:00 Test Item Value Reference Range Interpretation Comments Total Protein (test code = Total 7.3 6.1-8.1 Protein) [facility]2020-09-03 16:45:00 Test Item Value Reference Range Interpretation Comments Albumin Lvl (test code = Albumin Lvl) 4.6 3.6-5.1 [place] [address]-09-03 16:45:00 Test Item Value Reference Range Interpretation Comments Globulin (test code = Globulin) 2.7 1.9-3.7 [place] [address]-09-03 16:45:00 Test Item Value Reference Range Interpretation Comments A/G Ratio (test code = A/G Ratio) 1.7 1.0-2.5 [place] [address]-09-03 16:45:00 Test Item Value Reference Range Interpretation Comments Bili Total (test code = Bili Total) 0.4 0.2-1.2 [place] 345020-09-03 16:45:00 Test Item Value Reference Range Interpretation Comments Alk Phos (test code = Alk Phos) 60 35-144 [facility]2020-09-03 16:45:00 Test Item Value Reference Range Interpretation Comments ASPARTATE TRANSAMINASE (test code = 12 10-35 ASPARTATE TRANSAMINASE) [place] 345020-09-03 16:45:00 Test Item Value Reference Range Interpretation Comments ALANINE AMINOTRANSFERASE (test code = 7 9-46 ALANINE AMINOTRANSFERASE) [place] [address]-09-03 16:45:00 Test Item Value Reference Range Interpretation Comments WBC X 10x3 (test code = WBC X 10x3) 6.9 3.8-10.8 [place] [address]-09-03 16:45:00 Test Item Value Reference Range Interpretation Comments RBC X 10x6 (test code = RBC X 10x6) 4.41 4.20-5.80 [place] [address]-09-03 16:45:00 Test Item Value Reference Range Interpretation Comments Hgb (test code = Hgb) 13.5 13.2-17.1 [facility]27 16:45:00 Test Item Value Reference Range Interpretation Comments Hct (test code = Hct) 40.8 38.5-50.0 [facility]QlkowpbFHOEQJKEDE2560-96-07 16:45:00 Test Item Value Reference Range Interpretation Comments MCV (test code = MCV) 92.5 80.0-100.0 [facility]CcmxdjcPUFYDMBHRC3935-26-58 16:45:00 Test Item Value Reference Range Interpretation Comments MCH (test code = MCH) 30.6 pg 27.0-33.0 [facility]TqlseyiEYRTCTBCRJ3646-99-49 16:45:00 Test Item Value Reference Range Interpretation Comments MCHC (test code = MCHC) 33.1 32.0-36.0 [facility]AdwdvsoMKNGFQOBBS5733-82-76 16:45:00 Test Item Value Reference Range Interpretation Comments RDW (test code = RDW) 13.2 11.0-15.0 [facility]landPrjallnCPJGSMGXCW0467-09-43 16:45:00 Test Item Value Reference Range Interpretation Comments Platelet (test code = Platelet) 324 140-400 [facility]landTaovwjoCRFHLBUDPC5011 16:45:00 Test Item Value Reference Range Interpretation Comments MPV (test code = MPV) 10.7 7.5-12.5 [facility]SjspvhqHQWRCVPCUV9035-42-18 16:45:00 Test Item Value Reference Range Interpretation Comments Neutrophils # (test code = Neutrophils 2753 5365-9577 #) [facility]landTxpypxyKUUCVCDMFW7598-25-66 16:45:00 Test Item Value Reference Range Interpretation Comments Lymphocytes # (test code = Lymphocytes 3140 850-3900 #) [facility]landAtplvjnCTPSNXFKMZ6218-49-50 16:45:00 Test Item Value Reference Range Interpretation Comments Monocytes # (test code = Monocytes #) 683 200-950 [facility]landHvjgxyhXBFILWLLSY5528-36-03 16:45:00 Test Item Value Reference Range Interpretation Comments Eosinophils # (test code = Eosinophils 262 15-500 #) [facility]landBcrmxksFVNJPYHTQV5395-24-12 16:45:00 Test Item Value Reference Range Interpretation Comments Basophils # (test code 62 See_Comment [Aut omated message] The = Basophils #) system which generated this result tra nsmitted reference range : <=200. The reference r cecy was not used to int erpret this result as normal/abnormal . [facility]landGlaijwbDJMIZWRWKZ6807-25-93 16:45:00 Test Item Value Reference Range Interpretation Comments Segs (test code = Segs) 39.9 [facility]landRelhazcRSTDUCLFJG6921-09-06 16:45:00 Test Item Value Reference Range Interpretation Comments Lymphocytes (test code = Lymphocytes) 45.5 [facility]landYsogetdAOPHLLHPDA4791-82-20 16:45:00 Test Item Value Reference Range Interpretation Comments Monocytes (test code = Monocytes) 9.9 [facility]landHqemwkkOBUEPDTICX8942-41-93 16:45:00 Test Item Value Reference Range Interpretation Comments Eosinophils (test code = Eosinophils) 3.8 [facility]landKnftxsgPEGASZSKNT4441-31-10 16:45:00 Test Item Value Reference Range Interpretation Comments Basophils (test code = Basophils) 0.9 [facility]8682-24-28 16:45:00 Test Item Value Reference Range Interpretation Comments Chol (test code = Chol) 197 [facility]OtvpxqsMRYKRD2283-71-91 16:45:00 Test Item Value Reference Range Interpretation Comments HDL (test code = HDL) 49 [facility] CenterYsedjezRJYHWX4814-34-36 16:45:00 Test Item Value Reference Range Interpretation Comments Trig (test code = Trig) 161 [facility]AmygsfoHCVPYR7950-72-71 16:45:00 Test Item Value Reference Range Interpretation Comments LDL (Calculated) (test code = LDL 120 (Calculated)) [facility] TexasLqwoyvfWDLFPA6874-82-37 16:45:00 Test Item Value Reference Range Interpretation Comments CHD Risk (test code = CHD Risk) 4.0 [facility]VlktgrwHLJOEJ5788-64-89 16:45:00 Test Item Value Reference Range Interpretation Comments Non HDL Chol (test code = Non HDL Chol) 148 [facility] Notes Date/Time Note Provider Source 2020-05-24 11:33:07-00:00 Radiation Dose CTDIVOL = 0 (mGy): DLP = 1111 (mGy-cm) [place] PROCEDURE INFORMATION: Exam: CT Head Without Contrast [...] collections. Dale Prater MD On 05/24/2020 11:50:19; NILA-LEW [id number] 2020-05-24 11:33:07-00:00 Radiation Dose CTDIVOL = 0 (mGy): DLP = 1111 (mGy-cm) [facility] PROCEDURE INFORMATION: Exam: CT Head [...] Dale Prater MD On 05/24/2020 11:50:19; BRENDA [id number] 2020-05-24 11:27:21-00:00 PROCEDURE INFORMATION: [facility] Exam: XR Chest, 1 View [...] Jose R Espinoza MD On 05/24/2020 12:07:23; NILA-GH [id number] 2020-05-24 11:27:21-00:00 PROCEDURE INFORMATION: [facility] Exam: XR Chest, 1 View [...] Jose R Espinoza MD On 05/24/2020 12:07:23; - [id number]"
[2023-05-05 15:31] LABS: Absolute Lymphocytes (CBC) 2.7 K/uL (0.7-4.9); Hematocrit 39.7 % (39.6-49.0); Lymphocytes % 26.5 % (15.3-44.8); MCV 91.6 fL (80-100); MPV 7.7 fL (7.6-11.3); Platelets 418 thou/uL (152-406); RBC Red Blood Cell Count 4.33 M/uL (4.33-5.43)
[2023-05-05 15:32] LABS: Protime INR 0.97
[2023-05-05 15:44] LABS: Potassium 3.9 mEq/L (3.5-5.1); SARS-CoV-2 Antigen Rapid Res Negative (Negative); Troponin High Sensitivity 13.7 pg/mL (<58.9)
--- NOTE | 2023-05-05 15:57 | RAD REPORT ---
EXAM DESCRIPTION: RAD - Chest Single View - 05/05/2023 3:49 pm CLINICAL HISTORY: CHEST PAIN Chest pain. COMPARISON: Chest Single View dated 11/24/2022; Chest Single View dated 06/26/2022; Chest Pa And Lat (2 Views) dated 11/08/2021 FINDINGS: Portable technique limits examination quality. Mild linear atelectasis is seen in the right lung base. This may be chronic in this patient. The left lung is clear. The heart is normal in size. No displaced fractures. IMPRESSION: No acute intrathoracic process suspected.
[2023-05-05] MEDS ORDERED: DIAZEPAM 2 MG TABLET ONE (16:20)
--- NOTE | 2023-05-05 16:28 | ER ---
Nurse's Notes [facility] Name: Brett Love Age: 87 yrs Sex: Male : 1935 Arrival Date: 05/05/2023 Time: 14:07 Bed DIS1 Private MD: Diagnosis: Chest pain, unspecified;Dehydration Presentation: 05/05 14:23 Chief complaint: Patient states: 1325 started feeling chest pain on left side, sharp, iw burning pain, from [place], also has anxiety and fel felt very anxious 12 Lead NSR, hx of htn 193/98 , 191/104 all other vitals normal, BS 103. Coronavirus screen: At this time, the client does not indicate any symptoms associated with coronavirus-19. Ebola Screen: Patient negative for fever greater than or equal to 101.5 degrees Fahrenheit, and additional compatible Ebola Virus Disease symptoms Patient denies exposure to infectious person. Patient denies travel to an Ebola-affected area in the 21 days before illness onset. No symptoms or risks identified at this time. Initial Sepsis Screen: Does the patient meet any 2 criteria? No. Patient's initial sepsis screen is negative. Does the patient have a suspected source of infection? No. Patient's initial sepsis screen is negative. Risk Assessment: Do you want to hurt yourself or someone else? Patient reports no desire to harm self or others. Onset of symptoms was May 05, 2023. 14:23 Method Of Arrival: EMS: [facility] iw 14:23 Acuity: FAITH 3 iw Historical: - Allergies: 14:26 No Known Allergies; iw - PMHx: 14:25 Hypertension; Anxiety; iw - Immunization history:: Adult Immunizations. - Family history:: not pertinent. - Social history:: Smoking status: unknown. - Hospitalizations: : No recent hospitalization is reported. Screenin:41 [facility] ED Fall Risk Assessment (Adult) History of falling in the last 3 months, cm10 including since admission No falls in past 3 months (0 pts) Confusion or Disorientation No (0 pts) Intoxicated or Sedated No (0 pts) Impaired Gait Yes (1 pt) Mobility Assist Device Used Yes (1 pt) Altered Elimination No (0 pt) Score/Fall Risk Level 0 - 2 = Low Risk Oriented to surroundings, Maintained a safe environment. Abuse screen: Denies threats or abuse. Denies injuries from another. Nutritional screening: No deficits noted. Tuberculosis screening: No symptoms or risk factors identified. Assessment: 16:40 General: Appears in no apparent distress. comfortable, Behavior is calm, cooperative. cm10 Pain: Complains of pain in chest. 16:41 Neuro: No deficits noted. Level of Consciousness is awake, alert, obeys commands. cm10 Respiratory: No deficits noted. Airway is patent Respiratory effort is even, unlabored, Respiratory pattern is regular, symmetrical. Vital Signs: 16:07 BP 163 / 78; Pulse 79; Resp 16; Temp 98.2; Pulse Ox 98% on R/A; iw ED Course: 14:23 Patient arrived in ED. iw 14:25 Triage completed. iw 14:25 Arm band placed on. iw 14:48 Arcenio Hankins MD is Attending Physician. rn 15:20 Flu Sent. bc6 15:20 SARS RAPID Sent. bc6 15:20 Basic Metabolic Panel Sent. bc6 15:20 CBC with Diff Sent. bc6 15:20 NT PRO-BNP Sent. bc6 15:20 PT-INR Sent. bc6 15:20 Troponin HS Sent. bc6 15:20 Inserted saline lock: 22 gauge in left antecubital area, using aseptic technique. Blood bc6 collected. 15:51 XRAY Chest (1 view) In Process Unspecified. EDCA 16:07 Venita Lloyd RN is Primary Nurse. iw 16:41 Patient has correct armband on for positive identification. Provided Education on: N/A. cm10 16:41 No provider procedures requiring assistance completed. IV discontinued, intact, cm10 bleeding controlled, No redness/swelling at site. Pressure dressing applied. Administered Medications: 16:11 Drug: Diazepam PO 2 mg Route: PO; iw 16:42 Follow up: Response: No adverse reaction cm10 Medication: 16:42 VIS not applicable for this client. cm10 Outcome: 16:27 Discharge ordered by . rn 16:42 Discharged to home ambulatory, with family. cm10 16:42 Condition: good 16:42 Discharge instructions given to patient, Instructed on discharge instructions, follow up and referral plans. Demonstrated understanding of instructions, follow-up care. 16:42 Patient left the ED. cm10 Signatures: Dispatcher [employer] EDCA Venita Lloyd RN RN Arcenio Hankins MD MD rn [place], Breana bc6 Daina Boyle, RN RN cm10
--- NOTE | 2023-05-05 16:28 | EDPHYS ---
Physician Documentation [facility] Name: Brett Love Age: 87 yrs Sex: Male : 1935 Arrival Date: 05/05/2023 Time: 14:07 Bed DIS1 Private MD: ED Physician Arcenio Hankins HPI: 05/05 16:24 This 87 yrs old Male presents to ER via EMS with complaints of Chest Pain, anxiety. rn 16:24 The patient or guardian reports chest pain that is located primarily in the anterior rn chest wall, left. Onset: just prior to arrival. The pain does not radiate. The chest pain is described as stabbing. Duration: The patient or guardian reports a single episode, that is now resolved. Modifying factors: The symptoms are alleviated by nothing. the symptoms are aggravated by nothing. Severity of pain: At its worst the pain was mild in the emergency department the pain has resolved. The patient has not experienced similar symptoms in the past. EMS reports called out for possible chest pain, was feeling dizzy, then reported chest pain. Symptoms resolved prior to ambulance arrival without medication or intervention. Patient reports feels fine currently. NO fever/cough/trauma/sob. Reports feeling very anxious. No blood in stool. . Historical: - Allergies: 14:26 No Known Allergies; iw - PMHx: 14:25 Hypertension; Anxiety; iw - Immunization history:: Adult Immunizations. - Family history:: not pertinent. - Social history:: Smoking status: unknown. - Hospitalizations: : No recent hospitalization is reported. ROS: 16:24 Constitutional: Negative for fever, chills, and weight loss, Eyes: Negative for injury, rn pain, redness, and discharge, Neck: Negative for injury, pain, and swelling, Cardiovascular: Negative for palpitations, and edema, Respiratory: Negative for shortness of breath, cough, wheezing, and pleuritic chest pain, Abdomen/GI: Negative for abdominal pain, nausea, vomiting, diarrhea, and constipation, MS/Extremity: Negative for injury and deformity, Skin: Negative for injury, rash, and discoloration, Neuro: Negative for headache, weakness, numbness, tingling, and seizure. Exam: 16:24 Constitutional: This is a well developed, well nourished patient who is awake, alert, rn and in no acute distress. Head/Face: Normocephalic, atraumatic. Cardiovascular: Regular rate and rhythm. No pulse deficits. Respiratory: Clear bilateral breath sounds. No increased work of breathing, no retractions or nasal flaring. Abdomen/GI: Soft, non-tender Skin: Warm, dry MS/ Extremity: Pulses equal, no cyanosis. Neuro: Awake and alert, GCS 15, oriented to person, and situation. Cranial nerves II-XII grossly intact. Motor strength 5/5 in all extremities. Sensory grossly intact. Cerebellar exam normal. Normal gait. 17:43 ECG was reviewed by the Attending Physician. rn Vital Signs: 16:07 BP 163 / 78; Pulse 79; Resp 16; Temp 98.2; Pulse Ox 98% on R/A; iw MDM: 14:48 Patient medically screened. rn 16:24 Differential diagnosis: acute myocardial infarction, acute pericarditis, anxiety, chest rn wall pain, costochondritis, esophagitis, gastritis, gastroesophageal reflux disease (GERD), pericarditis, pneumonia, pneumothorax. Data reviewed: vital signs, nurses notes, lab test result(s), EKG, radiologic studies, plain films, and as a result, I will discharge patient. Counseling: I had a detailed discussion with the patient and/or guardian regarding the historical points, exam findings, and any diagnostic results supporting the discharge/admit diagnosis, lab results, radiology results, the need for outpatient follow up, to return to the emergency department if symptoms worsen or persist or if there are any questions or concerns that arise at home. Response to treatment: the patient's symptoms have resolved after treatment, the patient's condition has returned to base line, the patient is now symptom free, and as a result, I will discharge patient. Special discussion: Based on the patient's history, exam, and Dx evaluation, there is no indication for emergent intervention or inpatient Tx. It is understood by the patient/guardian that if the Sx's persist or worsen they need to return immediately for re-evaluation. I discussed with the patient/guardian in detail that at this point there is no indication for admission to the hospital. It is understood, however, that if the symptoms persist or worsen the patient needs to return immediately for re-evaluation. 05/05 14:52 Order name: Basic Metabolic Panel; Complete Time: 15:55 rn 05/05 14:52 Order name: CBC with Diff; Complete Time: 15:55 rn 05/05 14:52 Order name: NT PRO-BNP; Complete Time: 15:55 rn 05/05 14:52 Order name: PT-INR; Complete Time: 15:55 rn 05/05 14:52 Order name: Troponin HS; Complete Time: 15:55 rn 05/05 14:53 Order name: SARS RAPID; Complete Time: 15:55 rn 05/05 14:53 Order name: Flu; Complete Time: 15:55 rn 05/05 14:52 Order name: XRAY Chest (1 view); Complete Time: 15:57 rn 05/05 14:52 Order name: EKG; Complete Time: 14:53 rn 05/05 14:52 Order name: Cardiac monitoring; Complete Time: 16:31 rn 05/05 14:52 Order name: EKG - Nurse/Tech; Complete Time: 16:09 rn 05/05 14:52 Order name: IV Saline Lock; Complete Time: 15:20 rn 05/05 14:52 Order name: Labs collected and sent; Complete Time: 15:20 rn 05/05 14:52 Order name: O2 Per Protocol; Complete Time: 16:31 rn 05/05 14:52 Order name: O2 Sat Monitoring; Complete Time: 16:31 rn EC:43 Rate is 92 beats/min. Rhythm is regular. QRS [place] is Normal. DC interval is normal. QRS rn interval is normal. QT interval is normal. T waves are Normal. No ST changes noted. Clinical impression: NSR w/ Non-specific ST/T Changes. Interpreted by me. Reviewed by me. Administered Medications: 16:11 Drug: Diazepam PO 2 mg Route: PO; iw 16:42 Follow up: Response: No adverse reaction cm10 Disposition Summary: 05/05/23 16:27 Discharge Ordered Location: Home rn Problem: new rn Symptoms: have improved rn Condition: Stable rn Diagnosis - Chest pain, unspecified rn - Dehydration rn Followup: rn - With: Private Physician - When: As needed - Reason: Recheck today's complaints, Re-evaluation by your physician Discharge Instructions: - Discharge Summary Sheet rn - Nonspecific Chest Pain, Adult rn - Dehydration, Adult rn Forms: - Medication Reconciliation Form rn - Thank You Letter rn - 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
[2023-05-05 17:09] VITALS: BP 163/78; TEMP 98.2; O2SAT 98
--- NOTE | 2023-05-06 16:30 | EKG ---
Test Date: 2023-05-05 Test Time: 14:56:47 Seo Strategist: JAMIE MEASUREMENT RESULTS: Intervals: Rate: 92 ID: [id number] QRSD: 90 QT: 380 QTc: 469 [place]: P: 40 ID: [id number] QRS: 1 T: 37 INTERPRETIVE STATEMENTS: Normal sinus rhythm Nonspecific ST abnormality Abnormal ECG Compared to ECG 11/24/2022 19:11:55 Ventricular premature complex(es) no longer present First degree AV block no longer present Prolonged QT interval no longer present ST (T wave) deviation still present Electronically Signed On 05-06-23 16:27:05 CDT by Colten Macario
== END 2023-05-05 16:42 | disposition home or self-care (01) ==
LOC: ER 14:07
DX: R07.89 Other chest pain (principal); E86.0 Dehydration; I10 Essential (primary) hypertension; F41.9 Anxiety disorder, unspecified; Z20.822 Contact with and (suspected) exposure to COVID-19
CPT/HCPCS: 36415; 71045; 80048; 83880; 84484; 85025; 85610; 87804; 87811; 93005; 99284

== ENCOUNTER 2024-05-09 19:12 | Emergency (ER) | payer OTHER ==
--- NOTE | 2024-05-09 19:45 | ER ---
Nurse's Notes [facility] Name: Brett Love Age: 88 yrs Sex: Male : 1935 Arrival Date: 05/09/2024 Time: 19:12 Bed 5 Private MD: Diagnosis: Confusional arousals Presentation: 05/09 19:14 Chief complaint: EMS states: nurse at [facility] states that the patient was al5 experiencing altered mental status. when ems arrived patient states he felt fine and was AAOx4, patient AAOx4 currently. Coronavirus screen: At this time, the client does not indicate any symptoms associated with coronavirus-19. Ebola Screen: No symptoms or risks identified at this time. Initial Sepsis Screen: Does the patient meet any 2 criteria? No. Patient's initial sepsis screen is negative. Does the patient have a suspected source of infection? No. Patient's initial sepsis screen is negative. Risk Assessment: Do you want to hurt yourself or someone else? Patient reports no desire to harm self or others. Onset of symptoms was May 09, 2024. 19:14 Method Of Arrival: EMS: [facility] al5 19:14 Acuity: FAITH 3 al5 Triage Assessment: 19:16 General: Appears in no apparent distress. Behavior is calm, cooperative. Pain: Denies al5 pain. EENT: No signs and/or symptoms were reported regarding the EENT system. Neuro: Level of Consciousness is awake, alert, obeys commands, Oriented to person, place, time, situation, Gait is steady, Speech is normal. Cardiovascular: Capillary refill < 3 seconds Patient's skin is warm and dry. Respiratory: Airway is patent Respiratory effort is even, unlabored, Respiratory pattern is regular, symmetrical. GI: No signs and/or symptoms were reported involving the gastrointestinal system. : No signs and/or symptoms were reported regarding the genitourinary system. Derm: Skin is intact, Skin is pink, warm \T\ dry. normal. Musculoskeletal: No signs and/or symptoms reported regarding the musculoskeletal system. Historical: - Allergies: 19:18 No Known Allergies; al5 - PMHx: 19:17 Alzheimer's disease; Anxiety; Hypertension; al5 - Immunization history:: Adult Immunizations up to date. - Infectious Disease History:: Denies. - Social history:: Smoking status: Patient denies any tobacco usage or history of. Screenin:18 [facility] ED Fall Risk Assessment (Adult) History of falling in the last 3 months, al5 including since admission No falls in past 3 months (0 pts) Confusion or Disorientation No (0 pts) Intoxicated or Sedated No (0 pts) Impaired Gait No (0 pts) Mobility Assist Device Used No (0 pt) Altered Elimination No (0 pt) Score/Fall Risk Level 0 - 2 = Low Risk Oriented to surroundings, Maintained a safe environment, Hourly rounding (assess needs \T\ fall precautionary measures) done. Abuse screen: Denies threats or abuse. Denies injuries from another. Nutritional screening: No deficits noted. Tuberculosis screening: No symptoms or risk factors identified. Assessment: 19:18 Reassessment: see triage assessment. al5 20:00 Reassessment: pending discharge post transfer arrival. al5 20:15 Reassessment: report called to [facility] notified of patient being al5 discharged home. 20:20 Reassessment: patient son notified that patient is being discharged home. al5 Vital Signs: 19:14 BP 191 / 84; Pulse 76; Resp 16; Temp 97.9; Pulse Ox 96% on R/A; Weight 79.38 kg; Height al5 5 ft. 11 in. ; Pain 0/10; 19:15 BP 175 / 87; Pulse 74; Resp 16; Pulse Ox 96% on R/A; al5 19:30 BP 199 / 94; Pulse 73; Resp 16; Pulse Ox 96% on R/A; al5 20:00 BP 203 / 97; Pulse 72; Resp 17; Pulse Ox 95% on R/A; al5 20:30 BP 219 / 101; Pulse 67; Resp 17; Pulse Ox 97% on R/A; al5 20:48 BP 194 / 85; Pulse 68; Resp 16; Pulse Ox 97% on R/A; al5 19:14 Body Mass Index 24.41 (79.38 kg, 180.34 cm) al5 19:14 Pain Scale: Adult al5 20:48 per MD, patient asymptomatic htn al5 NIH Stroke Scale Scores: 19:16 NIHSS Score: 0 al5 ED Course: 19:13 Patient arrived in ED. al5 19:16 Triage completed. al5 19:17 Arm band placed on right wrist. Patient placed in the treatment room, on a stretcher. al5 19:18 Patient has correct armband on for positive identification. Bed in low position. Call al5 light in reach. Side rails up X2. Provided Education on: processes and procedures. 19:19 Rula Turner, ROBIN is Primary Nurse. al5 19:19 No provider procedures requiring assistance completed. al5 19:20 Clayton Holguin MD is Attending Physician. ec2 20:24 Patient did not have IV access during this emergency room visit. al5 Administered Medications: No medications were administered Medication: 19:18 VIS not applicable for this client. al5 Outcome: 19:44 Discharge ordered by MD. ec2 21:26 Discharged to home via wheelchair, with yellow cab set up by family al5 21:26 Condition: good 21:26 Discharge instructions given to patient, family, [facility], Instructed on discharge instructions, follow up and referral plans. Demonstrated understanding of instructions, follow-up care, 21:26 Patient left the ED. al5 NIH Stroke Scale - NIH Stroke Score Date: 05/09/2024 Time: 19:16 Total Score = 0 10. Dysarthria (speech clarity - read or repeat words) - 0(Normal) 11. Extinction and Inattention (visual/tactile/auditory/spatial/personal) - 0(No abnormality) 1a. Level of Consciousness (LOC) - 0(Alert) 1b. Level of Consciousness (LOC) (Month \T\ Age) - 0(Both) 1c. LOC Commands (Open \T\ Closes Eyes/Upper Shaper) - 0(Both) 2. Best Gaze (Lateral Gaze Paresis) - 0(Normal) 3. Visual Field Loss - 0(No visual loss) 4. Facial Palsy - 0(Normal) 5a. Left Arm: Motor (10-second hold) - 0(No drift) 5b. Right Arm: Motor (10-second hold) - 0(No drift) 6a. Left Leg: Motor (5-second hold - always test supine) - 0(No drift) 6b. Right Leg: Motor (5-second hold - always test supine) - 0(No drift) 7. Limb Ataxia (finger/nose \T\ heel/dunn - test with eyes open) - 0(Absent) 8. Sensory Loss (pinprick arms/legs/face) - 0(Normal) 9. Best Language: Aphasia (description/naming/reading) - 0(No aphasia) Initials: al5 Signatures: Clayton Holguin MD MD ec2 Rula Turner RN RN al5
--- NOTE | 2024-05-09 19:45 | EDPHYS ---
Physician Documentation [facility] Name: Brett Love Age: 88 yrs Sex: Male : 1935 Arrival Date: 05/09/2024 Time: 19:12 Bed 5 Private MD: ED Physician Clayton Holguin HPI: 05/09 19:42 This 88 yrs old Male presents to ER via EMS with complaints of Altered Mental ec2 Status. 19:42 Patient with history of Alzheimer disease arrives today for reported altered mental ec2 status. Patient has Ultracef complaints, is awake and alert and oriented appropriately, did complains of no pain, denies any recent illnesses. Patient has no specific concerns. . Historical: - Allergies: 19:18 No Known Allergies; al5 - PMHx: 19:17 Alzheimer's disease; Anxiety; Hypertension; al5 - Immunization history:: Adult Immunizations up to date. - Infectious Disease History:: Denies. - Social history:: Smoking status: Patient denies any tobacco usage or history of. ROS: 19:42 Constitutional: as per hpi ec2 Exam: 19:42 Constitutional: GEN: NAD Head: atraumatic Eyes: EOMI Ears: External ears are ec2 normal. CV: regular rate LUNGS: no respiratory distress ABD: non-distended, soft, nontender, no guarding, nonrigid. SKIN: no evidence of rashes MSK: no evidence of trauma. Neuro: AAO x 4 who moves all extremities equally and is in no acute distress Vital Signs: 19:14 BP 191 / 84; Pulse 76; Resp 16; Temp 97.9; Pulse Ox 96% on R/A; Weight 79.38 kg; Height al5 5 ft. 11 in. ; Pain 0/10; 19:15 BP 175 / 87; Pulse 74; Resp 16; Pulse Ox 96% on R/A; al5 19:30 BP 199 / 94; Pulse 73; Resp 16; Pulse Ox 96% on R/A; al5 20:00 BP 203 / 97; Pulse 72; Resp 17; Pulse Ox 95% on R/A; al5 20:30 BP 219 / 101; Pulse 67; Resp 17; Pulse Ox 97% on R/A; al5 20:48 BP 194 / 85; Pulse 68; Resp 16; Pulse Ox 97% on R/A; al5 19:14 Body Mass Index 24.41 (79.38 kg, 180.34 cm) al5 19:14 Pain Scale: Adult al5 20:48 per MD, patient asymptomatic htn al5 NIH Stroke Scale Scores: 19:16 NIHSS Score: 0 al5 MDM: 19:37 Patient medically screened. ec2 19:42 Data reviewed: vital signs. ED course: Patient arrives today for reported altered ec2 mental status. Patient is awake and alert and oriented individuals otherwise in no acute distress who is well-appearing. I considered obtaining lab work such as CBC and metabolic profile as well as urinalysis however patient is in no acute distress and is well-appearing and has no complaints and do not feel this would beneficial in this setting. Patient had transient confusion reportedly that is since resolved and is hemodynamically stable. Will discharge home. Return precaution given.. Administered Medications: No medications were administered Disposition Summary: 05/09/24 19:44 Discharge Ordered Notes: Location: Home ec2 Condition: Stable ec2 Diagnosis - Confusional arousals ec2 Followup: ec2 - With: Private Physician - When: - Reason: Re-evaluation by your physician Discharge Instructions: - Discharge Summary Sheet ec2 - Confusion ec2 Forms: - Medication Reconciliation Form ec2 - Antibiotic Education ec2 - Prescription Opioid Use ec2 - Patient Portal Instructions ec2 - Leadership Thank You Letter ec2 NIH Stroke Scale - NIH Stroke Score Date: 05/09/2024 Time: 19:16 Total Score = 0 10. Dysarthria (speech clarity - read or repeat words) - 0(Normal) 11. Extinction and Inattention (visual/tactile/auditory/spatial/personal) - 0(No abnormality) 1a. Level of Consciousness (LOC) - 0(Alert) 1b. Level of Consciousness (LOC) (Month \T\ Age) - 0(Both) 1c. LOC Commands (Open \T\ Closes Eyes/Coater) - 0(Both) 2. Best Gaze (Lateral Gaze Paresis) - 0(Normal) 3. Visual Field Loss - 0(No visual loss) 4. Facial Palsy - 0(Normal) 5a. Left Arm: Motor (10-second hold) - 0(No drift) 5b. Right Arm: Motor (10-second hold) - 0(No drift) 6a. Left Leg: Motor (5-second hold - always test supine) - 0(No drift) 6b. Right Leg: Motor (5-second hold - always test supine) - 0(No drift) 7. Limb Ataxia (finger/nose \T\ heel/dunn - test with eyes open) - 0(Absent) 8. Sensory Loss (pinprick arms/legs/face) - 0(Normal) 9. Best Language: Aphasia (description/naming/reading) - 0(No aphasia) Initials: al5 Signatures: Clayton Holguin MD MD ec2 Rula Turner RN RN al5
[2024-05-09 22:14] VITALS: TEMP 97.9
[2024-05-09 22:20] VITALS: BP 194/85; O2SAT 97
== END 2024-05-09 21:26 | disposition home or self-care (01) ==
LOC: ER 19:12
DX: G47.51 Confusional arousals (principal); G30.9 Alzheimer's disease, unspecified; F02.80 Dementia in other diseases classified elsewhere, unspecified severity, without behavioral disturbance, psychotic disturbance, mood disturbance, and anxiety; I10 Essential (primary) hypertension
CPT/HCPCS: 99284

== ENCOUNTER 2024-05-15 04:14 | Inpatient (IN) | payer OTHER ==
[2024-05-15 04:43] LABS: Absolute Basophils 0.1 K/uL (0-0.5); Absolute Eosinophils 0.2 K/uL (0-0.5); Absolute Lymphocytes (CBC) 2.3 K/uL (0.7-4.9); Absolute Monocytes 0.8 K/uL (0.1-1.3); Absolute Neutrophil 3.9 K/uL (1.8-8.0); Basophils % 0.9 % (0-1.3); Eosinophils % 2.3 % (0-4.4); Hematocrit 39.5 % (39.6-49.0); Hemoglobin 13.4 g/dL (13.6-17.9); Lymphocytes % 31.8 % (15.3-44.8); MCH 30.7 pg (27.0-35.0); MCHC 34.1 g/dL (32.0-36.0); MCV 90.1 fL (80-100); MPV 7.9 fL (7.6-11.3); Monocytes % 10.9 % (3.3-12.3); Neutrophils % 54.1 % (41.7-73.7); Nucleated Red Blood Cells % 0.1 % (0-0); Platelets 359 thou/uL (152-406); RBC Red Blood Cell Count 4.38 M/uL (4.33-5.43); Red Cell Distribution Width 13.8 % (12.1-15.2)
[2024-05-15 04:44] LABS: PT Prothrombin Time 10.9 SECONDS (9.4-12.5); PTT, Activated Partial Thromb 34.5 SECONDS (24.3-36.9); Protime INR 0.97
[2024-05-15] MEDS ORDERED: NA CHLORIDE 0.9% 1,000 ML ONE (04:45)
[2024-05-15] MEDS ORDERED: HYDRALAZINE HCL 20 MG/ML VIAL ONE (04:51)
[2024-05-15] MEDS ORDERED: ONDANSETRON 4 MG/2 ML VIAL ONE ×2 (04:52→05:53)
[2024-05-15] MEDS ORDERED: Nicardipine/NS 25 MG/250 ML KIT IV ONE ×2 (04:53→07:45)
[2024-05-15 04:59] LABS: ALT/SGPT 20 U/L (16-61); AST/SGOT 17 U/L (15-37); Albumin 3.9 g/dL (3.4-5.0); Albumin/Globulin Ratio 1.1 (1.1-1.8); Alkaline Phosphatase 64 U/L (45-117); Anion Gap 10.3 mEq/L (5.0-15.0); BUN Blood Urea Nitrogen 13 mg/dL (7-18); Bicarbonate 27 mEq/L (21-32); Bilirubin Total 0.4 mg/dL (0.2-1.0); Globulin 3.6 g/dL (2.3-3.5); Glomerular Filtration Rate 74 ml/min (=/>90); Glucose Level 109 mg/dL (74-106); Magnesium 2.2 mg/dL (1.6-2.4); Potassium 4.3 mEq/L (3.5-5.1); Protein, Total 7.5 g/dL (6.4-8.2); Sodium Level 136 mEq/L (136-145)
[2024-05-15] MEDS ORDERED: MORPHINE 4 MG/ML SYR ONE (05:05)
[2024-05-15 05:31] LABS: Bilirubin Direct < 0.2 mg/dL (0-0.2); Bilirubin Indirect, Calculated 0.2 mg/dL (0.2-0.8)
[2024-05-15 05:32] LABS: Barbiturates NEGATIVE (NEGATIVE); Benzodiazepines NEGATIVE (NEGATIVE); Cocaine NEGATIVE (NEGATIVE); METHAMPHETAM NEGATIVE (NEGATIVE); Methadone NEGATIVE (NEGATIVE); Opiates NEGATIVE (NEGATIVE); Phencyclidine NEGATIVE (NEGATIVE); THC Cannibis NEGATIVE (NEGATIVE)
[2024-05-15] MEDS ORDERED: WATER FOR INJ,STERILE 10 ML ONE (05:53)
[2024-05-15] MEDS ORDERED: ZIPRASIDONE MESYLA 20 MG/VIAL IM ONE (05:53)
[2024-05-15] MEDS ORDERED: LIDOCAINE 1% 20 ML MDV ONE (06:14)
--- NOTE | 2024-05-15 06:42 | ER ---
Nurse's Notes [facility] Name: Brett Love Age: 88 yrs Sex: Male : 1935 Arrival Date: 05/15/2024 Time: 04:14 Bed 4 Private MD: Diagnosis: Acute Hemorrhagic CVA, left basal ganglia hemorrhage , hypertensive emergency, altered mental status , agitation requiring sedation, respiratory depression Presentation: 05/15 04:14 Acuity: FAITH 1 ss 04:14 Method Of Arrival: EMS: [facility] 04:14 Chief complaint: EMS states: patient was found on floor unknown time down. Pinpoint vc1 pupils and snoring respirations. Patient is in and out of consciousness. Patient was given 2 mg of Narcan by EMS. 04:14 Care prior to arrival: Medication(s) given: Narcan 2 mg. Mechanism of Injury: Fall from vc1 standing position. Trauma event details: Injury occurred in the [facility]. Activity prior to arrival: loss of consciousness. 04:14 Care prior to arrival: IV initiated. 20 GA, in the right forearm, Glucose check: 99 vc1 Oxygen administered. via nasal cannula. 04:18 Coronavirus screen: Client denies travel out of the [place] in the last 14 days. At this vc1 time, the client does not indicate any symptoms associated with coronavirus-19. Ebola Screen: Patient negative for fever greater than or equal to 101.5 degrees Fahrenheit, and additional compatible Ebola Virus Disease symptoms Patient denies exposure to infectious person. Patient denies travel to an Ebola-affected area in the 21 days before illness onset. No symptoms or risks identified at this time. 04:18 An acute neurological deficit is present. The charge nurse has been notified. The vc1 patients blood glucose was checked before arriving to the hospital and was found to be normal. Initial Sepsis Screen: Does the patient meet any 2 criteria? Altered Mental Status. No. Patient's initial sepsis screen is negative. Does the patient have a suspected source of infection? No. Patient's initial sepsis screen is negative. Risk Assessment: Do you want to hurt yourself or someone else? Unable to obtain. Onset of symptoms was May 15, 2024 at 03:15. Transition of care: [facility] Trauma Activation: Not Applicable Physician: ED Physician; Name: ; Notified At: ; Arrived At: Physician: General Surgeon; Name: ; Notified At: ; Arrived At: Physician: Radiology; Name: ; Notified At: ; Arrived At: Physician: Respiratory; Name: ; Notified At: ; Arrived At: Physician: Lab; Name: ; Notified At: ; Arrived At: Stroke Activation: Physician: ED Attending; Name: ; Notified At: 04:18; Arrived At: 04:18 Physician: Mid-Level Provider; Name: ; Notified At: 04:18; Arrived At: Physician: [not used]; Name: ; Notified At: ; Arrived At: Physician: [not used]; Name: ; Notified At: ; Arrived At: Physician: [not used]; Name: ; Notified At: ; Arrived At: Historical: - Allergies: 04:23 No Known Allergies; iw - PMHx: 04:22 Alzheimer's disease; Anxiety; Hypertension; iw - Immunization history:: Adult Immunizations unknown. - Infectious Disease History:: UNABLE TO ANSWER. - Immunization history: Last tetanus immunization: unknown. - Family history:: not pertinent. - Social history:: Smoking status: unknown. Screenin:14 [facility] ED Fall Risk Assessment (Adult) History of falling in the last 3 months, vc1 including since admission Yes- physiologic fall (2 pts) Confusion or Disorientation Yes (5 pts) Intoxicated or Sedated No (0 pts) Impaired Gait Yes (1 pt) Mobility Assist Device Used No (0 pt) Altered Elimination Yes (1 pt) Score/Fall Risk Level 3 or more points = High Risk Oriented to surroundings, Maintained a safe environment, Educated pt \T\ family on fall prevention, incl call for assistance when getting out of bed, Assessed \T\ reinforced patient's understanding of fall precautions, Provided non-skid footwear, Hourly rounding (assess needs \T\ fall precautionary measures) done. Abuse screen: Denies threats or abuse. Nutritional screening: No deficits noted. Tuberculosis screening: No symptoms or risk factors identified. Primary Survey: 05:12 NO uncontrolled hemorrhage observed. A: The client is alert. Airway: patent, Oxygen via vc1 nasal cannula at 2 liters per minute. Oral cavity: clear, Trachea midline. Breathing/Chest: Respiratory effort: grunting, Breath sounds: clear, bilaterally. Respiratory pattern: snoring, Chest inspection: symmetrical rise and fall of the chest. Circulation: Pulses: palpable right radial artery and left radial artery. Skin color: pink, Skin temperature: warm, dry, Cardiac rhythm: sinus rhythm. Disability LEFT pupil: 2 mm RIGHT pupil: 2 mm. Exposure/Environment: All clothing and personal items were removed. Forensic evidence collection is not deemed to be indicated at this time. Items placed in patient belonging bag. There is no evidence of uncontrolled external bleeding. No obvious injuries are noted at this time. A warming method has been applied: A warm blanket has been provided to the patient. Reassessment Alertness and Airway: Airway Patent Breathing: Respiratory effort Grunting Breath sounds Clear Respiratory pattern Snoring Chest inspection Symmetrical Circulation: Heart rhythm Sinus rhythm Pulses Palpable Color [place] Temperature Warm Dry Disability: Pupils LEFT pupil: 2mm RIGHT pupil: 2mm Alert. Assessment: 04:13 VAN Scoring: Arm Drift: Flaccid/no antigravity vc1 04:13 General: Appears distressed, uncomfortable, Behavior is unresponsive. Pain: Unable to vc1 use pain scale. Does not appear to understand pain scale. Patient is unresponsive. Neuro: Level of Consciousness is stuporous, Oriented to none [employer] are weak on right Paralysis in right arm(s) leg(s) Speech GROANING. Pupils are pinpoint. EENT: PUPILS PINPOINT. Cardiovascular: Heart tones S1 S2 present Patient's skin is warm and dry. Respiratory: Airway is patent Respiratory effort is even, unlabored, Respiratory pattern is symmetrical, snoring Breath sounds are clear bilaterally. GI: Abdomen is round non-distended, Bowel sounds present X 4 quads. Abd is soft. : No deficits noted. Derm: Skin is fragile, Skin is normal, Wound noted RIGHT ELBOW BRUISING, RIGHT Hand bruise, left cheek laceration, bruise above right eyebrow. Musculoskeletal: No deficits noted. 04:19 Reassessment: pt transported to Ct via stretcher with Ana KELLY. iw 04:30 [place] Swallow Protocol Exclusion Criteria: Unable to remain alert for testing: Yes 3 oz vc1 Water Swallow Challenge:. TNKase (Tenecteplase) Screening: Contraindications: Intracranial hemorrhage and its risk factor and suspicion of subarachnoid bleed: Yes. Vital Signs: 04:14 Temp 97; Weight 96.16 kg; vc1 04:39 BP 243 / 104; Pulse 100; Resp 18; Pulse Ox 100% ; Weight 96.16 kg; vc1 05:30 BP 176 / 98; Pulse 103; Resp 20; Pulse Ox 97% on 2 lpm NC; vc1 05:30 BP 176 / 98; Pulse 103; vc1 05:30 BP 176 / 98; Pulse 103; Resp 20; Pulse Ox 98% on 2 lpm NC; vc1 05:45 BP 196 / 84; Pulse 94; Resp 18; Pulse Ox 97% on 2 lpm NC; vc1 06:00 BP 194 / 86; Pulse 91; Resp 19; Pulse Ox 99% ; vc1 06:00 BP 194 / 86; Pulse 91; Resp 17; Pulse Ox 99% on 2 lpm NC; vc1 06:15 BP 196 / 85; Pulse 103; Resp 24; Pulse Ox 100% on 2 lpm NC; vc1 06:30 BP 208 / 83; Pulse 103; Resp 21; Pulse Ox 100% on 2 lpm NC; vc1 06:30 BP 208 / 83; Pulse 101; Resp 21; Pulse Ox 99% on 2 lpm NC; vc1 06:45 BP 182 / 71; Pulse 97; Resp 18; Pulse Ox 100% on 2 lpm NC; vc1 07:01 BP 182 / 71; Pulse 97; Resp 18; Pulse Ox 100% on 2 lpm NC; vc1 07:01 BP 163 / 72; Pulse 103; Resp 21; Pulse Ox 97% on 2 lpm NC; vc1 07:16 BP 150 / 79; Pulse 111; Resp 18; Pulse Ox 99% ; ph Hailee Coma Score: 04:14 Eye Response: to pain(2). Motor Response: withdraws from pain(4). Verbal Response: vc1 incomprehensible(2). Total: 8. 06:46 Eye Response: to voice(3). Motor Response: obeys commands(6). Verbal Response: sp4 incomprehensible(2). Total: 11. Trauma Score (Adult): 04:14 Eye Response: to pain(0); Verbal Response: incomprehensible(0); Motor Response: vc1 withdraws from pain(1); Systolic BP: > 89 mm Hg(4); Respiratory Rate: 10 to 29 per min(4); Hailee Score: 8; Trauma Score: 9 NIH Stroke Scale Scores: 06:31 NIHSS Score: 24 vc1 06:46 NIHSS Score: 23 sp4 ED Course: 04:14 Arm band placed on right wrist. vc1 04:14 Patient has correct armband on for positive identification. Placed in gown. Bed in low vc1 position. Call light in reach. Side rails up X2. tank car cleaner on. Pulse ox on. NIBP on. 04:14 Oxygen administration via nasal cannula \T\ 2L/min. Thermoregulation: warm blanket given vc1 to patient. 04:14 Inserted saline lock: 20 gauge in left antecubital area, using aseptic technique. Blood vc1 collected. Flushed with 10 mL NS. 04:17 Patient arrived in ED. [id number] 04:18 Tone Mckeon MD is Attending Physician. sp4 04:31 CT Stroke Brain w/o Contrast In Process Unspecified. EDMS 04:43 Ana Marquez, RBOIN is Primary Nurse. vc1 04:45 [place] cath inserted, using sterile technique, 16 Fr., returned clear yellow urine. vc1 Patient tolerated well. 04:53 [facility] called to initiate patient transfer, spoke to samuel. ty 04:[address] Mckeon, family advised patient is DNR and to not resume transfer. ty 05:00 Triage completed. ss 05:01 [facility] contacted to update transfer status (cancelled). ty 05:18 Stroke CXR 1 View In Process Unspecified. EDMS 06:40 Hector Pedroza MD is Hospitalizing Provider. sp4 Administered Medications: 04:49 Drug: NS 0.9% IV 1000 ml IV at 75 ml/hr continuous Route: IV; Rate: 75 ml/hr; Site: vc1 right wrist; 05:00 Drug: niCARdipine IV 5 mg/hr IV at calculated rate See Administration Instructions; vc1 (Standard concentration 25 mg / 250 mL NS); Recommended max rate 15 mg/hr; Titrate 2.5 mg/hr as often as every 15 minutes to achieve goal (see titration policy); Goal parameter SBP less than 160 mmHg Route: IV; Rate: calculated rate; Site: left antecubital; 05:30 Follow up: BP 176 / 98; Pulse 103 bpm; Resp 20 bpm; Pulse Ox 97% 2 lpm Nasal Cannula; vc1 Rate change 7.5 mg/hr 06:00 Follow up: BP 194 / 86; Pulse 91 bpm; Resp 19 bpm; Pulse Ox 99% ; Rate change 10 mg/hr vc1 06:30 Follow up: BP 208 / 83; Pulse 103 bpm; Resp 21 bpm; Pulse Ox 100% 2 lpm Nasal Cannula; vc1 Rate change 12.5 mg/hr 07:01 Follow up: BP 182 / 71; Pulse 97 bpm; Resp 18 bpm; Pulse Ox 100% 2 lpm Nasal Cannula; vc1 Rate change 15 mg/hr 05:05 Drug: Ondansetron IVP 4 mg IVP once; over 2 minutes Route: IVP; Site: right forearm; vc1 06:09 Follow up: Response: No adverse reaction vc1 05:07 Drug: morphine IVP or IV 4 mg IVP once over 4 mins Route: IVP; Infused Over: 4 mins; vc1 Site: right forearm; 06:09 Follow up: Response: No adverse reaction vc1 05:26 Drug: hydrALAZINE IVP 20 mg IVP once Route: IVP; Site: right forearm; vc1 05:30 Follow up: BP 176 / 98; Pulse 103 bpm vc1 05:27 CANCELLED (DNI/DNRr): mg IVP once vc1 05:27 CANCELLED (DNI/DNRr): [id number] mg IVP once vc1 05:55 Drug: Geodon IM 20 mg IM once Route: IM; Site: right vastus lateralis; vc1 06:05 Drug: Ondansetron IVP 4 mg IVP once; over 2 minutes Route: IVP; Site: right forearm; vc1 06:34 Follow up: Response: No adverse reaction vc1 07:14 Drug: Lidocaine Infiltration (1 %) 20 ml 20 ml Infiltration once; to bedside Volume: 20 ph ml; Route: Infiltration; Medication: 05:46 VIS not applicable for this client. vc1 Point of Care Testing: Blood Glucose: 04:12 Blood Glucose: 102 mg/dL; vc1 Ranges: Outcome: 06:42 Decision to Hospitalize by Provider. sp4 06:55 Pt is a DNR/DNI will be admitted to hospital Patient's length of stay extended due to vc1 08:21 Patient left the ED. NIH Stroke Scale - NIH Stroke Score Date: 05/15/2024 Time: 06:31 Total Score = 24 10. Dysarthria (speech clarity - read or repeat words) - 2(Severe) 11. Extinction and Inattention (visual/tactile/auditory/spatial/personal) - 0(No abnormality) 1a. Level of Consciousness (LOC) - 1(Not Alert) 1b. Level of Consciousness (LOC) (Month \T\ Age) - 2(Neither) 1c. LOC Commands (Open \T\ Closes Eyes/Log Feeder) - 2(Neither) 2. Best Gaze (Lateral Gaze Paresis) - 1(Partial gaze palsy) 3. Visual Field Loss - 1(Partial hemianopia) 4. Facial Palsy - 2(Partial paralysis) 5a. Left Arm: Motor (10-second hold) - 0(No drift) 5b. Right Arm: Motor (10-second hold) - 4(No movement) 6a. Left Leg: Motor (5-second hold - always test supine) - 0(No drift) 6b. Right Leg: Motor (5-second hold - always test supine) - 4(No movement) 7. Limb Ataxia (finger/nose \T\ heel/dunn - test with eyes open) - 0(Absent) 8. Sensory Loss (pinprick arms/legs/face) - 2(Severe to total loss) 9. Best Language: Aphasia (description/naming/reading) - 3(Mute, global aphasia) Initials: vc1 NIH Stroke Scale - NIH Stroke Score Date: 05/15/2024 Time: 06:46 Total Score = 23 10. Dysarthria (speech clarity - read or repeat words) - 2(Severe) 11. Extinction and Inattention (visual/tactile/auditory/spatial/personal) - 0(No abnormality) 1a. Level of Consciousness (LOC) - 1(Not Alert) 1b. Level of Consciousness (LOC) (Month \T\ Age) - 2(Neither) 1c. LOC Commands (Open \T\ Closes Eyes/Log Feeder) - 2(Neither) 2. Best Gaze (Lateral Gaze Paresis) - 1(Partial gaze palsy) 3. Visual Field Loss - 0(No visual loss) 4. Facial Palsy - 2(Partial paralysis) 5a. Left Arm: Motor (10-second hold) - 0(No drift) 5b. Right Arm: Motor (10-second hold) - 4(No movement) 6a. Left Leg: Motor (5-second hold - always test supine) - 0(No drift) 6b. Right Leg: Motor (5-second hold - always test supine) - 4(No movement) 7. Limb Ataxia (finger/nose \T\ heel/dunn - test with eyes open) - 0(Absent) 8. Sensory Loss (pinprick arms/legs/face) - 2(Severe to total loss) 9. Best Language: Aphasia (description/naming/reading) - 3(Mute, global aphasia) Initials: sp4 Signatures: Dispatcher [employer] EDMS Venita Lloyd RN RN Karie Maria RN RN Elen Vela RN RN Lizbet Mai Ana Marquez RN RN vc1 Tone Mckeon MD MD sp4 Chad Kim Corrections: (The following items were deleted from the chart) 06:33 04:13 NIHSS Score: 23 vc1 vc1 07:01 06:45 BP 196 / 84; Pulse 94 bpm; Resp 19 bpm; Pulse Ox 97% 2 lpm Nasal Cannula; vc1 Rate change 15 mg/hr vc1
--- NOTE | 2024-05-15 06:42 | EDPHYS ---
Physician Documentation [facility] Name: Brett Love Age: 88 yrs Sex: Male : 1935 Arrival Date: 05/15/2024 Time: 04:14 Bed 4 Private MD: ED Physician Tone Mckeon HPI: 05/15 04:20 This 88 yrs old Male presents to ER via Unassigned with complaints of Fall sp4 Injury. 06:42 88-year-old male presents with altered mental status from assisted living facility. MS sp4 reported patient was found on the floor by left cheek laceration nonverbal altered mentation. On arrival patient has dense right-sided hemiparesis. . Historical: - Allergies: 04:23 No Known Allergies; iw - PMHx: 04:22 Alzheimer's disease; Anxiety; Hypertension; iw - Immunization history:: Adult Immunizations unknown. - Infectious Disease History:: UNABLE TO ANSWER. - Immunization history: Last tetanus immunization: unknown. - Family history:: not pertinent. - Social history:: Smoking status: unknown. ROS: 06:42 Constitutional: Full ROS is not available sp4 06:42 All other systems are negative, 06:42 Unable to obtain ROS due to altered mental status, Exam: 05:07 ECG was reviewed by the Attending Physician. EKG at 0 442 sinus rhythm at the rate of sp4 74, no ST elevation or depression, otherwise infrequent PVCs 06:43 Constitutional: Currently debilitated male, acute dense right-sided hemiparesis, sp4 altered mental status, nonverbal at this time, sonorous respirations Head/Face: Normocephalic, There is left cheeck 3 cm laceration from presumed fall Eyes: Pupils equal round and reactive to light, extra-ocular motions intact. Lids and lashes normal. Conjunctiva and sclera are not injected. Cornea within normal limits. Periorbital areas with no swelling, redness, or edema. ENT: Nares patent. No nasal discharge, no septal abnormalities noted. Tympanic membranes are normal and external auditory canals are clear. Oropharynx with no redness, swelling, or masses, exudates, or evidence of obstruction, uvula midline. Mucous membranes moist. Neck: Trachea midline, no thyromegaly or masses palpated, and no cervical lymphadenopathy. Supple, full range of motion without nuchal rigidity, or vertebral point tenderness. Chest/axilla: Normal chest wall appearance and motion. Nontender with no deformity. No lesions are appreciated. Cardiovascular: Regular rate and rhythm with a normal S1 and S2. No gallops, murmurs, or rubs. Normal PMI, no JVD. No pulse deficits. Respiratory: Lungs have equal breath sounds bilaterally, clear to auscultation and percussion. No rales, rhonchi or wheezes noted. No increased work of breathing, no retractions or nasal flaring. Abdomen/GI: Soft, with normal bowel sounds. No distension or tympany. No guarding or rebound. No evidence of tenderness throughout. Back: No spinal tenderness. No costovertebral tenderness. Male : Normal genitalia with no discharge or lesions. Uncircumcised male Skin: Warm, dry with normal turgor. Normal color with no rashes, no lesions, and no evidence of cellulitis. MS/ Extremity: Pulses equal, no cyanosis. Neurovascular intact. Right hemiparesis, pulses intact Neuro: Awake , Follows commands, Dense Right hemiparesis , Right arm and leg 0/5. Left arm and leg 5/5 Vital Signs: 04:14 Temp 97; Weight 96.16 kg; vc1 04:39 BP 243 / 104; Pulse 100; Resp 18; Pulse Ox 100% ; Weight 96.16 kg; vc1 05:30 BP 176 / 98; Pulse 103; Resp 20; Pulse Ox 97% on 2 lpm NC; vc1 05:30 BP 176 / 98; Pulse 103; vc1 05:30 BP 176 / 98; Pulse 103; Resp 20; Pulse Ox 98% on 2 lpm NC; vc1 05:45 BP 196 / 84; Pulse 94; Resp 18; Pulse Ox 97% on 2 lpm NC; vc1 06:00 BP 194 / 86; Pulse 91; Resp 19; Pulse Ox 99% ; vc1 06:00 BP 194 / 86; Pulse 91; Resp 17; Pulse Ox 99% on 2 lpm NC; vc1 06:15 BP 196 / 85; Pulse 103; Resp 24; Pulse Ox 100% on 2 lpm NC; vc1 06:30 BP 208 / 83; Pulse 103; Resp 21; Pulse Ox 100% on 2 lpm NC; vc1 06:30 BP 208 / 83; Pulse 101; Resp 21; Pulse Ox 99% on 2 lpm NC; vc1 06:45 BP 182 / 71; Pulse 97; Resp 18; Pulse Ox 100% on 2 lpm NC; vc1 07:01 BP 182 / 71; Pulse 97; Resp 18; Pulse Ox 100% on 2 lpm NC; vc1 07:01 BP 163 / 72; Pulse 103; Resp 21; Pulse Ox 97% on 2 lpm NC; vc1 07:16 BP 150 / 79; Pulse 111; Resp 18; Pulse Ox 99% ; ph NIH Stroke Scale Scores: 06:31 NIHSS Score: 24 vc1 06:46 NIHSS Score: 23 sp4 [place] Score: 04:14 Eye Response: to pain(2). Motor Response: withdraws from pain(4). Verbal Response: vc1 incomprehensible(2). Total: 8. 06:46 Eye Response: to voice(3). Motor Response: obeys commands(6). Verbal Response: sp4 incomprehensible(2). Total: 11. Trauma Score (Adult): 04:14 Eye Response: to pain(0); Verbal Response: incomprehensible(0); Motor Response: vc1 withdraws from pain(1); Systolic BP: > 89 mm Hg(4); Respiratory Rate: 10 to 29 per min(4); [place] Score: 8; Trauma Score: 9 Laceration: 07:24 Wound Repair of 2cm ( 0.8in ) subcutaneous laceration to left cheek. Linear shaped.. sp4 Hemostasis noted.. Distal neuro/vascular/tendon intact. Anesthesia: Wound infiltrated with 10 mls of 1% lidocaine. Wound prep: Moderate cleansing by me, Copious irrigation. Skin closed with 4 6-0 Prolene using interrupted sutures and sterile technique. Dressed with Left to air . Patient tolerated well. MDM: 04:20 Patient medically screened. sp4 05:09 ED course: PROCEDURE: CT Head Without Intravenous Contrast CLINICAL INDICATION: The sp4 patient is 88 years old and is Male; STROKE ALERT Bed Name: 4 TECHNIQUE: Axial computed tomography images of the head/brain without intravenous contrast. Sagittal and coronal reformatted images were created and reviewed. This CT exam was performed using one or more of the following dose reduction techniques: automated exposure control, adjustment of the mA and/or kV according to patient size, and/or use of iterative reconstruction technique. COMPARISON: No relevant prior studies available. FINDINGS: BRAIN: Intraparenchymal hematoma measuring approximately 2.2 x 2.4 x 3.2 cm (8.45mL in volume) demonstrated within the posterior left basal ganglia, including the posterior aspect of the left thalamus, with mild surrounding white matter edema. Mild bilateral periventricular and basal white matter microangiopathic changes. No significant associated mass effect. No midline shift or adjacent sulcal effacement. No additional sites of intracranial hemorrhage. No focal [place]illa-white matter differentiation abnormality. No transtentorial herniation. MIDLINE SHIFT: None. VENTRICLES: Unremarkable No ventriculomegaly. BONES/JOINTS: No fracture of the calvarium or visualized facial bones. SOFT TISSUES: Unremarkable SINUSES: No masses, bony erosion or evidence of acute sinusitis. MASTOID AIR CELLS: Unremarkable as visualized. No mastoid effusion. IMPRESSION: 1. Intraparenchymal hematoma measuring approximately 2.2 x 2.4 x 3.2 cm (8.45 mL in volume) demonstrated within the posterior left basal ganglia, including the posterior aspect of the left thalamus, with mild surrounding white matter edema. Hypertensive etiology favored. 2. No significant associated mass effect. No midline shift or transtentorial herniation. Dr. Grover discussed these critical findings with Tone Mckeon MD via telephone at approximately 05:50 hours EST on 05/15/2024. . 06:39 Differential diagnosis: abrasion, closed head injury, contusion, fracture, laceration, sp4 multiple trauma, sprain, strain. Data reviewed: vital signs, nurses notes, EMS record, old medical records, lab test result(s), EKG, radiologic studies, CT scan, plain films. Consideration of Admission/Observation Patient was admitted/placed on observation. Escalation of care including admission/observation considered. Management of patient was discussed with the following: Primary Care Provider: Yovany SAMANIEGO . ED course: XR CHEST 1 VIEW CLINICAL INDICATION: Altered mental status. COMPARISON: XR Chest 10/14/2023. FINDINGS: SUPPORT DEVICES: None LUNGS/PLEURAL SPACES: Lungs are hypoinflated. Prominent interstitial markings in both lungs could represent vascular congestion or pneumonitis. No pleural effusion. No pneumothorax. HEART/MEDIASTINUM: Stable. BONES/UPPER ABDOMEN/SOFT TISSUES: No acute findings. IMPRESSION: Prominent interstitial markings could represent vascular congestion or pneumonitis.. ED course: Patient Was discussed with primary care physician since family and confirmed to have a DNR/DNI.. Patient will be admitted to ICU with IV nicardipine for blood pressure control. . 07:25 ED course: Son has arrived to the emergency room and requested comfort care only, sp4 Requested Hospice . 05/15 04:19 Order name: Basic Metabolic Panel; Complete Time: 06:50 sp4 05/15 04:19 Order name: CBC with Diff; Complete Time: 06:50 sp4 05/15 04:19 Order name: Hepatic Function; Complete Time: 06:50 sp4 05/15 04:19 Order name: High Sensitivity Troponin; Complete Time: 06:50 sp4 05/15 04:19 Order name: Magnesium; Complete Time: 06:50 05/15 04:19 Order name: Protime (+inr); Complete Time: 04:45 sp4 05/15 04:19 Order name: Ptt, Activated; Complete Time: 04:45 sp4 05/15 04:19 Order name: UDS; Complete Time: 06:50 sp4 05/15 04:19 Order name: Alcohol Level; Complete Time: 06:50 05/15 04:20 Order name: TSH; Complete Time: 06:50 4 05/15 04:20 Order name: T4 Free; Complete Time: 06:50 sp05/15 04:21 Order name: glucometer results - FOR PT WITH NO ID; Complete Time: 04:32 iw 05/15 04:19 Order name: CT Stroke Brain w/o Contrast 4 05/15 04:19 Order name: Stroke CXR 1 View 05/15 04:19 Order name: Call for Old Records; Complete Time: 06:51 05/15 04:19 Order name: Accucheck; Complete Time: 05:27 05/15 04:19 Order name: Cardiac monitoring; Complete Time: 05:27 05/15 04:19 Order name: EKG - Nurse/Tech; Complete Time: 05:27 05/15 04:19 Order name: IV Saline Lock; Complete Time: 05:27 4 05/15 04:19 Order name: Labs collected and sent; Complete Time: 05:27 05/15 04:19 Order name: NPO; Complete Time: 05:27 sp 05/15 04:19 Order name: O2 Per Protocol; Complete Time: 05: sp4 05/15 04:19 Order name: O2 Sat Monitoring; Complete Time: sp4 05/15 04:19 Order name: Stroke Swallow Screen; Complete Time: : sp4 05/15 04:19 Order name: [place]; Complete Time: 04:43 sp4 EC:07 Rate is 74 beats/min. Rhythm is regular, Sinus Rhythm with Unifocal PVCs. QRS [place] is sp4 Normal. [place] interval is normal. QRS interval is normal. QT interval is normal. No Q waves. T waves are Normal. No ST changes noted. Clinical impression: No evidence of ischemia. Interpreted by me. Reviewed by me. Administered Medications: 04:49 Drug: NS 0.9% IV 1000 ml IV at 75 ml/hr continuous Route: IV; Rate: 75 ml/hr; Site: vc1 right wrist; 05:00 Drug: niCARdipine IV 5 mg/hr IV at calculated rate See Administration Instructions; vc1 (Standard concentration 25 mg / 250 mL NS); Recommended max rate 15 mg/hr; Titrate 2.5 mg/hr as often as every 15 minutes to achieve goal (see titration policy); Goal parameter SBP less than 160 mmHg Route: IV; Rate: calculated rate; Site: left antecubital; 05:30 Follow up: BP 176 / 98; Pulse 103 bpm; Resp 20 bpm; Pulse Ox 97% 2 lpm Nasal Cannula; vc1 Rate change 7.5 mg/hr 06:00 Follow up: BP 194 / 86; Pulse 91 bpm; Resp 19 bpm; Pulse Ox 99% ; Rate change 10 mg/hr vc1 06:30 Follow up: BP 208 / 83; Pulse 103 bpm; Resp 21 bpm; Pulse Ox 100% 2 lpm Nasal Cannula; vc1 Rate change 12.5 mg/hr 07:01 Follow up: BP 182 / 71; Pulse 97 bpm; Resp 18 bpm; Pulse Ox 100% 2 lpm Nasal Cannula; vc1 Rate change 15 mg/hr 05:05 Drug: Ondansetron IVP 4 mg IVP once; over 2 minutes Route: IVP; Site: right forearm; vc1 06:09 Follow up: Response: No adverse reaction vc1 05:07 Drug: morphine IVP or IV 4 mg IVP once over 4 mins Route: IVP; Infused Over: 4 mins; vc1 Site: right forearm; 06:09 Follow up: Response: No adverse reaction vc1 05:26 Drug: hydrALAZINE IVP 20 mg IVP once Route: IVP; Site: right forearm; vc1 05:30 Follow up: BP 176 / 98; Pulse 103 bpm vc1 05:27 CANCELLED (DNI/DNRr): [id number] mg IVP once vc1 05:27 CANCELLED (DNI/DNRr): [id number] mg IVP once vc1 05:55 Drug: Geodon IM 20 mg IM once Route: IM; Site: right vastus lateralis; vc1 06:05 Drug: Ondansetron IVP 4 mg IVP once; over 2 minutes Route: IVP; Site: right forearm; vc1 06:34 Follow up: Response: No adverse reaction vc1 07:14 Drug: Lidocaine Infiltration (1 %) 20 ml 20 ml Infiltration once; to bedside Volume: 20 ph ml; Route: Infiltration; Point of Care Testing: Blood Glucose: 04:12 Blood Glucose: 102 mg/dL; vc1 Ranges: Critical Glucose Levels:Adult <50 mg/dl or >400 mg/dl <40 mg/dl or >180 mg/dl Disposition Summary: 05/15/24 06:42 Hospitalization Ordered Notes: Hospitalization Status: Inpatient Admission sp4 Provider: Hector Pedroza Location: Intensive Care Unit sp4 Condition: Critical sp4 Problem: new sp4 Symptoms: are unchanged sp4 Bed/Room Type: Standard sp4 Room Assignment: 3-(05/15/24 06:57) eb Diagnosis - Acute Hemorrhagic CVA, left basal ganglia hemorrhage , hypertensive emergency, sp4 altered mental status , agitation requiring sedation, respiratory depression Forms: - Medication Reconciliation Form sp4 - SBAR form sp4 - Leadership Thank You Letter sp4 Critical care time excluding procedures: 06:40 Critical care time: Bedside Care: 36 minutes, Consultation: 12 minutes, Family sp4 Intervention: 12 minutes. Total time: 60 minutes NIH Stroke Scale - NIH Stroke Score Date: 05/15/2024 Time: 06:31 Total Score = 24 10. Dysarthria (speech clarity - read or repeat words) - 2(Severe) 11. Extinction and Inattention (visual/tactile/auditory/spatial/personal) - 0(No abnormality) 1a. Level of Consciousness (LOC) - 1(Not Alert) 1b. Level of Consciousness (LOC) (Month \T\ Age) - 2(Neither) 1c. LOC Commands (Open \T\ Closes Eyes/Parish Visitor) - 2(Neither) 2. Best Gaze (Lateral Gaze Paresis) - 1(Partial gaze palsy) 3. Visual Field Loss - 1(Partial hemianopia) 4. Facial Palsy - 2(Partial paralysis) 5a. Left Arm: Motor (10-second hold) - 0(No drift) 5b. Right Arm: Motor (10-second hold) - 4(No movement) 6a. Left Leg: Motor (5-second hold - always test supine) - 0(No drift) 6b. Right Leg: Motor (5-second hold - always test supine) - 4(No movement) 7. Limb Ataxia (finger/nose \T\ heel/dunn - test with eyes open) - 0(Absent) 8. Sensory Loss (pinprick arms/legs/face) - 2(Severe to total loss) 9. Best Language: Aphasia (description/naming/reading) - 3(Mute, global aphasia) Initials: vc1 NIH Stroke Scale - NIH Stroke Score Date: 05/15/2024 Time: 06:46 Total Score = 23 10. Dysarthria (speech clarity - read or repeat words) - 2(Severe) 11. Extinction and Inattention (visual/tactile/auditory/spatial/personal) - 0(No abnormality) 1a. Level of Consciousness (LOC) - 1(Not Alert) 1b. Level of Consciousness (LOC) (Month \T\ Age) - 2(Neither) 1c. LOC Commands (Open \T\ Closes Eyes/Parish Visitor) - 2(Neither) 2. Best Gaze (Lateral Gaze Paresis) - 1(Partial gaze palsy) 3. Visual Field Loss - 0(No visual loss) 4. Facial Palsy - 2(Partial paralysis) 5a. Left Arm: Motor (10-second hold) - 0(No drift) 5b. Right Arm: Motor (10-second hold) - 4(No movement) 6a. Left Leg: Motor (5-second hold - always test supine) - 0(No drift) 6b. Right Leg: Motor (5-second hold - always test supine) - 4(No movement) 7. Limb Ataxia (finger/nose \T\ heel/dunn - test with eyes open) - 0(Absent) 8. Sensory Loss (pinprick arms/legs/face) - 2(Severe to total loss) 9. Best Language: Aphasia (description/naming/reading) - 3(Mute, global aphasia) Initials: sp4 Signatures: Dispatcher [employer] EDMS Venita Lloyd RN RN Elen Vela RN RN Sofia Pinon Vanessa, RN RN 1 Tone Mckeon MD MD sp4 Corrections: (The following items were deleted from the chart) 04:20 04:19 BASIC METABOLIC PANEL+C.LAB.BRZ ordered. EDMS EDMS 04:20 04:20 CBC+H.LAB.BRZ ordered. EDMS EDMS 04:20 04:20 HEPATIC FUNCTION+C.LAB.BRZ ordered. EDMS EDMS 04:20 04:20 Troponin High Sensitivity+C.LAB.BRZ ordered. EDMS EDMS 04:20 04:20 MAGNESIUM+C.LAB.BRZ ordered. EDMS EDMS 04:20 04:20 PROTIME (+INR)+COAG.LAB.BRZ ordered. EDMS EDMS 04:20 04:20 PTT, ACTIVATED+COAG.LAB.BRZ ordered. EDMS EDMS 04:20 04:20 URINE DRUG SCREEN+UC.LAB.BRZ ordered. EDMS EDMS 04:20 04:20 CT-STROKE BRAIN W/O CONTRAST+CT.RAD.BRZ ordered. EDMS EDMS 04:20 04:20 Chest Single View+RAD.RAD.BRZ ordered. EDMS EDMS 04:20 04:20 ETHANOL+C.LAB.BRZ ordered. EDMS EDMS 05:26 04:48 NG Tube ordered. sp4 vc1 05:26 04:48 Intubation Setup ordered. sp4 vc1 05:27 04:47 Etomidate IVP 20 mg IVP once ordered. sp4 vc1 05:27 04:48 Rocuronium IVP 100 mg IVP once ordered. sp4 vc1 06:47 05:42 NIHSS Score: 20 sp4 sp4 06:47 06:43 Constitutional: Currently debilitated male, acute dense right-sided sp4 hemiparesis, altered mental status, nonverbal at this time, sonorous respirations Head/Face: Normocephalic, There is left cheeck 3 cm laceration from presumed fall Eyes: Pupils equal round and reactive to light, extra-ocular motions intact. Lids and lashes normal. Conjunctiva and sclera are not injected. Cornea within normal limits. Periorbital areas with no swelling, redness, or edema. ENT: Nares patent. No nasal discharge, no septal abnormalities noted. Tympanic membranes are normal and external auditory canals are clear. Oropharynx with no redness, swelling, or masses, exudates, or evidence of obstruction, uvula midline. Mucous membranes moist. Neck: Trachea midline, no thyromegaly or masses palpated, and no cervical lymphadenopathy. Supple, full range of motion without nuchal rigidity, or vertebral point tenderness. Chest/axilla: Normal chest wall appearance and motion. Nontender with no deformity. No lesions are appreciated. Cardiovascular: Regular rate and rhythm with a normal S1 and S2. No gallops, murmurs, or rubs. Normal PMI, no JVD. No pulse deficits. Respiratory: Lungs have equal breath sounds bilaterally, clear to auscultation and percussion. No rales, rhonchi or wheezes noted. No increased work of breathing, no retractions or nasal flaring. Abdomen/GI: Soft, with normal bowel sounds. No distension or tympany. No guarding or rebound. No evidence of tenderness throughout. Back: No spinal tenderness. No costovertebral tenderness. Male : Normal genitalia with no discharge or lesions. Uncircumcised male Skin: Warm, dry with normal turgor. Normal color with no rashes, no lesions, and no evidence of cellulitis. MS/ Extremity: Pulses equal, no cyanosis. Neurovascular intact. Right hemiparesis, pulses intact Neuro: Awake , Follows commands, Dense Right hemiparesis sp4 06:57 06:42 sp4 eb
[2024-05-15] MEDS ORDERED: ONDANSETRON 4 MG/2 ML VIAL IV PRN (08:43)
[2024-05-15] MEDS ORDERED: ALBUTEROL 2.5 MG/3 ML NEB SOL NEB PRN (08:43)
[2024-05-15] MEDS ORDERED: Nicardipine/NS 25 MG/250 ML KIT IV SCH (08:43)
[2024-05-15] MEDS ORDERED: ACETAMINOPHEN 650MG/RECT SUPP PR PRN (08:43)
[2024-05-15] MEDS: METOPROLOL TARTRATE 5 MG/5 ML INJ IV SCH (09:49)
[2024-05-15] MEDS: D5 0.45 NS 1,000 ML IV SCH ×2 (09:49→17:50)
[2024-05-15] MEDS: NITROGLYCERIN 0.4 MG/HR (10 MG) PATCH TD SCH (09:50)
[2024-05-15 10:56] VITALS: BMI 29.8
[2024-05-15 12:42] LABS: Specific Gravity 1.025 (1.005-1.030); Sqamous Epithelial <5 /HPF (None Seen); Urine Bacteria None Seen /HPF (<20); Urine Bilirubin NEGATIVE (Negative); Urine Blood 3+ (OVER) (Negative); Urine Clarity Extremely Turbid (Clear); Urine Color Orange (Yellow); Urine Culture Reflex Order REFLEXED; Urine Glucose NEGATIVE (Negative); Urine Ketones NEGATIVE (Negative); Urine Microscopic Reflex YN ORDER UMIC; Urine Mucus 4+ /HPF (None Seen); Urine Nitrite NEGATIVE (Negative); Urine Protein 3+ (Negative); Urine RBC >50 /HPF (None Seen); Urine Urobilinogen 1+ (Normal); Urine WBC >50 /HPF (<5); Urine Yeast (Budding) Trace /HPF (None Seen)
[2024-05-15] MEDS: ZIPRASIDONE MESYLA 20 MG/VIAL IM PRN (16:20)
[2024-05-15] MEDS: WATER FOR INJ,STERILE 10 ML IM PRN (16:21)
--- NOTE | 2024-05-15 17:09 | P.HP ---
Patient History Date of Service: 05/15/24 Reason for admission: stroke History of Present Illness: CHARO IS A PATIENT WITH HTN WHO COMES WITH ACUTE WEAKNESS ON R SIDE OF BODY. HE HAS BASAL GANGLIA HEMORRHAGE. HE HAS DNR STATUS AND SON WAS CALLED THIS AM. I SAW PATIENT IN ER AND SON WAS AT BEDSIDE. HE HAS HAD MANY MEDICAL ISSUES LIKE SEVERE ARTHRITIS, HTN, DEMENTIA, SEVERE ANXIETY ETC AND HE WAS SUFFERING A LOT BEFORE STROKE. Allergies No Known Allergies Allergy (Verified 11/08/21 10:13) Home medications list reviewed: Yes Home Medications: Acetaminophen [Tylenol Extra Strength] 1 tab PO Q8H PRN 05/15/24 Acetaminophen [Tylenol Extra Strength] 2 tab PO BID PRN 05/15/24 Amlodipine [Norvasc*] 5 mg PO DAILY 05/15/24 Brexpiprazole [Rexulti] 0.5 mg PO DAILY 05/15/24 Clotrim/Betameth Cream [Lotrisone Cream*] 1 appl TOP BID 05/15/24 Donepezil HCl [Aricept] 10 mg PO DAILY 05/15/24 Duloxetine HCl 30 mg PO DAILY 05/15/24 Levothyroxine [Synthroid] 75 mcg PO [id number] 05/15/24 Minoxidil 10 mg PO TID 05/15/24 Montelukast [Singulair*] 10 mg PO DAILY 05/15/24 Pantoprazole Sodium [Protonix] 1 tab PO DAILY 05/15/24 Propranolol HCl [Propranolol HCl ER] 1 cap PO DAILY 05/15/24 Ropinirole HCl 0.5 mg PO TID 05/15/24 Tramadol HCl [Ultram] 1 tab PO Q8HR PRN 05/15/24 Trazodone [Desyrel*] 50 mg PO BEDTIME 05/15/24 Ubidecarenone [Coenzyme Q10*] 1 cap PO DAILY 05/15/24 lisinopriL [Lisinopril] 40 mg PO DAILY 05/15/24 - Past Medical/Surgical History Has patient received pneumonia vaccine in the past: Yes Diabetic: No -: Hypertension -: Depression -: CAD -: CVA -: Dementia -: Appendectomy -: Cardiac Cath - 1 stent Psychosocial/ Personal History: Patient lives at [facility]. - Family History Mother -: Cancer Notes: AA Father -: Stroke - Social History Smoking Status: Never smoker Alcohol use: No CD- Drugs: No Caffeine use: No Place of Residence: [place] Review of Systems 10-point ROS is otherwise unremarkable General: Weakness Physical Examination - Vital Signs Temperature: 97.5 F Blood Pressure: 153/73 Pulse: 95 Respirations: 14 Pulse Ox (%): 95 - Physical Exam General: Acute distress, Moderate distress, Severe distress HEENT: Atraumatic, PERRLA, Mucous membr. moist/pink, EOMI, Sclerae nonicteric Neck: Supple, 2+ carotid pulse no bruit, No LAD, Without JVD or thyroid abnormality Respiratory: Clear to auscultation bilaterally, Normal air movement Cardiovascular: Regular rate/rhythm, Normal S1 S2 Gastrointestinal: Normal bowel sounds, No tenderness Musculoskeletal: No tenderness Integumentary: No rashes Neurological: Normal gait, Other (NOT ABLE TO ANSWER QUESTIONS. ), Abnormal strength (RUL 0/5, MOVES BOTH LEGS SPONTANEOUSLY. ) Lymphatics: No axilla or inguinal lymphadenopathy - Studies Laboratory Data (last 24 hrs) 05/15/24 05/15/24 05/15/24 04:27 04:27 04:27 WBC 7.20 Hgb 13.4 L Hct 39.5 L Plt Count 359 PT 10.9 INR 0.97 APTT 34.5 Sodium 136 Potassium 4.3 BUN 13 Creatinine 0.99 Glucose 109 H Magnesium 2.2 Total Bilirubin 0.4 AST 17 ALT 20 Alkaline Phosphatase 64 Assessment and Plan - Problems (Diagnosis) (1) Brainstem hemorrhage Current Visit: Yes Status: Acute Plan: BP USUALLY GOES HIGH AFTER A STROKE OF ANY KIND IV MEDS WERE USED TO CONTROL. NOW BP IS LOWER AND THE DRIP OF NICARDINE IS OFF. I ASKED FOR LOPRESSOR IV AND NITROPATCH. NPO FOR NOW AND MOST LIKELY NH WITH HOSPICE. IF GETS WORSE WILL DO GIP AT HOSPITAL. DISCUSSED WITH SON IN DETAIL. HE AGREEES WITH ALL INCLUDING DNR STATUS PER HIS WISH. Qualifiers: Intracerebral hemorrhage etiology: nontraumatic - Advance Directives Does patient have a Living Will: Yes Does patient have a Durable POA for Healthcare: Yes
[2024-05-15] MEDS: HYDROMORPHONE HCL 1 MG/ML INJ IV PRN (17:50)
--- NOTE | 2024-05-15 19:32 | RAD REPORT ---
EXAM DESCRIPTION: CT - Ct Stroke Brain Wo Cont - 05/15/2024 7:13 am CLINICAL HISTORY: The patient is 88 years old and is Male; STROKE ALERT Bed Name: 4 TECHNIQUE: Axial computed tomography images of the head/brain without intravenous contrast. Sagitt al and coronal reformatted images were created and reviewed. This CT exam was performed using one o r more of the following dose reduction techniques: automated exposure control, adjustment of the mA and/or kV according to patient size, and/or use of iterative reconstruction technique. COMPARISON: No relevant prior studies available. FINDINGS: BRAIN: Intraparenchymal hematoma measuring approximately 2.2 x 2.4 x 3.2 cm (8.45mL in v olume) demonstrated within the posterior left basal ganglia, including the posterior aspect of the le ft thalamus, with mild surrounding white matter edema. Mild bilateral periventricular and basal white matter microangiopathic changes. No significant associated mass effect. No midline shift or adjacent sulcal effacement. No additional sites of intracranial hemorrhage. No focal mancilla-white matter differentiation abnormality. No transtentorial herniation. MIDLINE SHIFT: None. VENTRICLES: Unremarkable No ventriculomegaly. BONES/JOINTS: No fracture of the calvarium or visualized facial bones. SOFT TISSUES: Unremarkable SINUSES: No masses, bony erosion or evidence of acute sinusitis. MASTOID AIR CELLS: Unremarkable as visualized. No mastoid effusion. IMPRESSION: 1. Intraparenchymal hematoma measuring approximately 2.2 x 2.4 x 3.2 cm (8.45 mL in vo lume) demonstrated within the posterior left basal ganglia, including the posterior aspect of the lef t thalamus, with mild surrounding white matter edema. Hypertensive etiology favored. 2. No significant associated mass effect. No midline shift or transtentorial herniation. Dr. Grover discussed these critical findings with Tone Mckeon MD via telephone at approximatel y 05:50 hours EST on 05/15/2024. Electronically signed by: Juan Carlos Grover MD 05/15/2024 04:52 AM CDT RP Due to temporary technical issues with the PACS/Fluency reporting system, reports are being signed by the in house radiologists without review as a courtesy to insure prompt reporting. The interpreting radiologist is fully responsible for the content of the report.
--- NOTE | 2024-05-15 19:34 | RAD REPORT ---
EXAM DESCRIPTION: RAD - Chest Single View - 05/15/2024 5:16 am CLINICAL HISTORY: Altered mental status. COMPARISON: XR Chest 10/14/2023. FINDINGS: SUPPORT DEVICES: None LUNGS/PLEURAL SPACES: Lungs are hypoinflated. Prominent interstitial markings in both lungs could rep resent vascular congestion or pneumonitis. No pleural effusion. No pneumothorax. HEART/MEDIASTINUM: Stable. BONES/UPPER ABDOMEN/SOFT TISSUES: No acute findings. IMPRESSION: Prominent interstitial markings could represent vascular congestion or pneumonitis. Electronically signed by: Marilu Palencia MD 05/15/2024 05:56 AM CDT RP Due to temporary technical issues with the PACS/Fluency reporting system, reports are being signed by the in house radiologists without review as a courtesy to insure prompt reporting. The interpreting radiologist is fully responsible for the content of the report.
--- NOTE | 2024-05-16 09:24 | P.PN ---
Subjective Date of Service: 05/16/24 Chief Complaint: stroke Subjective: No new changes NO CHANGES IN POWER. NON VERBAL. RESTLESS. HAS CHRONIC PAIN FROM ARTHRITIS. Review of Systems is unable to be obtained General: Weakness Physical Examination - Vital Signs Temperature: 98.0 F Blood Pressure: 183/91 Pulse: 92 Respirations: 12 Pulse Ox (%): 96 - Physical Exam General: Alert, Confused, Other (NON VERBAL. TRIES TO TALK BUT NOT MAKING SENSE.) HEENT: Atraumatic, PERRLA, EOMI Neck: Supple, JVD not distended Respiratory: Clear to auscultation bilaterally, Normal air movement Cardiovascular: Regular rate/rhythm, Normal S1 S2 Gastrointestinal: Normal bowel sounds, No tenderness Musculoskeletal: No tenderness Integumentary: No rashes Neurological: Abnormal speech, Abnormal strength (R HEMIPARESIS.) Lymphatics: No axilla or inguinal lymphadenopathy - Studies Medications List Reviewed: Yes Assessment And Plan - Current Problems (Diagnosis) (1) Brainstem hemorrhage Current Visit: Yes Status: Acute Plan: BP USUALLY GOES HIGH AFTER A STROKE OF ANY KIND IV MEDS WERE USED TO CONTROL. NOW BP IS LOWER AND THE DRIP OF NICARDINE IS OFF. I ASKED FOR LOPRESSOR IV AND NITROPATCH. NPO FOR NOW AND MOST LIKELY NH WITH HOSPICE. IF GETS WORSE WILL DO GIP AT HOSPITAL. DISCUSSED WITH SON IN DETAIL. HE AGREEES WITH ALL INCLUDING DNR STATUS PER HIS WISH. AIR MATTRESS PT CONSULT. RESTLESS CHRONIC. NOT ABLE TO SWALLOW ANY MEDS OR FOODS. NEED ST CONSULT. CHRONIC PAIN. IV DILAUDID WILL CHANGE TO DURAGESIC PATCH. CURRENTLY NPO FOR ALL MEDS. Qualifiers: Intracerebral hemorrhage etiology: nontraumatic
[2024-05-16] MEDS: CLONIDINE 0.2 MG/PATCH TD SCH (11:50)
[2024-05-16] MEDS: FENTANYL 25 MCG/PATCH TD SCH (11:50)
[2024-05-16] MEDS: dexAMETHasone 4 MG/ML VIAL IV SCH (11:52)
[2024-05-16] MEDS: HYDRALAZINE HCL 20 MG/ML VIAL IV PRN (23:11)
[2024-05-17] MEDS: ENOXAPARIN 40 MG/0.4 ML SQ SCH (08:49)
[2024-05-17] MEDS: CLONIDINE 0.3 MG/PATCH TD SCH (11:04)
--- NOTE | 2024-05-17 13:37 | RAD REPORT ---
EXAM DESCRIPTION: Yonatan Single View05/17/2024 1:24 pm CLINICAL HISTORY: Wheezing COMPARISON: May 15, 2024 and 2022 FINDINGS: Chronic elevation right hemidiaphragm The lungs appear clear of acute infiltrate. The heart is normal size IMPRESSION: No acute abnormalities displayed
[2024-05-17] MEDS: ALBUTEROL 2.5 MG/3 ML NEB SOL NEB SCH (14:15)
--- NOTE | 2024-05-17 17:06 | EKG ---
Test Date: 2024-05-15 Test Time: 04:42:24 Digital Project Coordinator: MEASUREMENT RESULTS: Intervals: Rate: 74 OH: 192 QRSD: 90 QT: 406 QTc: 450 [place]: P: 73 OH: 192 QRS: 55 T: 89 INTERPRETIVE STATEMENTS: Sinus rhythm with fusion complexes Nonspecific ST and T wave abnormality Abnormal ECG Compared to ECG 05/05/2023 14:56:47 Fusion complex(es) now present ST (T wave) deviation still present Electronically Signed On 05-17-24 17:00:30 CDT by Colten Macario
--- NOTE | 2024-05-17 21:11 | P.PN ---
Subjective Date of Service: 05/17/24 Chief Complaint: stroke Subjective: Improving NO CHANGES IN POWER. NON VERBAL. RESTLESS. HAS CHRONIC PAIN FROM ARTHRITIS. HE HAS STARTED TO TALK AFTER STEROIDS. Review of Systems is unable to be obtained Physical Examination - Vital Signs Temperature: 98.8 F Blood Pressure: 161/82 Pulse: 115 Respirations: 18 Pulse Ox (%): 95 - Physical Exam General: Acute distress, Mild distress (WHEEZES TODAY.) HEENT: Atraumatic, PERRLA, EOMI Neck: Supple, JVD not distended Respiratory: Diminished, Rhonchi/gurgles Cardiovascular: Regular rate/rhythm, Normal S1 S2 Gastrointestinal: Normal bowel sounds, No tenderness Musculoskeletal: No tenderness Integumentary: No rashes Neurological: Abnormal speech, Abnormal strength (HEMIPLEGIA.) Lymphatics: No axilla or inguinal lymphadenopathy - Studies Medications List Reviewed: Yes Assessment And Plan - Current Problems (Diagnosis) (1) Brainstem hemorrhage Current Visit: Yes Status: Acute Plan: BP USUALLY GOES HIGH AFTER A STROKE OF ANY KIND IV MEDS WERE USED TO CONTROL. NOW BP IS LOWER AND THE DRIP OF NICARDINE IS OFF. I ASKED FOR LOPRESSOR IV AND NITROPATCH. NPO FOR NOW AND MOST LIKELY NH WITH HOSPICE. IF GETS WORSE WILL DO GIP AT HOSPITAL. DISCUSSED WITH SON IN DETAIL. HE AGREEES WITH ALL INCLUDING DNR STATUS PER HIS WISH. AIR MATTRESS PT CONSULT. RESTLESS CHRONIC. NOT ABLE TO SWALLOW ANY MEDS OR FOODS. NEED ST CONSULT. CHRONIC PAIN. IV DILAUDID WILL CHANGE TO DURAGESIC PATCH. CURRENTLY NPO FOR ALL MEDS. WAITING FOR [facility] ST EVAL PT EVAL REHAB OR NH. I WILL PREER SNF WITH HOSPIE. Qualifiers: Intracerebral hemorrhage etiology: nontraumatic
[2024-05-18 04:33] LABS: Absolute Basophils 0.1 K/uL (0-0.5); Absolute Lymphocytes (CBC) 1.4 K/uL (0.7-4.9); Absolute Monocytes 1.6 K/uL (0.1-1.3); Absolute Neutrophil 8.7 K/uL (1.8-8.0); Basophils % 0.7 % (0-1.3); Eosinophils % 0.2 % (0-4.4); Hematocrit 33.1 % (39.6-49.0); Hemoglobin 11.4 g/dL (13.6-17.9); Lymphocytes % 11.5 % (15.3-44.8); MCH 30.9 pg (27.0-35.0); MCHC 34.5 g/dL (32.0-36.0); MCV 89.7 fL (80-100); Monocytes % 13.8 % (3.3-12.3); Neutrophils % 73.8 % (41.7-73.7); Platelets 335 thou/uL (152-406); RBC Red Blood Cell Count 3.69 M/uL (4.33-5.43); Red Cell Distribution Width 14.1 % (12.1-15.2)
[2024-05-18 04:47] LABS: Anion Gap 10.8 mEq/L (5.0-15.0); Potassium 3.8 mEq/L (3.5-5.1)
--- NOTE | 2024-05-18 12:19 | RAD REPORT ---
EXAM DESCRIPTION: RAD - Barium Swallow Modified - 05/18/2024 11:28 am CLINICAL HISTORY: CVA FINDINGS: Delay in onset of swallow with pooling in valleculae and pyriforms before swallow. Retrop ulsion of bolus from esophagus to pyriforms after the swallow requiring an additional swallow to haresh r. No aspiration noted Twenty fluoroscopic spot images obtained. Fluoroscopy time 4.5 minutes
[2024-05-18] MEDS ORDERED: ACETAMINOPHEN 500 MG TAB PO PRN (17:54)
[2024-05-18] MEDS ORDERED: TRAMADOL HCL 50 MG TAB PO PRN (17:54)
[2024-05-18] MEDS ORDERED: HOME MED 1 EA UNK (Ropinirole Hcl [Ropinirole Hcl] 0.5 MG Tablet) PO SCH (21:00)
[2024-05-18] MEDS ORDERED: MINOXIDIL 10 MG PO SCH (21:00)
[2024-05-18] MEDS: ROPINIROLE HCL 0.25 MG TAB PO SCH (21:59)
[2024-05-18] MEDS: TRAZODONE 50 MG TABLET PO SCH (21:59)
[2024-05-18] MEDS: DONEPEZIL HCL 5 MG TAB PO SCH (21:59)
[2024-05-18] MEDS: minoxidiL 2.5 MG TAB PO SCH (21:59)
[2024-05-19] MEDS: LEVOTHYROXINE SOD 0.075 MG TAB PO SCH (04:36)
[2024-05-19] MEDS: HYDRALAZINE HCL 20 MG/ML VIAL IV PRN (04:37)
[2024-05-19 04:38] LABS: Absolute Basophils 0.1 K/uL (0-0.5); Absolute Eosinophils 0.3 K/uL (0-0.5); Absolute Lymphocytes (CBC) 1.8 K/uL (0.7-4.9); Absolute Monocytes 1.2 K/uL (0.1-1.3); Absolute Neutrophil 6.9 K/uL (1.8-8.0); Basophils % 0.9 % (0-1.3); Eosinophils % 3.3 % (0-4.4); Hemoglobin 11.6 g/dL (13.6-17.9); Lymphocytes % 17.2 % (15.3-44.8); MCH 29.4 pg (27.0-35.0); MCHC 32.2 g/dL (32.0-36.0); MCV 91.1 fL (80-100); MPV 8.2 fL (7.6-11.3); Monocytes % 11.4 % (3.3-12.3); Neutrophils % 67.2 % (41.7-73.7); Platelets 337 thou/uL (152-406); RBC Red Blood Cell Count 3.96 M/uL (4.33-5.43); Red Cell Distribution Width 13.9 % (12.1-15.2)
[2024-05-19 04:49] LABS: Anion Gap 12.7 mEq/L (5.0-15.0); Potassium 3.7 mEq/L (3.5-5.1)
[2024-05-19] MEDS: BREXPIPRAZOLE 0.5 MG PO SCH (08:49)
[2024-05-19] MEDS ORDERED: HOME MED 1 EA UNK (Donepezil Hcl [Aricept] 10 MG Tablet) PO SCH (09:00)
[2024-05-19] MEDS ORDERED: HOME MED 1 EA UNK (Lisinopril [Lisinopril] 40 MG Tablet) PO SCH (09:00)
[2024-05-19] MEDS: DULOXETINE 30 MG CAP PO SCH (09:16)
[2024-05-19] MEDS: PROPRANOLOL HCL 80 MG SA CAP PO SCH (09:17)
[2024-05-19] MEDS: lisinopriL 20 MG TAB PO SCH (09:17)
[2024-05-19] MEDS: AMLODIPINE 5 MG TAB PO SCH (09:17)
--- NOTE | 2024-05-19 18:22 | P.PN ---
Subjective Date of Service: 05/18/24 Chief Complaint: stroke Subjective: Improving NO CHANGES IN POWER. NON VERBAL. RESTLESS. HAS CHRONIC PAIN FROM ARTHRITIS. HE HAS STARTED TO TALK AFTER STEROIDS. HE IS WHEEZING TODAY. FAMILY AT BEDSIDE. HOME HEALTH CLINICIAN FU DONE. Review of Systems 10-point ROS is otherwise unremarkable General: Weakness Physical Examination - Vital Signs Temperature: 98.5 F Blood Pressure: 157/72 Pulse: 72 Respirations: 18 Pulse Ox (%): 98 - Physical Exam General: Oriented x1, Moderate distress HEENT: Atraumatic, PERRLA, EOMI Neck: Supple, JVD not distended Respiratory: Clear to auscultation bilaterally, Normal air movement Cardiovascular: Regular rate/rhythm, Normal S1 S2 Gastrointestinal: Normal bowel sounds, No tenderness Musculoskeletal: No tenderness Integumentary: No rashes Neurological: Abnormal speech, Abnormal strength Lymphatics: No axilla or inguinal lymphadenopathy - Studies Medications List Reviewed: Yes Assessment And Plan - Current Problems (Diagnosis) (1) Brainstem hemorrhage Current Visit: Yes Status: Acute Plan: BP USUALLY GOES HIGH AFTER A STROKE OF ANY KIND IV MEDS WERE USED TO CONTROL. NOW BP IS LOWER AND THE DRIP OF NICARDINE IS OFF. I ASKED FOR LOPRESSOR IV AND NITROPATCH. NPO FOR NOW AND MOST LIKELY NH WITH HOSPICE. IF GETS WORSE WILL DO GIP AT HOSPITAL. DISCUSSED WITH SON IN DETAIL. HE AGREEES WITH ALL INCLUDING DNR STATUS PER HIS WISH. AIR MATTRESS PT CONSULT. RESTLESS CHRONIC. NOT ABLE TO SWALLOW ANY MEDS OR FOODS. NEED ST CONSULT. CHRONIC PAIN. IV DILAUDID WILL CHANGE TO DURAGESIC PATCH. CURRENTLY NPO FOR ALL MEDS. WAITING FOR [facility] EVAL PT EVAL REHAB OR NH. I WILL PREER SNF WITH HOSPIE. CONT PT NH ADVISED Qualifiers: Intracerebral hemorrhage etiology: nontraumatic (2) Bronchitis Current Visit: Yes Status: Acute Plan: NEBULIZER THERAPY CXR. 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
--- NOTE | 2024-05-19 18:24 | P.PN ---
Subjective Date of Service: 05/19/24 Chief Complaint: stroke Subjective: No new changes NO CHANGES IN POWER. NON VERBAL. RESTLESS. HAS CHRONIC PAIN FROM ARTHRITIS. HE HAS STARTED TO TALK AFTER STEROIDS. HE IS WHEEZING TODAY. FAMILY AT BEDSIDE. TREE INSPECTOR FU DONE. AGITATION, NOT ONE TO STAY IN BED TREE INSPECTOR CALLED THAT NH HAS BEEN APPROVED FOR TOMORROW SON DOES NOT WANT HOSPICE FOR NOW. Review of Systems 10-point ROS is otherwise unremarkable General: Weakness Physical Examination - Vital Signs Temperature: 98.5 F Blood Pressure: 157/72 Pulse: 72 Respirations: 18 Pulse Ox (%): 98 - Physical Exam General: Acute distress, Mild distress HEENT: Atraumatic, PERRLA, EOMI Neck: Supple, JVD not distended Respiratory: Clear to auscultation bilaterally, Normal air movement Cardiovascular: Regular rate/rhythm, Normal S1 S2 Gastrointestinal: Normal bowel sounds, No tenderness Musculoskeletal: No tenderness Integumentary: No rashes Neurological: Normal speech, Abnormal strength (RIGHT HEMIPLEGIA. ), Abnormal tone, Abnormal affect Lymphatics: No axilla or inguinal lymphadenopathy - Studies Medications List Reviewed: Yes Assessment And Plan - Current Problems (Diagnosis) (1) Brainstem hemorrhage Current Visit: Yes Status: Acute Plan: WITHOUT HOSPICE HE MAY END UP IN ER AGAIN [facility] IS ABLE TO CONVERT HIM TO HOSPICE SOON. MBS PARTIAL FAILED ST ADVISED MINCED DIET. Qualifiers: Intracerebral hemorrhage etiology: nontraumatic (2) Bronchitis Current Visit: Yes Status: Acute Plan: NEBULIZER THERAPY CXR. 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
[2024-05-20 05:20] LABS: Absolute Basophils 0.1 K/uL (0-0.5); Absolute Eosinophils 0.7 K/uL (0-0.5); Absolute Lymphocytes (CBC) 1.4 K/uL (0.7-4.9); Absolute Monocytes 1.2 K/uL (0.1-1.3); Absolute Neutrophil 7.9 K/uL (1.8-8.0); Basophils % 0.7 % (0-1.3); Eosinophils % 6.3 % (0-4.4); Hemoglobin 11.8 g/dL (13.6-17.9); Lymphocytes % 12.7 % (15.3-44.8); MCH 29.3 pg (27.0-35.0); MCHC 31.9 g/dL (32.0-36.0); MCV 91.8 fL (80-100); MPV 8.6 fL (7.6-11.3); Neutrophils % 69.3 % (41.7-73.7); Platelets 360 thou/uL (152-406); RBC Red Blood Cell Count 4.03 M/uL (4.33-5.43); Red Cell Distribution Width 13.9 % (12.1-15.2)
[2024-05-20 05:28] LABS: Anion Gap 8.7 mEq/L (5.0-15.0); Potassium 3.7 mEq/L (3.5-5.1)
--- NOTE | 2024-05-20 10:35 | RAD REPORT ---
EXAMINATION: ONE VIEW CHEST XR CLINICAL INDICATION: Male, 88 years old. Shortness of breath. TECHNIQUE: 1 View, AP supine, X-ray of the chest was performed. [id number]. COMPARISON: No prior exam. FINDINGS: Lungs and pleura: Clear lungs. No effusion. Similar mild right hemidiaphragm elevation. Heart and mediastinum: Normal heart size. Unremarkable mediastinal contours. Osseous structures: No acute abnormality. Tubes/lines: None Other: None. IMPRESSION: No acute intrathoracic abnormality.
--- NOTE | 2024-05-20 12:01 | P.DS ---
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 HE HAS BASAL GANGLIA HEMORRHAGE. HE HAS DNR STATUS AND SON WAS CALLED THIS AM. I SAW PATIENT IN ER AND SON WAS AT BEDSIDE. HE HAS HAD MANY MEDICAL ISSUES LIKE SEVERE ARTHRITIS, HTN, DEMENTIA, SEVERE ANXIETY ETC AND HE WAS SUFFERING A LOT BEFORE STROKE. CHARO IS GETTING WORSE DAILY. HE IS SHORT OF BREATH TODAY. HE HAD WBC ELEVATION. HE IS POSSIBLY ASPIRATION ON HIS OWN SALIVA BECAUSE OF STROKE. I ASKED THE SON TO NOT TAKE HIM TO NH WITHOUT HOSPICE OTHERWISE HE WILL BE BACK IN A DAY OR SO. HE ASKED FOR IN PATIENT HOSPICE AND I BELIEVE HE WILL QUALIFY. Vital Signs/Physical Exam: Temp Pulse Resp BP Pulse Ox 98.3 F 82 21 H 156/67 H 91 05/20/24 08:00 05/20/24 08:40 05/20/24 08:00 05/20/24 08:40 05/20/24 08:00 Laboratory Data at Discharge: WBC 11.40 thou/uL (4.3-10.9) H 05/20/24 04:24 Hgb 11.8 g/dL (13.6-17.9) L 05/20/24 04:24 Hct 37.0 % (39.6-49.0) L 05/20/24 04:24 Plt Count 360 thou/uL (152-406) 05/20/24 04:24 PT 10.9 SECONDS (9.4-12.5) 05/15/24 04:27 INR 0.97 05/15/24 04:27 APTT 34.5 SECONDS (24.3-36.9) 05/15/24 04:27 Sodium 138 mEq/L (136-145) 05/20/24 04:24 Potassium 3.7 mEq/L (3.5-5.1) 05/20/24 04:24 BUN 30 mg/dL (7-18) H 05/20/24 04:24 Creatinine 0.82 mg/dL (0.70-1.30) 05/20/24 04:24 Glucose 104 mg/dL (74-106) 05/20/24 04:24 Magnesium 2.2 mg/dL (1.6-2.4) 05/15/24 04:27 Total Bilirubin 0.4 mg/dL (0.2-1.0) 05/15/24 04:27 AST 17 U/L (15-37) 05/15/24 04:27 ALT 20 U/L (16-61) 05/15/24 04:27 Alkaline Phosphatase 64 U/L (45-117) 05/15/24 04:27 LDL Cholesterol Direct 118 mg/dL (100-129) 05/18/24 04:14 Home Medications: Acetaminophen [Tylenol Extra Strength] 1 tab PO Q8H PRN 05/15/24 Acetaminophen [Tylenol Extra Strength] 2 tab PO BID PRN 05/15/24 Amlodipine [Norvasc*] 5 mg PO DAILY 05/15/24 Brexpiprazole [Rexulti] 0.5 mg PO DAILY 05/15/24 Clotrim/Betameth Cream [Lotrisone Cream*] 1 appl TOP BID 05/15/24 Donepezil HCl [Aricept] 10 mg PO DAILY 05/15/24 Duloxetine HCl 30 mg PO DAILY 05/15/24 Levothyroxine [Synthroid*] 75 mcg PO [id number] 05/15/24 Minoxidil 10 mg PO TID 05/15/24 Montelukast [Singulair*] 10 mg PO DAILY 05/15/24 Pantoprazole Sodium [Protonix] 1 tab PO DAILY 05/15/24 Propranolol HCl [Propranolol HCl ER] 1 cap PO DAILY 05/15/24 Ropinirole HCl 0.5 mg PO TID 05/15/24 Tramadol HCl [Ultram] 1 tab PO Q8HR PRN 05/15/24 Trazodone [Desyrel*] 50 mg PO BEDTIME 05/15/24 Ubidecarenone [Coenzyme Q10*] 1 cap PO DAILY 05/15/24 lisinopriL [Lisinopril] 40 mg PO DAILY 05/15/24 Followup: Hector Pedroza MD [Primary Care Provider] - 1-2 Weeks
[2024-05-20 12:47] VITALS: BP 157/78; TEMP 98
[2024-05-20 16:22] VITALS: O2SAT 92
--- NOTE | 2024-05-20 16:23 | EKG ---
Test Date: 2024-05-19 Test Time: 13:44:19 Radio Host: ARIANNE MEASUREMENT RESULTS: Intervals: Rate: 88 NE: 192 QRSD: 92 QT: 384 QTc: 464 [place]: P: 28 NE: 192 QRS: 51 T: 181 INTERPRETIVE STATEMENTS: Normal sinus rhythm T wave abnormality, consider inferolateral ischemia Prolonged QT Abnormal ECG Compared to ECG 05/15/2024 04:42:24 T-wave abnormality now present Possible ischemia now present Prolonged QT interval now present Fusion complex(es) no longer present ST (T wave) deviation no longer present Electronically Signed On 05-20-24 16:21:36 CDT by Kennedy Isaac
== END 2024-05-20 16:04 | disposition hospice, inpatient (51) | DRG 987 ==
LOC: ER 04:14 → ERHOLD 06:50 → 3RD-ICU 08:05 → 2ND 18:30
PROVIDERS: ADMIT Internal Medicine; ATTEND Internal Medicine
PROC: 0JQ10ZZ Repair Face Subcutaneous Tissue and Fascia, Open Approach (ICD-10-PCS; principal; 2024-05-15)
PROC: 0T9B70Z Drainage of Bladder with Drainage Device, Via Natural or Artificial Opening (ICD-10-PCS; 2024-05-15)
DX: I63.9 Cerebral infarction, unspecified (principal); I61.3 Nontraumatic intracerebral hemorrhage in brain stem; I16.1 Hypertensive emergency; F02.84 Dementia in other diseases classified elsewhere, unspecified severity, with anxiety; G81.91 Hemiplegia, unspecified affecting right dominant side; G30.9 Alzheimer's disease, unspecified; I10 Essential (primary) hypertension; F41.9 Anxiety disorder, unspecified; G25.81 Restless legs syndrome; F32.9 Major depressive disorder, single episode, unspecified; M19.90 Unspecified osteoarthritis, unspecified site; I49.3 Ventricular premature depolarization; J20.9 Acute bronchitis, unspecified; I25.10 Atherosclerotic heart disease of native coronary artery without angina pectoris; S01.412A Laceration without foreign body of left cheek and temporomandibular area, initial encounter; R29.724 NIHSS score 24; Z51.5 Encounter for palliative care; Z95.5 Presence of coronary angioplasty implant and graft; Z90.49 Acquired absence of other specified parts of digestive tract; Z86.73 Personal history of transient ischemic attack (TIA), and cerebral infarction without residual deficits; Z79.890 Hormone replacement therapy; Z79.899 Other long term (current) drug therapy
CPT/HCPCS: 12011; 36415; 51702; 70450; 71045; 74230; 80048; 80076; 80307; 81001; 82077; 82947; 83735; 84439; 84443; 84484; 85025; 85610; 85730; 87086; 87088; 92610; 92611; 93005; 94640; 94760; 96372; 97110; 97161; 97530; 99285; J0360; J1100; J1170; J1650; J2001; J2405; J3486; J7030; J7613; J7799

== ENCOUNTER 2024-05-20 16:11 | Inpatient (IN) | payer OTHER ==
[2024-05-20] MEDS ORDERED: BISACODYL 10 MG RECTAL SUPP PR PRN (19:29)
[2024-05-20] MEDS: LORazepam 2 MG/ML VIAL IV SCH (19:53)
[2024-05-20] MEDS: HYDROMORPHONE HCL 1 MG/ML INJ IV SCH (19:53)
[2024-05-20] MEDS: NA CHLORIDE 0.9% 1,000 ML IV SCH (20:00)
[2024-05-20] MEDS: SCOPOLAMINE HYDROBROMIDE PATCH TD SCH (20:04)
[2024-05-20] MEDS: NACHLORIDE 0.45% 1,000 ML IV SCH (20:46)
[2024-05-20 20:57] VITALS: BP 150/64; TEMP 97.4
[2024-05-20 23:40] VITALS: O2SAT 99
--- NOTE | 2024-05-22 11:54 | P.SSS ---
Patient History Date of Service: 05/22/24 Reason for admission: MAJOR STROKE History of Present Illness: CHARO HAS HAD A HEMORRHAGIC STROKE. HE KEPT STAYING CONFUSED AND HAD HEMIPLEGIA. GRADUALLY HE BECAME SHORT OF BREATH. PER HIS SON WE KEPT HIM ON DNR STATUS, CHANGED TO HOSPICE AND HE EXPECTED. Allergies No Known Allergies Allergy (Verified 11/08/21 10:13) Home Medications: Acetaminophen [Tylenol Extra Strength] 1 tab PO Q8H PRN 05/15/24 Acetaminophen [Tylenol Extra Strength] 2 tab PO BID PRN 05/15/24 Amlodipine [Norvasc*] 5 mg PO DAILY 05/15/24 Brexpiprazole [Rexulti] 0.5 mg PO DAILY 05/15/24 Clotrim/Betameth Cream [Lotrisone Cream*] 1 appl TOP BID 05/15/24 Donepezil HCl [Aricept] 10 mg PO DAILY 05/15/24 Duloxetine HCl 30 mg PO DAILY 05/15/24 Levothyroxine [Synthroid*] 75 mcg PO [id number] 05/15/24 Minoxidil 10 mg PO TID 05/15/24 Montelukast [Singulair*] 10 mg PO DAILY 05/15/24 Pantoprazole Sodium [Protonix] 1 tab PO DAILY 05/15/24 Propranolol HCl [Propranolol HCl ER] 1 cap PO DAILY 05/15/24 Ropinirole HCl 0.5 mg PO TID 05/15/24 Tramadol HCl [Ultram] 1 tab PO Q8HR PRN 05/15/24 Trazodone [Desyrel*] 50 mg PO BEDTIME 05/15/24 Ubidecarenone [Coenzyme Q10*] 1 cap PO DAILY 05/15/24 lisinopriL [Lisinopril] 40 mg PO DAILY 05/15/24 - Past Medical/Surgical History Diabetic: No -: Hypertension -: Depression -: CAD -: CVA -: Dementia -: Appendectomy -: Cardiac Cath - 1 stent Psychosocial/ Personal History: Patient lives at [facility]. - Family History Mother -: Cancer Notes: AA Father -: Stroke - Social History Alcohol use: No CD- Drugs: No Caffeine use: No Review of Systems is unable to be obtained Physical Examination - Vital Signs Temperature: 97.4 F Blood Pressure: 150/64 Pulse: 78 Respirations: 20 Pulse Ox (%): 99 - Physical Exam General: Moderate distress, Comatose, Other Neck: Supple Respiratory: Rhonchi/gurgles (RAPID BREATHING.) Cardiovascular: Irregular heart rate/rhythm - Diagnosis (Problem(s)) (1) Brainstem hemorrhage Status: Acute Plan: WITHIN A DAY ON HOSPICE HE WAS KEPT COMFORTABLE. MEDS DILAUIDID, ATIVAN, SCOP PATCH. Qualifiers: Intracerebral hemorrhage etiology: nontraumatic - Disposition Disposition:
== END 2024-05-21 10:42 | disposition expired | DRG 951 ==
LOC: 2ND 16:11
PROVIDERS: ADMIT Internal Medicine; ATTEND Internal Medicine
DX: Z51.5 Encounter for palliative care (principal)
CPT/HCPCS: J1170